=== PATIENT | male | born 1945 | race Caucasian/White ===

== ENCOUNTER 2018-06-19 12:52 | Emergency (ER) | payer MEDICARE, OTHER, SELFPAY ==
[2018-06-19 12:53] VITALS: BP 234/117; PULSE 77; RESP 18; TEMP 35.8; O2SAT 95; BMI 30.2
--- NOTE | 2018-06-19 12:57 | EKG12_ITS ---
Test Reason : CP Blood Pressure : / mmHG Vent. Rate : 080 BPM Atrial Rate : 080 BPM P-R Int : 136 ms QRS Dur : 092 ms QT Int : 386 ms P-R-T Axes : 054 -29 054 degrees QTc Int : 445 ms Normal sinus rhythm Possible Left atrial enlargement Left ventricular hypertrophy Nonspecific ST abnormality Abnormal ECG Confirmed by RAMBO WARD MD ([id number]), department editor SIMON KERNS ([id number]) on 06/22/2018 3:30:52 PM Referred By: ALON
--- NOTE | 2018-06-19 13:00 | RAD_ITS ---
STUDY: X-RAY CHEST REASON FOR EXAM: Male, 73 years old. Chest pain. TECHNIQUE: PA and lateral views of the chest. COMPARISON: None. FINDINGS: The lungs are clear and expanded. There is no demonstrated pleural abnormality. Normal size heart. There are calcified bilateral hilar lymph nodes. Normal visualized pulmonary arteries. There is atherosclerotic tortuosity of the aortic arch and descending thoracic aorta. There are degenerative changes of the visualized thoracic spine. Normal visualized ribs, clavicles, and shoulders. There is no demonstrated abnormality of the visualized soft tissue structures of the upper abdomen. RAD/Chest PA and Lateral IMPRESSION: No acute abnormality is seen. Electronically Signed: Mohit Frey MD at 13:18 EST Tel [phone], Service support ,
[2018-06-19 14:25] VITALS: BP 218/115; PULSE 77; RESP 23; O2SAT 96
[2018-06-19 14:41] LABS: Absolute Lymphocyte Count 1.53 X10^3/ul (0.83-4.51); Absolute Neutrophil Count 6.8 X10^3/uL (2.0-7.7); Basophil# 0.03 X10^3/uL; Basophil% 0.3 % (0-1); Eosinophil# 0.19 X10^3/uL; Eosinophils% 2.1 % (0-5); Hematocrit 46.6 % (40-54); Hemoglobin 14.7 g/dl (13.0-16.5); Lymphocyte # 1.53 X10^3/ul (4.0); Lymphocyte % 16.6 % (19-41); Mean Corp Hgb Conc 31.5 g/gl (32-36); Mean Corpuscular Hgb 28.8 pg (27.0-32.0); Mean Corpuscular Volume 91.4 fL (80-94); Mean Platelet Vol. 10.9 fl (6.2-12.0); Monocyte# 0.64 X10^3/uL; Monocyte% 6.9 % (0-10); Neutrophil # 6.83 X10^3/uL (2.7-7.7); Neutrophil % 74.1 % (47-70); Platelet Count 343 K/mm3 (150-450); RBC Distribution Width SD 46.8 fl (35.1-43.9); White Blood Count 9.2 K/mm3 (4.4-11.0)
[2018-06-19 14:42] LABS: POSITIVE COUNT NO; POSITIVE DIFFERENTIAL NO; POSITIVE MORPHOLOGY NO
[2018-06-19 14:52] LABS: Anion Gap 6 (5-15); BUN 16 mg/dL (7-18); Calcium,Total 8.8 mg/dL (8.5-10.1); Chloride 104 mmol/L (98-107); Creatinine, Serum 1.23 mg/dL (0.70-1.30); EST Glomerular Filtration Rate 62 mL/min (>60); Est Glom Filt Rate - Afr Amer 75 mL/min (>60); Estimated Creatinine Clearance 58.67 ml/min; Glucose 131 mg/dL (74-106); Potassium 4.1 mmol/L (3.5-5.1); Sodium Level 138 mmol/L (136-145)
[2018-06-19 15:29] VITALS: BP 225/110; PULSE 76; RESP 16; O2SAT 93
[2018-06-19] MEDS: Mag Hydrox/Al Hydrox/Simeth 30 ML UDC PO (15:53)
[2018-06-19 15:57] VITALS: BP 220/118; PULSE 75; RESP 158; O2SAT 94
[2018-06-19 17:01] VITALS: BP 204/106; PULSE 70; RESP 16; O2SAT 93
[2018-06-19] MEDS: Ketorolac 30 MG/ML Syringe IV (17:11)
--- NOTE | 2018-06-19 17:45 | ED.VISSUMM ---
- ER Visit Summary Date of Service: 06/19/18 Chief Complaint: Chest pain History of Present Illness: The patient is a 73 M who states that today around 11:00 he began to have pain in his back which he states is very similar to when his ribs go out. He states that when he arches his back makes the pain go away. He has had that problem before and has seen both chiropractor and his family physician for manipulation with good results. He also states he gets esophageal spasms and feels like he is having one now and that combined with his pain from his ribs is making this severe. He states he would normally come to the hospital but significant other has made him. He denies any prior stress test or heart catheterization. States his normal systolic blood pressures in the 150-180 range. Former smoker. Physical Examination: Patient is hypertensive 218/115 heart rate is 77 respirations are 23 pulse ox is 96% Gen: Well-nourished well-developed Head: Normocephalic atraumatic Eyes: Perrl EOMI ENT: TMs clear no rhinorrhea moist mucous membranes Neck: Supple no lymphadenopathy no JVD nontender CVS: Regular rate rhythm no murmurs normal S1-S2 Respiratory: No distress clear to auscultation bilaterally chest nontender Abdomen: Soft nontender nondistended normal bowel sounds no masses Back: Tender to palpation over the mid thoracic spinal musculature with hyperemic effect. Anterior associated ribs are tender. Extremity: Nontender no edema Skin: Normal color no rash Neuro: alert orientated ?3 CN II-XII intact normal strength sensation reflexes gait cerebellar Psych: Normal affect normal mood Test Results: EKG sinus at a rate of 80. Chest x-ray negative. First troponin less than 0.015. Delta troponin is positive. Emergency Department Course and Treatment: Patient underwent OMM HVLA with good temporary relief of symptoms. The patient stated that he wished to leave. I informed him that there is high likelihood he was having an acute vascular emergency such as ACS or dissection of the aorta or pulmonary embolism. He states that he wishes to go home he does not wish to stay here. He is not under the influence of any medications. He states he needs to go home and feed animals. While I disagree with this decision I believe he has the capacity to make that decision. He will be signing out AGAINST MEDICAL ADVICE SUSAN score 2 Impression: 1. Acute chest pain 2. N STEMI 3. Thoracic somatic dysfunction 4. Osteopathic manipulative treatment of thoracic spine 5. Critical care time 35 minutes This note was generated with [employer] dictation software. It may contain incorrect words, spelling, and punctuation that were not noted in review of the chart prior to signing ED Disposition - Plan for ED Patient: Disposition: Against Medical Advice Chief Complaint: Chest Pain Instructions: Discharge Instructions for Heart Attack Referrals: Ronni Jefferson DO [COURTESY STAFF PHYSICIAN] - As soon as possible Additional Instructions: You should start a full strength aspirin (325 mg) every day You need to call your doctor soon as possible to arrange for stress test You are at very high risk for sudden and heart attack. Please feel free to return to the emergency department for admission if you change your mind.
[2018-06-19 17:58] VITALS: BP 195/100; PULSE 72; RESP 16; O2SAT 95
== END 2018-06-19 18:03 | disposition left against medical advice (07) ==
PROVIDERS: Emergency Provider Emergency Medicine
DX: I21.4 Non-ST elevation (NSTEMI) myocardial infarction (principal); M99.02 Segmental and somatic dysfunction of thoracic region; R07.9 Chest pain, unspecified; I10 Essential (primary) hypertension; Z87.891 Personal history of nicotine dependence; Z79.82 Long term (current) use of aspirin; Z79.899 Other long term (current) drug therapy
CPT/HCPCS: 71046; 80048; 84484; 85025; 93005; 96374; 99285; A4216

== ENCOUNTER 2018-06-20 03:32 | Inpatient (IN) | payer MEDICARE, OTHER, SELFPAY ==
[2018-06-20] VITALS (66 sets, daily range): BP systolic 73–241; BP diastolic 46–125; PULSE 71–92; RESP 11–29; TEMP 36.4–38.4; O2SAT 91–100; BMI 30.2; BMI 30.9; BMI 31.0
--- NOTE | 2018-06-20 03:41 | ED.RN ---
CALLED FOR EKG PER RN REQUEST, PULLED OLD EKG FOR
--- NOTE | 2018-06-20 03:53 | EKG12_ITS ---
Test Reason : Blood Pressure : / mmHG Vent. Rate : 086 BPM Atrial Rate : 086 BPM P-R Int : 154 ms QRS Dur : 090 ms QT Int : 392 ms P-R-T Axes : 051 -40 044 degrees QTc Int : 469 ms Normal sinus rhythm Possible Left atrial enlargement Left axis deviation Left ventricular hypertrophy Abnormal ECG Confirmed by ED CABALLERO, RAMBO ([id number]), supervising editor trailer SIMON KERNS ([id number]) on 06/22/2018 3:30:35 PM Referred By: FABIOLA Confirmed By:RAMBO WARD MD
--- NOTE | 2018-06-20 03:53 | CT_ITS ---
STUDY: CTA CHEST REASON FOR EXAM: Male, 73 years old. Chest pain RADIATION DOSAGE (If Supplied By Facility): CTDIvol = ( 17.13 ) mGy, DLP = ( 625.35 ) mGycm TECHNIQUE: The examination was performed with the intravenous administration of 100 ml of Isovue 370 contrast material. Post-processing of the angiographic images was performed, with multiplanar reformation and 3D reconstruction. Individualized dose optimization techniques were used for this CT. COMPARISON: None. FINDINGS: Images obtained in the systemic arterial carotid and pulmonary arterial bolus phase with mild decrease of sensitivity for pulmonary arterial assessment. Normal enhancement of the main pulmonary artery and right and left pulmonary arteries. Normal enhancement of the bilateral peripheral pulmonary arteries. There is no demonstrated pulmonary embolism. There is atherosclerotic tortuosity of the aortic arch and descending thoracic aorta. There is a bovine arch as a vascular variant. There is no demonstrated aortic dissection. Normal heart and pericardium. There are calcifications of the coronary arteries. Normal mediastinum. Normal hilar regions. Normal visualized trachea and bronchi. The lungs are well expanded. Normal pulmonary parenchyma. Few scattered small calcified nodules probable granulomata. Normal pleura. Normal chest wall structures. Normal osseous structures. Indistinct gallbladder with indeterminate gallbladder wall, incompletely imaged, there is a 1 cm calculus in the gallbladder neck. CT/CTA Chest W/WO Contrast IMPRESSION: Normal CTA chest examination, without a demonstrated pulmonary embolism or arterial dissection. Indeterminate gallbladder, gallbladder inflammation is not excluded. Consider gallbladder ultrasound depending on patient's symptoms. Electronically Signed: Leeanne Carter MD at 5:33 EST , Service support ,
[2018-06-20] MEDS: Aspirin 81 MG TAB.CHEW 324 MG PO (04:01)
[2018-06-20] MEDS: Nitroglycerin Oint 1 INCH PACKET TRANSDERM. (04:01)
[2018-06-20 04:05] LABS: Absolute Lymphocyte Count 1.13 X10^3/ul (0.83-4.51); Absolute Neutrophil Count 14.2 X10^3/uL (2.0-7.7); Basophil# 0.03 X10^3/uL; Basophil% 0.2 % (0-1); Eosinophil# 0.02 X10^3/uL; Eosinophils% 0.1 % (0-5); Hematocrit 45.9 % (40-54); Hemoglobin 14.8 g/dl (13.0-16.5); Lymphocyte # 1.13 X10^3/ul (4.0); Lymphocyte % 6.7 % (19-41); Mean Corp Hgb Conc 32.2 g/gl (32-36); Mean Platelet Vol. 11.3 fl (6.2-12.0); Monocyte# 1.61 X10^3/uL; Monocyte% 9.5 % (0-10); Neutrophil # 14.15 X10^3/uL (2.7-7.7); Neutrophil % 83.3 % (47-70); Platelet Count 304 K/mm3 (150-450); RBC Distribution Width CV 13.7 % (11.6-14.6); RBC Distribution Width SD 45.3 fl (35.1-43.9)
[2018-06-20 04:06] LABS: Differential Indicated SCAN CRITERIA MET; POSITIVE COUNT NO; POSITIVE DIFFERENTIAL YES; POSITIVE MORPHOLOGY NO
[2018-06-20 04:18] LABS: Anion Gap 9 (5-15); BUN 17 mg/dL (7-18); BUN/Creat Ratio 13.8 RATIO (10-20); Chloride 101 mmol/L (98-107); Creatinine, Serum 1.23 mg/dL (0.70-1.30); EST Glomerular Filtration Rate 62 mL/min (>60); Est Glom Filt Rate - Afr Amer 75 mL/min (>60); Estimated Creatinine Clearance 58.67 ml/min; Glucose 160 mg/dL (74-106); Potassium 4.3 mmol/L (3.5-5.1); Sodium Level 138 mmol/L (136-145)
[2018-06-20 04:54] LABS: Anisocytosis RARE; Macrocytosis RARE; Platelet Estimate ADEQUATE (ADEQ)
--- NOTE | 2018-06-20 06:07 | ED.VISSUMM ---
- ER Visit Summary Date of Service: 06/20/18 Chief Complaint: Chest pain History of Present Illness: The patient is a 73 M presenting for evaluation secondary to chest pain. Patient was here actually yesterday for chest pain and signed out AGAINST MEDICAL ADVICE. Patient reports that at about 11 AM he had a sudden onset of chest pain that lasted about 7 hours. Dose was associated with pain that radiated straight through to his back. This seemed to get somewhat better with some osteopathic manipulation as far as the back pain goes, but the chest pain was persistent until the patient was medicated in the emergency department. 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 Patient states that his convinced him to come back to the emergency department. He has an underlying history of hypertension. Physical Examination: Vital signs are notable for blood pressure 179/89. Well-nourished male no acute distress. Moist mucous membranes. No JVD. Heart regular rate and rhythm 3 out of 6 systolic murmur of unknown chronicity. Lungs are clear to auscultation bilaterally. Abdomen soft nontender. Peripheral pulses are +2 x 4. Skin normal color. Remainder physical otherwise unremarkable. Test Results: EKG shows sinus rhythm of 86 with some left atrial enlargement, left ventricular hypertrophy, no evidence of acute ST segment changes or T wave changes, and no evolution from prior EKG. CBC shows leukocytosis now of 17, creatinine 1.23, troponin is elevated now to 0.132. Emergency Department Course and Treatment: Patient presented for evaluation secondary to chest pain. He did state that the pain initially was chest pain radiating straight through his back so I performed a CT angiogram of the chest that was negative for dissection. Patient's cardiac enzyme is upward trending. This likely is a presentation of a subacute heart attack versus acute coronary syndrome. He is chest pain-free in the emergency department but significantly hypertensive. An inch of Nitropaste was placed on the patient, he was given aspirin as well as labetalol. I discussed his case with Dr. Carlin. He recommended brilita, and the patient will be taken directly to the catheterization lab from the emergency department. Disposition: Telesales Supervisor Impression: 1. Acute coronary syndrome Critical care time 35 minutes This note was generated with [employer] software. It may contain incorrect words, spelling, and punctuation that were not noted in review of the chart prior to signing ED Disposition - Plan for ED Patient: Chief Complaint: Chest Pain Referrals: Ronni Jefferson DO [Primary Care Provider] -
[2018-06-20] MEDS: TICAGRELOR 90 MG TABLET 180 MG PO (06:09)
[2018-06-20] MEDS: diazePAM 5 MG Tablet PO (06:09)
--- NOTE | 2018-06-20 06:10 | ED.DCSUM_ITS ---
- ER Visit Summary Date of Service: 06/20/18 Chief Complaint: Chest pain History of Present Illness: The patient is a 73 M presenting for evaluation secondary to chest pain. Patient was here actually yesterday for chest pain and signed out AGAINST MEDICAL ADVICE. Patient reports that at about 11 AM he had a sudden onset of chest pain that lasted about 7 hours. Dose was associated with pain that radiated straight through to his back. This seemed to get somewhat better with some osteopathic manipulation as far as the back pain goes, but the chest pain was persistent until the patient was medicated in the emergency department. 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 Patient states that his convinced him to come back to the emergency department. He has an underlying history of hypertension. Physical Examination: Vital signs are notable for blood pressure 179/89. Well- nourished male no acute distress. Moist mucous membranes. No JVD. Heart regular rate and rhythm 3 out of 6 systolic murmur of unknown chronicity. Lungs are clear to auscultation bilaterally. Abdomen soft nontender. Peripheral pulses are +2 x 4. Skin normal color. Remainder physical otherwise unremarkable. Test Results: EKG shows sinus rhythm of 86 with some left atrial enlargement, left ventricular hypertrophy, no evidence of acute ST segment changes or T wave changes, and no evolution from prior EKG. CBC shows leukocytosis now of 17, creatinine 1.23, troponin is elevated now to 0.132. Emergency Department Course and Treatment: Patient presented for evaluation secondary to chest pain. He did state that the pain initially was chest pain radiating straight through his back so I performed a CT angiogram of the chest that was negative for dissection. Patient's cardiac enzyme is upward trending. This likely is a presentation of a subacute heart attack versus acute coronary syndrome. He is chest pain-free in the emergency department but significantly hypertensive. An inch of Nitropaste was placed on the patient, he was given aspirin as well as labetalol. I discussed his case with Dr. Carlin. He recommended brilita, and the patient will be taken directly to the cathete rization lab from the emergency department. Disposition: Turning Lathe Tender Impression: 1. Acute coronary syndrome Critical care time 35 minutes This note was generated with [employer] dictation software. It may contain incorrect words, spelling, and punctuation that were not noted in review of the chart prior to signing ED Disposition - Plan for ED Patient: Chief Complaint: Chest Pain Referrals: Ronni Jefferson DO [Primary Care Provider] -
[2018-06-20] MEDS: Labetalol 20 MG/4 ML Vial 10 MG IV (06:13)
[2018-06-20] MEDS: 0.9% Normal Saline 1,000 ML 999 ML IV (06:16)
--- NOTE | 2018-06-20 06:43 | EKG12_ITS ---
Test Reason : POST-PCI Blood Pressure : / mmHG Vent. Rate : 087 BPM Atrial Rate : 087 BPM P-R Int : 142 ms QRS Dur : 090 ms QT Int : 408 ms P-R-T Axes : 047 -35 -05 degrees QTc Int : 490 ms Normal sinus rhythm Left axis deviation Left ventricular hypertrophy Nonspecific ST abnormality Prolonged QT Abnormal ECG Confirmed by ED CABALLERO, RAMBO ([id number]), electronic news gathering editor SIMON KERNS ([id number]) on 06/23/2018 8:40:57 AM Referred By: ED Confirmed By:RAMBO WARD MD
--- NOTE | 2018-06-20 06:47 | PCM.CONS.C ---
Reason for Consult Date of Consultation: 06/20/18 Reason for Consultation: Chest pain History of Present Illness: The patient is a 73 year old M with no previous cardiac history but a history of hypertension who presented to the emergency room yesterday because of chest discomfort described as a tightness across his chest. It was associated with mild diaphoresis but no nausea or vomiting or palpitations. He was seen in the emergency room his cardiac troponin enzymes were noted to be mildly abnormal. He however wanted to go home to feed his cats, squirrels and deer. He went and did that to his satisfaction and then this morning presented back to the emergency room further cardiac enzymes were obtained and was still noted to be abnormal. His EKG however was noted to be normal his blood pressure was elevated. Cardiology was called to further evaluate him. [] Past Medical History Allergies/Adverse Reactions: Allergies No Known Allergies Allergy (Verified 06/20/18 03:37) Home Medications: Ambulatory Orders Medication Instructions Recorded Pindolol [Pindolol (Beta Marlene)] 5 mg PO BID 03/18/16 Amlodipine [Norvasc] 5 mg PO DAILY 06/19/18 Aspirin [Aspirin, Baby] 81 mg PO QODAY 06/19/18 Diazepam [Valium] 5 mg PO PRN PRN 06/19/18 Surgical History: no surgical history Lives: Spouse/ Significant Other Smoking Status: Former smoker Tobacco Use: Non-smoker Alcohol: None Drugs: None Review of Systems - Review of Systems General: Denies: Fever, Night Sweats, Fatigue HEENT: Denies: Vision Change Cardiovascular: Reports: Chest Discomfort, Chest Discomfort at Rest. Denies: Shortness of Breath, Orthopnea, PND, Peripheral Edema, Palpitations, Lightheadedness, Dizziness, Near Syncope, Syncope Respiratory: Denies: Cough, Sputum Production, Hemoptysis Gastrointestinal: Denies: Indigestion, Hematemesis, Hematochezia, Melena Genitourinary: Denies: Dysuria, Hematuria Muscoloskeletal: Denies: Myalgias Skin: Denies: Rash Neurological: Denies: Dizziness Psychiatric: Denies: Anxiety Endocrine: Denies: Unexplained Weight Loss Hematologic/ Lymphatic: Denies: Anemia Subjectve: Pleasant gentleman in no apparent distress Objective: Vital Signs Temp Pulse Resp BP Pulse Ox 100.1 F H 91 16 152/89 H 94 06/20/18 03:33 06/20/18 06:18 06/20/18 06:18 06/20/18 06:18 06/20/18 06:18 Oxygen Delivery Method Room Air Weight: 216 lb 7.903 oz Body Mass Index (BMI) 30.2 General: Awake, Alert, Oriented x 3 HEENT: PERRL, EOMI, Sclera Non Icteric Neck: Supple, Good ROM, No Lymph Node Enlargement Lungs: Clear to auscultation Cardiovascular: Regular Rhythm, Normal S1, Normal S2, No Murmurs, No Rubs, No Gallops Vascular: No Carotid Bruits, Normal Femoral Pulses, Normal Radial Pulses, Normal Dorsalis Pedal Pulse, Normal Posterior Tibial Pulses Abdomen: Bowel Sounds Present, Soft, Non Tender, No HSM, No Organomegaly Extremities: No Cyanosis, No Clubbing, No edema Skin: No Rashes Lymphatic: No Lymph Node Enlargement Neurological: No Focal Motor or Sensory Deficit Psych/Mental Status: Appropriate 06/20/18 03:37: WBC 17.0 H, RBC 5.10, Hgb 14.8, Hct 45.9, MCV 90.0, MCH 29.0, MCHC 32.2, RDW 13.7, RDW Differential 45.3 H, Plt Count 304, MPV 11.3, Immature Gran % (Auto) 0.200, Neut % (Auto) 83.3 H, Lymph % (Auto) 6.7 L, [place] % (Auto) 9.5, Eos % (Auto) 0.1, Baso % (Auto) 0.2, Absolute Neuts (auto) 14.2 H, Total Counted Not Reportable 06/20/18 03:37: Sodium 138, Potassium 4.3, Chloride 101, Carbon Dioxide 28.0, Anion Gap 9, BUN 17, Creatinine 1.23, Est GFR (MDRD) Af Amer 75, Est GFR (MDRD) Non-Af 62, BUN/Creatinine Ratio 13.8, Glucose 160 H, Calcium 9.0, Troponin I 0.132 H Rhythm: EKG: Normal sinus rhythm with a rate of 71 bpm and no acute changes Assessment/Plan 1. Chest pain-unstable angina Patient presents with recent onset chest discomfort with no EKG changes but abnormal cardiac troponin enzymes. He does have a history of hypertension and previous hyperlipidemia which is diet controlled. My recommendation at this time would be for us to pursue an invasive approach with a cardiac catheterization to assess for whether he has any obstructive coronary disease. Have discussed the above with him the risk benefits alternatives and he agrees with the above. Depending on the findings further recommendations will be made. 2. Hypertension His blood pressure is uncontrolled at this time. Would recommend continuing amlodipine Discontinue pindolol and substitute metoprolol 25 mg twice a day May need to add an SHAVON inhibitor. Lipid profile will be performed for risk stratification. Thank you for allowing me to participate in the care of your patient. Please don't hesitate to call if any issues arise Addendum. Cardiac catheterization demonstrated the following: Normal left main coronary artery. Left anterior descending artery with mild disease. Left circumflex artery with AV groove branch with 80% stenosis. Dominant large right coronary artery with 80% proximal stenosis. Preserved ejection fraction. Based on the above angiographic findings I would recommend angioplasty and stenting to the right coronary artery primarily.
--- NOTE | 2018-06-20 06:52 | CON.PCM_ITS ---
Reason for Consult Date of Consultation: 06/20/18 Reason for Consultation: Chest pain History of Present Illness: The patient is a 73 year old M with no previous cardiac history but a history of hypertension who presented to the emergency room yesterday because of chest discomfort described as a tightness across his chest. It was associated with mild diaphoresis but no nausea or vomiting or palpitations. He was seen in the emergency room his cardiac troponin enzymes were noted to be mildly abnormal. He however wanted to go home to feed his cats, squirrels and deer. He went and did that to his satisfaction and then this morning presented back to the emergency room further cardiac enzymes were obtained and was still noted to be abnormal. His EKG however was noted to be normal his blood pressure was elevated. Cardiology was called to further evaluate him. [] Past Medical History Allergies/Adverse Reactions: Allergies No Known Allergies Allergy (Verified 06/20/18 03:37) Home Medications: Ambulatory Orders Medication Instructions Recorded Pindolol [Pindolol (Beta Marlene)] 5 mg PO BID 03/18/16 Amlodipine [Norvasc] 5 mg PO DAILY 06/19/18 Aspirin [Aspirin, Baby] 81 mg PO QODAY 06/19/18 Diazepam [Valium] 5 mg PO PRN PRN 06/19/18 Surgical History: no surgical history Lives: Spouse/ Significant Other Smoking Status: Former smoker Tobacco Use: Non-smoker Alcohol: None Drugs: None Review of Systems - Review of Systems General: Denies: Fever, Night Sweats, Fatigue HEENT: Denies: Vision Change Cardiovascular: Reports: Chest Discomfort, Chest Discomfort at Rest. Denies: Shortness of Breath, Orthopnea, PND, Peripheral Edema, Palpitations, Lightheadedness, Dizziness, Near Syncope, Syncope Respiratory: Denies: Cough, Sputum Production, Hemoptysis Gastrointestinal: Denies: Indigestion, Hematemesis, Hematochezia, Melena Genitourinary: Denies: Dysuria, Hematuria Muscoloskeletal: Denies: Myalgias Skin: Denies: Rash Neurological: Denies: Dizziness Psychiatric: Denies: Anxiety Endocrine: Denies: Unexplained Weight Loss Hematologic/ Lymphatic: Denies: Anemia Subjectve: Pleasant gentleman in no apparent distress Objective: Vital Signs Temp Pulse Resp BP Pulse Ox 100.1 F H 91 16 152/89 H 94 06/20/18 03:33 06/20/18 06:18 06/20/18 06:18 06/20/18 06:18 06/20/18 06:18 Oxygen Delivery Method Room Air Weight: 216 lb 7.903 oz Body Mass Index (BMI) 30.2 General: Awake, Alert, Oriented x 3 HEENT: PERRL, EOMI, Sclera Non Icteric Neck: Supple, Good ROM, No Lymph Node Enlargement Lungs: Clear to auscultation Cardiovascular: Regular Rhythm, Normal S1, Normal S2, No Murmurs, No Rubs, No Gallops Vascular: No Carotid Bruits, Normal Femoral Pulses, Normal Radial Pulses, Normal Dorsalis Pedal Pulse, Normal Posterior Tibial Pulses Abdomen: Bowel Sounds Present, Soft, Non Tender, No HSM, No Organomegaly Extremities: No Cyanosis, No Clubbing, No edema Skin: No Rashes Lymphatic: No Lymph Node Enlargement Neurological: No Focal Motor or Sensory Deficit Psych/Mental Status: Appropriate 06/20/18 03:37: WBC 17.0 H, RBC 5.10, Hgb 14.8, Hct 45.9, MCV 90.0, MCH 29.0, MCHC 32.2, RDW 13.7, RDW Differential 45.3 H, Plt Count 304, MPV 11.3, Immature Gran % (Auto) 0.200, Neut % (Auto) 83.3 H, Lymph % (Auto) 6.7 L, [place] % (Auto) 9.5, Eos % (Auto) 0.1, Baso % (Auto) 0.2, Absolute Neuts (auto) 14.2 H, Total Counted Not Reportable 06/20/18 03:37: Sodium 138, Potassium 4.3, Chloride 101, Carbon Dioxide 28.0, Anion Gap 9, BUN 17, Creatinine 1.23, Est GFR (MDRD) Af Amer 75, Est GFR (MDRD) Non-Af 62, BUN/Creatinine Ratio 13.8, Glucose 160 H, Calcium 9.0, Troponin I 0.132 H Rhythm: EKG: Normal sinus rhythm with a rate of 71 bpm and no acute changes Assessment/Plan 1. Chest pain-unstable angina * Patient presents with recent onset chest discomfort with no EKG changes but abnormal cardiac troponin enzymes. He does have a history of hypertension and previous hyperlipidemia which is diet controlled. My recommendation at this time would be for us to pursue an invasive approach with a cardiac catheterization to assess for whether he has any obstructive coronary disease. * Have discussed the above with him the risk benefits alternatives and he agrees with the above. Depending on the findings further recommendations will be made. * 2. Hypertension * His blood pressure is uncontrolled at this time. * Would recommend continuing amlodipine * Discontinue pindolol and substitute metoprolol 25 mg twice a day * May need to add an SHAVON inhibitor. * Lipid profile will be performed for risk stratification. Thank you for allowing me to participate in the care of your patient. Please don't hesitate to call if any issues arise Addendum. Cardiac catheterization demonstrated the following: Normal left main coronary artery. Left anterior descending artery with mild disease. Left circumflex artery with AV groove branch with 80% stenosis. Dominant large right coronary artery with 80% proximal stenosis. Preserved ejection fraction. Based on the above angiographic findings I would recommend angioplasty and stenting to the right coronary artery primarily.
[2018-06-20] MEDS: LORazepam 2 MG/ML Syringe 1 MG IV (07:14)
--- NOTE | 2018-06-20 08:26 | CL.D_ITS ---
Patient Name: ADAM PRITCHARD Study Date: 06/20/2018 Performing: Gibson Carlin MD Ht: 70.86 inches 180 cm : 1945 Wt: 216.05 lbs 98 kg Age: 73 Gender: male BSA: 2.18 PROCEDURE(S) PERFORMED TN84-NDK/COR/LV TO04-CRP W OR WO PTCA, SINGLE CORONARY ARTERY [id number] W OR WO PTCA, SINGLE CORONARY ARTERY CLINICAL PROFILE AND INDICATIONS Indications: ACS <= 24 hrs Heart Failure: None Stress/Imaging Stress/Image Study Performed: No CAD Presentations: Unstable angina. CONCLUSIONS Severe disease noted of the proximal right coronary artery and moderately severe disease noted of the mid left circumflex artery and a nondominant vessel. RECOMMENDATIONS Referred for immediate PCI DESCRIPTION OF PROCEDURE The patient arrived to the procedure lab. The risks and benefits of the procedure as well as a full d escription of our services here and current unavailability of surgical backup were fully explained to the patient and/or their significant other prior to the catheterization. The Timeout was completed, verifying the correct patient and procedure. The patient's procedural site was prepped and draped in the usual fashion. Local anesthetic was given subcutaneously to right groin region with Lidocaine 2%. Using a modified Seldinger technique, arterial access was obtained via the right femoral artery, a 5 Fr sheath was inserted. Left Coronary Artery selective angiography was performed in multiple views u sing a 5 Fr. JL4 catheter. Right Coronary Artery selective angiography was then performed in multiple views using a 5 Fr. 3DRC (Hussein) catheter. Left Ventriculography was performed in BELTRAN projection using a 5 Fr. Pigtail catheter. LV to AO pullback pressures were then recorded. CORONARY ANGIOGRAPHY DOMINANCE: Right Dominant LEFT HEART ASSESSMENT Left Ventricular Ejection Fraction: by LV Gram 60 % Normal LV wall motion Normal Left Ventricular systolic function LEFT MAIN: Angiographically normal LEFT ANTERIOR DECENDING ARTERY: Mild luminal irregularities CIRCUMFLEX ARTERY: MID CIRC: 70 % Stenosis OM 1: Proximal - Mild luminal irregularities RIGHT CORONARY ARTERY: PROX RCA: 85 long tortuous % Stenosis COMPLICATIONS PROCEDURE MEDICATIONS Versed 1 mg IV Versed 1 mg IV Versed 1 mg IV Oxygen: 2 L/min via nasal cannula Nitro Paste 1 in Removed 06/20/2018 08:14:25 Nitro glycerin 25mg / 250ml D5W @ 5 mcg/min IV started 06/20/2018 08:14:42 SUMMARY OF HEMODYNAMIC DATA Time AIR REST ECG 07:42:29 AO 180/97 (132) SA 07:59:27 LV 193/-3, 40 08:07:46 LV 193/0, 44 08:07:52 LVp 187/0, 42 08:07:56 AOp 184/84 (125) 08:08:01 Signed By Gibson Carlin MD On 06/20/2018 08:25:59 Gibson Carlin MD
--- NOTE | 2018-06-20 09:22 | CL.I_ITS ---
Patient Name: ADAM PRITCHARD Study Date: 06/20/2018 Performing: Jacques Davis MD Ht: 70.86 inches 180 cm : 1945 Wt: 216.05 lbs 98 kg Age: 73 Gender: male BSA: 2.18 PROCEDURE(S) PERFORMED [id number] W OR WO PTCA, SINGLE CORONARY ARTERY [id number] W OR WO PTCA, SINGLE CORONARY ARTERY CLINICAL PROFILE AND CO-MORBIDITIES Patient presents with NSTEMI for urgent cardiac cath Indications: ACS <= 24 hrs, ACS <= 24 hrs, Worsening Angina, Suspected CAD Heart Failure: None Stress/Imaging Stress/Image Study Performed: No Stress/Image Study Performed: No Angina Classification Anginal Classification w/in 2 Weeks: CCS III CAD Presentations: Unstable angina. Non-STEMI. Symptom onset Date/Time: 06/19/2018 Time Not Avail able Comorbidities/Risk Factors: Hypertension Dyslipidemia CONCLUSIONS Successful PTCA/GAVIN proximal RCA with a 3.5 x 28 Promus Synergy, post dilated with a 3.5 x 12 NC Ball oon at 16 thi; 75%-->0%, no dissection. RECOMMENDATIONS Highly recommend quitting all tobacco products Follow up with primary academic intern Risk factor modification ASA Indefinitley Brilinta for at least 12 months Routine post interventional care Refer for Outpatient Cardiac Rehab Manual sheath removal per protocol Elective PCI of mid LCX with long 55 cm sheath in 3 weeks. Successful Mynx closure after double sterile technique. DESCRIPTION OF PROCEDURE The patient arrived to the procedure lab. The risks and benefits of the procedure as well as a full d escription of our services here and current unavailability of surgical backup were fully explained to the patient and/or their significant other prior to the catheterization. The Timeout was completed, verifying the correct patient and procedure. The patient's procedural site was prepped and draped in the usual fashion. Local anesthetic was given subcutaneously to right groin region with Lidocaine 2% Using a modified Seldinger technique,arterial access was obtained via the right femoral artery, a 5Fr sheath was inserted. Left Coronary Artery selective angiography was performed in multiple views usin g a 5 Fr. JL4 catheter. Right Coronary Artery selective angiography was then performed in multiple vi ews using a 5 Fr. 3DRC (Hussein) catheter. Left Ventriculography was performed in BELTRAN projection usi ng a 5 Fr. Pigtail catheter. LV to AO pullback pressures were then recorded.The images were reviewed and options discussed. A decision was then made to proceed with an Intervention, IVUS o r other adjunct procedure. Arterial sheath was exchanged for a 6 Fr x 55cm Sheath. HS II Guide catheter was inserted and eng aged into the RCA. BMW Guide wire was advanced to the RCA. 2.0 x 12 Emerge Balloon catheter was inser hallie. Balloon catheter was advanced across lesion in the right coronary, proximal. PTCA balloon inflat ed at 8 atms for 10 secs. PTCA balloon inflated at 10 atms for 13 secs. PTCA balloon inflated at 8 at ms for 8 secs. Angiogram performed post balloon dilatation. 3.5 x 28 Drug Eluting stent was inserted. Drug Eluting stent was advanced across the lesion in the right coronary, proximal. Angiogram perform ed pre stent deployment. Angiogram performed post stent deployment. 3.5 x 12 NC Emerge Balloon cathet er was inserted. Balloon catheter was inserted post stent. Angiogram performed post balloon dilatatio n. Contrast was injected through the sheath and the Right Iliac and Femoral artery were assessed for possible closure device. The arterial sheath was pulled and a Mynx closure device was deployed for hemostasis INTERVENTION INFORMATION LESION SITE: RCA (Proximal) Lesion Complexity: High/C, lesion at bifurcation: No, thrombus present: No, lesion length: 28 mm, cul prit lesion: Yes Pre Stenosis: 75 % Pre intervention SUSAN flow: 3 PROCEDURE: Drug Eluting Stent with pre and post dilatation Post Stenosis: 0 % Post intervention SUSAN flow: 3 Lesion Devices: Medtronic 6 Fr HSII 100cm Guide Catheter Kramer .014 BMW [place] Straight 190cm Dre Sci EMERGE MR 2.00x12 BALLOON Dre Sci Synergy MR GAVIN 3.50x28 Dre Sci NC EMERGE MR 3.50x12 BALLOON COMPLICATIONS No Complications PROCEDURE MEDICATIONS Versed 1 mg IV Versed 1 mg IV Versed 1 mg IV Versed 1 mg IV Oxygen: 2 L/min via nasal cannula Heparin 6000 unit(s) IV 06/20/2018 08:36:05 Nitro Paste 1 in Removed 06/20/2018 08:14:25 Nitro glycerin 25mg / 250ml D5W @ 5 mcg/min IV started 06/20/2018 08:14:42 Nitro 200 mcg IC 06/20/2018 08:38:44 Nitro 200 mcg IC 06/20/2018 08:44:51 Nitro 200 mcg IC 06/20/2018 08:56:06 Nitro glycerin 25mg / 250ml D5W @ 10 mcg/min (increased rate) 06/20/2018 08:56:25 IV Fluids: .9 NaCl increased to WO ml/hr 06/20/2018 08:39:15 SUMMARY OF HEMODYNAMIC DATA Time AIR REST ECG 07:42:29 AO 180/97 (132) SA 07:59:27 LV 193/-3, 40 08:07:46 LV 193/0, 44 08:07:52 LVp 187/0, 42 08:07:56 AOp 184/84 (125) 08:08:01 RM AIR REST 08:26:15 Signed By Jacques Davis MD On 06/20/2018 09:21:17 Jacques Davis MD
[2018-06-20] MEDS: Metoprolol Tartrate 25 MG Tablet PO (09:53)
[2018-06-20] MEDS: Losartan Potassium 25 MG Tablet PO (09:55)
[2018-06-20 10:21] LABS: ACT Activated Clotting Time 180 sec (74-137)
[2018-06-20 10:21] LABS: Bedside Glucose 157 mg/dL (70-110)
--- NOTE | 2018-06-20 10:22 | CT_ITS ---
STUDY: CT BRAIN WITHOUT CONTRAST REASON FOR EXAM: Male, 73 years old. Dysarthria and aphasia. Left facial droop. Recent cardiac catheterization with stent placement. RADIATION DOSAGE (If Supplied By Facility): CTDIvol = ( 44.99 ) mGy, DLP = ( 846.73 ) mGycm TECHNIQUE: Transaxial CT imaging of the brain was performed without administration of intravenous contrast material. Individualized dose optimization techniques were used for this CT. COMPARISON: None. FINDINGS: Normal soft tissue structures. Normal calvarium. There is mild cerebral atrophy with widening of the extra-axial spaces and ventricular dilatation. Normal white matter tracts of the cerebral hemispheres. Normal basal ganglia and thalami. Normal brainstem. Normal cerebellum. There is no intracranial hemorrhage. There are no findings of an acute ischemic infarction. Atherosclerotic calcification of the cavernous portions of the internal carotid arteries bilaterally Mucosal thickening of the ethmoid sinuses. CT/Brain/Head without Contrast IMPRESSION: Chronic involutional changes of the brain. N.B. : The above information has been verbally conveyed by Mohit Frey MD to Jacques Davis on 06/20/2018 10:33:31 (ET). Electronically Signed: Mohit Frey MD at 10:35 EST Tel [phone], Service support ,
[2018-06-20 10:49] LABS: Pathologist Review Reviewed
--- NOTE | 2018-06-20 10:49 | PCM.CONS.GEN ---
Reason for Consult Date of Consultation: 06/20/18 Reason for Consultation: stroke team History of Present Illness: The patient is a 73 year old M who is s/p heart cath/pci this morning, after cath was normal, nursing noted at 1012am onset of aphasia and left facial droop. stroke team was called, CT performed which was unremarkeable. i examined the patient, his exam returned to normal at about 11am, at 1105am i again noted onset of aphasia with very mild left arm discoord. is at bedside, options discussed. no history of bleeding. only bleeding risk is right groin puncture site. Past Medical History Past Medical History (Chronic Problems): Chronic Problems (Last Reviewed 06/20/18 @ 11:10 by Jassi Joseph MD) Essential (primary) hypertension (Chronic) Medical History: Medical History (Last Reviewed 06/20/18 @ 11:10 by Jassi Joseph MD) Essential (primary) hypertension (Chronic) I10 Atherosclerotic heart disease [place] coronary artery w/angina pectoris (Acute) I25.119 [id number] RCA w/ 3.5 x 28 mm Promus Synergy Stent 06/20/18 Obesity E66.9 Allergies No Known Allergies Allergy (Verified 06/20/18 03:37) Home Medications: Ambulatory Orders Medication Instructions Recorded Pindolol [Pindolol (Beta Marlene)] 5 mg PO BID 03/18/16 Amlodipine [Norvasc] 5 mg PO DAILY 06/19/18 Aspirin [Aspirin, Baby] 81 mg PO QODAY 06/19/18 Diazepam [Valium] 5 mg PO PRN PRN 06/19/18 Surgical History: Surgical History (Last Reviewed 06/20/18 @ 11:10 by Jassi Joseph MD) History of coronary artery stent placement (Acute) Onset Date: 06/20/18 Z95.5 [id number] RCA w/ 3.5 x 28 mm Promus Synergy Stent 06/20/18 History of left heart catheterization Onset Date: ~06/20/18 Z98.890 Surgical History: no surgical history Lives: Spouse/ Significant Other Smoking Status: Former smoker Tobacco Use: Non-smoker Alcohol: None Drugs: None Review of Systems Constitutional: Denies: Chills, Fever, Weight Change HEENT: Denies: Head Aches, Sinus Congestion, Sinus Drainage Cardiovascular: Denies: Chest Pain, Palpitations Respiratory: Denies: Cough, Shortness of breath at rest, Sputum production Gastrointestinal: Denies: Abdominal Pain, Nausea, Vomiting Genitourinary: Denies: Dysuria Musculoskeletal: Denies: Joint Pain, Joint Tenderness Skin: Denies: Rash, Wounds Neurological: Reports: Change in Speech. Denies: Focal weakness, Numbness, Tingling Psychiatric: Denies: Anxiety, Depression, Homicidal Ideations, Suicidal Ideations Hematologic/ Lymphatic: Denies: Easy Bruising, Easy Bleeding Objective: exam at times normal except for mild expressive aphasia which waxes and wanes and at times is severe with significant anomia. persistent mild left discoord left groin pressure dressing in place - Physical Exam Vital Signs Temp Pulse Resp BP Pulse Ox 37.6 C H 90 25 H 196/78 H 96 06/20/18 09:30 06/20/18 10:14 06/20/18 10:14 06/20/18 10:14 06/20/18 10:14 Oxygen Delivery Method Room Air Weight: 100.7 kg Body Mass Index (BMI) 30.9 Laboratory Tests Past 24 Hrs 06/20/18 06/20/18 06/20/18 03:37 03:37 10:00 WBC 17.0 H RBC 5.10 Hgb 14.8 Hct 45.9 MCV 90.0 MCH 29.0 MCHC 32.2 RDW 13.7 RDW Differential 45.3 H Plt Count 304 MPV 11.3 Immature Gran % (Auto) 0.200 Neut % (Auto) 83.3 H Lymph % (Auto) 6.7 L [place] % (Auto) 9.5 Eos % (Auto) 0.1 Baso % (Auto) 0.2 Absolute Neuts (auto) 14.2 H Absolute Lymphs (auto) 1.13 Total Counted Not Reportable Differential Comment SEE COMMENT Diff Path Review May foll Platelet Estimate ADEQUATE Anisocytosis RARE Macrocytosis RARE Activated Clotting Time 180 H Sodium 138 Potassium 4.3 Chloride 101 Carbon Dioxide 28.0 Anion Gap 9 BUN 17 Creatinine 1.23 Estim Creat Clear Calc 58.67 Est GFR (MDRD) Af Amer 75 Est GFR (MDRD) Non-Af 62 BUN/Creatinine Ratio 13.8 Glucose 160 H Calcium 9.0 Troponin I 0.132 H POC Glucose 06/20/18 10:16 POC Glucose 157 H Current Home Med List Medication Instructions Recorded Confirmed Type Pindolol [Pindolol (Beta Marlene)] 5 mg PO BID 03/18/16 06/20/18 History Amlodipine [Norvasc] 5 mg PO DAILY 06/19/18 06/20/18 History Aspirin [Aspirin, Baby] 81 mg PO QODAY 06/19/18 06/20/18 History Diazepam [Valium] 5 mg PO PRN PRN 06/19/18 06/20/18 History Current Medications Generic Name Dose Route Start Last Admin Trade Name Freq PRN Reason Stop Dose Admin Aspirin 81 mg 06/20/18 08:00 Ecotrin PO DAILY@0800 [facility] Atorvastatin Calcium 40 mg 06/20/18 22:00 Lipitor PO QHS SEAN Atropine Sulfate 0.5 mg 06/20/18 09:31 IV UD PRN HR <50 bpm Heparin Sodium (Beef Lung) 500 unit 06/20/18 09:31 Heparin 500 Unit/5 Ml (100/Ml) IV UD PRN HEPARIN FLUSH Sodium Chloride 1,000 mls @ 15 mls/hr 06/20/18 06:45 06/20/18 09:49 IV Not Given .Q48H SEAN KVO Sodium Chloride 1,000 mls @ 150 mls/hr 06/20/18 09:31 IV 06/20/18 16:10 .Q6H40M SEAN Labetalol HCl 5 mg 06/20/18 09:31 Trandate IV X1 PRN SBP > 160 when pulling sheath Losartan Potassium 25 mg 06/20/18 10:00 06/20/18 09:55 Cozaar PO 25 mg DAILY SEAN Administration Magnesium Hydroxide 30 ml 06/20/18 06:42 Milk Of Magnesia PO DAILY PRN Constipation Metoprolol Tartrate 25 mg 06/20/18 10:00 06/20/18 09:53 Lopressor (Beta Marlene) PO 25 mg BID SEAN Administration Sodium Chloride 5 - 30 ml 06/20/18 08:30 IV UD PRN SALINE FLUSH Sodium Chloride 500 ml 06/20/18 09:31 IV BOLUS PRN VASO-VAGAL PROTOCOL Ticagrelor 90 mg 06/20/18 22:00 Brilinta PO BID SEAN ct reviewed, no acute Assessment/Plan All Active Problems (Last Reviewed 06/20/18 @ 11:10 by Jassi Joseph MD) History of coronary artery stent placement (Acute 06/20/18) Atherosclerotic heart disease [place] coronary artery w/angina pectoris (Acute) stuttering mca distribution infarct s/p heart cath, risks/benefits tpa discussed with and patient, agree to proceed. also discussed with cardiology who recommend additional groin site precautions called pharmacy for tpa remain in icu bleeding precautions labetolol for systolic pressures greater than 185 need imaging of intracranial vasculature, cta when able given recent dye load from cath
--- NOTE | 2018-06-20 10:57 | MRI_ITS ---
STUDY: MRI BRAIN WITH AND WITHOUT CONTRAST REASON FOR EXAM: Male, 73 years old. CVA status post TPA TECHNIQUE: Standardized multiplanar fat and water weighted pulse sequences were obtained. 10 ml of Gadavist contrast material was administered intravenously for the contrast portion of the examination. COMPARISON: CT brain June 20, 2018 FINDINGS: There is mild cerebral atrophy with widening of the extra-axial spaces and ventricular dilatation. There are a limited number of small white matter hyperintensities, distributed throughout the deep white matter tracts of the cerebral hemispheres, consistent with mild chronic white matter ischemic changes. Subtle Punctate foci of restricted diffusion left putamen, right cerebellar vermis, and right precentral gyrus near the vertex. Bilateral lacunar infarcts in the basal ganglia. Normal thalami. There is no extra-axial fluid accumulation. Normal flow voids within the major intracranial circulation suggesting patency by spin echo criteria. Normal venous enhancement. There is no enhancing intra-axial or extra-axial abnormality. Normal sella turcica, pituitary gland, infundibular stalk, optic chiasm and hypothalamus. Normal tectal plate and pineal gland. Normal midbrain, vick and medulla. Normal cerebellum. Normal basal cisterns. Normal bilateral temporal bones. Normal bilateral internal auditory canals. No demonstrated orbital abnormality, within the constraints of a routine brain study. Normal visualized paranasal sinuses. Normal calvarium and skull base. Normal visualized soft tissue structures. Normal visualized upper cervical spine. MRI/Brain W/WO Contrast IMPRESSION: Probable bilateral punctate subacute embolic infarctions. N.B. : The above information has been verbally conveyed by Nando Velazco MD to VINCENZO Carver, on 06/20/2018 22:25:02 (ET). Electronically Signed: Nando Velazco MD at 21:45 EST , Service support ,
--- NOTE | 2018-06-20 11:00 | MRI_ITS ---
STUDY: MRA OF THE HEAD WITHOUT CONTRAST REASON FOR EXAM: Male, 73 years old. CVA status post TPA TECHNIQUE: 3-D [id number] (TOF) imaging was performed with MIPs. The study was performed unenhanced. COMPARISON: CT brain June 20, 2018 FINDINGS: Normal bilateral petrous carotid arteries. Normal right cavernous carotid artery with a normal supraclinoid bifurcation. Normal left cavernous carotid artery with a normal supraclinoid bifurcation. Normal right A1 segments of the anterior cerebral artery. Normal left A1 segments of the anterior cerebral artery. Normal intact anterior communicating artery (ACOM). Normal bilateral A2 segments of the anterior cerebral arteries. Normal right M1 and M2 segments of the middle cerebral arteries, with a normal M1 bifurcation. Normal left M1 and M2 segments of the middle cerebral arteries, with a normal M1 bifurcation. Normal right posterior communicating artery (PCOM). Normal left posterior communicating artery (PCOM). Normal bilateral vertebral arteries. Normal basilar artery with a normal basilar bifurcation. The visualized bilateral superior cerebellar (SCA) arteries are normal. Normal bilateral P1, P2 and visualized P3 segments of the posterior cerebral arteries. There is no demonstrated aneurysm of the [place] of [place]. There is no major vessel occlusion or hemodynamically significant stenosis. There is no demonstrated abnormality of the visualized brain. MRI/MRA Head ONLY without Contrast IMPRESSION: Normal MRA of the head Electronically Signed: Nando Velazco MD at 22:14 EST , Service support ,
--- NOTE | 2018-06-20 11:00 | MRI_ITS ---
STUDY: MRA NECK WITH AND WITHOUT CONTRAST REASON FOR EXAM: Male, 73 years old. CVA status post TPA TECHNIQUE: 3-D zvsd-pa-jthlap (TOF) imaging was performed in an 1.5 T MRI scanner. 10 ml of Gadavist was administered for the contrast enhanced images. COMPARISON: None. FINDINGS: RIGHT CAROTID ARTERIES: Normal right common carotid artery (CCA). Normal right common carotid bulb. Normal origin of the right internal carotid (ICA) artery without a hemodynamically significant stenosis. Normal visualized cervical portion of the right internal carotid artery. Normal origin of the right external carotid artery (ECA). LEFT CAROTID ARTERIES: Normal left common carotid artery (CCA). Normal left common carotid bulb. Normal origin of the left internal carotid (ICA) artery without a hemodynamically significant stenosis. Normal visualized cervical portion of the left internal carotid artery. Normal origin of the left external carotid artery (ECA). VERTEBRAL ARTERIES: Normal antegrade flow within the bilateral vertebral artery without a hemodynamically significant stenosis. MRI/MRA Neck WITH and W/O Contrast IMPRESSION: Normal bilateral cervical carotid and vertebral arteries. Electronically Signed: Nando Velazco MD at 22:09 EST , Service support ,
--- NOTE | 2018-06-20 11:04 | PCM.PN.HOSP ---
Patient Problems: Active and Suspected Problems (Last Reviewed 06/20/18 @ 15:17 by Jacques Hinojosa MD) Acute cholecystitis (Acute) Subjective: Patient is a 73-year-old male was admitted through the ED in the early hours of 06/20/2018 with a complaint of chest pain. He described as a tightness across his chest with associated mild diaphoresis. Troponins were mildly abnormal and EKG was normal but blood pressure was elevated. Cardiology evaluated him and diagnosed him with unstable angina and a cardiac cath was done early this morning which showed left circumflex artery with 80% stenosis in the AV groove branch as well as a dominant large right coronary artery with 80% proximal stenosis and left anterior descending artery with mild disease. He had angioplasty and stenting done to the right coronary artery. After that he was admitted to the ICU for closer monitoring. On admission to the ICU, a CODE BLUE was called as patient was found to be aphasic. He was rushed to the CT scan emergently and a brain CT done showed no evidence of an acute infarct or hemorrhage. Neurology was consulted and hospitalist service was consulted for medical management. Patient seen and examined. He had just come back from CAT scan. Patient was concerned about this possibility of a stroke as he said he could not understand why could have happened. He denied any weakness in any extremity and said he had difficulty finding words but his speech was most better than it was when he came in. He denied any fever or chills, any headache, chest pain, any weakness in any extremity, any abdominal pain, any diarrhea or vomiting. Vitals/I&O's: Vital Signs Temp Pulse Resp BP Pulse Ox 99.6 F H 90 25 H 196/78 H 96 06/20/18 09:30 06/20/18 10:14 06/20/18 10:14 06/20/18 10:14 06/20/18 10:14 Oxygen Delivery Method Room Air Weight: 222 lb 0.088 oz Body Mass Index (BMI) 30.9 General: Alert, Oriented x3, Cooperative, No apparent distress HEENT: Atraumatic, PERRLA, EOMI, Normocephalic Oral: Moist Mucosa Neck: Supple, No JVD, Negative Carotid Bruits Lungs: Clear to auscultation, Normal air movement, No rhonchi, No wheeze, No rales Cardiovascular: Regular rate, Regular Rhythm, Normal S1, Normal S2, No murmurs Abdomen: Bowel Sounds Present, Soft, Non Tender, Non-Distended, No Hepato-splenomegaly Extremities: No clubbing, No cyanosis, No edema, Capillary Refill Less than 3 Seconds Skin: No rashes, No breakdown Musculoskeletal: No Tenderness to Palpation of Joints or Extremities Lymphatic: No Cervical, Supraclavicular, or Inguinal Adenopathy Neurological: Cranial nerves II-XII grossly intact, Deep Tendon Reflexes 2+/4 and Symmetrical, Neuro grossly intact, Motor Exam 5/5 strength throughout, - - NIHSS-1 (mild dysarthria) Psych/Mental Status: Anxious, Alert and oriented to time, place, person, mood and affect Laboratory Results 06/20/18 03:37: WBC 17.0 H, RBC 5.10, Hgb 14.8, Hct 45.9, MCV 90.0, MCH 29.0, MCHC 32.2, RDW 13.7, RDW Differential 45.3 H, Plt Count 304, MPV 11.3, Immature Gran % (Auto) 0.200, Neut % (Auto) 83.3 H, Lymph % (Auto) 6.7 L, [place] % (Auto) 9.5, Eos % (Auto) 0.1, Baso % (Auto) 0.2, Absolute Neuts (auto) 14.2 H, Absolute Lymphs (auto) 1.13, Total Counted Not Reportable, Differential Comment SEE COMMENT, Diff Path Review Reviewed, Platelet Estimate ADEQUATE, Anisocytosis RARE, Macrocytosis RARE 06/20/18 03:37: Sodium 138, Potassium 4.3, Chloride 101, Carbon Dioxide 28.0, Anion Gap 9, BUN 17, Creatinine 1.23, Estim Creat Clear Calc 58.67, Est GFR (MDRD) Af Amer 75, Est GFR (MDRD) Non-Af 62, BUN/Creatinine Ratio 13.8, Glucose 160 H, Calcium 9.0, Troponin I 0.132 H 06/20/18 10:00: Activated Clotting Time 180 H 06/20/18 10:16: POC Glucose 157 H Diagnostic Data Chest CTA 06/20/18 03:53 IMPRESSION: Normal CTA chest examination, without a demonstrated pulmonary embolism or arterial dissection. Indeterminate gallbladder, gallbladder inflammation is not excluded. Consider gallbladder ultrasound depending on patient's symptoms. Electronically Signed: Leeanne Carter MD at 5:33 EST , Service support , Brain CT 06/20/18 10:22 IMPRESSION: Chronic involutional changes of the brain. N.B. : The above information has been verbally conveyed by Mohit Frey MD to Jacques Davis on 06/20/2018 10:33:31 (ET). Electronically Signed: Mohit Frey MD at 10:35 EST Tel [phone], Service support , Current Medications Aspirin (Ecotrin) 81 mg PO DAILY@0800 [facility] Atorvastatin Calcium (Lipitor) 40 mg PO QHS [facility] Atropine Sulfate () 0.5 mg IV UD PRN PRN Reason: HR <50 bpm Heparin Sodium (Beef Lung) (Heparin 500 Unit/5 Ml (100/Ml)) 500 unit IV UD PRN PRN Reason: HEPARIN FLUSH Sodium Chloride () 1,000 mls @ 15 mls/hr IV .Q48H [facility] Last Admin: 06/20/18 09:49 Dose: Not Given Sodium Chloride () 1,000 mls @ 150 mls/hr IV .Q6H40M [facility] Stop: 06/20/18 16:10 Labetalol HCl (Trandate) 5 mg IV X1 PRN PRN Reason: SBP > 160 when pulling sheath Losartan Potassium (Cozaar) 25 mg PO DAILY [facility] Last Admin: 06/20/18 09:55 Dose: 25 mg Magnesium Hydroxide (Milk Of Magnesia) 30 ml PO DAILY PRN PRN Reason: Constipation Metoprolol Tartrate (Lopressor (Beta Marlene)) 25 mg PO BID [facility] Last Admin: 06/20/18 09:53 Dose: 25 mg Sodium Chloride () 5 - 30 ml IV UD PRN PRN Reason: SALINE FLUSH Sodium Chloride () 500 ml IV BOLUS PRN PRN Reason: VASO-VAGAL PROTOCOL Ticagrelor (Brilinta) 90 mg PO BID [facility] Medical Necessity - Tobacco Use Smoking Status: Former smoker Tobacco Use: Non-smoker Assessment/Plan All Active Problems (Last Reviewed 06/20/18 @ 15:17 by Jacques Hinojosa MD) Acute cholecystitis (Acute) History of coronary artery stent placement (Acute 06/20/18) Atherosclerotic heart disease [place] coronary artery w/angina pectoris (Acute) 1. Possible ischemic stroke after heart cath Had heart catheterization with angioplasty and stenting of the RCA on account of presenting with chest pain. Started having aphasia after being admitted to ICU. APhasia now resolved but has some mild dysarthria NIHSS score is 1 (mild dysarthria emergent CT scan done showed no evidence of acute infarct or hemorrhage and only chronic involutional changes. neurology on board- recommending TPA BP is in 190s systolic; if patient agrees to proceed with TPA, will need BP brought down to <185/105; if he doesnt want TPA< will allow permissive hypertension Labetalol as needed for BP greater than 185. To have MRI tomorrow and will also benefit from C CT angiogram of the head and neck. 2. Hypertension: poorly controlled. BP in 190s systolic. SInce TPA is being considered, will give labetalol prn to keep SBP<185. On amlodipine and losartan. Will hold for now 3. CAD s/p stent in RCA cardiac cath findings: s/.p stent to RCA on brilinta, statin and aspirin. WIll hold aspirin in light of him receiving TPA. To resume aspirin 24-48 hours after TPA DVT prophylaxis: SCDs. Start heparin after TPA Thank you for the courtesy of the consult. We will continue to follow with you. 3:45pm Patient became increasingly restless and agitated and was put on Precedex drip but still remained agitated. He was also bleeding from catheter siteWife was called several times by lens block gauger to obtain permission to intubate patient as patient was very agitated and could not make decisions for himself. However did not director decision support her phone. Per discussion with lens block gauger, decision was made to intubate patient in order to protect his airway. Code Visit Inpatient E&M: 53117 Subs Hosp L3
--- NOTE | 2018-06-20 11:28 | CASEMGMT ---
Social Work: TECHNICAL ADMINISTRATOR responded to stroke team. Stayed with patient's as patient was taken to CT. Patient's , Vanessa, tearful at times throughout conversation stating this is very overwhelming. Patient's states that patient was in the ED yesterday for 7 hours with chest pain. Per , the ED medical staff wanted to admit patient but patient wanted to return home. Patient's states that neither one of them have had much sleep as patient presented back to the ED early this morning. Patient's states that a lot has happened in the last 24 hours and that she is exhausted. Nursing brought patient back to room in hospital bed while this TECHNICAL ADMINISTRATOR was still present. This TECHNICAL ADMINISTRATOR left room at that time. Patient's encouraged to ask for social work if additional needs arise. Emotional support and active listening provided. Will continue to stay available if needs arise. ENRIKE Vasquez-S
[2018-06-20] MEDS: Labetalol 20 MG/4 ML Vial IV ×2 (11:41→14:15)
[2018-06-20] MEDS: 0.9% NaCl Peripheral Flush Adult/Peds IV ×3 (11:44→22:43)
--- NOTE | 2018-06-20 12:08 | PCM.CON.CC ---
Reason for Consult Date of Consultation: 06/20/18 Reason for Consultation: CVA status post TPA administration History of Present Illness: The patient is a 73-year-old male, with a history as outlined below, who presented to the emergency department on June 20 with complaints of chest pain. The patient was noted to be hypertensive with a blood pressure of 193/125 on presentation. A CTA chest was obtained which revealed no evidence for pulmonary embolism or arterial dissection. The patient was noted to have an elevated white blood cell count to 17,000, along with a troponin of 0.132. The case was discussed with cardiology who recommended Brilinta administration and evaluation via coronary angiography. The patient was subsequently taken to the [facility], where single-vessel coronary disease was identified, for which a drug-eluting stent was placed in the proximal RCA. The patient then returned to the medical intensive care unit. A short time later, the patient developed dysarthric speech, which prompted a stroke team to be called. The patient was taken for an emergent CT head which was largely unremarkable. The patient was evaluated by neurology, who recommended TPA administration, due to the waxing and waning nature of the patient's neurologic deficits. TPA was subsequently administered. Throughout the course of the day, the patient's mentation waxed and waned. He then went on to develop a great deal of agitation. Due to the patient's extreme agitation, his femoral cath site became unstable. A multitude of different sedating medications were employed to aid in controlling the patient's agitation, including Haldol, Versed and eventually Precedex. However, the patient remained agitated, confrontational to staff and extremely restless in bed. This agitation limited the medical staff stability to obtain any additional workup with regards to his current clinical state. The patient lacks capacity for medical decision making. Attempts to up titrate the patient's Precedex led to control of his sedation but came as a consequence of impaired respiratory drive. Multiple attempts were made to contact the patient's to discuss the situation and introduced the idea of intubation. However, the patient did not answer or return any of our phone calls. Due to patient lethargy that developed as the consequence of utilizing sedating medications, there was concern for airway compromise. Therefore, the decision was made to intubate the patient. Bedside Intubation Note: The patient was placed in appropriate sniffing position. 20 mg of etomidate was administered. The patient was preoxygenated via bag valve mask. Video laryngoscopy was performed and a #7.5 endotracheal tube was placed without complication, 22 cm of the lip. The patient did have a great deal of dried, bloody secretions in his posterior oropharynx. Positive color change was noted upon successful endotracheal tube placement. Follow-up plain film chest x-ray is pending. Past Medical History Past Medical History (Chronic Problems): Chronic Problems (Last Reviewed 06/20/18 @ 15:17 by Jacques Hinojosa MD) Essential (primary) hypertension (Chronic) Medical History: Medical History (Last Reviewed 06/20/18 @ 15:17 by Jacques Hinojosa MD) Essential (primary) hypertension (Chronic) I10 Atherosclerotic heart disease [place] coronary artery w/angina pectoris (Acute) I25.119 [id number] RCA w/ 3.5 x 28 mm Promus Synergy Stent 06/20/18 Obesity E66.9 Allergies No Known Allergies Allergy (Verified 06/20/18 03:37) Home Medications: Ambulatory Orders Medication Instructions Recorded Pindolol [Pindolol (Beta Marlene)] 5 mg PO BID 03/18/16 Amlodipine [Norvasc] 5 mg PO DAILY 06/19/18 Aspirin [Aspirin, Baby] 81 mg PO QODAY 06/19/18 Diazepam [Valium] 5 mg PO PRN PRN 06/19/18 Surgical History: Surgical History (Last Reviewed 06/20/18 @ 15:17 by Jacques Hinojosa MD) History of coronary artery stent placement (Acute) Onset Date: 06/20/18 Z95.5 [id number] RCA w/ 3.5 x 28 mm Promus Synergy Stent 06/20/18 History of left heart catheterization Onset Date: ~06/20/18 Z98.890 Surgical History: no surgical history Lives: Spouse/ Significant Other Smoking Status: Former smoker Tobacco Use: Non-smoker Alcohol: None Drugs: None - *Family History Maternal History Items: No pertinent history Review of Systems Constitutional: Denies: Chills, Fever Eyes: Denies: Blurred vision, Double vision HEENT: Denies: Head Aches, Sinus Congestion, Sinus Drainage Cardiovascular: Denies: Chest Pain, Palpitations Respiratory: Denies: Cough, Shortness of breath at rest, Sputum production Gastrointestinal: Denies: Abdominal Pain, Nausea, Vomiting Genitourinary: Denies: Dysuria Musculoskeletal: Denies: Joint Pain, Joint Tenderness Skin: Denies: Rash, Wounds Neurological: Reports: Change in Speech, Slurred speech, Incoordination Psychiatric: Denies: Anxiety, Depression, Homicidal Ideations, Suicidal Ideations Hematologic/ Lymphatic: Denies: Easy Bruising, Easy Bleeding Patient Problems: Active and Suspected Problems (Last Reviewed 06/20/18 @ 15:17 by Jacques Hinojosa MD) Acute cholecystitis (Acute) Objective: The patient's most recent lab work, culture data and imaging studies have all been personally reviewed. - Physical Exam General: - - The patient is now intubated and mechanically ventilated. HEENT: Atraumatic, PERRLA, Normocephalic Oral: Dry Mucosa Neck: Supple, No Nodes, Trachea Midline Lungs: No rhonchi, No wheeze, No rales, Diminished Cardiovascular: Normal S1, Normal S2, No murmurs, Tachycardic Abdomen: Bowel Sounds Present, Soft, Tender - Right upper quadrant tenderness was present prior to intubation Extremities: No clubbing, No cyanosis, No edema Skin: No breakdown Musculoskeletal: No Tenderness to Palpation of Joints or Extremities Lymphatic: No Cervical, Supraclavicular, or Inguinal Adenopathy Neurological: - - No focal deficits. Moving all extremities spontaneously. Psych/Mental Status: Agitated, Restless Vital Signs Temp Pulse Resp BP Pulse Ox 38.3 C H 82 18 193/87 H 96 06/20/18 11:49 06/20/18 12:05 06/20/18 12:05 06/20/18 12:05 06/20/18 12:05 Oxygen Delivery Method Room Air Weight: 222 lb 0.088 oz Body Mass Index (BMI) 30.9 Laboratory Tests Past 24 Hrs 06/20/18 06/20/18 06/20/18 03:37 03:37 10:00 WBC 17.0 H RBC 5.10 Hgb 14.8 Hct 45.9 MCV 90.0 MCH 29.0 MCHC 32.2 RDW 13.7 RDW Differential 45.3 H Plt Count 304 MPV 11.3 Immature Gran % (Auto) 0.200 Neut % (Auto) 83.3 H Lymph % (Auto) 6.7 L [place] % (Auto) 9.5 Eos % (Auto) 0.1 Baso % (Auto) 0.2 Absolute Neuts (auto) 14.2 H Absolute Lymphs (auto) 1.13 Total Counted Not Reportable Differential Comment SEE COMMENT Diff Path Review Reviewed Platelet Estimate ADEQUATE Anisocytosis RARE Macrocytosis RARE Activated Clotting Time 180 H Sodium 138 Potassium 4.3 Chloride 101 Carbon Dioxide 28.0 Anion Gap 9 BUN 17 Creatinine 1.23 Estim Creat Clear Calc 58.67 Est GFR (MDRD) Af Amer 75 Est GFR (MDRD) Non-Af 62 BUN/Creatinine Ratio 13.8 Glucose 160 H Calcium 9.0 Troponin I 0.132 H POC Glucose 06/20/18 10:16 POC Glucose 157 H Clinical Impression(s) from Imaging Studies Chest CTA 06/20/18 03:53 IMPRESSION: Normal CTA chest examination, without a demonstrated pulmonary embolism or arterial dissection. Indeterminate gallbladder, gallbladder inflammation is not excluded. Consider gallbladder ultrasound depending on patient's symptoms. Electronically Signed: Leeanne Carter MD at 5:33 EST , Service support , Brain CT 06/20/18 10:22 IMPRESSION: Chronic involutional changes of the brain. N.B. : The above information has been verbally conveyed by Mohit Frey MD to Jacques Davis on 06/20/2018 10:33:31 (ET). Electronically Signed: Mohit Frey MD at 10:35 EST Tel [phone], Service support , Assessment/Plan Active and Suspected Problems (Last Reviewed 06/20/18 @ 15:17 by Jacques Hinojosa MD) Acute cholecystitis (Acute) RECOMMENDATIONS: 1. Continue management per TPA protocol. 2. Allow for permissive hypertension. Labetalol can be utilized for systolic blood pressures greater than 180 mmHg. 3. Hold off on obtaining arterial blood gas, given TPA administration earlier today. 4. Continue antibiotics as ordered. 5. Minimize sedation as tolerated with a goal to maintain a RASS of -1 to 1. 6. Obtain MRI tonight. 7. Repeat head imaging tomorrow per TPA protocol. 8. Obtain coags in the morning, should percutaneous cholecystostomy tube be necessary. IMPRESSIONS: 1. Acute respiratory failure The patient did require eventual intubation on the afternoon of June 20 due to refractory agitation and subsequent airway compromise. The patient became exceedingly confrontational and threatening to staff throughout the afternoon. A stepwise approach was employed to the use of sedative medications in hopes of improving the patient's agitation. However, despite the utilization of multiple medications, including Precedex, his agitation remained an issue. Further escalation in his sedation regimen, lead to somnolence with concerns for the patient's ability to protect his airway. Therefore, the decision was made to intubate the patient. Multiple attempts were made to contact the patient's to make her aware of the situation. However, the patient's never answered her phone or return our phone calls at the time of his intubation. The patient will be continued on Precedex and fentanyl for sedation overnight. Wean FiO2 as tolerated. We will hold off on obtaining arterial blood gas for now, given the patient's earlier TPA administration. 2. CVA status post TPA administration The patient did receive TPA earlier today over concerns for a stuttering CVA. Attempts to obtain an MRI have been unsuccessful due to patient agitation. Now that the patient's airway is secure and he is more calm, will proceed with obtaining MRI tonight. Continue to allow for permissive hypertension. We will treat systolic blood pressures that are greater than 180 mmHg. Continue to monitor for any signs of bleeding. 3. Non-ST elevation [place] status post PTCA/GAVIN placement to the proximal RCA The patient is status post PTCA with drug-eluting stent placed to the proximal RCA. FemStop remains in place. Continue to monitor for signs of blood loss at cardiac cath site along with hematoma formation. Continue medical management per cardiology recommendations. 4. Metabolic encephalopathy Concern for underlying infectious/metabolic encephalopathy, especially in light of the patient's recent mentation changes. Follow-up head imaging in the form of CT, revealed no intracranial hemorrhage. He does appear to have radiographic evidence of acute cholecystitis. I did confer with surgery this afternoon who indicated that the patient may require percutaneous cholecystostomy tube for gallbladder decompression, potentially tomorrow. We will attempt to minimize sedation as able. 5. Sepsis secondary to acute cholecystitis The patient was started empirically on Zosyn after he developed fevers and complained of right upper quadrant pain in the setting of radiographic evidence concerning for acute cholecystitis. Urine culture is also pending. 6. Hypertension/anxiety Complicates care, management, recovery and prognosis. Currently holding all antihypertensive home medications. TIME: 85 minutes, inclusive of procedures, was spent addressing the patient's acute respiratory failure, CVA status post TPA administration, non-ST elevation [place], metabolic encephalopathy, sepsis secondary to acute cholecystitis, review of all data and collaboration with care team. ([id number], [id number]) Code Visit Procedures: 16328 Critial Care Addl 30 Min 9xxxx: [id number] Critical care first hour
--- NOTE | 2018-06-20 12:14 | CON.PCM_ITS ---
Reason for Consult Date of Consultation: 06/20/18 Reason for Consultation: CVA status post TPA administration History of Present Illness: The patient is a 73-year-old male, with a history as outlined below, who presented to the emergency department on June 20 with complaints of chest pain. The patient was noted to be hypertensive with a blood pressure of 193/125 on presentation. A CTA chest was obtained which revealed no evidence for pulmonary embolism or arterial dissection. The patient was noted to have an elevated white blood cell count to 17,000, along with a troponin of 0.132. The case was discussed with cardiology who recommended Brilinta administration and evaluation via coronary angiography. The patient was subsequently taken to the Neurology Technician, where single-vessel coronary disease was identified, for which a drug- eluting stent was placed in the proximal RCA. The patient then returned to the medical intensive care unit. A short time later, the patient developed dysarthric speech, which prompted a stroke team to be called. The patient was taken for an emergent CT head which was largely unremarkable. The patient was evaluated by neurology, who recommended TPA administration, due to the waxing and waning nature of the patient's neurologic deficits. TPA was subsequently administered. Throughout the course of the day, the patient's mentation waxed and waned. He then went on to develop a great deal of agitation. Due to the patient's extreme agitation, his femoral cath site became unstable. A multitude of different sedating medications were employed to aid in controlling the patient's agitation, including Haldol, Versed and eventually Precedex. However, the patient remained agitated, confrontational to staff and extremely restless in bed. This agitation limited the medical staff stability to obtain any additional workup with regards to his current clinical state. The patient lacks capacity for medical decision making. Attempts to up titrate the patient's Precedex led to control of his sedation but came as a consequence of impaired respiratory drive. Multiple attempts were made to contact the patient's to discuss the situation and introduced the idea of intubation. However, the patient did not answer or return any of our phone calls. Due to patient lethargy that developed as the consequence of utilizing sedating medications, there was concern for airway compromise. Therefore, the decision was made to intubate the patient. Bedside Intubation Note: The patient was placed in appropriate sniffing position. 20 mg of etomidate was administered. The patient was preoxygenated via bag valve mask. Video laryngoscopy was performed and a #7.5 endotracheal tube was placed without complication, 22 cm of the lip. The patient did have a great deal of dried, bloody secretions in his posterior oropharynx. Positive color change was noted upon successful endotracheal tube placement. Follow-up plain film chest x-ray is pending. Past Medical History Past Medical History (Chronic Problems): Chronic Problems (Last Reviewed 06/20/18 @ 15:17 by Jacques Hinojosa MD) Essential (primary) hypertension (Chronic) Medical History: Medical History (Last Reviewed 06/20/18 @ 15:17 by Jacques Hinojosa MD) Essential (primary) hypertension (Chronic) I10 Atherosclerotic heart disease [place] coronary artery w/angina pectoris (Acute) I25.119 [id number] RCA w/ 3.5 x 28 mm Promus Synergy Stent 06/20/18 Obesity E66.9 Allergies No Known Allergies Allergy (Verified 06/20/18 03:37) Home Medications: Ambulatory Orders Medication Instructions Recorded Pindolol [Pindolol (Beta Marlene)] 5 mg PO BID 03/18/16 Amlodipine [Norvasc] 5 mg PO DAILY 06/19/18 Aspirin [Aspirin, Baby] 81 mg PO QODAY 06/19/18 Diazepam [Valium] 5 mg PO PRN PRN 06/19/18 Surgical History: Surgical History (Last Reviewed 06/20/18 @ 15:17 by Jacques Hinojosa MD) History of coronary artery stent placement (Acute) Onset Date: 06/20/18 Z95.5 [id number] RCA w/ 3.5 x 28 mm Promus Synergy Stent 06/20/18 History of left heart catheterization Onset Date: ~06/20/18 Z98.890 Surgical History: no surgical history Lives: Spouse/ Significant Other Smoking Status: Former smoker Tobacco Use: Non-smoker Alcohol: None Drugs: None - *Family History Maternal History Items: No pertinent history Review of Systems Constitutional: Denies: Chills, Fever Eyes: Denies: Blurred vision, Double vision HEENT: Denies: Head Aches, Sinus Congestion, Sinus Drainage Cardiovascular: Denies: Chest Pain, Palpitations Respiratory: Denies: Cough, Shortness of breath at rest, Sputum production Gastrointestinal: Denies: Abdominal Pain, Nausea, Vomiting Genitourinary: Denies: Dysuria Musculoskeletal: Denies: Joint Pain, Joint Tenderness Skin: Denies: Rash, Wounds Neurological: Reports: Change in Speech, Slurred speech, Incoordination Psychiatric: Denies: Anxiety, Depression, Homicidal Ideations, Suicidal Ideations Hematologic/ Lymphatic: Denies: Easy Bruising, Easy Bleeding Patient Problems: Active and Suspected Problems (Last Reviewed 06/20/18 @ 15:17 by Jacques Hinojosa MD) Acute cholecystitis (Acute) Objective: The patient's most recent lab work, culture data and imaging studies have all been personally reviewed. - Physical Exam General: - - The patient is now intubated and mechanically ventilated. HEENT: Atraumatic, PERRLA, Normocephalic Oral: Dry Mucosa Neck: Supple, No Nodes, Trachea Midline Lungs: No rhonchi, No wheeze, No rales, Diminished Cardiovascular: Normal S1, Normal S2, No murmurs, Tachycardic Abdomen: Bowel Sounds Present, Soft, Tender - Right upper quadrant tenderness was present prior to intubation Extremities: No clubbing, No cyanosis, No edema Skin: No breakdown Musculoskeletal: No Tenderness to Palpation of Joints or Extremities Lymphatic: No Cervical, Supraclavicular, or Inguinal Adenopathy Neurological: - - No focal deficits. Moving all extremities spontaneously. Psych/Mental Status: Agitated, Restless Vital Signs Temp Pulse Resp BP Pulse Ox 38.3 C H 82 18 193/87 H 96 06/20/18 11:49 06/20/18 12:05 06/20/18 12:05 06/20/18 12:05 06/20/18 12:05 Oxygen Delivery Method Room Air Weight: 222 lb 0.088 oz Body Mass Index (BMI) 30.9 Laboratory Tests Past 24 Hrs 06/20/18 06/20/18 06/20/18 03:37 03:37 10:00 WBC 17.0 H RBC 5.10 Hgb 14.8 Hct 45.9 MCV 90.0 MCH 29.0 MCHC 32.2 RDW 13.7 RDW Differential 45.3 H Plt Count 304 MPV 11.3 Immature Gran % (Auto) 0.200 Neut % (Auto) 83.3 H Lymph % (Auto) 6.7 L [place] % (Auto) 9.5 Eos % (Auto) 0.1 Baso % (Auto) 0.2 Absolute Neuts (auto) 14.2 H Absolute Lymphs (auto) 1.13 Total Counted Not Reportable Differential Comment SEE COMMENT Diff Path Review Reviewed Platelet Estimate ADEQUATE Anisocytosis RARE Macrocytosis RARE Activated Clotting Time 180 H Sodium 138 Potassium 4.3 Chloride 101 Carbon Dioxide 28.0 Anion Gap 9 BUN 17 Creatinine 1.23 Estim Creat Clear Calc 58.67 Est GFR (MDRD) Af Amer 75 Est GFR (MDRD) Non-Af 62 BUN/Creatinine Ratio 13.8 Glucose 160 H Calcium 9.0 Troponin I 0.132 H POC Glucose 06/20/18 10:16 POC Glucose 157 H Clinical Impression(s) from Imaging Studies Chest CTA 06/20/18 03:53 IMPRESSION: Normal CTA chest examination, without a demonstrated pulmonary embolism or arterial dissection. Indeterminate gallbladder, gallbladder inflammation is not excluded. Consider gallbladder ultrasound depending on patient's symptoms. Electronically Signed: Leeanne Carter MD at 5:33 EST , Service support , Brain CT 06/20/18 10:22 IMPRESSION: Chronic involutional changes of the brain. N.B. : The above information has been verbally conveyed by Mohit Frey MD to Jacques Davis on 06/20/2018 10:33:31 (ET). Electronically Signed: Mohit Frey MD at 10:35 EST Tel [phone], Service support , Assessment/Plan Active and Suspected Problems (Last Reviewed 06/20/18 @ 15:17 by Jacques Hinojosa MD) Acute cholecystitis (Acute) RECOMMENDATIONS: 1. Continue management per TPA protocol. 2. Allow for permissive hypertension. Labetalol can be utilized for systolic blood pressures greater than 180 mmHg. 3. Hold off on obtaining arterial blood gas, given TPA administration earlier today. 4. Continue antibiotics as ordered. 5. Minimize sedation as tolerated with a goal to maintain a RASS of -1 to 1. 6. Obtain MRI tonight. 7. Repeat head imaging tomorrow per TPA protocol. 8. Obtain coags in the morning, should percutaneous cholecystostomy tube be necessary. IMPRESSIONS: 1. Acute respiratory failure The patient did require eventual intubation on the afternoon of June 20 due to refractory agitation and subsequent airway compromise. The patient became exceedingly confrontational and threatening to staff throughout the afternoon. A stepwise approach was employed to the use of sedative medications in hopes of improving the patient's agitation. However, despite the utilization of multiple medications, including Precedex, his agitation remained an issue. Further escalation in his sedation regimen, lead to somnolence with concerns for the patient's ability to protect his airway. Therefore, the decision was made to intubate the patient. Multiple attempts were made to contact the patient's to make her aware of the situation. However, the patient's never answered her phone or return our phone calls at the time of his intubation. The patient will be continued on Precedex and fentanyl for sedation overnight. Wean FiO2 as tolerated. We will hold off on obtaining arterial blood gas for now, given the patient's earlier TPA administration. 2. CVA status post TPA administration The patient did receive TPA earlier today over concerns for a stuttering CVA. Attempts to obtain an MRI have been unsuccessful due to patient agitation. Now that the patient's airway is secure and he is more calm, will proceed with obtaining MRI tonight. Continue to allow for permissive hypertension. We will treat systolic blood pressures that are greater than 180 mmHg. Continue to [place] for any signs of bleeding. 3. Non-ST elevation MD status post PTCA/GAVIN placement to the proximal RCA The patient is status post PTCA with drug-eluting stent placed to the proximal RCA. FemStop remains in place. Continue to monitor for signs of blood loss at cardiac cath site along with hematoma formation. Continue medical management per cardiology recommendations. 4. Metabolic encephalopathy Concern for underlying infectious/metabolic encephalopathy, especially in light of the patient's recent mentation changes. Follow-up head imaging in the form of CT, revealed no intracranial hemorrhage. He does appear to have radiographic evidence of acute cholecystitis. I did confer with surgery this afternoon who indicated that the patient may require percutaneous cholecystostomy tube for gallbladder decompression, potentially tomorrow. We will attempt to minimize sedation as able. 5. Sepsis secondary to acute cholecystitis The patient was started empirically on Zosyn after he developed fevers and complained of right upper quadrant pain in the setting of radiographic evidence concerning for acute cholecystitis. Urine culture is also pending. 6. Hypertension/anxiety Complicates care, management, recovery and prognosis. Currently holding all antihypertensive home medications. TIME: 85 minutes, inclusive of procedures, was spent addressing the patient's acute respiratory failure, CVA status post TPA administration, non-ST elevation MD, metabolic encephalopathy, sepsis secondary to acute cholecystitis, review of all data and collaboration with care team. ([id number], [id number]) Code Visit Procedures: 84419 Critial Care Addl 30 Min 9xxxx: [id number] Critical care first hour
--- NOTE | 2018-06-20 12:50 | CT_ITS ---
STUDY: CT ABDOMEN AND PELVIS WITHOUT CONTRAST REASON FOR EXAM: Male, 73 years old. Right upper quadrant pain post TPA. RADIATION DOSAGE (If Supplied By Facility): CTDIvol = ( 16.36 ) mGy, DLP = ( 989.00 ) mGycm TECHNIQUE: Transaxial images were obtained from the dome of the diaphragm to the symphysis pubis without oral contrast, and without intravenous contrast. Sagittal and coronal images were reconstructed. Individualized dose optimization techniques were used for this CT. COMPARISON: None. FINDINGS: Mild degree of increased markings at the lung bases suggestive of either atelectasis and/or scarring. Coronary artery calcification and stenting. Normal liver. There are multiple gallstones. Inflammatory changes are seen in the surrounding peritoneal fat. Acute cholecystitis should be ruled out. Normal spleen. Normal pancreas. Normal bilateral adrenal glands. Normal right kidney. Normal left kidney. Normal visualized stomach. Normal small intestine. There are multiple colonic diverticula consistent with diverticulosis. The appendix is visualized and appears normal. There is diffuse atherosclerotic calcification of the abdominal aorta, without a demonstrated aneurysm. Normal inferior vena cava. Normal retroperitoneum. A Marshall catheter is seen within the empty urinary bladder. There is evidence of diffuse bladder wall thickening. The prostate is enlarged. This measures 5.4 cm x 4.6 cm. This causes indentation at the bladder base. Mild degree of increased soft tissue markings in the right side of the pelvis. This most likely represents a small post catheterization hematoma and post catheterization changes. There is a small umbilical hernia containing fat. Small bilateral inguinal hernias containing fat. There are diffuse degenerative changes of the visualized lumbar spine. CT/Abdomen/Pelvis without Cont IMPRESSION: Multiple gallstones with thickened gallbladder wall and increased markings in the surrounding fat. Acute cholecystitis should be ruled out. Soft tissue changes seen in the region of the right groin in keeping with the history of recent catheterization. Electronically Signed: Mohit Frey MD at 13:46 EST Tel [phone], Service support ,
[2018-06-20] MEDS: Haloperidol Lactate 5 MG/ML Vial 2 MG IV (13:20)
[2018-06-20] MEDS: Haloperidol Lactate 5 MG/ML Vial 3 MG IV (13:21)
--- NOTE | 2018-06-20 13:25 | CT_ITS ---
STUDY: CT BRAIN WITHOUT CONTRAST REASON FOR EXAM: Male, 73 years old. Confusion. Combative. RADIATION DOSAGE (If Supplied By Facility): CTDIvol = ( 44.99 ) mGy, DLP = ( 2675.17 ) mGycm TECHNIQUE: Transaxial CT imaging of the brain was performed without administration of intravenous contrast material. Individualized dose optimization techniques were used for this CT. COMPARISON: Comparison is made with prior examination done earlier today. FINDINGS: Normal soft tissue structures. Normal calvarium. There is mild cerebral atrophy with widening of the extra-axial spaces and ventricular dilatation. Normal white matter tracts of the cerebral hemispheres. Normal basal ganglia and thalami. Normal brainstem. Normal cerebellum. There is no intracranial hemorrhage. There are no findings of an acute ischemic infarction. Normal visualized paranasal sinuses. CT/Brain/Head without Contrast IMPRESSION: Mild cerebral atrophy. No acute abnormality is seen. Electronically Signed: Mohit Frey MD at 14:09 EST Tel [phone], Service support ,
--- NOTE | 2018-06-20 13:40 | RAD_ITS ---
STUDY: X-RAY CHEST REASON FOR EXAM: Male, 73 years old. Fever. Patient is uncooperative and agitated. TECHNIQUE: Single AP portable view of the chest. COMPARISON: Comparison is made with prior study dated June 19, 2018. FINDINGS: EKG electrodes are seen. The lungs are clear and expanded. There is no demonstrated pleural abnormality. There is mild cardiac enlargement. Normal mediastinum and kirby. Normal visualized pulmonary arteries. There is atherosclerotic tortuosity of the aortic arch and descending thoracic aorta. Normal visualized thoracic spine. Normal visualized ribs, clavicles, and shoulders. There is no demonstrated abnormality of the visualized soft tissue structures of the upper abdomen. RAD/Chest 1 View (Portable) IMPRESSION: Mild cardiomegaly. Electronically Signed: Mohit Frey MD at 14:10 EST Tel [phone], Service support ,
[2018-06-20] MEDS: Morphine 2 MG/ML Syringe 1 MG IV (13:56)
[2018-06-20 13:58] LABS: Bacteria 0 SEEN /hpf (None Seen); Mucous, Urine 0 SEEN /hpf (<or=2+); Squamous Epithelial Cells - UA 0 SEEN /hpf (0-5)
[2018-06-20] MEDS: fentaNYL 100 MCG/2 ML Ampul 25 MCG IV (14:00)
[2018-06-20 14:01] LABS: AST(SGOT) 22 U/L (15-37); Alanine Aminotransfer ALT/SGPT 25 U/L (16-61); Albumin, Serum 3.6 g/dL (3.2-5.0); Alkaline Phosphatase 96 U/L (45-117); Bilirubin, Direct 0.21 mg/dL (0.00-0.30); Globulin 4.1 g/dL (2.2-4.2); Protein, Total 7.7 g/dL (6.4-8.2)
[2018-06-20 14:09] LABS: Color, Urine Yellow (Yellow); Glucose, Dipstick Normal (Normal); Ketone-Dipstick Negative (Negative); Leukocyte Esterase-Dipstick 25 /ul (Negative); Nitrite-Dipstick Negative (Negative); Occult Blood-Urine 250 /ul (Negative); Protein-Dipstick 100 mg/dl (Negative); Urine Bilirubin Dipstick Negative (Negative); Urine Clarity Sl. Cloudy (Clear); Urine Urobilinogen Normal (Normal)
[2018-06-20 14:21] LABS: Red Blood Cells-Urine 25-50 SEEN /hpf (0-5); White Blood Cells 0-5 SEEN /hpf (0-5)
[2018-06-20] MEDS: Midazolam 2 MG/2 ML Syringe IV ×2 (14:23→17:30)
[2018-06-20] MEDS: Midazolam 2 MG/2 ML Syringe 1 MG IV (14:49)
--- NOTE | 2018-06-20 15:14 | PCM.CONS.GEN ---
Problem List (1) Acute cholecystitis Status: Acute Reason for Consult Date of Consultation: 06/20/18 History of Present Illness: The patient is a 73-year-old male, with a history as outlined below, who presented to the emergency department on June 20 with complaints of chest pain. The patient was noted to be hypertensive with a blood pressure of 193/125 on presentation. A CTA chest was obtained which revealed no evidence for pulmonary embolism or arterial dissection. The patient was noted to have an elevated white blood cell count to 17,000, along with a troponin of 0.132. The case was discussed with cardiology who recommended Brilinta administration and evaluation via coronary angiography. The patient was subsequently taken to the Patent Agent, where single-vessel coronary disease was identified, for which a drug-eluting stent was placed in the proximal RCA. The patient then returned to the medical intensive care unit. A short time later, the patient developed dysarthric speech, which prompted a stroke team to be called. The patient was taken for an emergent CT head which was largely unremarkable. The patient was evaluated by neurology, who recommended TPA administration, due to the waxing and waning nature of the patient's neurologic deficits. After the patient was given TPA he started to develop abdominal pain. A CAT scan of his abdomen and pelvis was obtained which showed acute calculus cholecystitis. While in the intensive care unit his mental status has changed and he has been extremely combative. And has been unable to answer any questions. Dr. Carlin is consult to me for evaluation and management of his acute cholecystitis. Past Medical History Past Medical History (Chronic Problems): Chronic Problems (Last Reviewed 06/20/18 @ 11:10 by Jassi Joseph MD) Essential (primary) hypertension (Chronic) Medical History: Medical History (Last Reviewed 06/20/18 @ 15:17 by Jacques Hinojosa MD) Essential (primary) hypertension (Chronic) I10 Atherosclerotic heart disease [place] coronary artery w/angina pectoris (Acute) I25.119 [id number]-[id number] RCA w/ 3.5 x 28 mm Promus Synergy Stent 06/20/18 Obesity E66.9 Allergies No Known Allergies Allergy (Verified 06/20/18 03:37) Home Medications: Ambulatory Orders Medication Instructions Recorded Pindolol [Pindolol (Beta Marlene)] 5 mg PO BID 03/18/16 Amlodipine [Norvasc] 5 mg PO DAILY 06/19/18 Aspirin [Aspirin, Baby] 81 mg PO QODAY 06/19/18 Diazepam [Valium] 5 mg PO PRN PRN 06/19/18 Surgical History: Surgical History (Last Reviewed 06/20/18 @ 15:17 by Jacques Hinojosa MD) History of coronary artery stent placement (Acute) Onset Date: 06/20/18 Z95.5 [id number] RCA w/ 3.5 x 28 mm Promus Synergy Stent 06/20/18 History of left heart catheterization Onset Date: ~06/20/18 Z98.890 Surgical History: no surgical history Lives: Spouse/ Significant Other Smoking Status: Former smoker Tobacco Use: Non-smoker Alcohol: None Drugs: None - *Family History Maternal History Items: No pertinent history Review of Systems Unable to obtain accurate/complete ROS d/t: Patient is unable to answer any questions with regards to his review of sys Patient Problems: Active and Suspected Problems (Last Reviewed 06/20/18 @ 11:10 by Jassi Joseph MD) Acute cholecystitis (Acute) - Physical Exam Lungs: Clear to auscultation Cardiovascular: Regular rate, Regular Rhythm, No murmurs Abdomen: Soft, Tender - Patient has obvious tenderness to palpation in the right upper quadrant and a firmness to his gallbladder is easily palpable. Vital Signs Temp Pulse Resp BP Pulse Ox 101.1 F H 76 12 181/67 H 99 06/20/18 12:35 06/20/18 14:50 06/20/18 14:50 06/20/18 14:50 06/20/18 14:50 Oxygen Delivery Method Room Air Weight: 222 lb 0.088 oz Body Mass Index (BMI) 30.9 Laboratory Tests Past 24 Hrs 06/20/18 06/20/18 06/20/18 03:37 03:37 03:37 WBC 17.0 H RBC 5.10 Hgb 14.8 Hct 45.9 MCV 90.0 MCH 29.0 MCHC 32.2 RDW 13.7 RDW Differential 45.3 H Plt Count 304 MPV 11.3 Immature Gran % (Auto) 0.200 Neut % (Auto) 83.3 H Lymph % (Auto) 6.7 L [place] % (Auto) 9.5 Eos % (Auto) 0.1 Baso % (Auto) 0.2 Absolute Neuts (auto) 14.2 H Absolute Lymphs (auto) 1.13 Total Counted Not Reportable Differential Comment SEE COMMENT Diff Path Review Reviewed Platelet Estimate ADEQUATE Anisocytosis RARE Macrocytosis RARE Activated Clotting Time Sodium 138 Potassium 4.3 Chloride 101 Carbon Dioxide 28.0 Anion Gap 9 BUN 17 Creatinine 1.23 Estim Creat Clear Calc 58.67 Est GFR (MDRD) Af Amer 75 Est GFR (MDRD) Non-Af 62 BUN/Creatinine Ratio 13.8 Glucose 160 H Calcium 9.0 Total Bilirubin 0.80 Direct Bilirubin 0.21 AST 22 ALT 25 Alkaline Phosphatase 96 Troponin I 0.132 H Total Protein 7.7 Albumin 3.6 Globulin 4.1 Urine Color Urine Clarity Urine pH Ur Specific [place] Urine Protein Urine Glucose (UA) Urine Ketones Urine Occult Blood Urine Nitrite Urine Bilirubin Urine Urobilinogen Ur Leukocyte Esterase Urine RBC Urine WBC Ur Squamous Epith Cells Urine Bacteria Urine Mucus 06/20/18 06/20/18 10:00 13:30 WBC RBC Hgb Hct MCV MCH MCHC RDW RDW Differential Plt Count MPV Immature Gran % (Auto) Neut % (Auto) Lymph % (Auto) [place] % (Auto) Eos % (Auto) Baso % (Auto) Absolute Neuts (auto) Absolute Lymphs (auto) Total Counted Differential Comment Diff Path Review Platelet Estimate Anisocytosis Macrocytosis Activated Clotting Time 180 H Sodium Potassium Chloride Carbon Dioxide Anion Gap BUN Creatinine Estim Creat Clear Calc Est GFR (MDRD) Af Amer Est GFR (MDRD) Non-Af BUN/Creatinine Ratio Glucose Calcium Total Bilirubin Direct Bilirubin AST ALT Alkaline Phosphatase Troponin I Total Protein Albumin Globulin Urine Color Yellow Urine Clarity Sl. Cloudy Urine pH 5.0 Ur Specific [place] 1.020 Urine Protein 100 H Urine Glucose (UA) Normal Urine Ketones Negative Urine Occult Blood 250 H Urine Nitrite Negative Urine Bilirubin Negative Urine Urobilinogen Normal Ur Leukocyte Esterase 25 H Urine RBC 25-50 SEEN Urine WBC 0-5 SEEN Ur Squamous Epith Cells 0 SEEN Urine Bacteria 0 SEEN Urine Mucus 0 SEEN POC Glucose 06/20/18 10:16 POC Glucose 157 H Assessment/Plan All Active Problems (Last Reviewed 06/20/18 @ 11:10 by Jassi Joseph MD) Acute cholecystitis (Acute) History of coronary artery stent placement (Acute 06/20/18) Atherosclerotic heart disease [place] coronary artery w/angina pectoris (Acute) As his overall mental condition deteriorated somewhat I think the only appropriate thing to do here is place a cholecystostomy tube sometime in the morning once the TPA has worn off and we have a better idea of what his mental status is. I would not recommend taking him to surgery given his most recent stent placement and mini stroke.
--- NOTE | 2018-06-20 15:18 | CON.PCM_ITS ---
Problem List (1) Acute cholecystitis Status: Acute Reason for Consult Date of Consultation: 06/20/18 History of Present Illness: The patient is a 73-year-old male, with a history as outlined below, who presented to the emergency department on June 20 with complaints of chest pain. The patient was noted to be hypertensive with a blood pressure of 193/125 on presentation. A CTA chest was obtained which revealed no evidence for pulmonary embolism or arterial dissection. The patient was noted to have an elevated white blood cell count to 17,000, along with a troponin of 0.132. The case was discussed with cardiology who recommended Brilinta administration and evaluation via coronary angiography. The patient was subsequently taken to the [facility], where single-vessel coronary disease was identified, for which a drug- eluting stent was placed in the proximal RCA. The patient then returned to the medical intensive care unit. A short time later, the patient developed dysarthric speech, which prompted a stroke team to be called. The patient was taken for an emergent CT head which was largely unremarkable. The patient was evaluated by neurology, who recommended TPA administration, due to the waxing and waning nature of the patient's neurologic deficits. After the patient was given TPA he started to develop abdominal pain. A CAT scan of his abdomen and pelvis was obtained which showed acute calculus cholecystitis. While in the intensive care unit his mental status has changed and he has been extremely combative. And has been unable to answer any questions. Dr. Carlin is consult to me for evaluation and management of his acute cholecy stitis. Past Medical History Past Medical History (Chronic Problems): Chronic Problems (Last Reviewed 06/20/18 @ 11:10 by Jassi Joseph MD) Essential (primary) hypertension (Chronic) Medical History: Medical History (Last Reviewed 06/20/18 @ 15:17 by Jacques Hinojosa MD) Essential (primary) hypertension (Chronic) I10 Atherosclerotic heart disease [place] coronary artery w/angina pectoris (Acute) I25.119 [id number] RCA w/ 3.5 x 28 mm Promus Synergy Stent 06/20/18 Obesity E66.9 Allergies No Known Allergies Allergy (Verified 06/20/18 03:37) Home Medications: Ambulatory Orders Medication Instructions Recorded Pindolol [Pindolol (Beta Marlene)] 5 mg PO BID 03/18/16 Amlodipine [Norvasc] 5 mg PO DAILY 06/19/18 Aspirin [Aspirin, Baby] 81 mg PO QODAY 06/19/18 Diazepam [Valium] 5 mg PO PRN PRN 06/19/18 Surgical History: Surgical History (Last Reviewed 06/20/18 @ 15:17 by Jacques Hinojosa MD) History of coronary artery stent placement (Acute) Onset Date: 06/20/18 Z95.5 [id number] RCA w/ 3.5 x 28 mm Promus Synergy Stent 06/20/18 History of left heart catheterization Onset Date: ~06/20/18 Z98.890 Surgical History: no surgical history Lives: Spouse/ Significant Other Smoking Status: Former smoker Tobacco Use: Non-smoker Alcohol: None Drugs: None - *Family History Maternal History Items: No pertinent history Review of Systems Unable to obtain accurate/complete ROS d/t: Patient is unable to answer any questions with regards to his review of sys Patient Problems: Active and Suspected Problems (Last Reviewed 06/20/18 @ 11:10 by Jassi Joseph MD) Acute cholecystitis (Acute) - Physical Exam Lungs: Clear to auscultation Cardiovascular: Regular rate, Regular Rhythm, No murmurs Abdomen: Soft, Tender - Patient has obvious tenderness to palpation in the right upper quadrant and a firmness to his gallbladder is easily palpable. Vital Signs Temp Pulse Resp BP Pulse Ox 101.1 F H 76 12 181/67 H 99 06/20/18 12:35 06/20/18 14:50 06/20/18 14:50 06/20/18 14:50 06/20/18 14:50 Oxygen Delivery Method Room Air Weight: 222 lb 0.088 oz Body Mass Index (BMI) 30.9 Laboratory Tests Past 24 Hrs 06/20/18 06/20/18 06/20/18 03:37 03:37 03:37 WBC 17.0 H RBC 5.10 Hgb 14.8 Hct 45.9 MCV 90.0 MCH 29.0 MCHC 32.2 RDW 13.7 RDW Differential 45.3 H Plt Count 304 MPV 11.3 Immature Gran % (Auto) 0.200 Neut % (Auto) 83.3 H Lymph % (Auto) 6.7 L [place] % (Auto) 9.5 Eos % (Auto) 0.1 Baso % (Auto) 0.2 Absolute Neuts (auto) 14.2 H Absolute Lymphs (auto) 1.13 Total Counted Not Reportable Differential Comment SEE COMMENT Diff Path Review Reviewed Platelet Estimate ADEQUATE Anisocytosis RARE Macrocytosis RARE Activated Clotting Time Sodium 138 Potassium 4.3 Chloride 101 Carbon Dioxide 28.0 Anion Gap 9 BUN 17 Creatinine 1.23 Estim Creat Clear Calc 58.67 Est GFR (MDRD) Af Amer 75 Est GFR (MDRD) Non-Af 62 BUN/Creatinine Ratio 13.8 Glucose 160 H Calcium 9.0 Total Bilirubin 0.80 Direct Bilirubin 0.21 AST 22 ALT 25 Alkaline Phosphatase 96 Troponin I 0.132 H Total Protein 7.7 Albumin 3.6 Globulin 4.1 Urine Color Urine Clarity Urine pH Ur Specific [place] Urine Protein Urine Glucose (UA) Urine Ketones Urine Occult Blood Urine Nitrite Urine Bilirubin Urine Urobilinogen Ur Leukocyte Esterase Urine RBC Urine WBC Ur Squamous Epith Cells Urine Bacteria Urine Mucus 06/20/18 06/20/18 10:00 13:30 WBC RBC Hgb Hct MCV MCH MCHC RDW RDW Differential Plt Count MPV Immature Gran % (Auto) Neut % (Auto) Lymph % (Auto) [place] % (Auto) Eos % (Auto) Baso % (Auto) Absolute Neuts (auto) Absolute Lymphs (auto) Total Counted Differential Comment Diff Path Review Platelet Estimate Anisocytosis Macrocytosis Activated Clotting Time 180 H Sodium Potassium Chloride Carbon Dioxide Anion Gap BUN Creatinine Estim Creat Clear Calc Est GFR (MDRD) Af Amer Est GFR (MDRD) Non-Af BUN/Creatinine Ratio Glucose Calcium Total Bilirubin Direct Bilirubin AST ALT Alkaline Phosphatase Troponin I Total Protein Albumin Globulin Urine Color Yellow Urine Clarity Sl. Cloudy Urine pH 5.0 Ur Specific [place] 1.020 Urine Protein 100 H Urine Glucose (UA) Normal Urine Ketones Negative Urine Occult Blood 250 H Urine Nitrite Negative Urine Bilirubin Negative Urine Urobilinogen Normal Ur Leukocyte Esterase 25 H Urine RBC 25-50 SEEN Urine WBC 0-5 SEEN Ur Squamous Epith Cells 0 SEEN Urine Bacteria 0 SEEN Urine Mucus 0 SEEN POC Glucose 06/20/18 10:16 POC Glucose 157 H Assessment/Plan All Active Problems (Last Reviewed 06/20/18 @ 11:10 by Jassi Joseph MD) Acute cholecystitis (Acute) History of coronary artery stent placement (Acute 06/20/18) Atherosclerotic heart disease [place] coronary artery w/angina pectoris (Acute) As his overall mental condition deteriorated somewhat I think the only appropriate thing to do here is place a cholecystostomy tube sometime in the morning once the TPA has worn off and we have a better idea of what his mental status is. I would not recommend taking him to surgery given his most recent stent placement and mini stroke.
--- NOTE | 2018-06-20 15:20 | NURSING ---
Pt severely agitated, requiring large amounts of sedating medications and several nurses having to hold him down d/t this. Will not participate in NIH assessments. Pt is able to strongly move x4 extremities independently as well as clearly verbalize repetitively threats such as fuck you bitch...you're gonna get it...I'm gonna moisés you...I'm getting out of here...and take all this stuff off of me!.. will continue to monitor.
[2018-06-20] MEDS: Etomidate 20 MG/10 ML Vial IV (15:43)
[2018-06-20] MEDS: Propofol 10MG/Ml 1,000 MG/100 ML Bottle 6.042 MG CONT INF (15:44)
--- NOTE | 2018-06-20 15:50 | NURSING ---
Pt will not participate in NIH assessment.
--- NOTE | 2018-06-20 15:52 | RAD_ITS ---
STUDY: X-RAY CHEST REASON FOR EXAM: Male, 73 years old. Respiratory failure TECHNIQUE: Single AP portable view of the chest. COMPARISON: Earlier today FINDINGS: Since the previous study, patient has been intubated, tip is 5 cm above the edson. NG tube has been placed, tip is in the body of the stomach. EKG leads overlie the chest The lungs are clear and expanded. There is no demonstrated pleural abnormality. Normal size heart. Normal mediastinum and kirby. Normal visualized pulmonary arteries. Normal visualized aortic arch and descending thoracic aorta. Normal visualized thoracic spine. Normal visualized ribs, clavicles, and shoulders. There is no demonstrated abnormality of the visualized soft tissue structures of the upper abdomen. RAD/Chest 1 View (Portable) IMPRESSION: Support lines and tubes placed as described, no demonstrated complication No acute pulmonary process Electronically Signed: Omar Duggan MD at 17:00 EST , Service support ,
--- NOTE | 2018-06-20 16:00 | NURSING ---
Fem stop taken off R femoral puncture site; scant sanguineous drainage noted to area. Site palpated and soft with no active bleeding. Area bruised however. R groin dressed with gauze and opsite and fem stop reapplied.
[2018-06-20] MEDS: 0.9% Normal Saline 1,000 ML 150 ML IV (16:02)
[2018-06-20] MEDS: fentaNYL drip 100 ML 5 MCG IV (17:16)
[2018-06-20 17:19] LABS: Hematocrit 37.9 % (40-54); Hemoglobin 12.1 g/dl (13.0-16.5); Mean Corp Hgb Conc 31.9 g/gl (32-36); Mean Corpuscular Hgb 28.9 pg (27.0-32.0); Mean Corpuscular Volume 90.5 fL (80-94); Mean Platelet Vol. 11.9 fl (6.2-12.0); Platelet Count 267 K/mm3 (150-450); RBC Distribution Width CV 14.3 % (11.6-14.6); RBC Distribution Width SD 46.9 fl (35.1-43.9); Red Blood Count 4.19 M/mm3 (4.6-6.2); White Blood Count 16.8 K/mm3 (4.4-11.0)
[2018-06-20 17:20] LABS: Scan Indicated on CBC? Y/N NO
--- NOTE | 2018-06-20 17:20 | NURSING ---
Unable to complete NIH d/t heavy sedation
--- NOTE | 2018-06-20 18:00 | NURSING ---
Spoke at length with pt's Vanessa in ICU waiting room. Explained need for intubated d/t severe agitation and combativeness, requiring several sedating medications, finally leading to a depressed respiratory status. Reiterated that we tried to call several times before having to resort to intubation. She verbalizes that her cell phone has been . She also verbalizes that she had a cousin today as well and many other stressors at home. This RN explained plan of care through the night and the potential of going to MRI this evening. She verbalizes understanding. Pt's tearful intermittently through conversation and states that she is very overwhelmed and feeling guilty d/t the fact that she convinced the pt to come into the hospital. Support given and questions answered. Asked Vanessa about her support as she leaves the hospital tonight and states that pt's children are unaware of hospitalization, as pt would not want them to know. Offered to let pt stay in ICU waiting room so she would not have to return home alone, she declined. Informed Vanessa of ICU rounds in the morning and gave brochures. She stated that she will try to make it. Also informed Vanessa to call unit any time of day or night to ask questions regarding . She verbalized understanding.
[2018-06-20] MEDS: Midazolam 2 MG/2 ML Syringe 4 MG IV (19:45)
[2018-06-20] MEDS: Atorvastatin Calcium 40 MG Tablet PO (22:42)
[2018-06-20] MEDS: Piperacil/Tazobactam 3.375 GM/50 ML ML IV (22:42)
[2018-06-20] MEDS: 0.9% Normal Saline 1,000 ML 100 ML IV (23:02)
[2018-06-20] MEDS: TICAGRELOR 90 MG TABLET PO (23:03)
[2018-06-21] VITALS (42 sets, daily range): BP systolic 89–159; BP diastolic 52–73; PULSE 73–92; RESP 16–28; TEMP 36.5–37.2; O2SAT 92–98; BMI 30.9
[2018-06-21 04:33] LABS: Absolute Lymphocyte Count 1.34 X10^3/ul (0.83-4.51); Absolute Neutrophil Count 13.5 X10^3/uL (2.0-7.7); Basophil# 0.03 X10^3/uL; Basophil% 0.2 % (0-1); Eosinophil# 0.02 X10^3/uL; Eosinophils% 0.1 % (0-5); Hematocrit 36.1 % (40-54); Lymphocyte # 1.34 X10^3/ul (4.0); Lymphocyte % 8.4 % (19-41); Mean Corp Hgb Conc 33.2 g/gl (32-36); Mean Corpuscular Hgb 29.8 pg (27.0-32.0); Mean Corpuscular Volume 89.6 fL (80-94); Mean Platelet Vol. 11.2 fl (6.2-12.0); Monocyte# 0.97 X10^3/uL; Monocyte% 6.1 % (0-10); Neutrophil # 13.51 X10^3/uL (2.7-7.7); Neutrophil % 84.9 % (47-70); POSITIVE COUNT NO; POSITIVE DIFFERENTIAL NO; POSITIVE MORPHOLOGY NO; Platelet Count 214 K/mm3 (150-450); RBC Distribution Width CV 14.5 % (11.6-14.6); RBC Distribution Width SD 46.8 fl (35.1-43.9); Red Blood Count 4.03 M/mm3 (4.6-6.2); White Blood Count 15.9 K/mm3 (4.4-11.0)
[2018-06-21 04:42] LABS: International Normalized Ratio 1.3; Prothrombin Time (Protime)PT. 16.5 SECONDS (11.7-14.9)
[2018-06-21 04:43] LABS: Partial Thromboplast Time 37.7 Seconds (24.1-36.2)
[2018-06-21 04:55] LABS: Anion Gap 9 (5-15); BUN 33 mg/dL (7-18); BUN/Creat Ratio 14.2 RATIO (10-20); Calcium,Total 7.5 mg/dL (8.5-10.1); Chloride 104 mmol/L (98-107); Creatinine, Serum 2.32 mg/dL (0.70-1.30); EST Glomerular Filtration Rate 30 mL/min (>60); Est Glom Filt Rate - Afr Amer 36 mL/min (>60); Glucose 152 mg/dL (74-106); Magnesium 2.3 mg/dL (1.6-2.6); Potassium 3.9 mmol/L (3.5-5.1); Sodium Level 140 mmol/L (136-145)
--- NOTE | 2018-06-21 05:09 | ECHOD_ITS ---
Reason For Study: TIA/CVA Procedure This was a 2D Doppler, Color Flow transthoracic echocardiogram. The study was technically difficult. PT on vent and exam performed supine. Exam performed portable in ICU/CCU. Left Ventricle Mild concentric left ventricular hypertrophy. The estimated ejection fraction is 65 %. No regional wall motion abnormalities noted. Right Ventricle Normal size and thickness. Normal systolic function. Atria The left atrium is moderately enlarged. Normal right atrium. Normal atrial septum. Bubble contrast study negative for right to left interatrial shunt. Mitral Valve The mitral valve is structurally normal. No prolapse or stenosis seen. Tricuspid Valve Normal tricuspid valve. Trivial tricuspid valve insufficiency. Right ventricular systolic pressure estimated to be 21 mmHg. Aortic Valve Trisinus/trileaflet aortic valve. Pulmonic Valve Normal pulmonic valve. Great Vessels Normal aortic root. Normal arch. Normal inferior vena cava. Inferior vena cava collapse with sniff. Pericardium/Pleural No pericardial effusion. Medication Performed a rapid injection of agitated mix of 9 cc saline and 1cc air to assess for atrial septal defect. MMode/2D Measurements & Calculations LVIDd: 4.4 cm IVSd: 1.4 cm Ao root diam: 3.3 cm LVIDs: 3.3 cm LVPWd: 1.2 cm RVDd: 2.9 cm FS: 24.6 % LAV(MOD-bp): 82.2 ml EDV(MOD-sp4): 112.2 ml EDV(MOD-sp2): 71.3 ml LAV(MOD-bp) Indexed: 36.3 ml/m2 ESV(MOD-sp4): 59.3 ml EF(MOD-sp2): 42.9 % LAV(MOD-sp2): 68.2 ml EF(MOD-sp4): 47.2 % LAV(MOD-sp4): 89.8 ml SV(MOD-sp4): 53.0 ml SV(MOD-sp2): 30.6 ml LA A4 area: 25.9 cm2 LA dimension(2D): 4.2 cm Time Measurements MV dec time: 0.23 sec Doppler Measurements & Calculations MV E max asher: 49.2 cm/sec Lat Peak E' Asher: 5.4 cm/sec Med Peak E' Asher: 4.7 cm/sec MV A max asher: 85.8 cm/sec E/E' lat: 9.2 E/E' med: 10.4 MV E/A: 0.57 Ao V2 max: 158.4 cm/sec LV V1 max: 123.2 cm/sec PA V2 max: 102.2 cm/sec Ao max P.0 mmHg LV V1 max P.1 mmHg TR max asher: 201.9 cm/sec TR max P.3 mmHg Interpretation Summary Mild concentric left ventricular hypertrophy. The estimated ejection fraction is 65 %. The left atrium is moderately enlarged. Bubble contrast study negative for right to left interatrial shunt. Trivial tricuspid valve insufficiency. Right ventricular systolic pressure estimated to be 21 mmHg. There is no comparison study available. Ordering Physician: Jefry Redding D.O. Referring Physician: NO PCP Performed By: Suzie Garcia, DOUGIE, RVT
[2018-06-21] MEDS: Piperacil/Tazobactam 3.375 GM/50 ML ML IV ×3 (05:16→21:46)
--- NOTE | 2018-06-21 07:02 | PCM.PN.CARD ---
Subjectve: Patient seen and evaluated. He is currently intubated. Objective: Vital Signs Temp Pulse Resp BP Pulse Ox 97.8 F 76 19 H 99/55 L 94 06/21/18 06:00 06/21/18 06:00 06/21/18 06:00 06/21/18 06:00 06/21/18 06:00 Oxygen Delivery Method Mechanical Ventilator Weight: 236 lb 5.369 oz Body Mass Index (BMI) 30.9 Intake and Output for Last 24 Hours 06/19/18 06/20/18 06/21/18 23:59 23:59 23:59 Intake Total 318 / 318 723 / 723 Output Total 400 / 400 330 / 330 Balance -82 / -82 393 / 393 General: Ill Appearing, Non-Cooperative, - - Intubated HEENT: PERRL, EOMI, Sclera Non Icteric Oral: Moist Mucosa Neck: Supple, Good ROM, No Lymph Node Enlargement Lungs: Clear to auscultation Cardiovascular: Regular Rhythm, Normal S1, Normal S2, No Murmurs, No Rubs, No Gallops Vascular: No Carotid Bruits, Normal Femoral Pulses, Normal Radial Pulses, Normal Dorsalis Pedal Pulse, Normal Posterior Tibial Pulses Abdomen: Bowel Sounds Present, Soft, Non Tender, No HSM, No Organomegaly Extremities: No Cyanosis, No Clubbing, No edema Skin: No Rashes Lymphatic: No Lymph Node Enlargement Neurological: No Focal Motor or Sensory Deficit 06/20/18 03:37: Total Bilirubin 0.80, Direct Bilirubin 0.21 06/20/18 13:30: Urine Color Yellow, Urine Clarity Sl. Cloudy, Urine pH 5.0, Ur Specific [place] 1.020, Urine Protein 100 H, Urine Glucose (UA) Normal, Urine Ketones Negative, Urine Occult Blood 250 H, Urine Nitrite Negative, Urine Bilirubin Negative, Urine Urobilinogen Normal, Ur Leukocyte Esterase 25 H, Urine RBC 25-50 SEEN, Urine WBC 0-5 SEEN 06/20/18 16:50: WBC 16.8 H, RBC 4.19 L, Hgb 12.1 L, Hct 37.9 L, MCV 90.5, MCH 28.9, MCHC 31.9 L, RDW 14.3, RDW Differential 46.9 H, Plt Count 267, MPV 11.9 06/21/18 04:23: WBC 15.9 H, RBC 4.03 L, Hgb 12.0 L, Hct 36.1 L, MCV 89.6, MCH 29.8, MCHC 33.2, RDW 14.5, RDW Differential 46.8 H, Plt Count 214, MPV 11.2, Immature Gran % (Auto) 0.300, Neut % (Auto) 84.9 H, Lymph % (Auto) 8.4 L, [place] % (Auto) 6.1, Eos % (Auto) 0.1, Baso % (Auto) 0.2, Absolute Neuts (auto) 13.5 H, Total Counted Not Reportable 06/21/18 04:23: Sodium 140, Potassium 3.9, Chloride 104, Carbon Dioxide 27.0, Anion Gap 9, BUN 33 H, Creatinine 2.32 H, Est GFR (MDRD) Af Amer 36 L, Est GFR (MDRD) Non-Af 30 L, BUN/Creatinine Ratio 14.2, Glucose 152 H, Calcium 7.5 L, Magnesium 2.3 06/21/18 04:23: PT 16.5 H, INR 1.3, APTT 37.7 H Rhythm: EKG: ECHO: Stress Test: Cardiac Cath: PCI: CT Surgery: Holter monitor: EPS: PPM: CXR: Chest CT Scan: Medical Necessity - Tobacco Use Smoking Status: Former smoker Tobacco Use: Non-smoker Assessment/Plan 1. Chest pain-unstable angina Cardiac catheterization demonstrated the following: Normal left main coronary artery. Left anterior descending artery with mild disease. Left circumflex artery with AV groove branch with 80% stenosis. Dominant large right coronary artery with 80% proximal stenosis. Preserved ejection fraction. Based on the above he underwent angioplasty and stenting of the right coronary artery. The above was successful. The patient however developed dysarthria which was thought to be a cerebrovascular accident and was seen by neurology. 2. 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 Thus far small punctate basal ganglia infarcts only have been noted. Will defer further treatment as per neurology 3. Hypertension His blood pressure is low at this time. Would hold off on all antihypertensives at this time. The above is likely secondary to his sedation. Depending on the improvement further recommendations will be made. 4. Cholecystitis Patient is noted to have an inflamed gallbladder without any liver function test abnormalities thus far. Patient has been seen by the surgeon and would await recommendations including drainage tube placement. The timing would be as per the surgeon. 5. Renal dysfunction Patient appears to have developed acute renal dysfunction likely secondary to the dye load as well as the hypotension. Recommend increasing intravenous fluids intake and continue to monitor renal profile. Appreciate the input of the interventionalist, upholstery auto trimmer, hospitalist, surgeon, neurologist, and nursing.
--- NOTE | 2018-06-21 07:07 | PCM.PN.INT ---
Subjective: The patient was seen and examined at the bedside this morning. Events from the last 24 hours have been reviewed. The patient is currently afebrile, hemodynamically stable and maintaining appropriate oxygen saturations with an FiO2 requirement of 40%. The patient has done well overnight following intubation late yesterday afternoon. He is currently on Precedex for sedation as monotherapy. He is able to open his eyes and follow simple commands. Objective: The patient's most recent lab work, culture data and imaging studies have all been personally reviewed. Brain MRI completed on June 20 revealed probable bilateral punctate subacute embolic infarctions. Head/neck MRA was normal. CT abdomen/pelvis revealed multiple gallstones with thickened gallbladder wall suggestive of acute cholecystitis. Urine culture is currently pending. General: - - Intubated, sedated and mechanically ventilated. Currently tolerating assist control without ventilator dyssynchrony noted. HEENT: Atraumatic, PERRLA, Normocephalic Oral: No Gingival or Mucosal Lesions/ Ulcerations, - - Endotracheal and OG tubes in place. Neck: Supple, No Nodes, Trachea Midline Lungs: No rhonchi, No wheeze, No rales, Diminished Cardiovascular: Regular rate, Regular Rhythm, Normal S1, Normal S2, No murmurs Abdomen: Bowel Sounds Present, Soft, Non Tender Extremities: No clubbing, No cyanosis, No edema Skin: No breakdown Musculoskeletal: No Tenderness to Palpation of Joints or Extremities, No Muscle Wasting Lymphatic: No Cervical, Supraclavicular, or Inguinal Adenopathy Neurological: - - No focal neurological deficits. The patient is alert to verbal stimuli and will follow simple commands. He is much more calm than previous. Vital Signs Temp Pulse Resp BP Pulse Ox 36.6 C 76 19 H 99/55 L 94 06/21/18 06:00 06/21/18 06:00 06/21/18 06:00 06/21/18 06:00 06/21/18 06:00 Oxygen Delivery Method Mechanical Ventilator Weight: 236 lb 5.369 oz Body Mass Index (BMI) 30.9 Intake and Output for Last 24 Hours 06/19/18 06/20/18 06/21/18 23:59 23:59 23:59 Intake Total 318 / 318 723 / 723 Output Total 400 / 400 330 / 330 Balance -82 / -82 393 / 393 Labs (Last 48 Hours) 06/20/18 06/20/18 06/20/18 03:37 03:37 03:37 WBC 17.0 H RBC 5.10 Hgb 14.8 Hct 45.9 MCV 90.0 MCH 29.0 MCHC 32.2 RDW 13.7 RDW Differential 45.3 H Plt Count 304 MPV 11.3 Immature Gran % (Auto) 0.200 Neut % (Auto) 83.3 H Lymph % (Auto) 6.7 L Long % (Auto) 9.5 Eos % (Auto) 0.1 Baso % (Auto) 0.2 Absolute Neuts (auto) 14.2 H Absolute Lymphs (auto) 1.13 Total Counted Not Reportable Differential Comment SEE COMMENT Diff Path Review Reviewed Platelet Estimate ADEQUATE Anisocytosis RARE Macrocytosis RARE PT INR APTT Activated Clotting Time Sodium 138 Potassium 4.3 Chloride 101 Carbon Dioxide 28.0 Anion Gap 9 BUN 17 Creatinine 1.23 Estim Creat Clear Calc 58.67 Est GFR (MDRD) Af Amer 75 Est GFR (MDRD) Non-Af 62 BUN/Creatinine Ratio 13.8 Glucose 160 H Calcium 9.0 Magnesium Total Bilirubin 0.80 Direct Bilirubin 0.21 AST 22 ALT 25 Alkaline Phosphatase 96 Troponin I 0.132 H Total Protein 7.7 Albumin 3.6 Globulin 4.1 Urine Color Urine Clarity Urine pH Ur Specific [place] Urine Protein Urine Glucose (UA) Urine Ketones Urine Occult Blood Urine Nitrite Urine Bilirubin Urine Urobilinogen Ur Leukocyte Esterase Urine RBC Urine WBC Ur Squamous Epith Cells Urine Bacteria Urine Mucus POC Glucose 06/20/18 06/20/18 06/20/18 10:00 10:16 13:30 WBC RBC Hgb Hct MCV MCH MCHC RDW RDW Differential Plt Count MPV Immature Gran % (Auto) Neut % (Auto) Lymph % (Auto) Long % (Auto) Eos % (Auto) Baso % (Auto) Absolute Neuts (auto) Absolute Lymphs (auto) Total Counted Differential Comment Diff Path Review Platelet Estimate Anisocytosis Macrocytosis PT INR APTT Activated Clotting Time 180 H Sodium Potassium Chloride Carbon Dioxide Anion Gap BUN Creatinine Estim Creat Clear Calc Est GFR (MDRD) Af Amer Est GFR (MDRD) Non-Af BUN/Creatinine Ratio Glucose Calcium Magnesium Total Bilirubin Direct Bilirubin AST ALT Alkaline Phosphatase Troponin I Total Protein Albumin Globulin Urine Color Yellow Urine Clarity Sl. Cloudy Urine pH 5.0 Ur Specific [place] 1.020 Urine Protein 100 H Urine Glucose (UA) Normal Urine Ketones Negative Urine Occult Blood 250 H Urine Nitrite Negative Urine Bilirubin Negative Urine Urobilinogen Normal Ur Leukocyte Esterase 25 H Urine RBC 25-50 SEEN Urine WBC 0-5 SEEN Ur Squamous Epith Cells 0 SEEN Urine Bacteria 0 SEEN Urine Mucus 0 SEEN POC Glucose 157 H 06/20/18 06/21/18 06/21/18 16:50 04:23 04:23 WBC 16.8 H 15.9 H RBC 4.19 L 4.03 L Hgb 12.1 L 12.0 L Hct 37.9 L 36.1 L MCV 90.5 89.6 MCH 28.9 29.8 MCHC 31.9 L 33.2 RDW 14.3 14.5 RDW Differential 46.9 H 46.8 H Plt Count 267 214 MPV 11.9 11.2 Immature Gran % (Auto) 0.300 Neut % (Auto) 84.9 H Lymph % (Auto) 8.4 L Long % (Auto) 6.1 Eos % (Auto) 0.1 Baso % (Auto) 0.2 Absolute Neuts (auto) 13.5 H Absolute Lymphs (auto) 1.34 Total Counted Not Reportable Differential Comment Diff Path Review Platelet Estimate Anisocytosis Macrocytosis PT INR APTT Activated Clotting Time Sodium 140 Potassium 3.9 Chloride 104 Carbon Dioxide 27.0 Anion Gap 9 BUN 33 H Creatinine 2.32 H Estim Creat Clear Calc 31.10 Est GFR (MDRD) Af Amer 36 L Est GFR (MDRD) Non-Af 30 L BUN/Creatinine Ratio 14.2 Glucose 152 H Calcium 7.5 L Magnesium 2.3 Total Bilirubin Direct Bilirubin AST ALT Alkaline Phosphatase Troponin I Total Protein Albumin Globulin Urine Color Urine Clarity Urine pH Ur Specific [place] Urine Protein Urine Glucose (UA) Urine Ketones Urine Occult Blood Urine Nitrite Urine Bilirubin Urine Urobilinogen Ur Leukocyte Esterase Urine RBC Urine WBC Ur Squamous Epith Cells Urine Bacteria Urine Mucus POC Glucose 06/21/18 04:23 WBC RBC Hgb Hct MCV MCH MCHC RDW RDW Differential Plt Count MPV Immature Gran % (Auto) Neut % (Auto) Lymph % (Auto) Long % (Auto) Eos % (Auto) Baso % (Auto) Absolute Neuts (auto) Absolute Lymphs (auto) Total Counted Differential Comment Diff Path Review Platelet Estimate Anisocytosis Macrocytosis PT 16.5 H INR 1.3 APTT 37.7 H Activated Clotting Time Sodium Potassium Chloride Carbon Dioxide Anion Gap BUN Creatinine Estim Creat Clear Calc Est GFR (MDRD) Af Amer Est GFR (MDRD) Non-Af BUN/Creatinine Ratio Glucose Calcium Magnesium Total Bilirubin Direct Bilirubin AST ALT Alkaline Phosphatase Troponin I Total Protein Albumin Globulin Urine Color Urine Clarity Urine pH Ur Specific [place] Urine Protein Urine Glucose (UA) Urine Ketones Urine Occult Blood Urine Nitrite Urine Bilirubin Urine Urobilinogen Ur Leukocyte Esterase Urine RBC Urine WBC Ur Squamous Epith Cells Urine Bacteria Urine Mucus POC Glucose Clinical Impression(s) from Imaging Studies Chest CTA 06/20/18 03:53 IMPRESSION: Normal CTA chest examination, without a demonstrated pulmonary embolism or arterial dissection. Indeterminate gallbladder, gallbladder inflammation is not excluded. Consider gallbladder ultrasound depending on patient's symptoms. Electronically Signed: Leeanne Carter MD at 5:33 EST , Service support , Brain CT 06/20/18 10:22 IMPRESSION: Chronic involutional changes of the brain. N.B. : The above information has been verbally conveyed by Mohit Frey MD to Jacques Davis on 06/20/2018 10:33:31 (ET). Electronically Signed: Mohit Frey MD at 10:35 EST Tel [phone], Service support , Brain MRI 06/20/18 10:57 IMPRESSION: Probable bilateral punctate subacute embolic infarctions. N.B. : The above information has been verbally conveyed by Nando Velazco MD to VINCENZO Carver, on 06/20/2018 22:25:02 (ET). Electronically Signed: Nando Velazco MD at 21:45 EST , Service support , Head MRA 06/20/18 11:00 IMPRESSION: Normal MRA of the head Electronically Signed: Nando Velazco MD at 22:14 EST , Service support , Neck MRA 06/20/18 11:00 IMPRESSION: Normal bilateral cervical carotid and vertebral arteries. Electronically Signed: Nando Velazco MD at 22:09 EST , Service support , Abdomen/Pelvis CT 06/20/18 12:50 IMPRESSION: Multiple gallstones with thickened gallbladder wall and increased markings in the surrounding fat. Acute cholecystitis should be ruled out. Soft tissue changes seen in the region of the right groin in keeping with the history of recent catheterization. Electronically Signed: Mohit Frey MD at 13:46 EST Tel [phone], Service support , Brain CT 06/20/18 13:25 IMPRESSION: Mild cerebral atrophy. No acute abnormality is seen. Electronically Signed: Mohit Frey MD at 14:09 EST Tel [phone], Service support , Chest X-Ray 06/20/18 13:40 IMPRESSION: Mild cardiomegaly. 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 Continue management per TPA protocol. Obtain repeat head imaging today. 2. Will discuss with surgery with regards to the recommendations for percutaneous cholecystostomy tube. 3. Once the above interventions have been completed, aggressive weaning from the ventilator can be undertaken. 4. Continue Precedex for sedation. 5. Continue to allow for permissive hypertension and treat systolic blood pressures greater than 180 mmHg. 6. Continue antibiotics. 7. Continue supplemental IV fluid hydration for now. 8. Start Pepcid for GI prophylaxis IMPRESSIONS: 1. Acute respiratory failure The patient did require eventual intubation on the afternoon of June 20 due to refractory agitation and subsequent airway compromise. The patient became exceedingly confrontational and threatening to staff throughout the afternoon. A stepwise approach was employed to the use of sedative medications in hopes of improving the patient's agitation. However, despite the utilization of multiple medications, including Precedex, his agitation remained an issue. Further escalation in his sedation regimen, lead to somnolence with concerns for the patient's ability to protect his airway. Therefore, the decision was made to intubate the patient. The patient has responded remarkably well to invasive mechanical ventilation. He remains on Precedex as monotherapy and is much more calm and appropriately interactive this morning. Would first plan to repeat the patient's head imaging later today and develop a plan with surgery with regards to plans for percutaneous cholecystostomy tube placement, prior to consideration for liberation from mechanical ventilation. 2. CVA status post TPA administration The patient did receive TPA over concerns for a stuttering CVA. Continue to allow for permissive hypertension. We will treat systolic blood pressures that are greater than 180 mmHg. Continue to monitor for any signs of bleeding. Repeat head imaging is indicated today. The patient's MRI was able to be completed last evening. 3. Acute kidney injury Likely secondary to recent contrast administration coupled with a component of hemodynamic instability that occurred yesterday. The patient's hemodynamics have since improved. We will continue supplemental IV fluid hydration in the interim. Continue to monitor urine output. Avoid further contrast and/or nephrotoxic agents. No indication for renal replacement therapy at this time. 4. Non-ST elevation PA status post PTCA/GAVIN placement to the proximal RCA The patient is status post PTCA with drug-eluting stent placed to the proximal RCA. Continue medical management per cardiology recommendations. 5. Metabolic encephalopathy Improving. Concern for underlying infectious/metabolic encephalopathy, especially in light of the patient's recent mentation changes. Follow-up head imaging in the form of CT, revealed no intracranial hemorrhage. He does appear to have radiographic evidence of acute cholecystitis. I did confer with surgery who indicated that the patient may require percutaneous cholecystostomy tube for gallbladder decompression. We will continue to minimize sedation as tolerated. 6. Sepsis secondary to acute cholecystitis The patient was started empirically on Zosyn after he developed fevers and complained of right upper quadrant pain in the setting of radiographic evidence concerning for acute cholecystitis. Urine culture is also pending. 7. Hypertension/anxiety Complicates care, management, recovery and prognosis. Currently holding all antihypertensive home medications. TIME: 45 minutes of critical care time, independent of procedures, was spent addressing the patient's acute respiratory failure, CVA status post TPA administration, non-ST elevation PA, metabolic encephalopathy, sepsis secondary to acute cholecystitis, review of all data and collaboration with care team. ([id number]) Code Visit 9xxxx: [id number] Critical care first hour
--- NOTE | 2018-06-21 07:08 | PN.CARD_ITS ---
Subjectve: Patient seen and evaluated. He is currently intubated. Objective: Vital Signs Temp Pulse Resp BP Pulse Ox 97.8 F 76 19 H 99/55 L 94 06/21/18 06:00 06/21/18 06:00 06/21/18 06:00 06/21/18 06:00 06/21/18 06:00 Oxygen Delivery Method Mechanical Ventilator Weight: 236 lb 5.369 oz Body Mass Index (BMI) 30.9 Intake and Output for Last 24 Hours 06/19/18 06/20/18 06/21/18 23:59 23:59 23:59 Intake Total 318 / 318 723 / 723 Output Total 400 / 400 330 / 330 Balance -82 / -82 393 / 393 General: Ill Appearing, Non-Cooperative, - - Intubated HEENT: PERRL, EOMI, Sclera Non Icteric Oral: Moist Mucosa Neck: Supple, Good ROM, No Lymph Node Enlargement Lungs: Clear to auscultation Cardiovascular: Regular Rhythm, Normal S1, Normal S2, No Murmurs, No Rubs, No Gallops Vascular: No Carotid Bruits, Normal Femoral Pulses, Normal Radial Pulses, Normal Dorsalis Pedal Pulse, Normal Posterior Tibial Pulses Abdomen: Bowel Sounds Present, Soft, Non Tender, No HSM, No Organomegaly Extremities: No Cyanosis, No Clubbing, No edema Skin: No Rashes Lymphatic: No Lymph Node Enlargement Neurological: No Focal Motor or Sensory Deficit 06/20/18 03:37: Total Bilirubin 0.80, Direct Bilirubin 0.21 06/20/18 13:30: Urine Color Yellow, Urine Clarity Sl. Cloudy, Urine pH 5.0, Ur Specific [place] 1.020, Urine Protein 100 H, Urine Glucose (UA) Normal, Urine Ketones Negative, Urine Occult Blood 250 H, Urine Nitrite Negative, Urine Bilirubin Negative, Urine Urobilinogen Normal, Ur Leukocyte Esterase 25 H, Urine RBC 25-50 SEEN, Urine WBC 0-5 SEEN 06/20/18 16:50: WBC 16.8 H, RBC 4.19 L, Hgb 12.1 L, Hct 37.9 L, MCV 90.5, MCH 28.9, MCHC 31.9 L, RDW 14.3, RDW Differential 46.9 H, Plt Count 267, MPV 11.9 06/21/18 04:23: WBC 15.9 H, RBC 4.03 L, Hgb 12.0 L, Hct 36.1 L, MCV 89.6, MCH 29.8, MCHC 33.2, RDW 14.5, RDW Differential 46.8 H, Plt Count 214, MPV 11.2, Immature Gran % (Auto) 0.300, Neut % (Auto) 84.9 H, Lymph % (Auto) 8.4 L, [place] % (Auto) 6.1, Eos % (Auto) 0.1, Baso % (Auto) 0.2, Absolute Neuts (auto) 13.5 H, Total Counted Not Reportable 06/21/18 04:23: Sodium 140, Potassium 3.9, Chloride 104, Carbon Dioxide 27.0, An ion Gap 9, BUN 33 H, Creatinine 2.32 H, Est GFR (MDRD) Af Amer 36 L, Est GFR (MDRD) Non-Af 30 L, BUN/Creatinine Ratio 14.2, Glucose 152 H, Calcium 7.5 L, Magnesium 2.3 06/21/18 04:23: PT 16.5 H, INR 1.3, APTT 37.7 H Rhythm: EKG: ECHO: Stress Test: Cardiac Cath: PCI: CT Surgery: Holter monitor: EPS: PPM: CXR: Chest CT Scan: Medical Necessity - Tobacco Use Smoking Status: Former smoker Tobacco Use: Non-smoker Assessment/Plan 1. Chest pain-unstable angina Cardiac catheterization demonstrated the following: Normal left main coronary artery. Left anterior descending artery with mild disease. Left circumflex artery with AV groove branch with 80% stenosis. Dominant large right coronary artery with 80% proximal stenosis. Preserved ejection fraction. Based on the above he underwent angioplasty and stenting of the right coronary artery. The above was successful. The patient however developed dysarthria which was thought to be a cerebrovascular accident and was seen by neurology. 2. 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 Thus far small punctate basal ganglia infarcts only have been noted. Will defer further treatment as per neurology 3. Hypertension * His blood pressure is low at this time. * Would hold off on all antihypertensives at this time. The above is likely secondary to his sedation. Depending on the improvement further recommendations will be made. 4. Cholecystitis * Patient is noted to have an inflamed gallbladder without any liver function test abnormalities thus far. * Patient has been seen by the surgeon and would await recommendations including drainage tube placement. The timing would be as per the surgeon. * * 5. Renal dysfunction Patient appears to have developed acute renal dysfunction likely secondary to the dye load as well as the hypotension. Recommend increasing intravenous fluids intake and continue to monitor renal profile. Appreciate the input of the interventionalist, product development carpenter, hospitalist, surgeon, neurologist, and nursing.
--- NOTE | 2018-06-21 07:11 | PN_ITS ---
Subjective: The patient was seen and examined at the bedside this morning. Events from the last 24 hours have been reviewed. The patient is currently afebrile, hemodynamically stable and maintaining appropriate oxygen saturations with an FiO2 requirement of 40%. The patient has done well overnight following intubation late yesterday afternoon. He is currently on Precedex for sedation as monotherapy. He is able to open his eyes and follow simple commands. Objective: The patient's most recent lab work, culture data and imaging studies have all been personally reviewed. Brain MRI completed on June 20 revealed probable bilateral punctate subacute embolic infarctions. Head/neck MRA was normal. CT abdomen/pelvis revealed multiple gallstones with thickened gallbladder wall suggestive of acute cholecystitis. Urine culture is currently pending. General: - - Intubated, sedated and mechanically ventilated. Currently tolerating assist control without ventilator dyssynchrony noted. HEENT: Atraumatic, PERRLA, Normocephalic Oral: No Gingival or Mucosal Lesions/ Ulcerations, - - Endotracheal and OG tubes in place. Neck: Supple, No Nodes, Trachea Midline Lungs: No rhonchi, No wheeze, No rales, Diminished Cardiovascular: Regular rate, Regular Rhythm, Normal S1, Normal S2, No murmurs Abdomen: Bowel Sounds Present, Soft, Non Tender Extremities: No clubbing, No cyanosis, No edema Skin: No breakdown Musculoskeletal: No Tenderness to Palpation of Joints or Extremities, No Muscle Wasting Lymphatic: No Cervical, Supraclavicular, or Inguinal Adenopathy Neurological: - - No focal neurological deficits. The patient is alert to verbal stimuli and will follow simple commands. He is much more calm than previous. Vital Signs Temp Pulse Resp BP Pulse Ox 36.6 C 76 19 H 99/55 L 94 06/21/18 06:00 06/21/18 06:00 06/21/18 06:00 06/21/18 06:00 06/21/18 06:00 Oxygen Delivery Method Mechanical Ventilator Weight: 236 lb 5.369 oz Body Mass Index (BMI) 30.9 Intake and Output for Last 24 Hours 06/19/18 06/20/18 06/21/18 23:59 23:59 23:59 Intake Total 318 / 318 723 / 723 Output Total 400 / 400 330 / 330 Balance -82 / -82 393 / 393 Labs (Last 48 Hours) 06/20/18 06/20/18 06/20/18 03:37 03:37 03:37 WBC 17.0 H RBC 5.10 Hgb 14.8 Hct 45.9 MCV 90.0 MCH 29.0 MCHC 32.2 RDW 13.7 RDW Differential 45.3 H Plt Count 304 MPV 11.3 Immature Gran % (Auto) 0.200 Neut % (Auto) 83.3 H Lymph % (Auto) 6.7 L [place] % (Auto) 9.5 Eos % (Auto) 0.1 Baso % (Auto) 0.2 Absolute Neuts (auto) 14.2 H Absolute Lymphs (auto) 1.13 Total Counted Not Reportable Differential Comment SEE COMMENT Diff Path Review Reviewed Platelet Estimate ADEQUATE Anisocytosis RARE Macrocytosis RARE PT INR APTT Activated Clotting Time Sodium 138 Potassium 4.3 Chloride 101 Carbon Dioxide 28.0 Anion Gap 9 BUN 17 Creatinine 1.23 Estim Creat Clear Calc 58.67 Est GFR (MDRD) Af Amer 75 Est GFR (MDRD) Non-Af 62 BUN/Creatinine Ratio 13.8 Glucose 160 H Calcium 9.0 Magnesium Total Bilirubin 0.80 Direct Bilirubin 0.21 AST 22 ALT 25 Alkaline Phosphatase 96 Troponin I 0.132 H Total Protein 7.7 Albumin 3.6 Globulin 4.1 Urine Color Urine Clarity Urine pH Ur Specific [place] Urine Protein Urine Glucose (UA) Urine Ketones Urine Occult Blood Urine Nitrite Urine Bilirubin Urine Urobilinogen Ur Leukocyte Esterase Urine RBC Urine WBC Ur Squamous Epith Cells Urine Bacteria Urine Mucus POC Glucose 06/20/18 06/20/18 06/20/18 10:00 10:16 13:30 WBC RBC Hgb Hct MCV MCH MCHC RDW RDW Differential Plt Count MPV Immature Gran % (Auto) Neut % (Auto) Lymph % (Auto) [place] % (Auto) Eos % (Auto) Baso % (Auto) Absolute Neuts (auto) Absolute Lymphs (auto) Total Counted Differential Comment Diff Path Review Platelet Estimate Anisocytosis Macrocytosis PT INR APTT Activated Clotting Time 180 H Sodium Potassium Chloride Carbon Dioxide Anion Gap BUN Creatinine Estim Creat Clear Calc Est GFR (MDRD) Af Amer Est GFR (MDRD) Non-Af BUN/Creatinine Ratio Glucose Calcium Magnesium Total Bilirubin Direct Bilirubin AST ALT Alkaline Phosphatase Troponin I Total Protein Albumin Globulin Urine Color Yellow Urine Clarity Sl. Cloudy Urine pH 5.0 Ur Specific [place] 1.020 Urine Protein 100 H Urine Glucose (UA) Normal Urine Ketones Negative Urine Occult Blood 250 H Urine Nitrite Negative Urine Bilirubin Negative Urine Urobilinogen Normal Ur Leukocyte Esterase 25 H Urine RBC 25-50 SEEN Urine WBC 0-5 SEEN Ur Squamous Epith Cells 0 SEEN Urine Bacteria 0 SEEN Urine Mucus 0 SEEN POC Glucose 157 H 06/20/18 06/21/18 06/21/18 16:50 04:23 04:23 WBC 16.8 H 15.9 H RBC 4.19 L 4.03 L Hgb 12.1 L 12.0 L Hct 37.9 L 36.1 L MCV 90.5 89.6 MCH 28.9 29.8 MCHC 31.9 L 33.2 RDW 14.3 14.5 RDW Differential 46.9 H 46.8 H Plt Count 267 214 MPV 11.9 11.2 Immature Gran % (Auto) 0.300 Neut % (Auto) 84.9 H Lymph % (Auto) 8.4 L [place] % (Auto) 6.1 Eos % (Auto) 0.1 Baso % (Auto) 0.2 Absolute Neuts (auto) 13.5 H Absolute Lymphs (auto) 1.34 Total Counted Not Reportable Differential Comment Diff Path Review Platelet Estimate Anisocytosis Macrocytosis PT INR APTT Activated Clotting Time Sodium 140 Potassium 3.9 Chloride 104 Carbon Dioxide 27.0 Anion Gap 9 BUN 33 H Creatinine 2.32 H Estim Creat Clear Calc 31.10 Est GFR (MDRD) Af Amer 36 L Est GFR (MDRD) Non-Af 30 L BUN/Creatinine Ratio 14.2 Glucose 152 H Calcium 7.5 L Magnesium 2.3 Total Bilirubin Direct Bilirubin AST ALT Alkaline Phosphatase Troponin I Total Protein Albumin Globulin Urine Color Urine Clarity Urine pH Ur Specific [place] Urine Protein Urine Glucose (UA) Urine Ketones Urine Occult Blood Urine Nitrite Urine Bilirubin Urine Urobilinogen Ur Leukocyte Esterase Urine RBC Urine WBC Ur Squamous Epith Cells Urine Bacteria Urine Mucus POC Glucose 06/21/18 04:23 WBC RBC Hgb Hct MCV MCH MCHC RDW RDW Differential Plt Count MPV Immature Gran % (Auto) Neut % (Auto) Lymph % (Auto) [place] % (Auto) Eos % (Auto) Baso % (Auto) Absolute Neuts (auto) Absolute Lymphs (auto) Total Counted Differential Comment Diff Path Review Platelet Estimate Anisocytosis Macrocytosis PT 16.5 H INR 1.3 APTT 37.7 H Activated Clotting Time Sodium Potassium Chloride Carbon Dioxide Anion Gap BUN Creatinine Estim Creat Clear Calc Est GFR (MDRD) Af Amer Est GFR (MDRD) Non-Af BUN/Creatinine Ratio Glucose Calcium Magnesium Total Bilirubin Direct Bilirubin AST ALT Alkaline Phosphatase Troponin I Total Protein Albumin Globulin Urine Color Urine Clarity Urine pH Ur Specific [place] Urine Protein Urine Glucose (UA) Urine Ketones Urine Occult Blood Urine Nitrite Urine Bilirubin Urine Urobilinogen Ur Leukocyte Esterase Urine RBC Urine WBC Ur Squamous Epith Cells Urine Bacteria Urine Mucus POC Glucose Clinical Impression(s) from Imaging Studies Chest CTA 06/20/18 03:53 IMPRESSION: Normal CTA chest examination, without a demonstrated pulmonary embolism or arterial dissection. Indeterminate gallbladder, gallbladder inflammation is not excluded. Consider gallbladder ultrasound depending on patient's symptoms. Electronically Signed: Leeanne Carter MD at 5:33 EST , Service support , Brain CT 06/20/18 10:22 IMPRESSION: Chronic involutional changes of the brain. N.B. : The above information has been verbally conveyed by Mohit Frey MD to Jacques Davis on 06/20/2018 10:33:31 (ET). Electronically Signed: Mohit Frey MD at 10:35 EST Tel [phone], Service support , Brain MRI 06/20/18 10:57 IMPRESSION: Probable bilateral punctate subacute embolic infarctions. N.B. : The above information has been verbally conveyed by Nando Velazco MD to VINCENZO Carver, on 06/20/2018 22:25:02 (ET). Electronically Signed: Nando Velazco MD at 21:45 EST , Service support , Head MRA 06/20/18 11:00 IMPRESSION: Normal MRA of the head Electronically Signed: Nando Velazco MD at 22:14 EST , Service support , Neck MRA 06/20/18 11:00 IMPRESSION: Normal bilateral cervical carotid and vertebral arteries. Electronically Signed: Nando Velazco MD at 22:09 EST , Service support , Abdomen/Pelvis CT 06/20/18 12:50 IMPRESSION: Multiple gallstones with thickened gallbladder wall and increased markings in the surrounding fat. Acute cholecystitis should be ruled out. Soft tissue changes seen in the region of the right groin in keeping with the history of recent catheterization. Electronically Signed: Mohit Frey MD at 13:46 EST Tel [phone], Service support , Brain CT 06/20/18 13:25 IMPRESSION: Mild cerebral atrophy. No acute abnormality is seen. Electronically Signed: Mohit Frey MD at 14:09 EST Tel [phone], Service support , Chest X-Ray 06/20/18 13:40 IMPRESSION: Mild cardiomegaly. Electronically Signed: Mohit Frey MD at 14:10 EST Tel [phone], Service support , Chest X-Ray 06/20/18 15:52 IMPRESSION: Support lines and tubes placed as described, no demonstrated complication No acute pulmonary process Electronically Signed: Omar Duggan MD at 17:00 EST , Service support , Medical Necessity - Tobacco Use Smoking Status: Former smoker Tobacco Use: Non-smoker Assessment/Plan All Active Problems (Last Reviewed 06/20/18 @ 15:17 by Jacques Hinojosa MD) Acute cholecystitis (Acute) History of coronary artery stent placement (Acute 06/20/18) Atherosclerotic heart disease [place] coronary artery w/angina pectoris (Acute) RECOMMENDATIONS: 1. Continue management per TPA protocol. Obtain repeat head imaging today. 2. Will discuss with surgery with regards to the recommendations for percutaneous cholecystostomy tube. 3. Once the above interventions have been completed, aggressive weaning from the ventilator can be undertaken. 4. Continue Precedex for sedation. 5. Continue to allow for permissive hypertension and treat systolic blood pressures greater than 180 mmHg. 6. Continue antibiotics. 7. Continue supplemental IV fluid hydration for now. 8. Start Pepcid for GI prophylaxis IMPRESSIONS: 1. Acute respiratory failure The patient did require eventual intubation on the afternoon of June 20 due to refractory agitation and subsequent airway compromise. The patient became exceedingly confrontational and threatening to staff throughout the afternoon. A stepwise approach was employed to the use of sedative medications in hopes of improving the patient's agitation. However, despite the utilization of multiple medications, including Precedex, his agitation remained an issue. Further escalation in his sedation regimen, lead to somnolence with concerns for the patient's ability to protect his airway. Therefore, the decision was made to intubate the patient. The patient has responded remarkably well to invasive mechanical ventilation. He remains on Precedex as monotherapy and is much more calm and appropriately interactive this morning. Would first plan to repeat the patient's head imaging later today and develop a plan with surgery with regards to plans for percutaneous cholecystostomy tube placement, prior to consideration for liberation from mechanical ventilation. 2. CVA status post TPA administration The patient did receive TPA over concerns for a stuttering CVA. Continue to allow for permissive hypertension. We will treat systolic blood pressures that are greater than 180 mmHg. Continue to monitor for any signs of bleeding. Repeat head imaging is indicated today. The patient's MRI was able to be completed last evening. 3. Acute kidney injury Likely secondary to recent contrast administration coupled with a component of hemodynamic instability that occurred yesterday. The patient's hemodynamics have since improved. We will continue supplemental IV fluid hydration in the interim. Continue to monitor urine output. Avoid further contrast and/or nephrotoxic agents. No indication for renal replacement therapy at this time. 4. Non-ST elevation OR status post PTCA/GAVIN placement to the proximal RCA The patient is status post PTCA with drug-eluting stent placed to the proximal RCA. Continue medical management per cardiology recommendations. 5. Metabolic encephalopathy Improving. Concern for underlying infectious/metabolic encephalopathy, especially in light of the patient's recent mentation changes. Follow-up head imaging in the form of CT, revealed no intracranial hemorrhage. He does appear to have radiographic evidence of acute cholecystitis. I did confer with surgery who indicated that the patient may require percutaneous cholecystostomy tube for gallbladder decompression. We will continue to minimize sedation as tolerated. 6. Sepsis secondary to acute cholecystitis The patient was started empirically on Zosyn after he developed fevers and complained of right upper quadrant pain in the setting of radiographic evidence concerning for acute cholecystitis. Urine culture is also pending. 7. Hypertension/anxiety Complicates care, management, recovery and prognosis. Currently holding all antihypertensive home medications. TIME: 45 minutes of critical care time, independent of procedures, was spent addressing the patient's acute respiratory failure, CVA status post TPA administration, non-ST elevation OR, metabolic encephalopathy, sepsis secondary to acute cholecystitis, review of all data and collaboration with care team. ([id number]) Code Visit 9xxxx: [id number] Critical care first hour
[2018-06-21] MEDS: 0.9% Normal Saline 1,000 ML 125 ML IV ×3 (07:43→21:46)
--- NOTE | 2018-06-21 08:24 | PCM.PN.SRG ---
Patient Problems: Active and Suspected Problems (Last Reviewed 06/20/18 @ 15:17 by Jacques Hinojosa MD) Acute cholecystitis (Acute) Subjective: Patient evaluated mechanically ventilated. Currently undergoing an Echo. No grimacing with palpation to abdomen. - Physical Exam General: - - Intubated Abdomen: Soft, Non Tender Vital Signs Temp Pulse Resp BP Pulse Ox 97.9 F 77 18 120/57 L 98 06/21/18 07:00 06/21/18 07:00 06/21/18 07:00 06/21/18 07:00 06/21/18 07:00 Oxygen Delivery Method Mechanical Ventilator Weight: 236 lb 5.369 oz Body Mass Index (BMI) 30.9 Intake and Output for Last 24 Hours 06/19/18 06/20/18 06/21/18 23:59 23:59 23:59 Intake Total 318 / 318 723 / 723 Output Total 400 / 400 330 / 330 Balance -82 / -82 393 / 393 Laboratory Tests Past 24 Hrs 06/20/18 06/20/18 06/20/18 03:37 03:37 10:00 WBC RBC Hgb Hct MCV MCH MCHC RDW RDW Differential Plt Count MPV Immature Gran % (Auto) Neut % (Auto) Lymph % (Auto) [place] % (Auto) Eos % (Auto) Baso % (Auto) Absolute Neuts (auto) Absolute Lymphs (auto) Total Counted Diff Path Review Reviewed PT INR APTT Activated Clotting Time 180 H Sodium Potassium Chloride Carbon Dioxide Anion Gap BUN Creatinine Estim Creat Clear Calc Est GFR (MDRD) Af Amer Est GFR (MDRD) Non-Af BUN/Creatinine Ratio Glucose Calcium Phosphorus Magnesium Total Bilirubin 0.80 Direct Bilirubin 0.21 AST 22 ALT 25 Alkaline Phosphatase 96 Total Protein 7.7 Albumin 3.6 Globulin 4.1 Urine Color Urine Clarity Urine pH Ur Specific [place] Urine Protein Urine Glucose (UA) Urine Ketones Urine Occult Blood Urine Nitrite Urine Bilirubin Urine Urobilinogen Ur Leukocyte Esterase Urine RBC Urine WBC Ur Squamous Epith Cells Urine Bacteria Urine Mucus 06/20/18 06/20/18 06/21/18 13:30 16:50 04:23 WBC 16.8 H 15.9 H RBC 4.19 L 4.03 L Hgb 12.1 L 12.0 L Hct 37.9 L 36.1 L MCV 90.5 89.6 MCH 28.9 29.8 MCHC 31.9 L 33.2 RDW 14.3 14.5 RDW Differential 46.9 H 46.8 H Plt Count 267 214 MPV 11.9 11.2 Immature Gran % (Auto) 0.300 Neut % (Auto) 84.9 H Lymph % (Auto) 8.4 L [place] % (Auto) 6.1 Eos % (Auto) 0.1 Baso % (Auto) 0.2 Absolute Neuts (auto) 13.5 H Absolute Lymphs (auto) 1.34 Total Counted Not Reportable Diff Path Review PT INR APTT Activated Clotting Time Sodium Potassium Chloride Carbon Dioxide Anion Gap BUN Creatinine Estim Creat Clear Calc Est GFR (MDRD) Af Amer Est GFR (MDRD) Non-Af BUN/Creatinine Ratio Glucose Calcium Phosphorus Magnesium Total Bilirubin Direct Bilirubin AST ALT Alkaline Phosphatase Total Protein Albumin Globulin Urine Color Yellow Urine Clarity Sl. Cloudy Urine pH 5.0 Ur Specific [place] 1.020 Urine Protein 100 H Urine Glucose (UA) Normal Urine Ketones Negative Urine Occult Blood 250 H Urine Nitrite Negative Urine Bilirubin Negative Urine Urobilinogen Normal Ur Leukocyte Esterase 25 H Urine RBC 25-50 SEEN Urine WBC 0-5 SEEN Ur Squamous Epith Cells 0 SEEN Urine Bacteria 0 SEEN Urine Mucus 0 SEEN 06/21/18 06/21/18 06/21/18 04:23 04:23 04:23 WBC RBC Hgb Hct MCV MCH MCHC RDW RDW Differential Plt Count MPV Immature Gran % (Auto) Neut % (Auto) Lymph % (Auto) [place] % (Auto) Eos % (Auto) Baso % (Auto) Absolute Neuts (auto) Absolute Lymphs (auto) Total Counted Diff Path Review PT 16.5 H INR 1.3 APTT 37.7 H Activated Clotting Time Sodium 140 Cancelled Potassium 3.9 Cancelled Chloride 104 Cancelled Carbon Dioxide 27.0 Cancelled Anion Gap 9 Cancelled BUN 33 H Cancelled Creatinine 2.32 H Cancelled Estim Creat Clear Calc 31.10 Est GFR (MDRD) Af Amer 36 L Cancelled Est GFR (MDRD) Non-Af 30 L Cancelled BUN/Creatinine Ratio 14.2 Cancelled Glucose 152 H Cancelled Calcium 7.5 L Cancelled Phosphorus 4.0 Magnesium 2.3 Total Bilirubin Direct Bilirubin AST ALT Alkaline Phosphatase Total Protein Albumin Globulin Urine Color Urine Clarity Urine pH Ur Specific [place] Urine Protein Urine Glucose (UA) Urine Ketones Urine Occult Blood Urine Nitrite Urine Bilirubin Urine Urobilinogen Ur Leukocyte Esterase Urine RBC Urine WBC Ur Squamous Epith Cells Urine Bacteria Urine Mucus POC Glucose 06/20/18 10:16 POC Glucose 157 H Medical Necessity - Tobacco Use Smoking Status: Former smoker Tobacco Use: Non-smoker Assessment/Plan All Active Problems (Last Reviewed 06/20/18 @ 15:17 by Jacques Hinojosa MD) Acute cholecystitis (Acute) History of coronary artery stent placement (Acute 06/20/18) Atherosclerotic heart disease [place] coronary artery w/angina pectoris (Acute) I am following this patient in conjunction with Dr. Hinojosa Impression: Acute cholecystitis I spoke to the , Vanessa at [phone], in regards to placing a cholecystostomy tube, risks and benefits. At this time patient's wanted to ask patient if he would want a tube placed. Patient's was informed patient is still intubated and may not be able to completely comprehend the procedure and will not be able to consent which is why I was contacting her. Vanessa would like to think about this procedure and does not wish for the patient to proceed with the cholecystostomy tube today. I appreciated her response and noted if she has any other questions she can contact me. She verbalized understanding and noted she will be into the hospital in a little bit. At this time, we will hold off on proceeding with the cholecystostomy tube. We will continue to monitor this patient. Patient was discussed with Dr. Hinojosa and Dr. Redding Code Visit Inpatient E&M: [id number] [facility] Hosp L1
--- NOTE | 2018-06-21 08:32 | PN.SURG_ITS ---
Patient Problems: Active and Suspected Problems (Last Reviewed 06/20/18 @ 15:17 by Jacques Hinojosa MD) Acute cholecystitis (Acute) Subjective: Patient evaluated mechanically ventilated. Currently undergoing an Echo. No grimacing with palpation to abdomen. - Physical Exam General: - - Intubated Abdomen: Soft, Non Tender Vital Signs Temp Pulse Resp BP Pulse Ox 97.9 F 77 18 120/57 L 98 06/21/18 07:00 06/21/18 07:00 06/21/18 07:00 06/21/18 07:00 06/21/18 07:00 Oxygen Delivery Method Mechanical Ventilator Weight: 236 lb 5.369 oz Body Mass Index (BMI) 30.9 Intake and Output for Last 24 Hours 06/19/18 06/20/18 06/21/18 23:59 23:59 23:59 Intake Total 318 / 318 723 / 723 Output Total 400 / 400 330 / 330 Balance -82 / -82 393 / 393 Laboratory Tests Past 24 Hrs 06/20/18 06/20/18 06/20/18 03:37 03:37 10:00 WBC RBC Hgb Hct MCV MCH MCHC RDW RDW Differential Plt Count MPV Immature Gran % (Auto) Neut % (Auto) Lymph % (Auto) [place] % (Auto) Eos % (Auto) Baso % (Auto) Absolute Neuts (auto) Absolute Lymphs (auto) Total Counted Diff Path Review Reviewed PT INR APTT Activated Clotting Time 180 H Sodium Potassium Chloride Carbon Dioxide Anion Gap BUN Creatinine Estim Creat Clear Calc Est GFR (MDRD) Af Amer Est GFR (MDRD) Non-Af BUN/Creatinine Ratio Glucose Calcium Phosphorus Magnesium Total Bilirubin 0.80 Direct Bilirubin 0.21 AST 22 ALT 25 Alkaline Phosphatase 96 Total Protein 7.7 Albumin 3.6 Globulin 4.1 Urine Color Urine Clarity Urine pH Ur Specific [place] Urine Protein Urine Glucose (UA) Urine Ketones Urine Occult Blood Urine Nitrite Urine Bilirubin Urine Urobilinogen Ur Leukocyte Esterase Urine RBC Urine WBC Ur Squamous Epith Cells Urine Bacteria Urine Mucus 06/20/18 06/20/18 06/21/18 13:30 16:50 04:23 WBC 16.8 H 15.9 H RBC 4.19 L 4.03 L Hgb 12.1 L 12.0 L Hct 37.9 L 36.1 L MCV 90.5 89.6 MCH 28.9 29.8 MCHC 31.9 L 33.2 RDW 14.3 14.5 RDW Differential 46.9 H 46.8 H Plt Count 267 214 MPV 11.9 11.2 Immature Gran % (Auto) 0.300 Neut % (Auto) 84.9 H Lymph % (Auto) 8.4 L [place] % (Auto) 6.1 Eos % (Auto) 0.1 Baso % (Auto) 0.2 Absolute Neuts (auto) 13.5 H Absolute Lymphs (auto) 1.34 Total Counted Not Reportable Diff Path Review PT INR APTT Activated Clotting Time Sodium Potassium Chloride Carbon Dioxide Anion Gap BUN Creatinine Estim Creat Clear Calc Est GFR (MDRD) Af Amer Est GFR (MDRD) Non-Af BUN/Creatinine Ratio Glucose Calcium Phosphorus Magnesium Total Bilirubin Direct Bilirubin AST ALT Alkaline Phosphatase Total Protein Albumin Globulin Urine Color Yellow Urine Clarity Sl. Cloudy Urine pH 5.0 Ur Specific [place] 1.020 Urine Protein 100 H Urine Glucose (UA) Normal Urine Ketones Negative Urine Occult Blood 250 H Urine Nitrite Negative Urine Bilirubin Negative Urine Urobilinogen Normal Ur Leukocyte Esterase 25 H Urine RBC 25-50 SEEN Urine WBC 0-5 SEEN Ur Squamous Epith Cells 0 SEEN Urine Bacteria 0 SEEN Urine Mucus 0 SEEN 06/21/18 06/21/18 06/21/18 04:23 04:23 04:23 WBC RBC Hgb Hct MCV MCH MCHC RDW RDW Differential Plt Count MPV Immature Gran % (Auto) Neut % (Auto) Lymph % (Auto) [place] % (Auto) Eos % (Auto) Baso % (Auto) Absolute Neuts (auto) Absolute Lymphs (auto) Total Counted Diff Path Review PT 16.5 H INR 1.3 APTT 37.7 H Activated Clotting Time Sodium 140 Cancelled Potassium 3.9 Cancelled Chloride 104 Cancelled Carbon Dioxide 27.0 Cancelled Anion Gap 9 Cancelled BUN 33 H Cancelled Creatinine 2.32 H Cancelled Estim Creat Clear Calc 31.10 Est GFR (MDRD) Af Amer 36 L Cancelled Est GFR (MDRD) Non-Af 30 L Cancelled BUN/Creatinine Ratio 14.2 Cancelled Glucose 152 H Cancelled Calcium 7.5 L Cancelled Phosphorus 4.0 Magnesium 2.3 Total Bilirubin Direct Bilirubin AST ALT Alkaline Phosphatase Total Protein Albumin Globulin Urine Color Urine Clarity Urine pH Ur Specific [place] Urine Protein Urine Glucose (UA) Urine Ketones Urine Occult Blood Urine Nitrite Urine Bilirubin Urine Urobilinogen Ur Leukocyte Esterase Urine RBC Urine WBC Ur Squamous Epith Cells Urine Bacteria Urine Mucus POC Glucose 06/20/18 10:16 POC Glucose 157 H Medical Necessity - Tobacco Use Smoking Status: Former smoker Tobacco Use: Non-smoker Assessment/Plan All Active Problems (Last Reviewed 06/20/18 @ 15:17 by Jacques Hinojosa MD) Acute cholecystitis (Acute) History of coronary artery stent placement (Acute 06/20/18) Atherosclerotic heart disease [place] coronary artery w/angina pectoris (Acute) I am following this patient in conjunction with Dr. Hinojosa Impression: Acute cholecystitis I spoke to the , Vanessa at [phone], in regards to placing a cholecystostomy tube, risks and benefits. At this time patient's wanted to ask patient if he would want a tube placed. Patient's was informed patient is still intubated and may not be able to completely comprehend the procedure and will not be able to consent which is why I was contacting her. Vanessa would like to think about this procedure and does not wish for the patient to proceed with the cholecystostomy tube today. I appreciated her response and noted if she has any other questions she can contact me. She verbalized understanding and noted she will be into the hospital in a little bit. At this time, we will hold off on proceeding with the cholecystostomy tube. We will continue to monitor this patient. Patient was discussed with Dr. Hinojosa and Dr. Redding Code Visit Inpatient E&M: [id number] [facility] Hosp L1
--- NOTE | 2018-06-21 09:31 | EKG12_ITS ---
Test Reason : AM EKG Blood Pressure : / mmHG Vent. Rate : 078 BPM Atrial Rate : 078 BPM P-R Int : 132 ms QRS Dur : 084 ms QT Int : 450 ms P-R-T Axes : 036 -33 027 degrees QTc Int : 513 ms Normal sinus rhythm Left axis deviation Prolonged QT Abnormal ECG When compared with ECG of 20-JUN-2018 09:35, MANUAL COMPARISON REQUIRED, DATA IS UNCONFIRMED Confirmed by ED CABALLERO, RAMBO ([id number]), brands editor SIMON KERNS ([id number]) on 06/22/2018 4:14:11 PM Referred By: ED Confirmed By:RAMBO WARD MD
--- NOTE | 2018-06-21 09:52 | PCM.PN.HOSP ---
Patient Problems: Active and Suspected Problems (Last Reviewed 06/20/18 @ 15:17 by Jacques Hinojosa MD) Acute cholecystitis (Acute) Subjective: Patient seen and examined. He was admitted yesterday on account of chest pain and had cardiac catheterization with stenting to the right coronary artery. Subsequently he went aphasic and CODE BLUE was called. Patient received TPA on account of suspicion for stroke. Subsequently became very agitated and required intubation to help maintain his airway as well as sedation. General surgery was also consulted on account of suspicion of acute cholecystitis as patient of abdominal pain. Abdominal ultrasound requested cannot be done as he needed to be intubated and sedated. Patient seen and examined. He remains intubated and sedated and is not arousable. Unable to do review of systems as patient is not arousable. Discussed with nurse, no active events overnight. Creatinine noted to be worsening it is likely due to hypotension and contrast administration. Vitals/I&O's: Vital Signs Temp Pulse Resp BP Pulse Ox 97.9 F 74 19 H 130/61 H 95 06/21/18 07:00 06/21/18 09:00 06/21/18 09:00 06/21/18 09:00 06/21/18 09:00 Oxygen Delivery Method Mechanical Ventilator Weight: 236 lb 5.369 oz Body Mass Index (BMI) 30.9 Intake and Output for Last 24 Hours 06/19/18 06/20/18 06/21/18 23:59 23:59 23:59 Intake Total 318 / 318 753 / 753 Output Total 400 / 400 330 / 330 Balance -82 / -82 423 / 423 General: - - intubated, sedated, not arousable HEENT: Atraumatic, PERRLA, EOMI, Normocephalic Oral: Moist Mucosa Neck: Supple, No JVD, Negative Carotid Bruits Lungs: Clear to auscultation, Normal air movement Cardiovascular: Regular rate, Regular Rhythm, Normal S1, Normal S2, No murmurs Abdomen: Bowel Sounds Present, Soft, Non Tender, Non-Distended, No Hepato-splenomegaly Extremities: No clubbing, No cyanosis, No edema, Capillary Refill Less than 3 Seconds Skin: No rashes, No breakdown Musculoskeletal: No Tenderness to Palpation of Joints or Extremities Lymphatic: No Cervical, Supraclavicular, or Inguinal Adenopathy Neurological: - - intubated, sedated, RASS score is ~ -3 Psych/Mental Status: - - intubated, sedated, unarousable Laboratory Results 06/20/18 03:37: Diff Path Review Reviewed 06/20/18 03:37: Total Bilirubin 0.80, Direct Bilirubin 0.21, AST 22, ALT 25, Alkaline Phosphatase 96, Total Protein 7.7, Albumin 3.6, Globulin 4.1 06/20/18 10:00: Activated Clotting Time 180 H 06/20/18 10:16: POC Glucose 157 H 06/20/18 13:30: Urine Color Yellow, Urine Clarity Sl. Cloudy, Urine pH 5.0, Ur Specific [place] 1.020, Urine Protein 100 H, Urine Glucose (UA) Normal, Urine Ketones Negative, Urine Occult Blood 250 H, Urine Nitrite Negative, Urine Bilirubin Negative, Urine Urobilinogen Normal, Ur Leukocyte Esterase 25 H, Urine RBC 25-50 SEEN, Urine WBC 0-5 SEEN, Ur Squamous Epith Cells 0 SEEN, Urine Bacteria 0 SEEN, Urine Mucus 0 SEEN 06/20/18 16:50: WBC 16.8 H, RBC 4.19 L, Hgb 12.1 L, Hct 37.9 L, MCV 90.5, MCH 28.9, MCHC 31.9 L, RDW 14.3, RDW Differential 46.9 H, Plt Count 267, MPV 11.9 06/21/18 04:23: WBC 15.9 H, RBC 4.03 L, Hgb 12.0 L, Hct 36.1 L, MCV 89.6, MCH 29.8, MCHC 33.2, RDW 14.5, RDW Differential 46.8 H, Plt Count 214, MPV 11.2, Immature Gran % (Auto) 0.300, Neut % (Auto) 84.9 H, Lymph % (Auto) 8.4 L, [place] % (Auto) 6.1, Eos % (Auto) 0.1, Baso % (Auto) 0.2, Absolute Neuts (auto) 13.5 H, Absolute Lymphs (auto) 1.34, Total Counted Not Reportable 06/21/18 04:23: Sodium 140, Potassium 3.9, Chloride 104, Carbon Dioxide 27.0, Anion Gap 9, BUN 33 H, Creatinine 2.32 H, Estim Creat Clear Calc 31.10, Est GFR (MDRD) Af Amer 36 L, Est GFR (MDRD) Non-Af 30 L, BUN/Creatinine Ratio 14.2, Glucose 152 H, Calcium 7.5 L, Magnesium 2.3 06/21/18 04:23: PT 16.5 H, INR 1.3, APTT 37.7 H 06/21/18 04:23: Sodium Cancelled, Potassium Cancelled, Chloride Cancelled, Carbon Dioxide Cancelled, Anion Gap Cancelled, BUN Cancelled, Creatinine Cancelled, Est GFR (MDRD) Af Amer Cancelled, Est GFR (MDRD) Non-Af Cancelled, BUN/Creatinine Ratio Cancelled, Glucose Cancelled, Calcium Cancelled, Phosphorus 4.0 Diagnostic Data Chest CTA 06/20/18 03:53 IMPRESSION: Normal CTA chest examination, without a demonstrated pulmonary embolism or arterial dissection. Indeterminate gallbladder, gallbladder inflammation is not excluded. Consider gallbladder ultrasound depending on patient's symptoms. Electronically Signed: Leeanne Carter MD at 5:33 EST , Service support , Brain MRI 06/20/18 10:57 IMPRESSION: Probable bilateral punctate subacute embolic infarctions. N.B. : The above information has been verbally conveyed by Nando Velazco MD to VINCENZO Carver, on 06/20/2018 22:25:02 (ET). Electronically Signed: Nando Velazco MD at 21:45 EST , Service support , Head MRA 06/20/18 11:00 IMPRESSION: Normal MRA of the head Electronically Signed: Nando Velazco MD at 22:14 EST , Service support , Neck MRA 06/20/18 11:00 IMPRESSION: Normal bilateral cervical carotid and vertebral arteries. Electronically Signed: Nando Velazco MD at 22:09 EST , Service support , Abdomen/Pelvis CT 06/20/18 12:50 IMPRESSION: Multiple gallstones with thickened gallbladder wall and increased markings in the surrounding fat. Acute cholecystitis should be ruled out. Soft tissue changes seen in the region of the right groin in keeping with the history of recent catheterization. Electronically Signed: Mohit Frey MD at 13:46 EST Tel [phone], Service support , Brain CT 06/20/18 13:25 IMPRESSION: Mild cerebral atrophy. No acute abnormality is seen. Electronically Signed: Mohit Frey MD at 14:09 EST Tel [phone], Service support , Chest X-Ray 06/20/18 15:52 IMPRESSION: Support lines and tubes placed as described, no demonstrated complication No acute pulmonary process Electronically Signed: Omar Duggan MD at 17:00 EST , Service support , Current Medications Atorvastatin Calcium (Lipitor) 40 mg PO QHS [facility] Last Admin: 06/20/18 22:42 Dose: 40 mg Atropine Sulfate () 0.5 mg IV UD PRN PRN Reason: HR <50 bpm Chlorhexidine Gluconate () 15 ml PO BID SEAN Chlorhexidine Gluconate () 1 each TOPICAL DAILY [facility] Heparin Sodium (Beef Lung) (Heparin 500 Unit/5 Ml (100/Ml)) 500 unit IV UD PRN PRN Reason: HEPARIN FLUSH Sodium Chloride () 1,000 mls @ 15 mls/hr IV .Q48H [facility] Last Admin: 06/20/18 09:49 Dose: Not Given Piperacillin Sod/Tazobactam Sod (Zosyn) 3.375 gm in 50 mls @ 12.5 mls/hr IV Q8 [facility] Last Admin: 06/21/18 05:16 Dose: 12.5 mls/hr Propofol (Diprivan) 1,000 mg in 100 mls @ 6.042 mls/hr CONT INF .Q12H [facility]; Protocol Last Admin: 06/21/18 05:17 Dose: Not Given Fentanyl () 100 mls @ 5 mls/hr IV .Q20H [facility] Dexmedetomidine HCl 400 mcg/ (Sodium Chloride) 100 mls @ 12.59 mls/hr IV .Q7H57M [facility] Last Admin: 06/21/18 04:28 Dose: 12.59 mls/hr Sodium Chloride () 1,000 mls @ 125 mls/hr IV .Q8H [facility] Last Admin: 06/21/18 07:43 Dose: 125 mls/hr Labetalol HCl (Trandate) 5 mg IV X1 PRN PRN Reason: SBP > 160 when pulling sheath Labetalol HCl (Trandate) 10 - 20 mg IV Q15M PRN PRN Reason: SBP > 185/110 Last Admin: 06/20/18 14:15 Dose: 10 mg Losartan Potassium (Cozaar) 25 mg PO DAILY [facility] Last Admin: 06/20/18 09:55 Dose: 25 mg Magnesium Hydroxide (Milk Of Magnesia) 30 ml PO DAILY PRN PRN Reason: Constipation Metoprolol Tartrate (Lopressor (Beta Marlene)) 25 mg PO BID [facility] Last Admin: 06/20/18 22:56 Dose: Not Given Sodium Chloride () 5 - 30 ml IV UD PRN PRN Reason: SALINE FLUSH Last Admin: 06/20/18 22:43 Dose: 30 ml Sodium Chloride () 500 ml IV BOLUS PRN PRN Reason: VASO-VAGAL PROTOCOL Ticagrelor (Brilinta) 90 mg PO BID [facility] Last Admin: 06/20/18 23:03 Dose: 90 mg Medical Necessity - Tobacco Use Smoking Status: Former smoker Tobacco Use: Non-smoker Assessment/Plan All Active Problems (Last Reviewed 06/20/18 @ 15:17 by Jacques Hinojosa MD) Acute cholecystitis (Acute) History of coronary artery stent placement (Acute 06/20/18) Atherosclerotic heart disease [place] coronary artery w/angina pectoris (Acute) 1. 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 Had episodes of hypotension overnight. BP now 130/61 BP meds on hold neurology on board patient currently intubated and sedated o/a of agitation after TPA yesterday. RASS score is -3 MRI showed: Probable bilateral punctate subacute embolic infarctions. MRA of head and neck were normal 2. 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 Hypertension: Developed hypotension overnight so BP meds on hold. Required IV fluids. continue Holding BP meds for now. 4. NSTEMI s/p stent in RCA On Brilinta and statin. Aspirin was held yesterday on account of him TPA. Resume aspirin today after he has post TPA head CT at around 12. Cardiology on board. 5. SANTOSH: likely pre-renal due to hypotension and also due to contrast administration Creatinine is up to 2.32 today from 1.23 yesterday Being hydrated with IV fluids. Will monitor. If it does not improve, will consider nephrology consult and further extensive investigation. 6. Acute cholecystitis With complaint of abdominal pain yesterday. Abdominal ultrasound was ordered but could not be done on account of agitation and he been intubated. He had a CAT scan of the abdomen which showed thickened gallbladder and multiple gallstones. General surgery consulted. In light of inability to do cholecystectomy, they are considering putting a cholecystostomy tube. has leucocytosis, likely due to acute cholecystitis on IV zosyn DVT prophylaxis: SCDs. Thank you for the courtesy of the consult. We will continue to follow with you. Code Visit Inpatient E&M: 19114 Subs Hosp L3
--- NOTE | 2018-06-21 10:05 | PN_ITS ---
Patient Problems: Active and Suspected Problems (Last Reviewed 06/20/18 @ 15:17 by Jacques Hinojosa MD) Acute cholecystitis (Acute) Subjective: Patient seen and examined. He was admitted yesterday on account of chest pain and had cardiac catheterization with stenting to the right coronary artery. Subsequently he went aphasic and CODE BLUE was called. Patient received TPA on account of suspicion for stroke. Subsequently became very agitated and required intubation to help maintain his airway as well as sedation. General surgery was also consulted on account of suspicion of acute cholecystitis as patient of abdominal pain. Abdominal ultrasound requested cannot be done as he needed to be intubated and sedated. Patient seen and examined. He remains intubated and sedated and is not arousable. Unable to do review of systems as patient is not arousable. Discussed with nurse, no active events overnight. Creatinine noted to be worsening it is likely due to hypotension and contrast administration. Vitals/I&O's: Vital Signs Temp Pulse Resp BP Pulse Ox 97.9 F 74 19 H 130/61 H 95 06/21/18 07:00 06/21/18 09:00 06/21/18 09:00 06/21/18 09:00 06/21/18 09:00 Oxygen Delivery Method Mechanical Ventilator Weight: 236 lb 5.369 oz Body Mass Index (BMI) 30.9 Intake and Output for Last 24 Hours 06/19/18 06/20/18 06/21/18 23:59 23:59 23:59 Intake Total 318 / 318 753 / 753 Output Total 400 / 400 330 / 330 Balance -82 / -82 423 / 423 General: - - intubated, sedated, not arousable HEENT: Atraumatic, PERRLA, EOMI, Normocephalic Oral: Moist Mucosa Neck: Supple, No JVD, Negative Carotid Bruits Lungs: Clear to auscultation, Normal air movement Cardiovascular: Regular rate, Regular Rhythm, Normal S1, Normal S2, No murmurs Abdomen: Bowel Sounds Present, Soft, Non Tender, Non-Distended, No Hepato- splenomegaly Extremities: No clubbing, No cyanosis, No edema, Capillary Refill Less than 3 Seconds Skin: No rashes, No breakdown Musculoskeletal: No Tenderness to Palpation of Joints or Extremities Lymphatic: No Cervical, Supraclavicular, or Inguinal Adenopathy Neurological: - - intubated, sedated, RASS score is ~ -3 Psych/Mental Status: - - intubated, sedated, unarousable Laboratory Results 06/20/18 03:37: Diff Path Review Reviewed 06/20/18 03:37: Total Bilirubin 0.80, Direct Bilirubin 0.21, AST 22, ALT 25, Alkaline Phosphatase 96, Total Protein 7.7, Albumin 3.6, Globulin 4.1 06/20/18 10:00: Activated Clotting Time 180 H 06/20/18 10:16: POC Glucose 157 H 06/20/18 13:30: Urine Color Yellow, Urine Clarity Sl. Cloudy, Urine pH 5.0, Ur Specific [place] 1.020, Urine Protein 100 H, Urine Glucose (UA) Normal, Urine Ketones Negative, Urine Occult Blood 250 H, Urine Nitrite Negative, Urine Bilirubin Negative, Urine Urobilinogen Normal, Ur Leukocyte Esterase 25 H, Urine RBC 25-50 SEEN, Urine WBC 0-5 SEEN, Ur Squamous Epith Cells 0 SEEN, Urine Bacteria 0 SEEN, Urine Mucus 0 SEEN 06/20/18 16:50: WBC 16.8 H, RBC 4.19 L, Hgb 12.1 L, Hct 37.9 L, MCV 90.5, MCH 28.9, MCHC 31.9 L, RDW 14.3, RDW Differential 46.9 H, Plt Count 267, MPV 11.9 06/21/18 04:23: WBC 15.9 H, RBC 4.03 L, Hgb 12.0 L, Hct 36.1 L, MCV 89.6, MCH 29.8, MCHC 33.2, RDW 14.5, RDW Differential 46.8 H, Plt Count 214, MPV 11.2, Immature Gran % (Auto) 0.300, Neut % (Auto) 84.9 H, Lymph % (Auto) 8.4 L, [place] % (Auto) 6.1, Eos % (Auto) 0.1, Baso % (Auto) 0.2, Absolute Neuts (auto) 13.5 H, Absolute Lymphs (auto) 1.34, Total Counted Not Reportable 06/21/18 04:23: Sodium 140, Potassium 3.9, Chloride 104, Carbon Dioxide 27.0, Anion Gap 9, BUN 33 H, Creatinine 2.32 H, Estim Creat Clear Calc 31.10, Est GFR (MDRD) Af Amer 36 L, Est GFR (MDRD) Non-Af 30 L, BUN/Creatinine Ratio 14.2, Glucose 152 H, Calcium 7.5 L, Magnesium 2.3 06/21/18 04:23: PT 16.5 H, INR 1.3, APTT 37.7 H 06/21/18 04:23: Sodium Cancelled, Potassium Cancelled, Chloride Cancelled, Carbon Dioxide Cancelled, Anion Gap Cancelled, BUN Cancelled, Creatinine Cancelled, Est GFR (MDRD) Af Amer Cancelled, Est GFR (MDRD) Non-Af Cancelled, BUN/Creatinine Ratio Cancelled, Glucose Cancelled, Calcium Cancelled, Phosphorus 4.0 Diagnostic Data Chest CTA 06/20/18 03:53 IMPRESSION: Normal CTA chest examination, without a demonstrated pulmonary embolism or arterial dissection. Indeterminate gallbladder, gallbladder inflammation is not excluded. Consider gallbladder ultrasound depending on patient's symptoms. Electronically Signed: Leeanne Carter MD at 5:33 EST , Service support , Brain MRI 06/20/18 10:57 IMPRESSION: Probable bilateral punctate subacute embolic infarctions. N.B. : The above information has been verbally conveyed by Nando Velazco MD to VINCENZO Carver, on 06/20/2018 22:25:02 (ET). Electronically Signed: Nando Velazco MD at 21:45 EST , Service support , Head MRA 06/20/18 11:00 IMPRESSION: Normal MRA of the head Electronically Signed: Nando Velazco MD at 22:14 EST , Service support , Neck MRA 06/20/18 11:00 IMPRESSION: Normal bilateral cervical carotid and vertebral arteries. Electronically Signed: Nando Velazco MD at 22:09 EST , Service support , Abdomen/Pelvis CT 06/20/18 12:50 IMPRESSION: Multiple gallstones with thickened gallbladder wall and increased markings in the surrounding fat. Acute cholecystitis should be ruled out. Soft tissue changes seen in the region of the right groin in keeping with the history of recent catheterization. Electronically Signed: Mohit Frey MD at 13:46 EST Tel [phone], Service support , Brain CT 06/20/18 13:25 IMPRESSION: Mild cerebral atrophy. No acute abnormality is seen. Electronically Signed: Mohit Frey MD at 14:09 EST Tel [phone], Service support , Chest X-Ray 06/20/18 15:52 IMPRESSION: Support lines and tubes placed as described, no demonstrated complication No acute pulmonary process Electronically Signed: Omar Duggan MD at 17:00 EST , Service support , Current Medications Atorvastatin Calcium (Lipitor) 40 mg PO QHS [facility] Last Admin: 06/20/18 22:42 Dose: 40 mg Atropine Sulfate () 0.5 mg IV UD PRN PRN Reason: HR <50 bpm Chlorhexidine Gluconate () 15 ml PO BID [facility] Chlorhexidine Gluconate () 1 each TOPICAL DAILY [facility] Heparin Sodium (Beef Lung) (Heparin 500 Unit/5 Ml (100/Ml)) 500 unit IV UD PRN PRN Reason: HEPARIN FLUSH Sodium Chloride () 1,000 mls @ 15 mls/hr IV .Q48H [facility] Last Admin: 06/20/18 09:49 Dose: Not Given Piperacillin Sod/Tazobactam Sod (Zosyn) 3.375 gm in 50 mls @ 12.5 mls/hr IV Q8 [facility] Last Admin: 06/21/18 05:16 Dose: 12.5 mls/hr Propofol (Diprivan) 1,000 mg in 100 mls @ 6.042 mls/hr CONT INF .Q12H [facility]; Protocol Last Admin: 06/21/18 05:17 Dose: Not Given Fentanyl () 100 mls @ 5 mls/hr IV .Q20H [facility] Dexmedetomidine HCl 400 mcg/ (Sodium Chloride) 100 mls @ 12.59 mls/hr IV .Q7H57M [facility] Last Admin: 06/21/18 04:28 Dose: 12.59 mls/hr Sodium Chloride () 1,000 mls @ 125 mls/hr IV .Q8H [facility] Last Admin: 06/21/18 07:43 Dose: 125 mls/hr Labetalol HCl (Trandate) 5 mg IV X1 PRN PRN Reason: SBP > 160 when pulling sheath Labetalol HCl (Trandate) 10 - 20 mg IV Q15M PRN PRN Reason: SBP > 185/110 Last Admin: 06/20/18 14:15 Dose: 10 mg Losartan Potassium (Cozaar) 25 mg PO DAILY [facility] Last Admin: 06/20/18 09:55 Dose: 25 mg Magnesium Hydroxide (Milk Of Magnesia) 30 ml PO DAILY PRN PRN Reason: Constipation Metoprolol Tartrate (Lopressor (Beta Marlene)) 25 mg PO BID [facility] Last Admin: 06/20/18 22:56 Dose: Not Given Sodium Chloride () 5 - 30 ml IV UD PRN PRN Reason: SALINE FLUSH Last Admin: 06/20/18 22:43 Dose: 30 ml Sodium Chloride () 500 ml IV BOLUS PRN PRN Reason: VASO-VAGAL PROTOCOL Ticagrelor (Brilinta) 90 mg PO BID [facility] Last Admin: 06/20/18 23:03 Dose: 90 mg Medical Necessity - Tobacco Use Smoking Status: Former smoker Tobacco Use: Non-smoker Assessment/Plan All Active Problems (Last Reviewed 06/20/18 @ 15:17 by Jacques Hinojosa MD) Acute cholecystitis (Acute) History of coronary artery stent placement (Acute 06/20/18) Atherosclerotic heart disease [place] coronary artery w/angina pectoris (Acute) 1. Embolic ischemic stroke after heart cath * s/p TPA administration * BP controlled. Had episodes of hypotension overnight. BP now 130/61 * BP meds on hold * neurology on board * patient currently intubated and sedated o/a of agitation after TPA yesterday. RASS score is -3 * MRI showed: Probable bilateral punctate subacute embolic infarctions. * MRA of head and neck were normal * 2. Acute hypoxic respiratory failure * had to be intubated to protect his airway due to agitation and airway compromise * conference specialist on board * vent settings as per conference specialist * 3. Hypertension: * Developed hypotension overnight so BP meds on hold. * Required IV fluids. * continue Holding BP meds for now. * 4. NSTEMI s/p stent in RCA * On Brilinta and statin. Aspirin was held yesterday on account of him TPA. Resume aspirin today after he has post TPA head CT at around 12. * Cardiology on board. 5. SANTOSH: * likely pre-renal due to hypotension and also due to contrast administration * Creatinine is up to 2.32 today from 1.23 yesterday * Being hydrated with IV fluids. Will monitor. If it does not improve, will consider nephrology consult and further extensive investigation. * 6. Acute cholecystitis * With complaint of abdominal pain yesterday. Abdominal ultrasound was ordered but could not be done on account of agitation and he been intubated. He had a CAT scan of the abdomen which showed thickened gallbladder and multiple gallstones. * General surgery consulted. In light of inability to do cholecystectomy, they are considering putting a cholecystostomy tube. * has leucocytosis, likely due to acute cholecystitis * on IV zosyn * * DVT prophylaxis: SCDs. Thank you for the courtesy of the consult. We will continue to follow with you. Code Visit Inpatient E&M: 10055 Subs Hosp L3
[2018-06-21] MEDS: TICAGRELOR 90 MG TABLET PO ×2 (10:09→21:43)
[2018-06-21] MEDS: Metoprolol Tartrate 25 MG Tablet PO ×2 (10:09→21:43)
[2018-06-21] MEDS: Losartan Potassium 25 MG Tablet PO (10:09)
[2018-06-21] MEDS: Chlorhexidine 15 ML PO ×2 (10:10→21:43)
[2018-06-21] MEDS: CHLORHEXIDINE GLUC 2% CLOTH 1 EACH TOWELETTE TOPICAL (10:10)
--- NOTE | 2018-06-21 10:42 | CT_ITS ---
STUDY: CT BRAIN WITHOUT CONTRAST REASON FOR EXAM: Male, 73 years old. CVA. Post TPA. RADIATION DOSAGE (If Supplied By Facility): CTDIvol = ( 44.99 ) mGy, DLP = ( 829.85 ) mGycm TECHNIQUE: Transaxial CT imaging of the brain was performed without administration of intravenous contrast material. Individualized dose optimization techniques were used for this CT. COMPARISON: Comparison is made with prior examination dated June 20, 2018. FINDINGS: Normal soft tissue structures. Normal calvarium. There is mild cerebral atrophy with widening of the extra-axial spaces and ventricular dilatation. There are areas of decreased attenuation within the white matter tracts of the supratentorial brain, consistent with microvascular disease changes. Normal basal ganglia and thalami. Tiny lacuna is seen in the insular cortex of the left temporal lobe. This was not well visualized on prior examination. Normal brainstem. Normal cerebellum. There is no intracranial hemorrhage. There are no findings of an acute ischemic infarction. Atherosclerotic calcification of the cavernous portions of the internal carotid arteries bilaterally. Normal visualized paranasal sinuses. CT/Brain/Head without Contrast IMPRESSION: Chronic involutional changes of the brain. Tiny lacunar in the insular cortex of the left temporal lobe. Electronically Signed: Mohit Frey MD at 13:38 EST Tel [phone], Service support ,
--- NOTE | 2018-06-21 11:05 | CASEMGMT ---
RN CM Care Coordination Note: participated in interdisciplinary rounding. Pt remains on ventilator after being intubated 06/20. Embolic ischemic stroke after heart cath with subsequent TPA administration. -RN CM will need to verify PCP/Pharmacy when visits. -MARYCHUY consult for dc planning. Maylin LEBLANCN RN ACM
--- NOTE | 2018-06-21 11:15 | PCM.PN.NEU ---
Patient Problems: Active and Suspected Problems (Last Reviewed 06/20/18 @ 15:17 by Jacques Hinojosa MD) Acute cholecystitis (Acute) Objective: Patient intubated. Events of yesterday noted. Currently he is awake and able to answer yes or no questions appropriately, follows commands. Denies pain. Nursing tells me that he is being treated for cholecystitis. Afebrile. - Physical Exam General: Alert, Oriented x3, Cooperative, No apparent distress Neurological: Cranial nerves II-XII grossly intact, Motor Exam 5/5 strength throughout Vital Signs Temp Pulse Resp BP Pulse Ox 36.6 C 79 20 H 130/61 H 95 06/21/18 07:00 06/21/18 10:09 06/21/18 09:24 06/21/18 09:00 06/21/18 09:24 Oxygen Delivery Method Mechanical Ventilator Weight: 107.2 kg Body Mass Index (BMI) 30.9 Intake and Output for Last 24 Hours 06/19/18 06/20/18 06/21/18 23:59 23:59 23:59 Intake Total 318 / 318 753 / 753 Output Total 400 / 400 330 / 330 Balance -82 / -82 423 / 423 Microbiology Past 72 Hours 06/20/18 13:30 Urine Culture - Preliminary Urine Catheter - [place] Culture exhibits no growth. Laboratory Tests Past 24 Hrs 06/20/18 06/20/18 06/20/18 03:37 13:30 16:50 WBC 16.8 H RBC 4.19 L Hgb 12.1 L Hct 37.9 L MCV 90.5 MCH 28.9 MCHC 31.9 L RDW 14.3 RDW Differential 46.9 H Plt Count 267 MPV 11.9 Immature Gran % (Auto) Neut % (Auto) Lymph % (Auto) [place] % (Auto) Eos % (Auto) Baso % (Auto) Absolute Neuts (auto) Absolute Lymphs (auto) Total Counted PT INR APTT Sodium Potassium Chloride Carbon Dioxide Anion Gap BUN Creatinine Estim Creat Clear Calc Est GFR (MDRD) Af Amer Est GFR (MDRD) Non-Af BUN/Creatinine Ratio Glucose Calcium Phosphorus Magnesium Total Bilirubin 0.80 Direct Bilirubin 0.21 AST 22 ALT 25 Alkaline Phosphatase 96 Total Protein 7.7 Albumin 3.6 Globulin 4.1 Urine Color Yellow Urine Clarity Sl. Cloudy Urine pH 5.0 Ur Specific [place] 1.020 Urine Protein 100 H Urine Glucose (UA) Normal Urine Ketones Negative Urine Occult Blood 250 H Urine Nitrite Negative Urine Bilirubin Negative Urine Urobilinogen Normal Ur Leukocyte Esterase 25 H Urine RBC 25-50 SEEN Urine WBC 0-5 SEEN Ur Squamous Epith Cells 0 SEEN Urine Bacteria 0 SEEN Urine Mucus 0 SEEN 06/21/18 06/21/18 06/21/18 04:23 04:23 04:23 WBC 15.9 H RBC 4.03 L Hgb 12.0 L Hct 36.1 L MCV 89.6 MCH 29.8 MCHC 33.2 RDW 14.5 RDW Differential 46.8 H Plt Count 214 MPV 11.2 Immature Gran % (Auto) 0.300 Neut % (Auto) 84.9 H Lymph % (Auto) 8.4 L [place] % (Auto) 6.1 Eos % (Auto) 0.1 Baso % (Auto) 0.2 Absolute Neuts (auto) 13.5 H Absolute Lymphs (auto) 1.34 Total Counted Not Reportable PT 16.5 H INR 1.3 APTT 37.7 H Sodium 140 Potassium 3.9 Chloride 104 Carbon Dioxide 27.0 Anion Gap 9 BUN 33 H Creatinine 2.32 H Estim Creat Clear Calc 31.10 Est GFR (MDRD) Af Amer 36 L Est GFR (MDRD) Non-Af 30 L BUN/Creatinine Ratio 14.2 Glucose 152 H Calcium 7.5 L Phosphorus Magnesium 2.3 Total Bilirubin Direct Bilirubin AST ALT Alkaline Phosphatase Total Protein Albumin Globulin Urine Color Urine Clarity Urine pH Ur Specific [place] Urine Protein Urine Glucose (UA) Urine Ketones Urine Occult Blood Urine Nitrite Urine Bilirubin Urine Urobilinogen Ur Leukocyte Esterase Urine RBC Urine WBC Ur Squamous Epith Cells Urine Bacteria Urine Mucus 06/21/18 04:23 WBC RBC Hgb Hct MCV MCH MCHC RDW RDW Differential Plt Count MPV Immature Gran % (Auto) Neut % (Auto) Lymph % (Auto) [place] % (Auto) Eos % (Auto) Baso % (Auto) Absolute Neuts (auto) Absolute Lymphs (auto) Total Counted PT INR APTT Sodium Cancelled Potassium Cancelled Chloride Cancelled Carbon Dioxide Cancelled Anion Gap Cancelled BUN Cancelled Creatinine Cancelled Estim Creat Clear Calc Est GFR (MDRD) Af Amer Cancelled Est GFR (MDRD) Non-Af Cancelled BUN/Creatinine Ratio Cancelled Glucose Cancelled Calcium Cancelled Phosphorus 4.0 Magnesium Total Bilirubin Direct Bilirubin AST ALT Alkaline Phosphatase Total Protein Albumin Globulin Urine Color Urine Clarity Urine pH Ur Specific [place] Urine Protein Urine Glucose (UA) Urine Ketones Urine Occult Blood Urine Nitrite Urine Bilirubin Urine Urobilinogen Ur Leukocyte Esterase Urine RBC Urine WBC Ur Squamous Epith Cells Urine Bacteria Urine Mucus Medical Necessity - Tobacco Use Smoking Status: Former smoker Tobacco Use: Non-smoker Assessment/Plan All Active Problems (Last Reviewed 06/20/18 @ 15:17 by Jacques Hinojosa MD) Acute cholecystitis (Acute) History of coronary artery stent placement (Acute 06/20/18) Atherosclerotic heart disease [place] coronary artery w/angina pectoris (Acute) Cardioembolic periprocedural infarct, with very small acute infarcts bilaterally on MRI which I reviewed and discussed with the radiologist last night. He is status post TPA yesterday at approximately noon, risk of bleeding is essentially 0 from TPA at this point. It appears that his intercurrent encephalopathy was due to cholecystitis. If his rhythm remains normal and there are no further cardiac sources of emboli he will likely not need any further anticoagulation however would recommend antiplatelet therapy moving forward.
--- NOTE | 2018-06-21 13:33 | CASEMGMT ---
SW spoke w/ briefly, offered support. SW let know that SW is here should she have any social service needs. MAURICE Paredes, SOFTWARE CONSULTANT
--- NOTE | 2018-06-21 13:42 | CASEMGMT ---
RN CM Note: intro role of CM to patient's in room. Verified PCP, Pharmacy, Demographics with her. Chart updated. Maylin LEBLANCN RN ACM
--- NOTE | 2018-06-21 13:46 | CASEMGMT ---
As per specialist field engineer assessment, pt has LW/POA and will bring them into the hospital. MAURICE Paredes, SENIOR MORTGAGE LOAN PROCESSOR
--- NOTE | 2018-06-21 14:13 | CPS ---
pt became agitated during vent CPAP trial, felt like he couldn't breath even though all vitals were within normal range, R.T. spoke w/Dr [place] and pt's vent settings were changed back to AC after 20 minute trial
[2018-06-21] MEDS: 0.9% Normal Saline 1,000 ML 15 ML IV (14:29)
[2018-06-21] MEDS: fentaNYL drip 100 ML 5 MCG IV (15:41)
[2018-06-21] MEDS: Atorvastatin Calcium 40 MG Tablet PO (21:43)
[2018-06-22] VITALS (33 sets, daily range): BP systolic 131–203; BP diastolic 49–143; PULSE 78–113; RESP 14–34; TEMP 36.7–38.8; O2SAT 92–96; BMI 30.9
[2018-06-22] MEDS: CHLORHEXIDINE GLUC 2% CLOTH 1 EACH TOWELETTE TOPICAL (02:41)
[2018-06-22 04:37] LABS: Absolute Lymphocyte Count 0.77 X10^3/ul (0.83-4.51); Absolute Neutrophil Count 13.1 X10^3/uL (2.0-7.7); Basophil# 0.02 X10^3/uL; Basophil% 0.1 % (0-1); Eosinophil# 0.09 X10^3/uL; Eosinophils% 0.6 % (0-5); Hematocrit 33.4 % (40-54); Hemoglobin 10.7 g/dl (13.0-16.5); Lymphocyte # 0.77 X10^3/ul (4.0); Lymphocyte % 5.1 % (19-41); Mean Corpuscular Hgb 28.7 pg (27.0-32.0); Mean Corpuscular Volume 89.5 fL (80-94); Mean Platelet Vol. 11.6 fl (6.2-12.0); Monocyte# 0.98 X10^3/uL; Monocyte% 6.5 % (0-10); Neutrophil # 13.09 X10^3/uL (2.7-7.7); Neutrophil % 87.4 % (47-70); Platelet Count 198 K/mm3 (150-450); RBC Distribution Width CV 14.6 % (11.6-14.6); RBC Distribution Width SD 46.5 fl (35.1-43.9); Red Blood Count 3.73 M/mm3 (4.6-6.2)
[2018-06-22 04:38] LABS: Differential Indicated SCAN CRITERIA MET; POSITIVE COUNT NO; POSITIVE DIFFERENTIAL NO; POSITIVE MORPHOLOGY YES
[2018-06-22 04:39] LABS: Anion Gap 9 (5-15); BUN 31 mg/dL (7-18); BUN/Creat Ratio 21.2 RATIO (10-20); Calcium,Total 7.5 mg/dL (8.5-10.1); Chloride 108 mmol/L (98-107); Creatinine, Serum 1.46 mg/dL (0.70-1.30); EST Glomerular Filtration Rate 51 mL/min (>60); Est Glom Filt Rate - Afr Amer 61 mL/min (>60); Estimated Creatinine Clearance 49.43 ml/min; Glucose 129 mg/dL (74-106); Potassium 3.7 mmol/L (3.5-5.1); Sodium Level 140 mmol/L (136-145)
[2018-06-22] MEDS: 0.9% NaCl Peripheral Flush Adult/Peds IV (05:11)
[2018-06-22] MEDS: Piperacil/Tazobactam 3.375 GM/50 ML ML IV ×3 (05:11→22:20)
[2018-06-22] MEDS: 0.9% Normal Saline 1,000 ML 125 ML IV (05:31)
--- NOTE | 2018-06-22 06:44 | PCM.PN.INT ---
Subjective: The patient was seen and examined at the bedside this morning. Events from the last 24 hours have been reviewed. The patient is currently afebrile, hemodynamically stable and maintaining appropriate oxygen saturations with an FiO2 requirement of 30%. The patient is alert, cooperative and appropriately interactive. He did pass his spontaneous breathing trial this morning. The patient did not undergo percutaneous cholecystostomy tube placement yesterday, as the patient's would not provide consent. The patient does report a mild degree of abdominal pain this morning. I did personally supervised the patient's bedside extubation this morning. Objective: The patient's most recent lab work, culture data and imaging studies have all been personally reviewed. Brain MRI completed on June 20 revealed probable bilateral punctate subacute embolic infarctions. Head/neck MRA was normal. CT abdomen/pelvis revealed multiple gallstones with thickened gallbladder wall suggestive of acute cholecystitis. Urine culture has not shown any growth to date. General: - - Intubated mechanically ventilated. Currently tolerating CPAP without issue. HEENT: Atraumatic, PERRLA, Normocephalic Oral: No Gingival or Mucosal Lesions/ Ulcerations, - - Endotracheal and OG tubes remain in place. Neck: Supple, No Nodes, Trachea Midline Lungs: No rhonchi, No wheeze, No rales, Diminished Cardiovascular: Regular rate, Regular Rhythm, Normal S1, Normal S2, No murmurs Abdomen: Bowel Sounds Present, Soft, Non Tender Extremities: No clubbing, No cyanosis, No edema Skin: No breakdown Musculoskeletal: No Tenderness to Palpation of Joints or Extremities Lymphatic: No Cervical, Supraclavicular, or Inguinal Adenopathy Neurological: - - No focal neurological deficits. Alert and following commands appropriately. Vital Signs Temp Pulse Resp BP Pulse Ox 36.9 C 85 14 167/78 H 96 06/22/18 06:00 06/22/18 06:00 06/22/18 06:00 06/22/18 06:00 06/22/18 06:00 Oxygen Delivery Method Mechanical Ventilator Weight: 238 lb 15.697 oz Body Mass Index (BMI) 30.9 Intake and Output for Last 24 Hours 06/20/18 06/21/18 06/22/18 23:59 23:59 23:59 Intake Total 318 / 318 3597 / 3597 952.4 / 952.4 Output Total 400 / 400 1080 / 1080 550 / 550 Balance -82 / -82 2517 / 2517 402.4 / 402.4 Labs (Last 48 Hours) 06/20/18 06/20/18 06/20/18 03:37 03:37 10:00 WBC RBC Hgb Hct MCV MCH MCHC RDW RDW Differential Plt Count MPV Immature Gran % (Auto) Neut % (Auto) Lymph % (Auto) [place] % (Auto) Eos % (Auto) Baso % (Auto) Absolute Neuts (auto) Absolute Lymphs (auto) Total Counted Diff Path Review Reviewed PT INR APTT Activated Clotting Time 180 H Sodium Potassium Chloride Carbon Dioxide Anion Gap BUN Creatinine Estim Creat Clear Calc Est GFR (MDRD) Af Amer Est GFR (MDRD) Non-Af BUN/Creatinine Ratio Glucose Calcium Phosphorus Magnesium Total Bilirubin 0.80 Direct Bilirubin 0.21 AST 22 ALT 25 Alkaline Phosphatase 96 Total Protein 7.7 Albumin 3.6 Globulin 4.1 Urine Color Urine Clarity Urine pH Ur Specific [place] Urine Protein Urine Glucose (UA) Urine Ketones Urine Occult Blood Urine Nitrite Urine Bilirubin Urine Urobilinogen Ur Leukocyte Esterase Urine RBC Urine WBC Ur Squamous Epith Cells Urine Bacteria Urine Mucus POC Glucose 06/20/18 06/20/18 06/20/18 10:16 13:30 16:50 WBC 16.8 H RBC 4.19 L Hgb 12.1 L Hct 37.9 L MCV 90.5 MCH 28.9 MCHC 31.9 L RDW 14.3 RDW Differential 46.9 H Plt Count 267 MPV 11.9 Immature Gran % (Auto) Neut % (Auto) Lymph % (Auto) [place] % (Auto) Eos % (Auto) Baso % (Auto) Absolute Neuts (auto) Absolute Lymphs (auto) Total Counted Diff Path Review PT INR APTT Activated Clotting Time Sodium Potassium Chloride Carbon Dioxide Anion Gap BUN Creatinine Estim Creat Clear Calc Est GFR (MDRD) Af Amer Est GFR (MDRD) Non-Af BUN/Creatinine Ratio Glucose Calcium Phosphorus Magnesium Total Bilirubin Direct Bilirubin AST ALT Alkaline Phosphatase Total Protein Albumin Globulin Urine Color Yellow Urine Clarity Sl. Cloudy Urine pH 5.0 Ur Specific [place] 1.020 Urine Protein 100 H Urine Glucose (UA) Normal Urine Ketones Negative Urine Occult Blood 250 H Urine Nitrite Negative Urine Bilirubin Negative Urine Urobilinogen Normal Ur Leukocyte Esterase 25 H Urine RBC 25-50 SEEN Urine WBC 0-5 SEEN Ur Squamous Epith Cells 0 SEEN Urine Bacteria 0 SEEN Urine Mucus 0 SEEN POC Glucose 157 H 06/21/18 06/21/18 06/21/18 04:23 04:23 04:23 WBC 15.9 H RBC 4.03 L Hgb 12.0 L Hct 36.1 L MCV 89.6 MCH 29.8 MCHC 33.2 RDW 14.5 RDW Differential 46.8 H Plt Count 214 MPV 11.2 Immature Gran % (Auto) 0.300 Neut % (Auto) 84.9 H Lymph % (Auto) 8.4 L [place] % (Auto) 6.1 Eos % (Auto) 0.1 Baso % (Auto) 0.2 Absolute Neuts (auto) 13.5 H Absolute Lymphs (auto) 1.34 Total Counted Not Reportable Diff Path Review PT 16.5 H INR 1.3 APTT 37.7 H Activated Clotting Time Sodium 140 Potassium 3.9 Chloride 104 Carbon Dioxide 27.0 Anion Gap 9 BUN 33 H Creatinine 2.32 H Estim Creat Clear Calc 31.10 Est GFR (MDRD) Af Amer 36 L Est GFR (MDRD) Non-Af 30 L BUN/Creatinine Ratio 14.2 Glucose 152 H Calcium 7.5 L Phosphorus Magnesium 2.3 Total Bilirubin Direct Bilirubin AST ALT Alkaline Phosphatase Total Protein Albumin Globulin Urine Color Urine Clarity Urine pH Ur Specific [place] Urine Protein Urine Glucose (UA) Urine Ketones Urine Occult Blood Urine Nitrite Urine Bilirubin Urine Urobilinogen Ur Leukocyte Esterase Urine RBC Urine WBC Ur Squamous Epith Cells Urine Bacteria Urine Mucus POC Glucose 06/21/18 06/22/18 06/22/18 04:23 04:10 04:10 WBC 15.0 H RBC 3.73 L Hgb 10.7 L Hct 33.4 L MCV 89.5 MCH 28.7 MCHC 32.0 RDW 14.6 RDW Differential 46.5 H Plt Count 198 MPV 11.6 Immature Gran % (Auto) 0.300 Neut % (Auto) 87.4 H Lymph % (Auto) 5.1 L [place] % (Auto) 6.5 Eos % (Auto) 0.6 Baso % (Auto) 0.1 Absolute Neuts (auto) 13.1 H Absolute Lymphs (auto) 0.77 L Total Counted Not Reportable Diff Path Review PT INR APTT Activated Clotting Time Sodium Cancelled 140 Potassium Cancelled 3.7 Chloride Cancelled 108 H Carbon Dioxide Cancelled 23.0 Anion Gap Cancelled 9 BUN Cancelled 31 H Creatinine Cancelled 1.46 H Estim Creat Clear Calc 49.43 Est GFR (MDRD) Af Amer Cancelled 61 Est GFR (MDRD) Non-Af Cancelled 51 L BUN/Creatinine Ratio Cancelled 21.2 H Glucose Cancelled 129 H Calcium Cancelled 7.5 L Phosphorus 4.0 Magnesium Total Bilirubin Direct Bilirubin AST ALT Alkaline Phosphatase Total Protein Albumin Globulin Urine Color Urine Clarity Urine pH Ur Specific [place] Urine Protein Urine Glucose (UA) Urine Ketones Urine Occult Blood Urine Nitrite Urine Bilirubin Urine Urobilinogen Ur Leukocyte Esterase Urine RBC Urine WBC Ur Squamous Epith Cells Urine Bacteria Urine Mucus POC Glucose Microbiology 06/20/18 13:30 Urine Catheter - [place] Urine Culture - Preliminary Culture exhibits no growth. Clinical Impression(s) from Imaging Studies Chest CTA 06/20/18 03:53 IMPRESSION: Normal CTA chest examination, without a demonstrated pulmonary embolism or arterial dissection. Indeterminate gallbladder, gallbladder inflammation is not excluded. Consider gallbladder ultrasound depending on patient's symptoms. Electronically Signed: Leeanne Carter MD at 5:33 EST , Service support , Brain CT 06/20/18 10:22 IMPRESSION: Chronic involutional changes of the brain. N.B. : The above information has been verbally conveyed by Mohit Frey MD to Jacques Davis on 06/20/2018 10:33:31 (ET). Electronically Signed: Mohit Frey MD at 10:35 EST Tel [phone], Service support , Brain MRI 06/20/18 10:57 IMPRESSION: Probable bilateral punctate subacute embolic infarctions. N.B. : The above information has been verbally conveyed by Nando Velazco MD to VINCENZO Carver, on 06/20/2018 22:25:02 (ET). Electronically Signed: Nando Velazco MD at 21:45 EST , Service support , Head MRA 06/20/18 11:00 IMPRESSION: Normal MRA of the head Electronically Signed: Nando Velazco MD at 22:14 EST , Service support , Neck MRA 06/20/18 11:00 IMPRESSION: Normal bilateral cervical carotid and vertebral arteries. Electronically Signed: Nando Velazco MD at 22:09 EST , Service support , Abdomen/Pelvis CT 06/20/18 12:50 IMPRESSION: Multiple gallstones with thickened gallbladder wall and increased markings in the surrounding fat. Acute cholecystitis should be ruled out. Soft tissue changes seen in the region of the right groin in keeping with the history of recent catheterization. Electronically Signed: Mohit Frey MD at 13:46 EST Tel [phone], Service support , Brain CT 06/20/18 13:25 IMPRESSION: Mild cerebral atrophy. No acute abnormality is seen. Electronically Signed: Mohit Frey MD at 14:09 EST Tel [phone], Service support , Chest X-Ray 06/20/18 13:40 IMPRESSION: Mild cardiomegaly. Electronically Signed: Mohit Frey MD at 14:10 EST Tel [phone], Service support , Chest X-Ray 06/20/18 15:52 IMPRESSION: Support lines and tubes placed as described, no demonstrated complication No acute pulmonary process Electronically Signed: Omar Duggan MD at 17:00 EST , Service support , Brain CT 06/21/18 10:42 IMPRESSION: Chronic involutional changes of the brain. Tiny lacunar in the insular cortex of the left temporal lobe. Electronically Signed: Mohit Frey MD at 13:38 EST Tel [phone], Service support , Medical Necessity - Tobacco Use Smoking Status: Former smoker Tobacco Use: Non-smoker Assessment/Plan All Active Problems (Last Reviewed 06/20/18 @ 15:17 by Jacques Hinojosa MD) Acute cholecystitis (Acute) History of coronary artery stent placement (Acute 06/20/18) Atherosclerotic heart disease [place] coronary artery w/angina pectoris (Acute) RECOMMENDATIONS: 1. Proceed with a trial of extubation this morning. 2. Discontinue Precedex. 3. Continue antibiotics. 4. Discontinue supplemental IV fluids. 5. Once extubated, wean supplemental oxygen to maintain saturations at or above 90%. 6. Encourage incentive spirometer use and mobilize patient as tolerated. 7. Perform bedside swallow evaluation and advance diet accordingly. IMPRESSIONS: 1. Acute respiratory failure The patient did require eventual intubation on the afternoon of June 20 due to refractory agitation and subsequent airway compromise. The patient became exceedingly confrontational and threatening to staff throughout the afternoon. A stepwise approach was employed to the use of sedative medications in hopes of improving the patient's agitation. However, despite the utilization of multiple medications, including Precedex, his agitation remained an issue. Further escalation in his sedation regimen, lead to somnolence with concerns for the patient's ability to protect his airway. Therefore, the decision was made to intubate the patient. The patient has responded remarkably well to invasive mechanical ventilation. The patient's mentation improved and he subsequently passed a spontaneous breathing trial and was extubated on the morning of June 22. We will plan to wean his supplemental oxygen to maintain saturations at or above 90%. A bedside swallow evaluation can now be completed. 2. CVA status post TPA administration The patient did receive TPA over concerns for a stuttering CVA. Follow-up head imaging revealed no evidence of intracranial hemorrhage. He is being medically managed by neurology at this time. 3. Acute kidney injury Resolving. Likely secondary to recent contrast administration coupled with a component of hemodynamic instability that occurred previously. The patient's hemodynamics have since improved. Continue to monitor urine output. Avoid further contrast and/or nephrotoxic agents. No indication for renal replacement therapy at this time. 4. Non-ST elevation [place] status post PTCA/GAVIN placement to the proximal RCA The patient is status post PTCA with drug-eluting stent placed to the proximal RCA. Continue medical management per cardiology recommendations. 5. Metabolic encephalopathy Resolved. Concern for underlying infectious/metabolic encephalopathy, especially in light of the patient's recent mentation changes. Follow-up head imaging in the form of CT, revealed no intracranial hemorrhage. He does appear to have radiographic evidence of acute cholecystitis. 6. Sepsis secondary to acute cholecystitis The patient was started empirically on Zosyn after he developed fevers and complained of right upper quadrant pain in the setting of radiographic evidence concerning for acute cholecystitis. Urine culture was unrevealing. Per surgery, there are no plans at this time to place cholecystostomy tube. We will continue to monitor the patient clinically. 7. Hypertension/anxiety Complicates care, management, recovery and prognosis. Okay from my perspective to restart home antihypertensive medications. TIME: 38 minutes of critical care time, independent of procedures, was spent addressing the patient's acute respiratory failure, CVA status post TPA administration, non-ST elevation [place], metabolic encephalopathy, sepsis secondary to acute cholecystitis, review of all data and collaboration with care team. ([id number]) Code Visit [id number]: [id number] Critical care first hour
--- NOTE | 2018-06-22 06:48 | PN_ITS ---
Subjective: The patient was seen and examined at the bedside this morning. Events from the last 24 hours have been reviewed. The patient is currently afebrile, hemodynamically stable and maintaining appropriate oxygen saturations with an FiO2 requirement of 30%. The patient is alert, cooperative and appropriately interactive. He did pass his spontaneous breathing trial this morning. The patient did not undergo percutaneous cholecystostomy tube placement yesterday, as the patient's would not provide consent. The patient does report a mild degree of abdominal pain this morning. I did personally supervised the patient's bedside extubation this morning. Objective: The patient's most recent lab work, culture data and imaging studies have all been personally reviewed. Brain MRI completed on June 20 revealed probable bilateral punctate subacute embolic infarctions. Head/neck MRA was normal. CT abdomen/pelvis revealed multiple gallstones with thickened gallbladder wall suggestive of acute cholecystitis. Urine culture has not shown any growth to date. General: - - Intubated mechanically ventilated. Currently tolerating CPAP without issue. HEENT: Atraumatic, PERRLA, Normocephalic Oral: No Gingival or Mucosal Lesions/ Ulcerations, - - Endotracheal and OG tubes remain in place. Neck: Supple, No Nodes, Trachea Midline Lungs: No rhonchi, No wheeze, No rales, Diminished Cardiovascular: Regular rate, Regular Rhythm, Normal S1, Normal S2, No murmurs Abdomen: Bowel Sounds Present, Soft, Non Tender Extremities: No clubbing, No cyanosis, No edema Skin: No breakdown Musculoskeletal: No Tenderness to Palpation of Joints or Extremities Lymphatic: No Cervical, Supraclavicular, or Inguinal Adenopathy Neurological: - - No focal neurological deficits. Alert and following commands appropriately. Vital Signs Temp Pulse Resp BP Pulse Ox 36.9 C 85 14 167/78 H 96 06/22/18 06:00 06/22/18 06:00 06/22/18 06:00 06/22/18 06:00 06/22/18 06:00 Oxygen Delivery Method Mechanical Ventilator Weight: 238 lb 15.697 oz Body Mass Index (BMI) 30.9 Intake and Output for Last 24 Hours 06/20/18 06/21/18 06/22/18 23:59 23:59 23:59 Intake Total 318 / 318 3597 / 3597 952.4 / 952.4 Output Total 400 / 400 1080 / 1080 550 / 550 Balance -82 / -82 2517 / 2517 402.4 / 402.4 Labs (Last 48 Hours) 06/20/18 06/20/18 06/20/18 03:37 03:37 10:00 WBC RBC Hgb Hct MCV MCH MCHC RDW RDW Differential Plt Count MPV Immature Gran % (Auto) Neut % (Auto) Lymph % (Auto) [place] % (Auto) Eos % (Auto) Baso % (Auto) Absolute Neuts (auto) Absolute Lymphs (auto) Total Counted Diff Path Review Reviewed PT INR APTT Activated Clotting Time 180 H Sodium Potassium Chloride Carbon Dioxide Anion Gap BUN Creatinine Estim Creat Clear Calc Est GFR (MDRD) Af Amer Est GFR (MDRD) Non-Af BUN/Creatinine Ratio Glucose Calcium Phosphorus Magnesium Total Bilirubin 0.80 Direct Bilirubin 0.21 AST 22 ALT 25 Alkaline Phosphatase 96 Total Protein 7.7 Albumin 3.6 Globulin 4.1 Urine Color Urine Clarity Urine pH Ur Specific [place] Urine Protein Urine Glucose (UA) Urine Ketones Urine Occult Blood Urine Nitrite Urine Bilirubin Urine Urobilinogen Ur Leukocyte Esterase Urine RBC Urine WBC Ur Squamous Epith Cells Urine Bacteria Urine Mucus POC Glucose 06/20/18 06/20/18 06/20/18 10:16 13:30 16:50 WBC 16.8 H RBC 4.19 L Hgb 12.1 L Hct 37.9 L MCV 90.5 MCH 28.9 MCHC 31.9 L RDW 14.3 RDW Differential 46.9 H Plt Count 267 MPV 11.9 Immature Gran % (Auto) Neut % (Auto) Lymph % (Auto) [place] % (Auto) Eos % (Auto) Baso % (Auto) Absolute Neuts (auto) Absolute Lymphs (auto) Total Counted Diff Path Review PT INR APTT Activated Clotting Time Sodium Potassium Chloride Carbon Dioxide Anion Gap BUN Creatinine Estim Creat Clear Calc Est GFR (MDRD) Af Amer Est GFR (MDRD) Non-Af BUN/Creatinine Ratio Glucose Calcium Phosphorus Magnesium Total Bilirubin Direct Bilirubin AST ALT Alkaline Phosphatase Total Protein Albumin Globulin Urine Color Yellow Urine Clarity Sl. Cloudy Urine pH 5.0 Ur Specific [place] 1.020 Urine Protein 100 H Urine Glucose (UA) Normal Urine Ketones Negative Urine Occult Blood 250 H Urine Nitrite Negative Urine Bilirubin Negative Urine Urobilinogen Normal Ur Leukocyte Esterase 25 H Urine RBC 25-50 SEEN Urine WBC 0-5 SEEN Ur Squamous Epith Cells 0 SEEN Urine Bacteria 0 SEEN Urine Mucus 0 SEEN POC Glucose 157 H 06/21/18 06/21/18 06/21/18 04:23 04:23 04:23 WBC 15.9 H RBC 4.03 L Hgb 12.0 L Hct 36.1 L MCV 89.6 MCH 29.8 MCHC 33.2 RDW 14.5 RDW Differential 46.8 H Plt Count 214 MPV 11.2 Immature Gran % (Auto) 0.300 Neut % (Auto) 84.9 H Lymph % (Auto) 8.4 L [place] % (Auto) 6.1 Eos % (Auto) 0.1 Baso % (Auto) 0.2 Absolute Neuts (auto) 13.5 H Absolute Lymphs (auto) 1.34 Total Counted Not Reportable Diff Path Review PT 16.5 H INR 1.3 APTT 37.7 H Activated Clotting Time Sodium 140 Potassium 3.9 Chloride 104 Carbon Dioxide 27.0 Anion Gap 9 BUN 33 H Creatinine 2.32 H Estim Creat Clear Calc 31.10 Est GFR (MDRD) Af Amer 36 L Est GFR (MDRD) Non-Af 30 L BUN/Creatinine Ratio 14.2 Glucose 152 H Calcium 7.5 L Phosphorus Magnesium 2.3 Total Bilirubin Direct Bilirubin AST ALT Alkaline Phosphatase Total Protein Albumin Globulin Urine Color Urine Clarity Urine pH Ur Specific [place] Urine Protein Urine Glucose (UA) Urine Ketones Urine Occult Blood Urine Nitrite Urine Bilirubin Urine Urobilinogen Ur Leukocyte Esterase Urine RBC Urine WBC Ur Squamous Epith Cells Urine Bacteria Urine Mucus POC Glucose 06/21/18 06/22/18 06/22/18 04:23 04:10 04:10 WBC 15.0 H RBC 3.73 L Hgb 10.7 L Hct 33.4 L MCV 89.5 MCH 28.7 MCHC 32.0 RDW 14.6 RDW Differential 46.5 H Plt Count 198 MPV 11.6 Immature Gran % (Auto) 0.300 Neut % (Auto) 87.4 H Lymph % (Auto) 5.1 L [place] % (Auto) 6.5 Eos % (Auto) 0.6 Baso % (Auto) 0.1 Absolute Neuts (auto) 13.1 H Absolute Lymphs (auto) 0.77 L Total Counted Not Reportable Diff Path Review PT INR APTT Activated Clotting Time Sodium Cancelled 140 Potassium Cancelled 3.7 Chloride Cancelled 108 H Carbon Dioxide Cancelled 23.0 Anion Gap Cancelled 9 BUN Cancelled 31 H Creatinine Cancelled 1.46 H Estim Creat Clear Calc 49.43 Est GFR (MDRD) Af Amer Cancelled 61 Est GFR (MDRD) Non-Af Cancelled 51 L BUN/Creatinine Ratio Cancelled 21.2 H Glucose Cancelled 129 H Calcium Cancelled 7.5 L Phosphorus 4.0 Magnesium Total Bilirubin Direct Bilirubin AST ALT Alkaline Phosphatase Total Protein Albumin Globulin Urine Color Urine Clarity Urine pH Ur Specific [place] Urine Protein Urine Glucose (UA) Urine Ketones Urine Occult Blood Urine Nitrite Urine Bilirubin Urine Urobilinogen Ur Leukocyte Esterase Urine RBC Urine WBC Ur Squamous Epith Cells Urine Bacteria Urine Mucus POC Glucose Microbiology 06/20/18 13:30 Urine Catheter - [place] Urine Culture - Preliminary Culture exhibits no growth. Clinical Impression(s) from Imaging Studies Chest CTA 06/20/18 03:53 IMPRESSION: Normal CTA chest examination, without a demonstrated pulmonary embolism or arterial dissection. Indeterminate gallbladder, gallbladder inflammation is not excluded. Consider gallbladder ultrasound depending on patient's symptoms. Electronically Signed: Leeanne Carter MD at 5:33 EST , Service support , Brain CT 06/20/18 10:22 IMPRESSION: Chronic involutional changes of the brain. N.B. : The above information has been verbally conveyed by Mohit Frey MD to Jacques Davis on 06/20/2018 10:33:31 (ET). Electronically Signed: Mohit Frey MD at 10:35 EST Tel [phone], Service support , Brain MRI 06/20/18 10:57 IMPRESSION: Probable bilateral punctate subacute embolic infarctions. N.B. : The above information has been verbally conveyed by Nando Velazco MD to VINCENZO Carver, on 06/20/2018 22:25:02 (ET). Electronically Signed: Nando Velazco MD at 21:45 EST , Service support , Head MRA 06/20/18 11:00 IMPRESSION: Normal MRA of the head Electronically Signed: Nando Velazco MD at 22:14 EST , Service support , Neck MRA 06/20/18 11:00 IMPRESSION: Normal bilateral cervical carotid and vertebral arteries. Electronically Signed: Nando Velazco MD at 22:09 EST , Service support , Abdomen/Pelvis CT 06/20/18 12:50 IMPRESSION: Multiple gallstones with thickened gallbladder wall and increased markings in the surrounding fat. Acute cholecystitis should be ruled out. Soft tissue changes seen in the region of the right groin in keeping with the history of recent catheterization. Electronically Signed: Mohit Frey MD at 13:46 EST Tel [phone], Service support , Brain CT 06/20/18 13:25 IMPRESSION: Mild cerebral atrophy. No acute abnormality is seen. Electronically Signed: Mohit Frey MD at 14:09 EST Tel [phone], Service support , Chest X-Ray 06/20/18 13:40 IMPRESSION: Mild cardiomegaly. Electronically Signed: Mohit Frey MD at 14:10 EST Tel [phone], Service support , Chest X-Ray 06/20/18 15:52 IMPRESSION: Support lines and tubes placed as described, no demonstrated complication No acute pulmonary process Electronically Signed: Omar Duggan MD at 17:00 EST , Service support , Brain CT 06/21/18 10:42 IMPRESSION: Chronic involutional changes of the brain. Tiny lacunar in the insular cortex of the left temporal lobe. Electronically Signed: Mohit Frey MD at 13:38 EST Tel [phone], Service support , Medical Necessity - Tobacco Use Smoking Status: Former smoker Tobacco Use: Non-smoker Assessment/Plan All Active Problems (Last Reviewed 06/20/18 @ 15:17 by Jacques Hinojosa MD) Acute cholecystitis (Acute) History of coronary artery stent placement (Acute 06/20/18) Atherosclerotic heart disease [place] coronary artery w/angina pectoris (Acute) RECOMMENDATIONS: 1. Proceed with a trial of extubation this morning. 2. Discontinue Precedex. 3. Continue antibiotics. 4. Discontinue supplemental IV fluids. 5. Once extubated, wean supplemental oxygen to maintain saturations at or above 90%. 6. Encourage incentive spirometer use and mobilize patient as tolerated. 7. Perform bedside swallow evaluation and advance diet accordingly. IMPRESSIONS: 1. Acute respiratory failure The patient did require eventual intubation on the afternoon of June 20 due to refractory agitation and subsequent airway compromise. The patient became exceedingly confrontational and threatening to staff throughout the afternoon. A stepwise approach was employed to the use of sedative medications in hopes of improving the patient's agitation. However, despite the utilization of multiple medications, including Precedex, his agitation remained an issue. Further escalation in his sedation regimen, lead to somnolence with concerns for the patient's ability to protect his airway. Therefore, the decision was made to intubate the patient. The patient has responded remarkably well to invasive mechanical ventilation. The patient's mentation improved and he subsequently passed a spontaneous breathing trial and was extubated on the morning of June 22. We will plan to wean his supplemental oxygen to maintain saturations at or above 90%. A bedside swallow evaluation can now be completed. 2. CVA status post TPA administration The patient did receive TPA over concerns for a stuttering CVA. Follow-up head imaging revealed no evidence of intracranial hemorrhage. He is being medically managed by neurology at this time. 3. Acute kidney injury Resolving. Likely secondary to recent contrast administration coupled with a component of hemodynamic instability that occurred previously. The patient's hemodynamics have since improved. Continue to monitor urine output. Avoid further contrast and/or nephrotoxic agents. No indication for renal replacement therapy at this time. 4. Non-ST elevation TN status post PTCA/GAVIN placement to the proximal RCA The patient is status post PTCA with drug-eluting stent placed to the proximal RCA. Continue medical management per cardiology recommendations. 5. Metabolic encephalopathy Resolved. Concern for underlying infectious/metabolic encephalopathy, especially in light of the patient's recent mentation changes. Follow-up head imaging in the form of CT, revealed no intracranial hemorrhage. He does appear to have radiographic evidence of acute cholecystitis. 6. Sepsis secondary to acute cholecystitis The patient was started empirically on Zosyn after he developed fevers and complained of right upper quadrant pain in the setting of radiographic evidence concerning for acute cholecystitis. Urine culture was unrevealing. Per surgery, there are no plans at this time to place cholecystostomy tube. We will continue to monitor the patient clinically. 7. Hypertension/anxiety Complicates care, management, recovery and prognosis. Okay from my perspective to restart home antihypertensive medications. TIME: 38 minutes of critical care time, independent of procedures, was spent addressing the patient's acute respiratory failure, CVA status post TPA administration, non-ST elevation TN, metabolic encephalopathy, sepsis secondary to acute cholecystitis, review of all data and collaboration with care team. ( [id number]) Code Visit 9xxxx: [id number] Critical care first hour
--- NOTE | 2018-06-22 07:26 | PCM.PN.SRG ---
Patient Problems: Active and Suspected Problems (Last Reviewed 06/20/18 @ 15:17 by Jacques Hinojosa MD) Acute cholecystitis (Acute) Subjective: Patient evaluated this morning. He only notes RUQ discomfort with inspiration. He denies pain with palpation. Patient was extubated this morning. He denies nausea, vomiting. - Physical Exam General: Alert, Oriented x3, Cooperative Abdomen: Soft, Non Tender, Hypoactive Bowel Sounds, Obese Vital Signs Temp Pulse Resp BP Pulse Ox 98.4 F 90 20 H 169/75 H 92 06/22/18 06:00 06/22/18 07:00 06/22/18 07:00 06/22/18 07:00 06/22/18 07:00 Oxygen Flow Rate (L/min) 2 Oxygen Delivery Method Nasal Cannula Weight: 238 lb 15.697 oz Body Mass Index (BMI) 30.9 Intake and Output for Last 24 Hours 06/20/18 06/21/18 06/22/18 23:59 23:59 23:59 Intake Total 318 / 318 3597 / 3597 952.4 / 952.4 Output Total 400 / 400 1080 / 1080 550 / 550 Balance -82 / -82 2517 / 2517 402.4 / 402.4 Microbiology Past 72 Hours 06/20/18 13:30 Urine Culture - Preliminary Urine Catheter - [place] Culture exhibits no growth. Laboratory Tests Past 24 Hrs 06/21/18 06/22/18 06/22/18 04:23 04:10 04:10 WBC 15.0 H RBC 3.73 L Hgb 10.7 L Hct 33.4 L MCV 89.5 MCH 28.7 MCHC 32.0 RDW 14.6 RDW Differential 46.5 H Plt Count 198 MPV 11.6 Immature Gran % (Auto) 0.300 Neut % (Auto) 87.4 H Lymph % (Auto) 5.1 L [place] % (Auto) 6.5 Eos % (Auto) 0.6 Baso % (Auto) 0.1 Absolute Neuts (auto) 13.1 H Absolute Lymphs (auto) 0.77 L Total Counted Not Reportable Sodium Cancelled 140 Potassium Cancelled 3.7 Chloride Cancelled 108 H Carbon Dioxide Cancelled 23.0 Anion Gap Cancelled 9 BUN Cancelled 31 H Creatinine Cancelled 1.46 H Estim Creat Clear Calc 49.43 Est GFR (MDRD) Af Amer Cancelled 61 Est GFR (MDRD) Non-Af Cancelled 51 L BUN/Creatinine Ratio Cancelled 21.2 H Glucose Cancelled 129 H Calcium Cancelled 7.5 L Phosphorus 4.0 Medical Necessity - Tobacco Use Smoking Status: Former smoker Tobacco Use: Non-smoker Assessment/Plan All Active Problems (Last Reviewed 06/20/18 @ 15:17 by Jacques Hinojosa MD) Acute cholecystitis (Acute) History of coronary artery stent placement (Acute 06/20/18) Atherosclerotic heart disease [place] coronary artery w/angina pectoris (Acute) I am following this patient in conjunction with Dr. Hinojosa Impression: Acute cholecystitis Discussed patient with Dr. Hinojosa Will plan to order liver enzymes this morning Possible cholecystostomy tube placement. Will await labs. We will continue to monitor this patient Code Visit Inpatient E&M: 52263 Subs Hosp L1
--- NOTE | 2018-06-22 07:41 | PN.SURG_ITS ---
Patient Problems: Active and Suspected Problems (Last Reviewed 06/20/18 @ 15:17 by Jacques Hinojosa MD) Acute cholecystitis (Acute) Subjective: Patient evaluated this morning. He only notes RUQ discomfort with inspiration. He denies pain with palpation. Patient was extubated this morning. He denies nausea, vomiting. - Physical Exam General: Alert, Oriented x3, Cooperative Abdomen: Soft, Non Tender, Hypoactive Bowel Sounds, Obese Vital Signs Temp Pulse Resp BP Pulse Ox 98.4 F 90 20 H 169/75 H 92 06/22/18 06:00 06/22/18 07:00 06/22/18 07:00 06/22/18 07:00 06/22/18 07:00 Oxygen Flow Rate (L/min) 2 Oxygen Delivery Method Nasal Cannula Weight: 238 lb 15.697 oz Body Mass Index (BMI) 30.9 Intake and Output for Last 24 Hours 06/20/18 06/21/18 06/22/18 23:59 23:59 23:59 Intake Total 318 / 318 3597 / 3597 952.4 / 952.4 Output Total 400 / 400 1080 / 1080 550 / 550 Balance -82 / -82 2517 / 2517 402.4 / 402.4 Microbiology Past 72 Hours 06/20/18 13:30 Urine Culture - Preliminary Urine Catheter - [place] Culture exhibits no growth. Laboratory Tests Past 24 Hrs 06/21/18 06/22/18 06/22/18 04:23 04:10 04:10 WBC 15.0 H RBC 3.73 L Hgb 10.7 L Hct 33.4 L MCV 89.5 MCH 28.7 MCHC 32.0 RDW 14.6 RDW Differential 46.5 H Plt Count 198 MPV 11.6 Immature Gran % (Auto) 0.300 Neut % (Auto) 87.4 H Lymph % (Auto) 5.1 L [place] % (Auto) 6.5 Eos % (Auto) 0.6 Baso % (Auto) 0.1 Absolute Neuts (auto) 13.1 H Absolute Lymphs (auto) 0.77 L Total Counted Not Reportable Sodium Cancelled 140 Potassium Cancelled 3.7 Chloride Cancelled 108 H Carbon Dioxide Cancelled 23.0 Anion Gap Cancelled 9 BUN Cancelled 31 H Creatinine Cancelled 1.46 H Estim Creat Clear Calc 49.43 Est GFR (MDRD) Af Amer Cancelled 61 Est GFR (MDRD) Non-Af Cancelled 51 L BUN/Creatinine Ratio Cancelled 21.2 H Glucose Cancelled 129 H Calcium Cancelled 7.5 L Phosphorus 4.0 Medical Necessity - Tobacco Use Smoking Status: Former smoker Tobacco Use: Non-smoker Assessment/Plan All Active Problems (Last Reviewed 06/20/18 @ 15:17 by Jacques Hinojosa MD) Acute cholecystitis (Acute) History of coronary artery stent placement (Acute 06/20/18) Atherosclerotic heart disease [place] coronary artery w/angina pectoris (Acute) I am following this patient in conjunction with Dr. Hinojosa Impression: Acute cholecystitis Discussed patient with Dr. Hinojosa Will plan to order liver enzymes this morning Possible cholecystostomy tube placement. Will await labs. We will continue to monitor this patient Code Visit Inpatient E&M: 58300 Subs Hosp L1
[2018-06-22 08:14] LABS: AST(SGOT) 40 U/L (15-37); Alanine Aminotransfer ALT/SGPT 24 U/L (16-61); Albumin, Serum 2.2 g/dL (3.2-5.0); Alkaline Phosphatase 68 U/L (45-117); Bilirubin, Direct 0.26 mg/dL (0.00-0.30); Globulin 3.8 g/dL (2.2-4.2)
--- NOTE | 2018-06-22 08:28 | PCM.PN.CARD ---
Subjectve: Patient seen and evaluated. Appears to be doing better. Successfully extubated. Complains of minimal abdominal discomfort. Objective: Vital Signs Temp Pulse Resp BP Pulse Ox 99.7 F H 93 18 182/94 H 93 06/22/18 08:00 06/22/18 08:00 06/22/18 08:00 06/22/18 08:00 06/22/18 08:00 Oxygen Flow Rate (L/min) 2 Oxygen Delivery Method Nasal Cannula Weight: 238 lb 15.697 oz Body Mass Index (BMI) 30.9 Intake and Output for Last 24 Hours 06/20/18 06/21/18 06/22/18 23:59 23:59 23:59 Intake Total 318 / 318 3597 / 3597 952.4 / 952.4 Output Total 400 / 400 1080 / 1080 550 / 550 Balance -82 / -82 2517 / 2517 402.4 / 402.4 General: Awake, Alert, Oriented x 3 HEENT: PERRL, EOMI, Sclera Non Icteric Neck: Supple, Good ROM, No Lymph Node Enlargement Lungs: Clear to auscultation Cardiovascular: Regular Rhythm, Normal S1, Normal S2, No Murmurs, No Rubs, No Gallops Vascular: No Carotid Bruits, Normal Femoral Pulses, Normal Radial Pulses, Normal Dorsalis Pedal Pulse, Normal Posterior Tibial Pulses Abdomen: Bowel Sounds Present, Soft, Non Tender, No HSM, No Organomegaly Extremities: No Cyanosis, No Clubbing, No edema Neurological: No Focal Motor or Sensory Deficit 06/22/18 04:10: Sodium 140, Potassium 3.7, Chloride 108 H, Carbon Dioxide 23.0, Anion Gap 9, BUN 31 H, Creatinine 1.46 H, Est GFR (MDRD) Af Amer 61, Est GFR (MDRD) Non-Af 51 L, BUN/Creatinine Ratio 21.2 H, Glucose 129 H, Calcium 7.5 L 06/22/18 04:10: WBC 15.0 H, RBC 3.73 L, Hgb 10.7 L, Hct 33.4 L, MCV 89.5, MCH 28.7, MCHC 32.0, RDW 14.6, RDW Differential 46.5 H, Plt Count 198, MPV 11.6, Immature Gran % (Auto) 0.300, Neut % (Auto) 87.4 H, Lymph % (Auto) 5.1 L, [place] % (Auto) 6.5, Eos % (Auto) 0.6, Baso % (Auto) 0.1, Absolute Neuts (auto) 13.1 H, Total Counted Not Reportable 06/22/18 04:23: Total Bilirubin 0.70, Direct Bilirubin 0.26 Rhythm: EKG: ECHO: Stress Test: Cardiac Cath: PCI: CT Surgery: Holter monitor: EPS: PPM: CXR: Chest CT Scan: Medical Necessity - Tobacco Use Smoking Status: Former smoker Tobacco Use: Non-smoker Assessment/Plan 1. Chest pain-unstable angina Cardiac catheterization demonstrated the following: Normal left main coronary artery. Left anterior descending artery with mild disease. Left circumflex artery with AV groove branch with 80% stenosis. Dominant large right coronary artery with 80% proximal stenosis. Preserved ejection fraction. Based on the above he underwent angioplasty and stenting of the right coronary artery. The above was successful. The patient however developed dysarthria which was thought to be a cerebrovascular accident and was seen by neurology. From the coronary standpoint patient appears to be doing quite well with no further chest discomfort. 2. 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 Thus far small punctate basal ganglia infarcts only have been noted. This morning he looks much better and his dysarthria appears to have resolved. Will defer further treatment as per neurology 3. Hypertension His blood pressure is high at this time. Would restart antihypertensive therapy with metoprolol 50 mg twice a day, Norvasc 5 mg a day, and losartan 25 mg once a day. . 4. Cholecystitis Patient is noted to have an inflamed gallbladder without any liver function test abnormalities thus far. Patient has been seen by the surgeon and would await recommendations he has that at this time expectant management will be undertaken. 5. Renal dysfunction Patient appears to have developed acute renal dysfunction likely secondary to the dye load as well as the hypotension. This appears to have improved with his creatinine now at 1.4. Recommend continuing intravenous fluids intake and continue to monitor renal profile. Appreciate the input of the roll threader operator, hospitalist, surgeon, neurologist, and nursing.
--- NOTE | 2018-06-22 08:31 | PN.CARD_ITS ---
Subjectve: Patient seen and evaluated. Appears to be doing better. Successfully extubated. Complains of minimal abdominal discomfort. Objective: Vital Signs Temp Pulse Resp BP Pulse Ox 99.7 F H 93 18 182/94 H 93 06/22/18 08:00 06/22/18 08:00 06/22/18 08:00 06/22/18 08:00 06/22/18 08:00 Oxygen Flow Rate (L/min) 2 Oxygen Delivery Method Nasal Cannula Weight: 238 lb 15.697 oz Body Mass Index (BMI) 30.9 Intake and Output for Last 24 Hours 06/20/18 06/21/18 06/22/18 23:59 23:59 23:59 Intake Total 318 / 318 3597 / 3597 952.4 / 952.4 Output Total 400 / 400 1080 / 1080 550 / 550 Balance -82 / -82 2517 / 2517 402.4 / 402.4 General: Awake, Alert, Oriented x 3 HEENT: PERRL, EOMI, Sclera Non Icteric Neck: Supple, Good ROM, No Lymph Node Enlargement Lungs: Clear to auscultation Cardiovascular: Regular Rhythm, Normal S1, Normal S2, No Murmurs, No Rubs, No Gallops Vascular: No Carotid Bruits, Normal Femoral Pulses, Normal Radial Pulses, Normal Dorsalis Pedal Pulse, Normal Posterior Tibial Pulses Abdomen: Bowel Sounds Present, Soft, Non Tender, No HSM, No Organomegaly Extremities: No Cyanosis, No Clubbing, No edema Neurological: No Focal Motor or Sensory Deficit 06/22/18 04:10: Sodium 140, Potassium 3.7, Chloride 108 H, Carbon Dioxide 23.0, Anion Gap 9, BUN 31 H, Creatinine 1.46 H, Est GFR (MDRD) Af Amer 61, Est GFR (MDRD) Non-Af 51 L, BUN/Creatinine Ratio 21.2 H, Glucose 129 H, Calcium 7.5 L 06/22/18 04:10: WBC 15.0 H, RBC 3.73 L, Hgb 10.7 L, Hct 33.4 L, MCV 89.5, MCH 28.7, MCHC 32.0, RDW 14.6, RDW Differential 46.5 H, Plt Count 198, MPV 11.6, Immature Gran % (Auto) 0.300, Neut % (Auto) 87.4 H, Lymph % (Auto) 5.1 L, [place] % (Auto) 6.5, Eos % (Auto) 0.6, Baso % (Auto) 0.1, Absolute Neuts (auto) 13.1 H, Total Counted Not Reportable 06/22/18 04:23: Total Bilirubin 0.70, Direct Bilirubin 0.26 Rhythm: EKG: ECHO: Stress Test: Cardiac Cath: PCI: CT Surgery: Holter monitor: EPS: PPM: CXR: Chest CT Scan: Medical Necessity - Tobacco Use Smoking Status: Former smoker Tobacco Use: Non-smoker Assessment/Plan 1. Chest pain-unstable angina Cardiac catheterization demonstrated the following: Normal left main coronary artery. Left anterior descending artery with mild disease. Left circumflex artery with AV groove branch with 80% stenosis. Dominant large right coronary artery with 80% proximal stenosis. Preserved ejection fraction. Based on the above he underwent angioplasty and stenting of the right coronary artery. The above was successful. The patient however developed dysarthria which was thought to be a cerebrovascular accident and was seen by neurology. From the coronary standpoint patient appears to be doing quite well with no further chest discomfort. 2. 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 Thus far small punctate basal ganglia infarcts only have been noted. This morning he looks much better and his dysarthria appears to have resolved. Will defer further treatment as per neurology 3. Hypertension * His blood pressure is high at this time. * Would restart antihypertensive therapy with metoprolol 50 mg twice a day, Norvasc 5 mg a day, and losartan 25 mg once a day. * . 4. Cholecystitis * Patient is noted to have an inflamed gallbladder without any liver function test abnormalities thus far. * Patient has been seen by the surgeon and would await recommendations he has that at this time expectant management will be undertaken. * * 5. Renal dysfunction Patient appears to have developed acute renal dysfunction likely secondary to the dye load as well as the hypotension. This appears to have improved with his creatinine now at 1.4. Recommend continuing intravenous fluids intake and continue to monitor renal profile. Appreciate the input of the washhouse worker, hospitalist, surgeon, neurologist, and nursing.
--- NOTE | 2018-06-22 09:54 | PCM.PN.HOSP ---
Patient Problems: Active and Suspected Problems (Last Reviewed 06/20/18 @ 15:17 by Jacques Hinojosa MD) Acute cholecystitis (Acute) Subjective: Patient seen and examined. He was successfully extubated early this morning. He complained of sore throat from the extubation. He denies any fever or chills any cough or chest pain or any shortness of breath. He still did complain of mild right upper quadrant tenderness. He denied any diarrhea or vomiting. 12 point review of systems otherwise negative. Labs and vitals reviewed. Vitals/I&O's: Vital Signs Temp Pulse Resp BP Pulse Ox 99.7 F H 95 18 182/94 H 93 06/22/18 08:00 06/22/18 09:00 06/22/18 08:00 06/22/18 08:00 06/22/18 08:00 Oxygen Flow Rate (L/min) 2 Oxygen Delivery Method Nasal Cannula Weight: 238 lb 15.697 oz Body Mass Index (BMI) 30.9 Intake and Output for Last 24 Hours 06/20/18 06/21/18 06/22/18 23:59 23:59 23:59 Intake Total 318 / 318 3597 / 3597 952.4 / 952.4 Output Total 400 / 400 1080 / 1080 550 / 550 Balance -82 / -82 2517 / 2517 402.4 / 402.4 General: Alert, Oriented x3, Cooperative, No apparent distress HEENT: Atraumatic, PERRLA, EOMI, Normocephalic Oral: Moist Mucosa Neck: Supple, No JVD, Negative Carotid Bruits Lungs: Clear to auscultation, Normal air movement, No rhonchi, No wheeze, No rales Cardiovascular: Regular rate, Regular Rhythm, Normal S1, Normal S2, No murmurs Abdomen: Bowel Sounds Present, Soft, Non Tender, Non-Distended, No Hepato-splenomegaly Extremities: No clubbing, No cyanosis, No edema, Capillary Refill Less than 3 Seconds Skin: No rashes, No breakdown Musculoskeletal: No Tenderness to Palpation of Joints or Extremities Lymphatic: No Cervical, Supraclavicular, or Inguinal Adenopathy Neurological: Cranial nerves II-XII grossly intact Psych/Mental Status: Normal Affect, Appropriate, Alert and oriented to time, place, person, mood and affect Microbiology Past 72 Hours 06/20/18 13:30 Urine Catheter - [place] Urine Culture - Preliminary Culture exhibits no growth. Laboratory Results 06/22/18 04:10: Sodium 140, Potassium 3.7, Chloride 108 H, Carbon Dioxide 23.0, Anion Gap 9, BUN 31 H, Creatinine 1.46 H, Estim Creat Clear Calc 49.43, Est GFR (MDRD) Af Amer 61, Est GFR (MDRD) Non-Af 51 L, BUN/Creatinine Ratio 21.2 H, Glucose 129 H, Calcium 7.5 L 06/22/18 04:10: WBC 15.0 H, RBC 3.73 L, Hgb 10.7 L, Hct 33.4 L, MCV 89.5, MCH 28.7, MCHC 32.0, RDW 14.6, RDW Differential 46.5 H, Plt Count 198, MPV 11.6, Immature Gran % (Auto) 0.300, Neut % (Auto) 87.4 H, Lymph % (Auto) 5.1 L, [place] % (Auto) 6.5, Eos % (Auto) 0.6, Baso % (Auto) 0.1, Absolute Neuts (auto) 13.1 H, Absolute Lymphs (auto) 0.77 L, Total Counted Not Reportable 06/22/18 04:23: Total Bilirubin 0.70, Direct Bilirubin 0.26, AST 40 H, ALT 24, Alkaline Phosphatase 68, Total Protein 6.0 L, Albumin 2.2 L, Globulin 3.8 Diagnostic Data Chest CTA 06/20/18 03:53 IMPRESSION: Normal CTA chest examination, without a demonstrated pulmonary embolism or arterial dissection. Indeterminate gallbladder, gallbladder inflammation is not excluded. Consider gallbladder ultrasound depending on patient's symptoms. Electronically Signed: Leeanne Carter MD at 5:33 EST , Service support , Brain MRI 06/20/18 10:57 IMPRESSION: Probable bilateral punctate subacute embolic infarctions. N.B. : The above information has been verbally conveyed by Nando Velazco MD to VINCENZO Carver, on 06/20/2018 22:25:02 (ET). Electronically Signed: Nando Velazco MD at 21:45 EST , Service support , Head MRA 06/20/18 11:00 IMPRESSION: Normal MRA of the head Electronically Signed: Nando Velazco MD at 22:14 EST , Service support , Neck MRA 06/20/18 11:00 IMPRESSION: Normal bilateral cervical carotid and vertebral arteries. Electronically Signed: Nando Velazco MD at 22:09 EST , Service support , Abdomen/Pelvis CT 06/20/18 12:50 IMPRESSION: Multiple gallstones with thickened gallbladder wall and increased markings in the surrounding fat. Acute cholecystitis should be ruled out. Soft tissue changes seen in the region of the right groin in keeping with the history of recent catheterization. Electronically Signed: Mohit Frey MD at 13:46 EST Tel [phone], Service support , Chest X-Ray 06/20/18 15:52 IMPRESSION: Support lines and tubes placed as described, no demonstrated complication No acute pulmonary process Electronically Signed: Omar Duggan MD at 17:00 EST , Service support , Brain CT 06/21/18 10:42 IMPRESSION: Chronic involutional changes of the brain. Tiny lacunar in the insular cortex of the left temporal lobe. Electronically Signed: Mohit Frey MD at 13:38 EST Tel [phone], Service support , Current Medications Amlodipine Besylate (Norvasc) 5 mg PO DAILY [facility] Aspirin (Aspirin, Baby) 81 mg PO DAILY@0800 [facility] Atorvastatin Calcium (Lipitor) 40 mg PO QHS [facility] Last Admin: 11/07/18 21:43 Dose: 40 mg Atropine Sulfate () 0.5 mg IV UD PRN PRN Reason: HR <50 bpm Chlorhexidine Gluconate () 15 ml PO BID [facility] Last Admin: 06/21/18 21:43 Dose: 15 ml Chlorhexidine Gluconate () 1 each TOPICAL DAILY [facility] Last Admin: 06/22/18 02:41 Dose: 1 each Heparin Sodium (Beef Lung) (Heparin 500 Unit/5 Ml (100/Ml)) 500 unit IV UD PRN PRN Reason: HEPARIN FLUSH Sodium Chloride () 1,000 mls @ 15 mls/hr IV .Q48H [facility] Last Admin: 06/21/18 14:29 Dose: 15 mls/hr Piperacillin Sod/Tazobactam Sod (Zosyn) 3.375 gm in 50 mls @ 12.5 mls/hr IV Q8 [facility] Last Admin: 06/22/18 05:11 Dose: 12.5 mls/hr Labetalol HCl (Trandate) 5 mg IV X1 PRN PRN Reason: SBP > 160 when pulling sheath Labetalol HCl (Trandate) 10 - 20 mg IV Q15M PRN PRN Reason: SBP > 185/110 Last Admin: 06/20/18 14:15 Dose: 10 mg Losartan Potassium (Cozaar) 25 mg PO DAILY [facility] Last Admin: 06/21/18 10:09 Dose: 25 mg Magnesium Hydroxide (Milk Of Magnesia) 30 ml PO DAILY PRN PRN Reason: Constipation Metoprolol Tartrate (Lopressor (Beta Marlene)) 50 mg PO BID [facility] Phenol/Menthol (Chloraseptic (Bkc)) 3 spray MM Q2H PRN PRN PRN Reason: SORE THROAT Sodium Chloride () 5 - 30 ml IV UD PRN PRN Reason: SALINE FLUSH Last Admin: 06/22/18 05:11 Dose: 20 ml Sodium Chloride () 500 ml IV BOLUS PRN PRN Reason: VASO-VAGAL PROTOCOL Ticagrelor (Brilinta) 90 mg PO BID [facility] Last Admin: 06/21/18 21:43 Dose: 90 mg Medical Necessity - Tobacco Use Smoking Status: Former smoker Tobacco Use: Non-smoker Assessment/Plan All Active Problems (Last Reviewed 06/20/18 @ 15:17 by Jacques Hinojosa MD) Acute cholecystitis (Acute) History of coronary artery stent placement (Acute 06/20/18) Atherosclerotic heart disease [place] coronary artery w/angina pectoris (Acute) 1. 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 Successfully extubated this morning. MRI showed: Probable bilateral punctate subacute embolic infarctions. MRA of head and neck were normal Post TPA head CT showed punctate infarcts Stable and will transfer to PCU today. 2. Acute hypoxic respiratory failure successfully extubated this morning. saturating well on 2L of oxygen 3. Hypertension: Hypotension is resolved. Patient's blood pressure has been fluctuating between 120s-180 systolic. Will resume BP meds-on amlodipine 5 mg daily and losartan 25 mg daily, metoprolol 50 mg twice daily. labetalol prn 4. NSTEMI s/p stent in RCA On Brilinta and statin. Aspirin was held yesterday on account of him TPA. aspirin resumed. Cardiology on board. 5. SANTOSH: Resolving. Creatinine down to 1.46 from 2.32. Continue gentle hydration with IV fluids. 6. Acute cholecystitis Still complaining of right upper quadrant pain. CT of the abdomen showed thickened gallbladder and multiple gallstones. On IV Zosyn. Also to review today and is deferred placement of biliary stent. still has leucocytosis with wbc being 15 today DVT prophylaxis: SCDs. Disposition: transfer to PCU today Code Visit Inpatient E&M: 24342 Subs Hosp L3
--- NOTE | 2018-06-22 10:00 | EKG12_ITS ---
Test Reason : AM EKG Blood Pressure : / mmHG Vent. Rate : 084 BPM Atrial Rate : 084 BPM P-R Int : 156 ms QRS Dur : 092 ms QT Int : 388 ms P-R-T Axes : 026 -33 028 degrees QTc Int : 458 ms Normal sinus rhythm Left axis deviation Abnormal ECG When compared with ECG of 21-JUN-2018 05:31, MANUAL COMPARISON REQUIRED, DATA IS UNCONFIRMED Confirmed by CRISTIANO BABIN ([id number]), editor house organ SIMON KERNS ([id number] on 06/26/2018 2:53:52 PM Referred By: ED Confirmed By:CRISTIANO BABIN
--- NOTE | 2018-06-22 10:07 | PN_ITS ---
Patient Problems: Active and Suspected Problems (Last Reviewed 06/20/18 @ 15:17 by Jacques Hinojosa MD) Acute cholecystitis (Acute) Subjective: Patient seen and examined. He was successfully extubated early this morning. He complained of sore throat from the extubation. He denies any fever or chills any cough or chest pain or any shortness of breath. He still did complain of mild right upper quadrant tenderness. He denied any diarrhea or vomiting. 12 point review of systems otherwise negative. Labs and vitals reviewed. Vitals/I&O's: Vital Signs Temp Pulse Resp BP Pulse Ox 99.7 F H 95 18 182/94 H 93 06/22/18 08:00 06/22/18 09:00 06/22/18 08:00 06/22/18 08:00 06/22/18 08:00 Oxygen Flow Rate (L/min) 2 Oxygen Delivery Method Nasal Cannula Weight: 238 lb 15.697 oz Body Mass Index (BMI) 30.9 Intake and Output for Last 24 Hours 06/20/18 06/21/18 06/22/18 23:59 23:59 23:59 Intake Total 318 / 318 3597 / 3597 952.4 / 952.4 Output Total 400 / 400 1080 / 1080 550 / 550 Balance -82 / -82 2517 / 2517 402.4 / 402.4 General: Alert, Oriented x3, Cooperative, No apparent distress HEENT: Atraumatic, PERRLA, EOMI, Normocephalic Oral: Moist Mucosa Neck: Supple, No JVD, Negative Carotid Bruits Lungs: Clear to auscultation, Normal air movement, No rhonchi, No wheeze, No rales Cardiovascular: Regular rate, Regular Rhythm, Normal S1, Normal S2, No murmurs Abdomen: Bowel Sounds Present, Soft, Non Tender, Non-Distended, No Hepato- splenomegaly Extremities: No clubbing, No cyanosis, No edema, Capillary Refill Less than 3 Seconds Skin: No rashes, No breakdown Musculoskeletal: No Tenderness to Palpation of Joints or Extremities Lymphatic: No Cervical, Supraclavicular, or Inguinal Adenopathy Neurological: Cranial nerves II-XII grossly intact Psych/Mental Status: Normal Affect, Appropriate, Alert and oriented to time, place, person, mood and affect Microbiology Past 72 Hours 06/20/18 13:30 Urine Catheter - [facility] Urine Culture - Preliminary Culture exhibits no growth. Laboratory Results 06/22/18 04:10: Sodium 140, Potassium 3.7, Chloride 108 H, Carbon Dioxide 23.0, Anion Gap 9, BUN 31 H, Creatinine 1.46 H, Estim Creat Clear Calc 49.43, Est GFR (MDRD) Af Amer 61, Est GFR (MDRD) Non-Af 51 L, BUN/Creatinine Ratio 21.2 H, Glucose 129 H, Calcium 7.5 L 06/22/18 04:10: WBC 15.0 H, RBC 3.73 L, Hgb 10.7 L, Hct 33.4 L, MCV 89.5, MCH 28.7, MCHC 32.0, RDW 14.6, RDW Differential 46.5 H, Plt Count 198, MPV 11.6, Immature Gran % (Auto) 0.300, Neut % (Auto) 87.4 H, Lymph % (Auto) 5.1 L, [place] % (Auto) 6.5, Eos % (Auto) 0.6, Baso % (Auto) 0.1, Absolute Neuts (auto) 13.1 H, Absolute Lymphs (auto) 0.77 L, Total Counted Not Reportable 06/22/18 04:23: Total Bilirubin 0.70, Direct Bilirubin 0.26, AST 40 H, ALT 24, Alkaline Phosphatase 68, Total Protein 6.0 L, Albumin 2.2 L, Globulin 3.8 Diagnostic Data Chest CTA 06/20/18 03:53 IMPRESSION: Normal CTA chest examination, without a demonstrated pulmonary embolism or arterial dissection. Indeterminate gallbladder, gallbladder inflammation is not excluded. Consider gallbladder ultrasound depending on patient's symptoms. Electronically Signed: Leeanne Carter MD at 5:33 EST , Service support , Brain MRI 06/20/18 10:57 IMPRESSION: Probable bilateral punctate subacute embolic infarctions. N.B. : The above information has been verbally conveyed by Nando Velazco MD to VINCENZO Carver, on 06/20/2018 22:25:02 (ET). Electronically Signed: Nando Velazco MD at 21:45 EST , Service support , Head MRA 06/20/18 11:00 IMPRESSION: Normal MRA of the head Electronically Signed: Nando Velazco MD at 22:14 EST , Service support , Neck MRA 06/20/18 11:00 IMPRESSION: Normal bilateral cervical carotid and vertebral arteries. Electronically Signed: Nando Velazco MD at 22:09 EST , Service support , Abdomen/Pelvis CT 06/20/18 12:50 IMPRESSION: Multiple gallstones with thickened gallbladder wall and increased markings in the surrounding fat. Acute cholecystitis should be ruled out. Soft tissue changes seen in the region of the right groin in keeping with the history of recent catheterization. Electronically Signed: Mohit Frey MD at 13:46 EST Tel [phone], Service support , Chest X-Ray 06/20/18 15:52 IMPRESSION: Support lines and tubes placed as described, no demonstrated complication No acute pulmonary process Electronically Signed: Omar Duggan MD at 17:00 EST , Service support , Brain CT 06/21/18 10:42 IMPRESSION: Chronic involutional changes of the brain. Tiny lacunar in the insular cortex of the left temporal lobe. Electronically Signed: Mohit Frey MD at 13:38 EST Tel [phone], Service support , Current Medications Amlodipine Besylate (Norvasc) 5 mg PO DAILY [facility] Aspirin (Aspirin, Baby) 81 mg PO DAILY@0800 [facility] Atorvastatin Calcium (Lipitor) 40 mg PO QHS [facility] Last Admin: 11/07/18 21:43 Dose: 40 mg Atropine Sulfate () 0.5 mg IV UD PRN PRN Reason: HR <50 bpm Chlorhexidine Gluconate () 15 ml PO BID [facility] Last Admin: 06/21/18 21:43 Dose: 15 ml Chlorhexidine Gluconate () 1 each TOPICAL DAILY [facility] Last Admin: 06/22/18 02:41 Dose: 1 each Heparin Sodium (Beef Lung) (Heparin 500 Unit/5 Ml (100/Ml)) 500 unit IV UD PRN PRN Reason: HEPARIN FLUSH Sodium Chloride () 1,000 mls @ 15 mls/hr IV .Q48H [facility] Last Admin: 06/21/18 14:29 Dose: 15 mls/hr Piperacillin Sod/Tazobactam Sod (Zosyn) 3.375 gm in 50 mls @ 12.5 mls/hr IV Q8 [facility] Last Admin: 06/22/18 05:11 Dose: 12.5 mls/hr Labetalol HCl (Trandate) 5 mg IV X1 PRN PRN Reason: SBP > 160 when pulling sheath Labetalol HCl (Trandate) 10 - 20 mg IV Q15M PRN PRN Reason: SBP > 185/110 Last Admin: 06/20/18 14:15 Dose: 10 mg Losartan Potassium (Cozaar) 25 mg PO DAILY [facility] Last Admin: 06/21/18 10:09 Dose: 25 mg Magnesium Hydroxide (Milk Of Magnesia) 30 ml PO DAILY PRN PRN Reason: Constipation Metoprolol Tartrate (Lopressor (Beta Marlene)) 50 mg PO BID [facility] Phenol/Menthol (Chloraseptic (Bkc)) 3 spray MM Q2H PRN PRN PRN Reason: SORE THROAT Sodium Chloride () 5 - 30 ml IV UD PRN PRN Reason: SALINE FLUSH Last Admin: 06/22/18 05:11 Dose: 20 ml Sodium Chloride () 500 ml IV BOLUS PRN PRN Reason: VASO-VAGAL PROTOCOL Ticagrelor (Brilinta) 90 mg PO BID [facility] Last Admin: 06/21/18 21:43 Dose: 90 mg Medical Necessity - Tobacco Use Smoking Status: Former smoker Tobacco Use: Non-smoker Assessment/Plan All Active Problems (Last Reviewed 06/20/18 @ 15:17 by Jacques Hinojosa MD) Acute cholecystitis (Acute) History of coronary artery stent placement (Acute 06/20/18) Atherosclerotic heart disease [place] coronary artery w/angina pectoris (Acute) 1. Embolic ischemic stroke after heart cath * s/p TPA administration * BP fluctuates between 120s to 180s systolic. * Successfully extubated this morning. * MRI showed: Probable bilateral punctate subacute embolic infarctions. * MRA of head and neck were normal * Post TPA head CT showed punctate infarcts * Stable and will transfer to PCU today. * 2. Acute hypoxic respiratory failure * successfully extubated this morning. * saturating well on 2L of oxygen * 3. Hypertension: * Hypotension is resolved. Patient's blood pressure has been fluctuating between 120s-180 systolic. * Will resume BP meds-on amlodipine 5 mg daily and losartan 25 mg daily, metoprolol 50 mg twice daily. * labetalol prn * 4. NSTEMI s/p stent in RCA * On Brilinta and statin. Aspirin was held yesterday on account of him TPA. * aspirin resumed. * Cardiology on board. 5. SANTOSH: * Resolving. Creatinine down to 1.46 from 2.32. * Continue gentle hydration with IV fluids. * 6. Acute cholecystitis * Still complaining of right upper quadrant pain. CT of the abdomen showed thickened gallbladder and multiple gallstones. * On IV Zosyn. * Also to review today and is deferred placement of biliary stent. * still has leucocytosis with wbc being 15 today * * DVT prophylaxis: SCDs. Disposition: transfer to PCU today Code Visit Inpatient E&M: [id number] [facility] Hosp L3
--- NOTE | 2018-06-22 10:17 | CASEMGMT ---
RN CM Note: Spoke with pt in room. He states he was independent prior to admission, has family drive if needed. Has first floor set up, one step into home. States has walker she does not use and it is height adjustable so he will use if needed. -Discussed PT/OT will do evaluations and give recommendations on therapy and ambulatory DME at that time. CM will assist with further dc needs. Maylin STERN RN ACM
[2018-06-22] MEDS: TICAGRELOR 90 MG TABLET PO ×2 (10:29→22:20)
[2018-06-22] MEDS: Metoprolol Tartrate 50 MG Tablet PO ×2 (10:30→22:20)
[2018-06-22] MEDS: Losartan Potassium 25 MG Tablet PO (10:30)
[2018-06-22] MEDS: amLODIPine 5 MG Tablet PO (10:30)
[2018-06-22] MEDS: Aspirin 81 MG TAB.CHEW PO (10:30)
[2018-06-22] MEDS: Phenol/Sodium Phenolate 180ML 3 SPRAY MM (12:13)
[2018-06-22] MEDS: Acetaminophen 325 MG Tablet 650 MG PO (18:04)
[2018-06-22] MEDS: 0.45% Normal Saline 1,000 ML 75 ML IV (18:21)
[2018-06-22 18:28] LABS: Absolute Lymphocyte Count 0.55 X10^3/ul (0.83-4.51); Absolute Neutrophil Count 12.7 X10^3/uL (2.0-7.7); Basophil# 0.01 X10^3/uL; Basophil% 0.1 % (0-1); Hemoglobin 10.2 g/dl (13.0-16.5); Lymphocyte # 0.55 X10^3/ul (4.0); Lymphocyte % 3.8 % (19-41); Mean Corp Hgb Conc 31.9 g/gl (32-36); Mean Corpuscular Hgb 28.3 pg (27.0-32.0); Mean Corpuscular Volume 88.6 fL (80-94); Mean Platelet Vol. 11.2 fl (6.2-12.0); Monocyte# 1.32 X10^3/uL; Monocyte% 9.1 % (0-10); Neutrophil # 12.67 X10^3/uL (2.7-7.7); Neutrophil % 86.8 % (47-70); Platelet Count 215 K/mm3 (150-450); RBC Distribution Width CV 14.3 % (11.6-14.6); RBC Distribution Width SD 47.1 fl (35.1-43.9); Red Blood Count 3.61 M/mm3 (4.6-6.2); White Blood Count 14.6 K/mm3 (4.4-11.0)
[2018-06-22 18:31] LABS: Differential Indicated SCAN CRITERIA MET; POSITIVE COUNT NO; POSITIVE DIFFERENTIAL YES; POSITIVE MORPHOLOGY NO
[2018-06-22 18:57] LABS: Platelet Estimate ADEQUATE (ADEQ); Red Cell Morphology NORM C+C NORMAL (NORM C&C)
[2018-06-22] MEDS: Atorvastatin Calcium 40 MG Tablet PO (22:20)
[2018-06-23] VITALS (18 sets, daily range): BP systolic 134–186; BP diastolic 55–96; PULSE 63–86; RESP 18; TEMP 36.3–37.4; O2SAT 93–97; BMI 30.9
--- NOTE | 2018-06-23 01:39 | EKG12_ITS ---
Test Reason : CP Blood Pressure : / mmHG Vent. Rate : 083 BPM Atrial Rate : 083 BPM P-R Int : 154 ms QRS Dur : 098 ms QT Int : 402 ms P-R-T Axes : 053 -32 011 degrees QTc Int : 472 ms Normal sinus rhythm Left axis deviation Minimal voltage criteria for LVH, may be normal variant Abnormal ECG When compared with ECG of 22-JUN-2018 05:12, MANUAL COMPARISON REQUIRED, DATA IS UNCONFIRMED Confirmed by CRISTIANO BABIN ([id number]), acquisitions editor SIMON KERNS ([id number]) on 06/26/2018 2:59:06 PM Referred By: ED Confirmed By:CRISTIANO BABIN
[2018-06-23] MEDS: Labetalol 20 MG/4 ML Vial 10 MG IV ×2 (01:53→16:06)
[2018-06-23] MEDS: Acetaminophen 325 MG Tablet 650 MG PO ×2 (01:53→22:54)
[2018-06-23] MEDS: Piperacil/Tazobactam 3.375 GM/50 ML ML IV ×3 (05:00→22:44)
[2018-06-23 06:33] LABS: Absolute Lymphocyte Count 0.75 X10^3/ul (0.83-4.51); Absolute Neutrophil Count 9.9 X10^3/uL (2.0-7.7); Basophil# 0.01 X10^3/uL; Basophil% 0.1 % (0-1); Eosinophil# 0.12 X10^3/uL; Hematocrit 31.3 % (40-54); Hemoglobin 10.1 g/dl (13.0-16.5); Lymphocyte # 0.75 X10^3/ul (4.0); Lymphocyte % 6.2 % (19-41); Mean Corp Hgb Conc 32.3 g/gl (32-36); Mean Corpuscular Hgb 28.6 pg (27.0-32.0); Mean Corpuscular Volume 88.7 fL (80-94); Mean Platelet Vol. 11.6 fl (6.2-12.0); Monocyte# 1.22 X10^3/uL; Monocyte% 10.1 % (0-10); Neutrophil % 82.4 % (47-70); Platelet Count 213 K/mm3 (150-450); RBC Distribution Width CV 14.4 % (11.6-14.6); RBC Distribution Width SD 45.9 fl (35.1-43.9); Red Blood Count 3.53 M/mm3 (4.6-6.2)
[2018-06-23 06:36] LABS: POSITIVE COUNT NO; POSITIVE DIFFERENTIAL NO; POSITIVE MORPHOLOGY NO
[2018-06-23 06:58] LABS: Anion Gap 6 (5-15); BUN 20 mg/dL (7-18); Calcium,Total 7.6 mg/dL (8.5-10.1); Chloride 107 mmol/L (98-107); Creatinine, Serum 1.05 mg/dL (0.70-1.30); EST Glomerular Filtration Rate 74 mL/min (>60); Est Glom Filt Rate - Afr Amer 90 mL/min (>60); Estimated Creatinine Clearance 68.73 ml/min; Glucose 127 mg/dL (74-106); Potassium 3.1 mmol/L (3.5-5.1); Sodium Level 139 mmol/L (136-145)
--- NOTE | 2018-06-23 08:24 | PCM.PN.CARD ---
Subjectve: Patient seen and evaluated. Appears to be doing much better this morning. No complaints Objective: Vital Signs Temp Pulse Resp BP Pulse Ox 97.3 F L 81 18 156/96 H 95 06/23/18 07:40 06/23/18 07:40 06/23/18 07:40 06/23/18 07:40 06/23/18 07:40 Oxygen Flow Rate (L/min) 1 Oxygen Delivery Method Room Air Weight: 228 lb 2.855 oz Body Mass Index (BMI) 30.9 Intake and Output for Last 24 Hours 06/21/18 06/22/18 06/23/18 23:59 23:59 23:59 Intake Total 3597 / 3597 2346.4 / 2346.4 873 / 873 Output Total 1080 / 1080 1175 / 1175 200 / 200 Balance 2517 / 2517 1171.4 / 1171.4 673 / 673 General: Awake, Alert, Oriented x 3 HEENT: PERRL, EOMI, Sclera Non Icteric Neck: Supple, Good ROM, No Lymph Node Enlargement Lungs: Clear to auscultation Cardiovascular: Regular Rhythm, Normal S1, Normal S2, No Murmurs, No Rubs, No Gallops Vascular: No Carotid Bruits, Normal Femoral Pulses, Normal Radial Pulses, Normal Dorsalis Pedal Pulse, Normal Posterior Tibial Pulses Abdomen: Bowel Sounds Present, Soft, Non Tender, No HSM, No Organomegaly Extremities: No Cyanosis, No Clubbing, No edema Neurological: No Focal Motor or Sensory Deficit 06/22/18 17:55: WBC 14.6 H, RBC 3.61 L, Hgb 10.2 L, Hct 32.0 L, MCV 88.6, MCH 28.3, MCHC 31.9 L, RDW 14.3, RDW Differential 47.1 H, Plt Count 215, MPV 11.2, Immature Gran % (Auto) 0.200, Neut % (Auto) 86.8 H, Lymph % (Auto) 3.8 L, [place] % (Auto) 9.1, Eos % (Auto) 0.0, Baso % (Auto) 0.1, Absolute Neuts (auto) 12.7 H, Total Counted Not Reportable 06/23/18 06:00: Sodium 139, Potassium 3.1 L, Chloride 107, Carbon Dioxide 26.0, Anion Gap 6, BUN 20 H, Creatinine 1.05, Est GFR (MDRD) Af Amer 90, Est GFR (MDRD) Non-Af 74, BUN/Creatinine Ratio 19.0, Glucose 127 H, Calcium 7.6 L 06/23/18 06:00: WBC 12.0 H, RBC 3.53 L, Hgb 10.1 L, Hct 31.3 L, MCV 88.7, MCH 28.6, MCHC 32.3, RDW 14.4, RDW Differential 45.9 H, Plt Count 213, MPV 11.6, Immature Gran % (Auto) 0.200, Neut % (Auto) 82.4 H, Lymph % (Auto) 6.2 L, [place] % (Auto) 10.1 H, Eos % (Auto) 1.0, Baso % (Auto) 0.1, Absolute Neuts (auto) 9.9 H, Total Counted Not Reportable Rhythm: EKG: ECHO: Stress Test: Cardiac Cath: PCI: CT Surgery: Holter monitor: EPS: PPM: CXR: Chest CT Scan: Medical Necessity - Tobacco Use Smoking Status: Former smoker Tobacco Use: Non-smoker Assessment/Plan 1. Chest pain-unstable angina Cardiac catheterization demonstrated the following: Normal left main coronary artery. Left anterior descending artery with mild disease. Left circumflex artery with AV groove branch with 80% stenosis. Dominant large right coronary artery with 80% proximal stenosis. Preserved ejection fraction. Based on the above he underwent angioplasty and stenting of the right coronary artery. The above was successful. The patient however developed dysarthria which was thought to be a cerebrovascular accident and was seen by neurology. Appears to have resolved. From the coronary standpoint patient appears to be doing quite well with no further chest discomfort. 2. 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 Thus far small punctate basal ganglia infarcts only have been noted. This morning he looks much better and his dysarthria appears to have resolved. Will defer further treatment as per neurology 3. Hypertension His blood pressure is high at this time. Would restart antihypertensive therapy with metoprolol 50 mg twice a day, Norvasc 10 mg a day, and losartan 25 mg once a day. . 4. Cholecystitis Patient is noted to have an inflamed gallbladder without any liver function test abnormalities thus far. Patient has been seen by the surgeon and would await recommendations he has that at this time expectant management will be undertaken. 5. Renal dysfunction Patient appears to have developed acute renal dysfunction likely secondary to the dye load as well as the hypotension. This appears to have improved with his creatinine now at 1.0. Recommend continuing intravenous fluids intake and continue to monitor renal profile. Appreciate the input of the director corporate communications, hospitalist, surgeon, neurologist, and nursing.
--- NOTE | 2018-06-23 08:27 | PN.CARD_ITS ---
Subjectve: Patient seen and evaluated. Appears to be doing much better this morning. No complaints Objective: Vital Signs Temp Pulse Resp BP Pulse Ox 97.3 F L 81 18 156/96 H 95 06/23/18 07:40 06/23/18 07:40 06/23/18 07:40 06/23/18 07:40 06/23/18 07:40 Oxygen Flow Rate (L/min) 1 Oxygen Delivery Method Room Air Weight: 228 lb 2.855 oz Body Mass Index (BMI) 30.9 Intake and Output for Last 24 Hours 06/21/18 06/22/18 06/23/18 23:59 23:59 23:59 Intake Total 3597 / 3597 2346.4 / 2346.4 873 / 873 Output Total 1080 / 1080 1175 / 1175 200 / 200 Balance 2517 / 2517 1171.4 / 1171.4 673 / 673 General: Awake, Alert, Oriented x 3 HEENT: PERRL, EOMI, Sclera Non Icteric Neck: Supple, Good ROM, No Lymph Node Enlargement Lungs: Clear to auscultation Cardiovascular: Regular Rhythm, Normal S1, Normal S2, No Murmurs, No Rubs, No Gallops Vascular: No Carotid Bruits, Normal Femoral Pulses, Normal Radial Pulses, Normal Dorsalis Pedal Pulse, Normal Posterior Tibial Pulses Abdomen: Bowel Sounds Present, Soft, Non Tender, No HSM, No Organomegaly Extremities: No Cyanosis, No Clubbing, No edema Neurological: No Focal Motor or Sensory Deficit 06/22/18 17:55: WBC 14.6 H, RBC 3.61 L, Hgb 10.2 L, Hct 32.0 L, MCV 88.6, MCH 28.3, MCHC 31.9 L, RDW 14.3, RDW Differential 47.1 H, Plt Count 215, MPV 11.2, Immature Gran % (Auto) 0.200, Neut % (Auto) 86.8 H, Lymph % (Auto) 3.8 L, [place] % (Auto) 9.1, Eos % (Auto) 0.0, Baso % (Auto) 0.1, Absolute Neuts (auto) 12.7 H, Total Counted Not Reportable 06/23/18 06:00: Sodium 139, Potassium 3.1 L, Chloride 107, Carbon Dioxide 26.0, Anion Gap 6, BUN 20 H, Creatinine 1.05, Est GFR (MDRD) Af Amer 90, Est GFR (MDRD) Non-Af 74, BUN/Creatinine Ratio 19.0, Glucose 127 H, Calcium 7.6 L 06/23/18 06:00: WBC 12.0 H, RBC 3.53 L, Hgb 10.1 L, Hct 31.3 L, MCV 88.7, MCH 28.6, MCHC 32.3, RDW 14.4, RDW Differential 45.9 H, Plt Count 213, MPV 11.6, Immature Gran % (Auto) 0.200, Neut % (Auto) 82.4 H, Lymph % (Auto) 6.2 L, [place] % (Auto) 10.1 H, Eos % (Auto) 1.0, Baso % (Auto) 0.1, Absolute Neuts (auto) 9.9 H, Total Counted Not Reportable Rhythm: EKG: ECHO: Stress Test: Cardiac Cath: PCI: CT Surgery: Holter monitor: EPS: PPM: CXR: Chest CT Scan: Medical Necessity - Tobacco Use Smoking Status: Former smoker Tobacco Use: Non-smoker Assessment/Plan 1. Chest pain-unstable angina Cardiac catheterization demonstrated the following: Normal left main coronary artery. Left anterior descending artery with mild disease. Left circumflex artery with AV groove branch with 80% stenosis. Dominant large right coronary artery with 80% proximal stenosis. Preserved ejection fraction. Based on the above he underwent angioplasty and stenting of the right coronary artery. The above was successful. The patient however developed dysarthria which was thought to be a cerebrovascular accident and was seen by neurology. Appears to have resolved. From the coronary standpoint patient appears to be doing quite well with no further chest discomfort. 2. 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 Thus far small punctate basal ganglia infarcts only have been noted. This morning he looks much better and his dysarthria appears to have resolved. Will defer further treatment as per neurology 3. Hypertension * His blood pressure is high at this time. * Would restart antihypertensive therapy with metoprolol 50 mg twice a day, Norvasc 10 mg a day, and losartan 25 mg once a day. * . 4. Cholecystitis * Patient is noted to have an inflamed gallbladder without any liver function test abnormalities thus far. * Patient has been seen by the surgeon and would await recommendations he has that at this time expectant management will be undertaken. * * 5. Renal dysfunction Patient appears to have developed acute renal dysfunction likely secondary to the dye load as well as the hypotension. This appears to have improved with his creatinine now at 1.0. Recommend continuing intravenous fluids intake and continue to monitor renal profile. Appreciate the input of the mortuary technician, hospitalist, surgeon, neurologist, and nursing.
[2018-06-23] MEDS: Aspirin 81 MG TAB.CHEW PO (09:44)
[2018-06-23] MEDS: TICAGRELOR 90 MG TABLET PO ×2 (09:44→22:42)
[2018-06-23] MEDS: amLODIPine 10 MG Tablet PO (09:44)
[2018-06-23] MEDS: Losartan Potassium 25 MG Tablet PO (09:45)
[2018-06-23] MEDS: Metoprolol Tartrate 50 MG Tablet PO ×2 (09:45→22:42)
--- NOTE | 2018-06-23 09:46 | PCM.PN.SRG ---
Patient Problems: Active and Suspected Problems (Last Reviewed 06/20/18 @ 15:17 by Jacques Hinojosa MD) Acute cholecystitis (Acute) Subjective: Patient is no longer complaining of right upper quadrant abdominal pain this morning. Has been tolerating clear liquids without difficulty. His white count is coming down. Objective: His abdomen is soft and nontender. His abdomen is nondistended. - Physical Exam Vital Signs Temp Pulse Resp BP Pulse Ox 97.3 F L 81 18 156/96 H 95 06/23/18 07:40 06/23/18 07:40 06/23/18 07:40 06/23/18 07:40 06/23/18 07:40 Oxygen Flow Rate (L/min) 1 Oxygen Delivery Method Room Air Weight: 228 lb 2.855 oz Body Mass Index (BMI) 30.9 Intake and Output for Last 24 Hours 06/21/18 06/22/18 06/23/18 23:59 23:59 23:59 Intake Total 3597 / 3597 2346.4 / 2346.4 873 / 873 Output Total 1080 / 1080 1175 / 1175 200 / 200 Balance 2517 / 2517 1171.4 / 1171.4 673 / 673 Microbiology Past 72 Hours 06/22/18 17:46 Blood Culture - Preliminary Blood Culture (Wb) - Venous 06/22/18 17:46 Blood Culture - Preliminary Blood Culture (Wb) - Venous 06/20/18 13:30 Urine Culture - Final Urine Catheter - [place] Culture exhibits no growth. Laboratory Tests Past 24 Hrs 06/22/18 06/23/18 06/23/18 17:55 06:00 06:00 WBC 14.6 H 12.0 H RBC 3.61 L 3.53 L Hgb 10.2 L 10.1 L Hct 32.0 L 31.3 L MCV 88.6 88.7 MCH 28.3 28.6 MCHC 31.9 L 32.3 RDW 14.3 14.4 RDW Differential 47.1 H 45.9 H Plt Count 215 213 MPV 11.2 11.6 Immature Gran % (Auto) 0.200 0.200 Neut % (Auto) 86.8 H 82.4 H Lymph % (Auto) 3.8 L 6.2 L [place] % (Auto) 9.1 10.1 H Eos % (Auto) 0.0 1.0 Baso % (Auto) 0.1 0.1 Absolute Neuts (auto) 12.7 H 9.9 H Absolute Lymphs (auto) 0.55 L 0.75 L Total Counted Not Reportable Not Reportable Differential Comment Platelet Estimate ADEQUATE RBC Morphology NORM C+C Sodium 139 Potassium 3.1 L Chloride 107 Carbon Dioxide 26.0 Anion Gap 6 BUN 20 H Creatinine 1.05 Estim Creat Clear Calc 68.73 Est GFR (MDRD) Af Amer 90 Est GFR (MDRD) Non-Af 74 BUN/Creatinine Ratio 19.0 Glucose 127 H Calcium 7.6 L Medical Necessity - Tobacco Use Smoking Status: Former smoker Tobacco Use: Non-smoker Assessment/Plan All Active Problems (Last Reviewed 06/20/18 @ 15:17 by Jacques Hinojosa MD) Acute cholecystitis (Acute) History of coronary artery stent placement (Acute 06/20/18) Atherosclerotic heart disease [place] coronary artery w/angina pectoris (Acute) From my standpoint I believe the patient is acceptable to be discharged on oral antibiotics for at least 2 weeks. I have instructed him to eliminate all fats from his diet and try to keep his food down to 2 cups 3 times a day a day over the next several weeks. He can follow-up with me in 1 week from discharge. Hopefully we will be able to keep him from surgery for at least one year prior to this hospitalization. At that time I believe his risk of surgery would be at its lowest.
--- NOTE | 2018-06-23 10:24 | PCM.PROGNOTE ---
Patient Problems: Active and Suspected Problems (Last Reviewed 06/20/18 @ 15:17 by Jacques Hinojosa MD) Acute cholecystitis (Acute) Subjective: The patient was seen and examined at the bedside this morning. Events from the last 24 hours have been reviewed. The patient is currently afebrile, hemodynamically stable and maintaining appropriate oxygen saturations on room air. The patient has done well clinically following his transfer out of the intensive care unit yesterday. The patient denies the presence of abdominal pain. Objective: The patient's most recent lab work, culture data and imaging studies have all been personally reviewed. Brain MRI completed on June 20 revealed probable bilateral punctate subacute embolic infarctions. Head/neck MRA was normal. CT abdomen/pelvis revealed multiple gallstones with thickened gallbladder wall suggestive of acute cholecystitis. Urine culture has not shown any growth to date. Preliminary blood cultures dated June 22 revealed the presence of gram-negative rods. - Physical Exam General: Alert, Cooperative, No apparent distress HEENT: Atraumatic, PERRLA, Normocephalic Oral: No Gingival or Mucosal Lesions/ Ulcerations Neck: Supple, No Nodes, Trachea Midline Lungs: No rhonchi, No wheeze, No rales, Diminished Cardiovascular: Regular rate, Regular Rhythm, Normal S1, Normal S2, No murmurs Abdomen: Bowel Sounds Present, Soft, Non Tender Extremities: No clubbing, No cyanosis, No edema Skin: No breakdown Musculoskeletal: No Tenderness to Palpation of Joints or Extremities Lymphatic: No Cervical, Supraclavicular, or Inguinal Adenopathy Neurological: Cranial nerves II-XII grossly intact, Neuro grossly intact Psych/Mental Status: Normal Affect, Appropriate Vital Signs Temp Pulse Resp BP Pulse Ox 36.3 C L 81 18 156/96 H 95 06/23/18 07:40 06/23/18 09:45 06/23/18 07:40 06/23/18 07:40 06/23/18 07:40 Oxygen Flow Rate (L/min) 1 Oxygen Delivery Method Room Air Weight: 228 lb 2.855 oz Body Mass Index (BMI) 30.9 Intake and Output for Last 24 Hours 06/21/18 06/22/18 06/23/18 23:59 23:59 23:59 Intake Total 3597 / 3597 2346.4 / 2346.4 873 / 873 Output Total 1080 / 1080 1175 / 1175 200 / 200 Balance 2517 / 2517 1171.4 / 1171.4 673 / 673 Microbiology Past 72 Hours 06/22/18 17:46 Blood Culture - Preliminary Blood Culture (Wb) - Venous 06/22/18 17:46 Blood Culture - Preliminary Blood Culture (Wb) - Venous 06/20/18 13:30 Urine Culture - Final Urine Catheter - [place] Culture exhibits no growth. Laboratory Tests Past 24 Hrs 06/22/18 06/23/18 06/23/18 17:55 06:00 06:00 WBC 14.6 H 12.0 H RBC 3.61 L 3.53 L Hgb 10.2 L 10.1 L Hct 32.0 L 31.3 L MCV 88.6 88.7 MCH 28.3 28.6 MCHC 31.9 L 32.3 RDW 14.3 14.4 RDW Differential 47.1 H 45.9 H Plt Count 215 213 MPV 11.2 11.6 Immature Gran % (Auto) 0.200 0.200 Neut % (Auto) 86.8 H 82.4 H Lymph % (Auto) 3.8 L 6.2 L [place] % (Auto) 9.1 10.1 H Eos % (Auto) 0.0 1.0 Baso % (Auto) 0.1 0.1 Absolute Neuts (auto) 12.7 H 9.9 H Absolute Lymphs (auto) 0.55 L 0.75 L Total Counted Not Reportable Not Reportable Differential Comment Platelet Estimate ADEQUATE RBC Morphology NORM C+C Sodium 139 Potassium 3.1 L Chloride 107 Carbon Dioxide 26.0 Anion Gap 6 BUN 20 H Creatinine 1.05 Estim Creat Clear Calc 68.73 Est GFR (MDRD) Af Amer 90 Est GFR (MDRD) Non-Af 74 BUN/Creatinine Ratio 19.0 Glucose 127 H Calcium 7.6 L Clinical Impression(s) from Imaging Studies Chest CTA 06/20/18 03:53 IMPRESSION: Normal CTA chest examination, without a demonstrated pulmonary embolism or arterial dissection. Indeterminate gallbladder, gallbladder inflammation is not excluded. Consider gallbladder ultrasound depending on patient's symptoms. Electronically Signed: Leeanne Carter MD at 5:33 EST , Service support , Brain CT 06/20/18 10:22 IMPRESSION: Chronic involutional changes of the brain. N.B. : The above information has been verbally conveyed by Mohit Frey MD to Jacques Davis on 06/20/2018 10:33:31 (ET). Electronically Signed: Mohit Frey MD at 10:35 EST Tel [phone], Service support , Brain MRI 06/20/18 10:57 IMPRESSION: Probable bilateral punctate subacute embolic infarctions. N.B. : The above information has been verbally conveyed by Nando Velazco MD to VINCENZO Carver, on 06/20/2018 22:25:02 (ET). Electronically Signed: Nando Velazco MD at 21:45 EST , Service support , Head MRA 06/20/18 11:00 IMPRESSION: Normal MRA of the head Electronically Signed: Nando Velazco MD at 22:14 EST , Service support , Neck MRA 06/20/18 11:00 IMPRESSION: Normal bilateral cervical carotid and vertebral arteries. Electronically Signed: Nando Velazco MD at 22:09 EST , Service support , Abdomen/Pelvis CT 06/20/18 12:50 IMPRESSION: Multiple gallstones with thickened gallbladder wall and increased markings in the surrounding fat. Acute cholecystitis should be ruled out. Soft tissue changes seen in the region of the right groin in keeping with the history of recent catheterization. Electronically Signed: Mohit Frey MD at 13:46 EST Tel [phone], Service support , Brain CT 06/20/18 13:25 IMPRESSION: Mild cerebral atrophy. No acute abnormality is seen. Electronically Signed: Mohit Frey MD at 14:09 EST Tel [phone], Service support , Chest X-Ray 06/20/18 13:40 IMPRESSION: Mild cardiomegaly. Electronically Signed: Mohit Frey MD at 14:10 EST Tel [phone], Service support , Chest X-Ray 06/20/18 15:52 IMPRESSION: Support lines and tubes placed as described, no demonstrated complication No acute pulmonary process Electronically Signed: Omar Duggan MD at 17:00 EST , Service support , Brain CT 06/21/18 10:42 IMPRESSION: Chronic involutional changes of the brain. Tiny lacunar in the insular cortex of the left temporal lobe. Electronically Signed: Mohit Frey MD at 13:38 EST Tel [phone], Service support , Medical Necessity - Tobacco Use Smoking Status: Former smoker Tobacco Use: Non-smoker Assessment/Plan All Active Problems (Last Reviewed 06/20/18 @ 15:17 by Jacques Hinojosa MD) Acute cholecystitis (Acute) History of coronary artery stent placement (Acute 06/20/18) Atherosclerotic heart disease [place] coronary artery w/angina pectoris (Acute) RECOMMENDATIONS: 1. Encourage incentive spirometer use and mobilize patient as tolerated. 2. Continue antibiotics 3. Advance diet per surgery recommendations. IMPRESSIONS: 1. Acute respiratory failure The patient did require eventual intubation on the afternoon of June 20 due to refractory agitation and subsequent airway compromise. The patient became exceedingly confrontational and threatening to staff throughout the afternoon. A stepwise approach was employed to the use of sedative medications in hopes of improving the patient's agitation. However, despite the utilization of multiple medications, including Precedex, his agitation remained an issue. Further escalation in his sedation regimen, lead to somnolence with concerns for the patient's ability to protect his airway. Therefore, the decision was made to intubate the patient. The patient has responded remarkably well to invasive mechanical ventilation. The patient's mentation improved and he subsequently passed a spontaneous breathing trial and was extubated on the morning of June 22. 2. CVA status post TPA administration The patient did receive TPA over concerns for a stuttering CVA. Follow-up head imaging revealed no evidence of intracranial hemorrhage. He is being medically managed by neurology at this time. 3. Acute kidney injury Resolving. Likely secondary to recent contrast administration coupled with a component of hemodynamic instability that occurred previously. The patient's hemodynamics have since improved. Continue to monitor urine output. Avoid further contrast and/or nephrotoxic agents. No indication for renal replacement therapy at this time. 4. Non-ST elevation [place] status post PTCA/GAVIN placement to the proximal RCA The patient is status post PTCA with drug-eluting stent placed to the proximal RCA. Continue medical management per cardiology recommendations. 5. Metabolic encephalopathy Resolved. Concern for underlying infectious/metabolic encephalopathy, especially in light of the patient's recent mentation changes. Follow-up head imaging in the form of CT, revealed no intracranial hemorrhage. He does appear to have radiographic evidence of acute cholecystitis. 6. Sepsis secondary to acute cholecystitis The patient was started empirically on Zosyn after he developed fevers and complained of right upper quadrant pain in the setting of radiographic evidence concerning for acute cholecystitis. Urine culture was unrevealing. Per surgery, there are no plans at this time to place cholecystostomy tube. We will continue to monitor the patient clinically. 7. Hypertension/anxiety Complicates care, management, recovery and prognosis. Okay to continue home medications from my perspective. This note was generated with [employer] software. It may contain incorrect words, spelling, and punctuation that were not noted in checking the note before signing. DISPOSITION: Given the patient's lack of ongoing ICU/pulmonary needs, will sign off. Please call with any additional questions. Code Visit Inpatient E&M: 16691 Subs Hosp L2
--- NOTE | 2018-06-23 11:48 | PN.NEURO_ITS ---
Patient Problems: Active and Suspected Problems (Last Reviewed 06/20/18 @ 15:17 by Jacques Hinojosa MD) Acute cholecystitis (Acute) Subjective: NO issues overnight. 73 yr M with PMH HTN, admitted on 06/20/18 with acute chest pain, had cardiac catheterization with stent placed to proximal RCA on 06/20/18, was complicated by post procedural stroke w/p ivtpa, was intubated for airway protection, hospital course complicated by acute cholecystitis and encephalopathy, at present is extubated, denies any NATARAJAN, focal motor weakness, sensory loss, visual disturbances, or dizziness. NIHSS at present is 0. MRI brain following stroke symptoms showed tiny right precentral gyrus, tiny right cerebellar vermis and left putamen acute infarct (likely embolic post procedure) with unremarkable MRA head/neck. - Physical Exam General: Alert HEENT: Normocephalic Neck: Supple Lungs: Clear to auscultation Cardiovascular: Normal S1, Normal S2 Abdomen: Bowel Sounds Present Extremities: No cyanosis Skin: No rashes Neurological: - - consious, alert, AoAx3, Cn 2-12 grossly intact, power 5/5 all 4 extremities, no sensory loss, no cerebellar signs, Reflexes + B/L B/S/T/K/A, gait deferred, NIHSS 0 at present. Psych/Mental Status: Normal Affect Vital Signs Temp Pulse Resp BP Pulse Ox 97.3 F L 81 18 156/96 H 95 06/23/18 07:40 06/23/18 09:45 06/23/18 07:40 06/23/18 07:40 06/23/18 07:40 Oxygen Flow Rate (L/min) 1 Oxygen Delivery Method Room Air Weight: 103.5 kg Body Mass Index (BMI) 30.9 Intake and Output for Last 24 Hours 06/21/18 06/22/18 06/23/18 23:59 23:59 23:59 Intake Total 3597 / 3597 2346.4 / 2346.4 873 / 873 Output Total 1080 / 1080 1175 / 1175 200 / 200 Balance 2517 / 2517 1171.4 / 1171.4 673 / 673 Microbiology Past 72 Hours 06/22/18 17:46 Blood Culture - Preliminary Blood Culture (Wb) - Venous 06/22/18 17:46 Blood Culture - Preliminary Blood Culture (Wb) - Venous 06/20/18 13:30 Urine Culture - Final Urine Catheter - [place] Culture exhibits no growth. Laboratory Tests Past 24 Hrs 06/22/18 06/23/18 06/23/18 17:55 06:00 06:00 WBC 14.6 H 12.0 H RBC 3.61 L 3.53 L Hgb 10.2 L 10.1 L Hct 32.0 L 31.3 L MCV 88.6 88.7 MCH 28.3 28.6 MCHC 31.9 L 32.3 RDW 14.3 14.4 RDW Differential 47.1 H 45.9 H Plt Count 215 213 MPV 11.2 11.6 Immature Gran % (Auto) 0.200 0.200 Neut % (Auto) 86.8 H 82.4 H Lymph % (Auto) 3.8 L 6.2 L [place] % (Auto) 9.1 10.1 H Eos % (Auto) 0.0 1.0 Baso % (Auto) 0.1 0.1 Absolute Neuts (auto) 12.7 H 9.9 H Absolute Lymphs (auto) 0.55 L 0.75 L Total Counted Not Reportable Not Reportable Differential Comment Platelet Estimate ADEQUATE RBC Morphology NORM C+C Sodium 139 Potassium 3.1 L Chloride 107 Carbon Dioxide 26.0 Anion Gap 6 BUN 20 H Creatinine 1.05 Estim Creat Clear Calc 68.73 Est GFR (MDRD) Af Amer 90 Est GFR (MDRD) Non-Af 74 BUN/Creatinine Ratio 19.0 Glucose 127 H Calcium 7.6 L Medical Necessity - Tobacco Use Smoking Status: Former smoker Tobacco Use: Non-smoker Assessment/Plan All Active Problems (Last Reviewed 06/20/18 @ 15:17 by Jacques Hinojosa MD) Acute cholecystitis (Acute) History of coronary artery stent placement (Acute 06/20/18) Atherosclerotic heart disease [place] coronary artery w/angina pectoris (Acute) 73 yr M with PMH HTN, admitted on 06/20/18 with acute chest pain, had cardiac catheterization with stent placed to proximal RCA on 06/20/18, was complicated by post procedural stroke w/p ivtpa, was intubated for airway protection, hospital course complicated by acute cholecystitis and encephalopathy, at present is extubated, denies any NATARAJAN, focal motor weakness, sensory loss, visual disturbances, or dizziness. NIHSS at present is 0. MRI brain following stroke symptoms showed tiny right precentral gyrus, tiny right cerebellar vermis and left putamen acute infarct (likely embolic post procedure) with unremarkable MRA head/neck. Impression Shima-procedural embolic stroke (tiny right precentral gyrus, tiny right cerebellar vermis and left putamen acute infarct) Plan -On ASA and Ticagrelor (post cardiac catheterization) from Cardiology stand point -On statins-Lipitor 40 mg PO q hs -MRI brain and MRA head/neck reviewed -TTE-EF 65%, moderately dilated LA -Check LDL and Hba1c -PT/OT and ST -Goal BP < 130/80 mmHg and goal Hba1c < 7% -Patient counseled not to smoke -Frequent neuro checks -Stroke risk factors discussed and stroke education provided. -Further medical care per hospitalist and Cardiology recommendations -Fall precautions -Follow up with Neurology in 2-3 weeks as outpatient -Please call with questions if any -Thank you for allowing us to participate in patient's care and management.
--- NOTE | 2018-06-23 12:13 | PCM.PN.HOSP ---
Patient Problems: Active and Suspected Problems (Last Reviewed 06/20/18 @ 15:17 by Jacques Hinojosa MD) Acute cholecystitis (Acute) Subjective: Patient seen and examined. He feels well today and has no complaints. He denies any fever chills, cough or chest pain, shortness of breath, abdominal pain, diarrhea vomiting. Patient wants to be discharged home as he sees his rental property has a broken while he needs to fix it also his tendons once per him. Blood culture had gram-negative rods and speciation is pending. Labs and vitals reviewed. Vitals/I&O's: Vital Signs Temp Pulse Resp BP Pulse Ox 97.3 F L 77 18 156/96 H 95 06/23/18 07:40 06/23/18 11:39 06/23/18 07:40 06/23/18 07:40 06/23/18 07:40 Oxygen Flow Rate (L/min) 1 Oxygen Delivery Method Room Air Weight: 228 lb 2.855 oz Body Mass Index (BMI) 30.9 Intake and Output for Last 24 Hours 06/21/18 06/22/18 06/23/18 23:59 23:59 23:59 Intake Total 3597 / 3597 2346.4 / 2346.4 873 / 873 Output Total 1080 / 1080 1175 / 1175 200 / 200 Balance 2517 / 2517 1171.4 / 1171.4 673 / 673 General: Alert, Oriented x3, Cooperative, No apparent distress HEENT: Atraumatic, PERRLA, EOMI, Normocephalic Oral: Moist Mucosa Neck: Supple, No JVD Lungs: Clear to auscultation, Normal air movement, No rhonchi, No wheeze, No rales Cardiovascular: Regular rate, Regular Rhythm, Normal S1, Normal S2, No murmurs Abdomen: Bowel Sounds Present, Soft, Non Tender, Non-Distended, No Hepato-splenomegaly Extremities: No clubbing, No edema, Capillary Refill Less than 3 Seconds Skin: No rashes, No breakdown Musculoskeletal: No Tenderness to Palpation of Joints or Extremities Lymphatic: No Cervical, Supraclavicular, or Inguinal Adenopathy Neurological: Cranial nerves II-XII grossly intact, Neuro grossly intact, Motor Exam 5/5 strength throughout Psych/Mental Status: Normal Affect, Appropriate, Alert and oriented to time, place, person, mood and affect Microbiology Past 72 Hours 06/22/18 17:46 Blood Culture (Wb) - Venous Blood Culture - Preliminary 06/22/18 17:46 Blood Culture (Wb) - Venous Blood Culture - Preliminary 06/20/18 13:30 Urine Catheter - Marshall Urine Culture - Final Culture exhibits no growth. Laboratory Results 06/22/18 17:55: WBC 14.6 H, RBC 3.61 L, Hgb 10.2 L, Hct 32.0 L, MCV 88.6, MCH 28.3, MCHC 31.9 L, RDW 14.3, RDW Differential 47.1 H, Plt Count 215, MPV 11.2, Immature Gran % (Auto) 0.200, Neut % (Auto) 86.8 H, Lymph % (Auto) 3.8 L, [place] % (Auto) 9.1, Eos % (Auto) 0.0, Baso % (Auto) 0.1, Absolute Neuts (auto) 12.7 H, Absolute Lymphs (auto) 0.55 L, Total Counted Not Reportable, Differential Comment , Platelet Estimate ADEQUATE, RBC Morphology NORM C+C 06/23/18 06:00: Sodium 139, Potassium 3.1 L, Chloride 107, Carbon Dioxide 26.0, Anion Gap 6, BUN 20 H, Creatinine 1.05, Estim Creat Clear Calc 68.73, Est GFR (MDRD) Af Amer 90, Est GFR (MDRD) Non-Af 74, BUN/Creatinine Ratio 19.0, Glucose 127 H, Calcium 7.6 L 06/23/18 06:00: WBC 12.0 H, RBC 3.53 L, Hgb 10.1 L, Hct 31.3 L, MCV 88.7, MCH 28.6, MCHC 32.3, RDW 14.4, RDW Differential 45.9 H, Plt Count 213, MPV 11.6, Immature Gran % (Auto) 0.200, Neut % (Auto) 82.4 H, Lymph % (Auto) 6.2 L, [place] % (Auto) 10.1 H, Eos % (Auto) 1.0, Baso % (Auto) 0.1, Absolute Neuts (auto) 9.9 H, Absolute Lymphs (auto) 0.75 L, Total Counted Not Reportable Diagnostic Data Chest CTA 06/20/18 03:53 IMPRESSION: Normal CTA chest examination, without a demonstrated pulmonary embolism or arterial dissection. Indeterminate gallbladder, gallbladder inflammation is not excluded. Consider gallbladder ultrasound depending on patient's symptoms. Electronically Signed: Leeanne Carter MD at 5:33 EST , Service support , Brain MRI 06/20/18 10:57 IMPRESSION: Probable bilateral punctate subacute embolic infarctions. N.B. : The above information has been verbally conveyed by Nando Velazco MD to VINCENZO Carver, on 06/20/2018 22:25:02 (ET). Electronically Signed: Nando Velazco MD at 21:45 EST , Service support , Head MRA 06/20/18 11:00 IMPRESSION: Normal MRA of the head Electronically Signed: Nando Velazco MD at 22:14 EST , Service support , Neck MRA 06/20/18 11:00 IMPRESSION: Normal bilateral cervical carotid and vertebral arteries. Electronically Signed: Nando Velazco MD at 22:09 EST , Service support , Abdomen/Pelvis CT 06/20/18 12:50 IMPRESSION: Multiple gallstones with thickened gallbladder wall and increased markings in the surrounding fat. Acute cholecystitis should be ruled out. Soft tissue changes seen in the region of the right groin in keeping with the history of recent catheterization. Electronically Signed: Mohit Frey MD at 13:46 EST Tel [phone], Service support , Chest X-Ray 06/20/18 15:52 IMPRESSION: Support lines and tubes placed as described, no demonstrated complication No acute pulmonary process Electronically Signed: Omar Duggan MD at 17:00 EST , Service support , Brain CT 06/21/18 10:42 IMPRESSION: Chronic involutional changes of the brain. Tiny lacunar in the insular cortex of the left temporal lobe. Electronically Signed: Mohit Frey MD at 13:38 EST Tel [phone], Service support , Current Medications Acetaminophen (Tylenol) 650 mg PO Q4H PRN PRN PRN Reason: TEMP Last Admin: 06/23/18 01:53 Dose: 650 mg Amlodipine Besylate (Norvasc) 10 mg PO DAILY [facility] Last Admin: 06/23/18 09:44 Dose: 10 mg Aspirin (Aspirin, Baby) 81 mg PO DAILY@0800 [facility] Last Admin: 06/23/18 09:44 Dose: 81 mg Atorvastatin Calcium (Lipitor) 40 mg PO QHS [facility] Last Admin: 06/22/18 22:20 Dose: 40 mg Atropine Sulfate () 0.5 mg IV UD PRN PRN Reason: HR <50 bpm Chlorhexidine Gluconate () 15 ml PO BID [facility] Last Admin: 06/23/18 09:45 Dose: Not Given Chlorhexidine Gluconate () 1 each TOPICAL DAILY [facility] Last Admin: 06/23/18 09:46 Dose: Not Given Heparin Sodium (Beef Lung) (Heparin 500 Unit/5 Ml (100/Ml)) 500 unit IV UD PRN PRN Reason: HEPARIN FLUSH Sodium Chloride () 1,000 mls @ 15 mls/hr IV .Q48H [facility] Last Admin: 06/21/18 14:29 Dose: 15 mls/hr Piperacillin Sod/Tazobactam Sod (Zosyn) 3.375 gm in 50 mls @ 12.5 mls/hr IV Q8 [facility] Last Admin: 06/23/18 05:00 Dose: 12.5 mls/hr Pantoprazole Sodium 40 mg/ (Sodium Chloride) 110 mls @ 330 mls/hr IV Q24 [facility] Last Admin: 06/23/18 09:46 Dose: 330 mls/hr Labetalol HCl (Trandate) 10 mg IV Q4H PRN PRN PRN Reason: Sbp Greater Than 160 Last Admin: 06/23/18 01:53 Dose: 10 mg Losartan Potassium (Cozaar) 25 mg PO DAILY [facility] Last Admin: 06/23/18 09:45 Dose: 25 mg Magnesium Hydroxide (Milk Of Magnesia) 30 ml PO DAILY PRN PRN Reason: Constipation Metoprolol Tartrate (Lopressor (Beta Marlene)) 50 mg PO BID [facility] Last Admin: 06/23/18 09:45 Dose: 50 mg Nutritional Formula (Lactose Free) (Ensure Enlive) 120 ml PO 4X/DAY [facility] Last Admin: 06/23/18 09:43 Dose: 120 ml Phenol/Menthol (Chloraseptic (Bkc)) 3 spray MM Q2H PRN PRN PRN Reason: SORE THROAT Last Admin: 06/22/18 12:13 Dose: 3 spray Simethicone (Mylicon) 80 mg PO Q4H PRN PRN PRN Reason: gas Last Admin: 06/23/18 04:59 Dose: 80 mg Sodium Chloride () 5 - 30 ml IV UD PRN PRN Reason: SALINE FLUSH Last Admin: 06/22/18 05:11 Dose: 20 ml Sodium Chloride () 500 ml IV BOLUS PRN PRN Reason: VASO-VAGAL PROTOCOL Ticagrelor (Brilinta) 90 mg PO BID [facility] Last Admin: 06/23/18 09:44 Dose: 90 mg Medical Necessity - Tobacco Use Smoking Status: Former smoker Tobacco Use: Non-smoker Assessment/Plan All Active Problems (Last Reviewed 06/20/18 @ 15:17 by Jacques Hinojosa MD) Acute cholecystitis (Acute) History of coronary artery stent placement (Acute 06/20/18) Atherosclerotic heart disease [place] coronary artery w/angina pectoris (Acute) 1. Embolic ischemic stroke after heart cath s/p TPA administration; neurology on board stable. on aspirin, brilinta. BP control to <130/80 2. Hypokalemia: K is 3.1 replaced as per protocol. will monitor 3. Acute hypoxic respiratory failure s/p intubation stable. Successfully extubated one day ago saturating well on room air. 4. Hypertension: on amlodipine 5mg daily and losartan 25mg daily. will increase amlodipine to 10mg daily to improve BP control. 5. NSTEMI s/p stent in RCA On Brilinta and statin; aspirin resumed Cardiology on board. 6. SANTOSH: Resolved. Creatinine down to 1.46 from 2.32. Continue gentle hydration with IV fluids. 7.Acute cholecystitis RUQ tenderness is better. CT of the abdomen showed thickened gallbladder and multiple gallstones. On IV Zosyn. Was still having a fever so blood cultures were done which are growing gram-negative rods in both bottles. Awaiting speciation. Per general surgery, will defer any surgery until at least 6 months to 1 year on account of him having stenting and being on dual antiplatelet therapy. leucocytosis trended down to 12. await speciation and decide on oral antibiotics 8. Anemia: Hb down to 10.1; was 14.8 on admission. Stable. May be hemodilution from IV fluid administration. Will monitor. Want to consider transfusion if it falls less than 8 on account of recent cardiac history. DVT prophylaxis: SCDs. Code Visit Inpatient E&M: 78016 [facility] Hosp L3
--- NOTE | 2018-06-23 12:17 | PN_ITS ---
Patient Problems: Active and Suspected Problems (Last Reviewed 06/20/18 @ 15:17 by Jacques Hinojosa MD) Acute cholecystitis (Acute) Subjective: Patient seen and examined. He feels well today and has no complaints. He denies any fever chills, cough or chest pain, shortness of breath, abdominal pain, diarrhea vomiting. Patient wants to be discharged home as he sees his rental property has a broken while he needs to fix it also his tendons once per him. Blood culture had gram-negative rods and speciation is pending. Labs and vitals reviewed. Vitals/I&O's: Vital Signs Temp Pulse Resp BP Pulse Ox 97.3 F L 77 18 156/96 H 95 06/23/18 07:40 06/23/18 11:39 06/23/18 07:40 06/23/18 07:40 06/23/18 07:40 Oxygen Flow Rate (L/min) 1 Oxygen Delivery Method Room Air Weight: 228 lb 2.855 oz Body Mass Index (BMI) 30.9 Intake and Output for Last 24 Hours 06/21/18 06/22/18 06/23/18 23:59 23:59 23:59 Intake Total 3597 / 3597 2346.4 / 2346.4 873 / 873 Output Total 1080 / 1080 1175 / 1175 200 / 200 Balance 2517 / 2517 1171.4 / 1171.4 673 / 673 General: Alert, Oriented x3, Cooperative, No apparent distress HEENT: Atraumatic, PERRLA, EOMI, Normocephalic Oral: Moist Mucosa Neck: Supple, No JVD Lungs: Clear to auscultation, Normal air movement, No rhonchi, No wheeze, No rales Cardiovascular: Regular rate, Regular Rhythm, Normal S1, Normal S2, No murmurs Abdomen: Bowel Sounds Present, Soft, Non Tender, Non-Distended, No Hepato- splenomegaly Extremities: No clubbing, No edema, Capillary Refill Less than 3 Seconds Skin: No rashes, No breakdown Musculoskeletal: No Tenderness to Palpation of Joints or Extremities Lymphatic: No Cervical, Supraclavicular, or Inguinal Adenopathy Neurological: Cranial nerves II-XII grossly intact, Neuro grossly intact, Motor Exam 5/5 strength throughout Psych/Mental Status: Normal Affect, Appropriate, Alert and oriented to time, place, person, mood and affect Microbiology Past 72 Hours 06/22/18 17:46 Blood Culture (Wb) - Venous Blood Culture - Preliminary 06/22/18 17:46 Blood Culture (Wb) - Venous Blood Culture - Preliminary 06/20/18 13:30 Urine Catheter - [facility] Urine Culture - Final Culture exhibits no growth. Laboratory Results 06/22/18 17:55: WBC 14.6 H, RBC 3.61 L, Hgb 10.2 L, Hct 32.0 L, MCV 88.6, MCH 28.3, MCHC 31.9 L, RDW 14.3, RDW Differential 47.1 H, Plt Count 215, MPV 11.2, Immature Gran % (Auto) 0.200, Neut % (Auto) 86.8 H, Lymph % (Auto) 3.8 L, [place] % (Auto) 9.1, Eos % (Auto) 0.0, Baso % (Auto) 0.1, Absolute Neuts (auto) 12.7 H, Absolute Lymphs (auto) 0.55 L, Total Counted Not Reportable, Differential Comment , Platelet Estimate ADEQUATE, RBC Morphology NORM C+C 06/23/18 06:00: Sodium 139, Potassium 3.1 L, Chloride 107, Carbon Dioxide 26.0, Anion Gap 6, BUN 20 H, Creatinine 1.05, Estim Creat Clear Calc 68.73, Est GFR (MDRD) Af Amer 90, Est GFR (MDRD) Non-Af 74, BUN/Creatinine Ratio 19.0, Glucose 127 H, Calcium 7.6 L 06/23/18 06:00: WBC 12.0 H, RBC 3.53 L, Hgb 10.1 L, Hct 31.3 L, MCV 88.7, MCH 28.6, MCHC 32.3, RDW 14.4, RDW Differential 45.9 H, Plt Count 213, MPV 11.6, Immature Gran % (Auto) 0.200, Neut % (Auto) 82.4 H, Lymph % (Auto) 6.2 L, [place] % (Auto) 10.1 H, Eos % (Auto) 1.0, Baso % (Auto) 0.1, Absolute Neuts (auto) 9.9 H, Absolute Lymphs (auto) 0.75 L, Total Counted Not Reportable Diagnostic Data Chest CTA 06/20/18 03:53 IMPRESSION: Normal CTA chest examination, without a demonstrated pulmonary embolism or arterial dissection. Indeterminate gallbladder, gallbladder inflammation is not excluded. Consider gallbladder ultrasound depending on patient's symptoms. Electronically Signed: Leeanne Carter MD at 5:33 EST , Service support , Brain MRI 06/20/18 10:57 IMPRESSION: Probable bilateral punctate subacute embolic infarctions. N.B. : The above information has been verbally conveyed by Nando Velazco MD to VINCENZO Carver, on 06/20/2018 22:25:02 (ET). Electronically Signed: Nando Velazco MD at 21:45 EST , Service support , Head MRA 06/20/18 11:00 IMPRESSION: Normal MRA of the head Electronically Signed: Nando Velazco MD at 22:14 EST , Service support , Neck MRA 06/20/18 11:00 IMPRESSION: Normal bilateral cervical carotid and vertebral arteries. Electronically Signed: Nando Velazco MD at 22:09 EST , Service support , Abdomen/Pelvis CT 06/20/18 12:50 IMPRESSION: Multiple gallstones with thickened gallbladder wall and increased markings in the surrounding fat. Acute cholecystitis should be ruled out. Soft tissue changes seen in the region of the right groin in keeping with the history of recent catheterization. Electronically Signed: Mohit Frey MD at 13:46 EST Tel [phone], Service support , Chest X-Ray 06/20/18 15:52 IMPRESSION: Support lines and tubes placed as described, no demonstrated complication No acute pulmonary process Electronically Signed: Omar Duggan MD at 17:00 EST , Service support , Brain CT 06/21/18 10:42 IMPRESSION: Chronic involutional changes of the brain. Tiny lacunar in the insular cortex of the left temporal lobe. Electronically Signed: Mohit Frey MD at 13:38 EST Tel [phone], Service support , Current Medications Acetaminophen (Tylenol) 650 mg PO Q4H PRN PRN PRN Reason: TEMP Last Admin: 06/23/18 01:53 Dose: 650 mg Amlodipine Besylate (Norvasc) 10 mg PO DAILY [facility] Last Admin: 06/23/18 09:44 Dose: 10 mg Aspirin (Aspirin, Baby) 81 mg PO DAILY@0800 [facility] Last Admin: 06/23/18 09:44 Dose: 81 mg Atorvastatin Calcium (Lipitor) 40 mg PO QHS [facility] Last Admin: 06/22/18 22:20 Dose: 40 mg Atropine Sulfate () 0.5 mg IV UD PRN PRN Reason: HR <50 bpm Chlorhexidine Gluconate () 15 ml PO BID [facility] Last Admin: 06/23/18 09:45 Dose: Not Given Chlorhexidine Gluconate () 1 each TOPICAL DAILY [facility] Last Admin: 06/23/18 09:46 Dose: Not Given Heparin Sodium (Beef Lung) (Heparin 500 Unit/5 Ml (100/Ml)) 500 unit IV UD PRN PRN Reason: HEPARIN FLUSH Sodium Chloride () 1,000 mls @ 15 mls/hr IV .Q48H [facility] Last Admin: 06/21/18 14:29 Dose: 15 mls/hr Piperacillin Sod/Tazobactam Sod (Zosyn) 3.375 gm in 50 mls @ 12.5 mls/hr IV Q8 [facility] Last Admin: 06/23/18 05:00 Dose: 12.5 mls/hr Pantoprazole Sodium 40 mg/ (Sodium Chloride) 110 mls @ 330 mls/hr IV Q24 [facility] Last Admin: 06/23/18 09:46 Dose: 330 mls/hr Labetalol HCl (Trandate) 10 mg IV Q4H PRN PRN PRN Reason: Sbp Greater Than 160 Last Admin: 06/23/18 01:53 Dose: 10 mg Losartan Potassium (Cozaar) 25 mg PO DAILY [facility] Last Admin: 06/23/18 09:45 Dose: 25 mg Magnesium Hydroxide (Milk Of Magnesia) 30 ml PO DAILY PRN PRN Reason: Constipation Metoprolol Tartrate (Lopressor (Beta Marlene)) 50 mg PO BID [facility] Last Admin: 06/23/18 09:45 Dose: 50 mg Nutritional Formula (Lactose Free) (Ensure Enlive) 120 ml PO 4X/DAY [facility] Last Admin: 06/23/18 09:43 Dose: 120 ml Phenol/Menthol (Chloraseptic (Bkc)) 3 spray MM Q2H PRN PRN PRN Reason: SORE THROAT Last Admin: 06/22/18 12:13 Dose: 3 spray Simethicone (Mylicon) 80 mg PO Q4H PRN PRN PRN Reason: gas Last Admin: 06/23/18 04:59 Dose: 80 mg Sodium Chloride () 5 - 30 ml IV UD PRN PRN Reason: SALINE FLUSH Last Admin: 06/22/18 05:11 Dose: 20 ml Sodium Chloride () 500 ml IV BOLUS PRN PRN Reason: VASO-VAGAL PROTOCOL Ticagrelor (Brilinta) 90 mg PO BID [facility] Last Admin: 06/23/18 09:44 Dose: 90 mg Medical Necessity - Tobacco Use Smoking Status: Former smoker Tobacco Use: Non-smoker Assessment/Plan All Active Problems (Last Reviewed 06/20/18 @ 15:17 by Jacques Hinojosa MD) Acute cholecystitis (Acute) History of coronary artery stent placement (Acute 06/20/18) Atherosclerotic heart disease [place] coronary artery w/angina pectoris (Acute) 1. Embolic ischemic stroke after heart cath * s/p TPA administration; * neurology on board * stable. * on aspirin, brilinta. * BP control to <130/80 2. Hypokalemia: K is 3.1 replaced as per protocol. will monitor * 3. Acute hypoxic respiratory failure s/p intubation * stable. Successfully extubated one day ago * saturating well on room air. * 4. Hypertension: * on amlodipine 5mg daily and losartan 25mg daily. * will increase amlodipine to 10mg daily to improve BP control. * * 5. NSTEMI s/p stent in RCA * On Brilinta and statin; aspirin resumed * Cardiology on board. 6. SANTOSH: * Resolved. Creatinine down to 1.46 from 2.32. * Continue gentle hydration with IV fluids. * 7.Acute cholecystitis * RUQ tenderness is better. CT of the abdomen showed thickened gallbladder and multiple gallstones. * On IV Zosyn. Was still having a fever so blood cultures were done which are growing gram-negative rods in both bottles. Awaiting speciation. * Per general surgery, will defer any surgery until at least 6 months to 1 year on account of him having stenting and being on dual antiplatelet therapy. * leucocytosis trended down to 12. * await speciation and decide on oral antibiotics * 8. Anemia: * Hb down to 10.1; was 14.8 on admission. Stable. May be hemodilution from IV fluid administration. Will monitor. Want to consider transfusion if it falls less than 8 on account of recent cardiac history. * DVT prophylaxis: SCDs. Code Visit Inpatient E&M: 45877 [facility] Hosp L3
--- NOTE | 2018-06-23 14:34 | CRPHASE1 ---
Patient Data/Charges Phase II Referral:: [facility] Start Phase II:: FOLLOWING OFFICE VISIT WITH [employer]EEPING [employer]ER Risk Factors/Lifestyle Smoking Status: Former smoker Hx Hypertension: Yes Hx Diabetes Mellitus Type 1: No Hx Diabetes Mellitus Type 2: No Hx Dyslipidemia: Yes Hx Obesity: Yes Height: 5 ft 11 in - BMI 31.0 Stress: Home/Family Risk Factor for Sedentary Lifestyle: Moderate Risk Phase I Education Given On:: [place], Nutrition, Antiplatelet medication Issues Affecting Care:: None Knowledge of Condition:: Yes Learning Preferences: Verbal, Written Hospital Course Presenting Symptoms:: C/P AND DIAPHORESIS Medical/Surgical History ID:: No CAD:: No Diabetes:: No Hypertension:: Yes Dyslipidemia:: Yes Discharge/Home/Social Eval Discharge Disposition: Home
--- NOTE | 2018-06-23 14:38 | CRPHASE1_ITS ---
Patient Data/Charges Phase II Referral:: [facility] Start Phase II:: FOLLOWING OFFICE VISIT WITH CRIMINAL INTELLIGENCE SPECIALIST Risk Factors/Lifestyle Smoking Status: Former smoker Hx Hypertension: Yes Hx Diabetes Mellitus Type 1: No Hx Diabetes Mellitus Type 2: No Hx Dyslipidemia: Yes Hx Obesity: Yes Height: 5 ft 11 in - BMI 31.0 Stress: Home/Family Risk Factor for Sedentary Lifestyle: Moderate Risk Phase I Education Given On:: [place], Nutrition, Antiplatelet medication Issues Affecting Care:: None Knowledge of Condition:: Yes Learning Preferences: Verbal, Written Hospital Course Presenting Symptoms:: C/P AND DIAPHORESIS Medical/Surgical History NC:: No CAD:: No Diabetes:: No Hypertension:: Yes Dyslipidemia:: Yes Discharge/Home/Social Eval Discharge Disposition: Home
--- NOTE | 2018-06-23 14:39 | CRPH1.INSTRU ---
General Education CAD and cardiac anatomy and function:: Patient communicates acknowledgment Explanation of diagnoses and procedures:: Patient communicates acknowledgment Sign/Symptoms of IL:: Patient communicates acknowledgment Antiplatelet therapy: Patient communicates acknowledgment Proper use of NTG-SL: Not instructed Emergency procedures and activation of EMS: Patient communicates acknowledgment Compliance of all prescribed medications: Patient communicates acknowledgment Smoking Recommendations Include:: Previous smoker; encourage continued cessation Nicotine/Smoking Response Code:: Patient communicates acknowledgment Dyslipidemia Recommendations Include:: Lipid profile not available, Reviewed NCEP/ATP guidelines, Therapeutic Lifestyle Change dietary guidelines Dyslipidemia Response Code:: Patient communicates acknowledgment Overweight/Obesity Patient Overweight/Obesity Risk Factors Are:: Obesity - > or = 30 Recommendations Include:: Weight loss of 5-10%, Reduced calorie diet, Exercise 5-7 times/week Overweight/Obesity:: Patient communicates acknowledgment Hypertension Patient Hypertension Risk Factors Are:: No documented hx of HTN Recommendations Include:: Maintain BP <130/85, DASH dietary guidelines, Decrease/maintain normal body weight, Moderation of ETOH Hypertension:: Patient communicates acknowledgment Heart Disease Heart Disease Response Code:: Patient communicates acknowledgment Diabetes Patient Diabetes Risk Factors Are:: No documented hx of diabetes Metabolic Syndrome Patient Metabolic Syndrome Risk Factors Are [3 of 5]:: Waist circumference > 35 [female] or 40 [male], High triglyceride >150, Hypertension, Low HDL <40 [male] or < 50 [female] Recommendations Include:: Reinforce compliance to risk factor modifications, Encouraged follow-up with Primary Care Physician Metabolic Syndrome Response Code:: Patient communicates acknowledgment Sedentary Patient Sedentary Risk Factors Are:: Lack of regular exercise Recommendations Include:: Aerobic exercise 5-7 times/week for 20-30 minutes continuously, Benefits of regular exercise, Discussed home walking program, Monitored Outpatient Cardiac Rehab Sedentary Response Code:: Patient communicates acknowledgment Stress Recommendations Include:: Identification of stressors, and assessment of coping skills, Stress management techniques Stress Response Code:: Patient communicates acknowledgment
[2018-06-23] MEDS: 0.9% NaCl Peripheral Flush Adult/Peds IV (16:07)
[2018-06-23] MEDS: Atorvastatin Calcium 40 MG Tablet PO (22:42)
[2018-06-24] VITALS (8 sets, daily range): BP systolic 144–168; BP diastolic 71–80; PULSE 70–94; RESP 18; TEMP 36.8–37.2; O2SAT 92–95
[2018-06-24] MEDS: Piperacil/Tazobactam 3.375 GM/50 ML ML IV (05:28)
[2018-06-24 06:59] LABS: Absolute Lymphocyte Count 1.17 X10^3/ul (0.83-4.51); Absolute Neutrophil Count 9.4 X10^3/uL (2.0-7.7); Basophil# 0.04 X10^3/uL; Basophil% 0.3 % (0-1); Eosinophil# 0.27 X10^3/uL; Eosinophils% 2.1 % (0-5); Hematocrit 31.4 % (40-54); Hemoglobin 10.3 g/dl (13.0-16.5); Lymphocyte # 1.17 X10^3/ul (4.0); Lymphocyte % 9.2 % (19-41); Mean Corp Hgb Conc 32.8 g/gl (32-36); Mean Corpuscular Hgb 28.9 pg (27.0-32.0); Mean Platelet Vol. 11.2 fl (6.2-12.0); Monocyte# 1.76 X10^3/uL; Monocyte% 13.9 % (0-10); Neutrophil # 9.35 X10^3/uL (2.7-7.7); Neutrophil % 73.9 % (47-70); Platelet Count 268 K/mm3 (150-450); RBC Distribution Width CV 14.4 % (11.6-14.6); RBC Distribution Width SD 45.4 fl (35.1-43.9); Red Blood Count 3.57 M/mm3 (4.6-6.2); White Blood Count 12.7 K/mm3 (4.4-11.0)
[2018-06-24 07:01] LABS: Differential Indicated SCAN CRITERIA MET; POSITIVE COUNT NO; POSITIVE DIFFERENTIAL YES; POSITIVE MORPHOLOGY NO
[2018-06-24 07:21] LABS: Anion Gap 8 (5-15); BUN 15 mg/dL (7-18); BUN/Creat Ratio 16.1 RATIO (10-20); Calcium,Total 7.7 mg/dL (8.5-10.1); Chloride 109 mmol/L (98-107); Creatinine, Serum 0.93 mg/dL (0.70-1.30); EST Glomerular Filtration Rate 85 mL/min (>60); Est Glom Filt Rate - Afr Amer 103 mL/min (>60); Estimated Creatinine Clearance 77.59 ml/min; Glucose 121 mg/dL (74-106); Potassium 3.3 mmol/L (3.5-5.1); Sodium Level 142 mmol/L (136-145)
--- NOTE | 2018-06-24 08:45 | PN.SURG_ITS ---
Patient Problems: Active and Suspected Problems (Last Reviewed 06/20/18 @ 15:17 by Jacques Hinojosa MD) Acute cholecystitis (Acute) Subjective: Patient notes his right upper quadrant pain continues to improve. He denies any nausea or vomiting this morning. - Physical Exam General: Alert, Cooperative Lungs: Normal air movement Cardiovascular: Regular rate, Regular Rhythm Abdomen: Soft, Non Tender, Non-Distended Vital Signs Temp Pulse Resp BP Pulse Ox 98.9 F 85 18 144/80 H 92 06/24/18 03:40 06/24/18 07:07 06/24/18 03:40 06/24/18 03:40 06/24/18 07:12 Oxygen Flow Rate (L/min) 2 Oxygen Delivery Method Nasal Cannula Weight: 214 lb 8.156 oz Body Mass Index (BMI) 30.9 Intake and Output for Last 24 Hours 06/22/18 06/23/18 06/24/18 23:59 23:59 23:59 Intake Total 2346.4 / 2346.4 3114 / 3114 208 / 208 Output Total 1175 / 1175 750 / 750 300 / 300 Balance 1171.4 / 1171.4 2364 / 2364 -92 / -92 Microbiology Past 72 Hours 06/22/18 17:46 Blood Culture - Preliminary Blood Culture (Wb) - Venous GNR lactose health informatics specialist 06/22/18 17:46 Blood Culture - Preliminary Blood Culture (Wb) - Venous GNR lactose health informatics specialist 06/20/18 13:30 Urine Culture - Final Urine Catheter - Marshall Culture exhibits no growth. Laboratory Tests Past 24 Hrs 06/24/18 06/24/18 06:33 06:33 WBC 12.7 H RBC 3.57 L Hgb 10.3 L Hct 31.4 L MCV 88.0 MCH 28.9 MCHC 32.8 RDW 14.4 RDW Differential 45.4 H Plt Count 268 MPV 11.2 Immature Gran % (Auto) 0.600 Neut % (Auto) 73.9 H Lymph % (Auto) 9.2 L [place] % (Auto) 13.9 H Eos % (Auto) 2.1 Baso % (Auto) 0.3 Absolute Neuts (auto) 9.4 H Absolute Lymphs (auto) 1.17 Total Counted Not Reportable Diff Path Review December Sodium 142 Potassium 3.3 L Chloride 109 H Carbon Dioxide 25.0 Anion Gap 8 BUN 15 Creatinine 0.93 Estim Creat Clear Calc 77.59 Est GFR (MDRD) Af Amer 103 Est GFR (MDRD) Non-Af 85 BUN/Creatinine Ratio 16.1 Glucose 121 H Calcium 7.7 L Medical Necessity - Tobacco Use Smoking Status: Former smoker Tobacco Use: Non-smoker Assessment/Plan All Active Problems (Last Reviewed 06/20/18 @ 15:17 by Jacques Hinojosa MD) Acute cholecystitis (Acute) History of coronary artery stent placement (Acute 06/20/18) Atherosclerotic heart disease [place] coronary artery w/angina pectoris (Acute) 73-year-old male acute cholecystitis 1. Patient is to be discharged on oral antibiotics and follow-up with Dr. Hinojosa. No worsening in his condition. Eh Lynch MD Pager: [facility] [address] [place] [address], [address] [place] [phone] Office:
[2018-06-24] MEDS: amLODIPine 10 MG Tablet PO (09:29)
[2018-06-24] MEDS: Metoprolol Tartrate 50 MG Tablet PO (09:29)
[2018-06-24] MEDS: Losartan Potassium 25 MG Tablet PO (09:29)
[2018-06-24] MEDS: Aspirin 81 MG TAB.CHEW PO (09:29)
[2018-06-24] MEDS: TICAGRELOR 90 MG TABLET PO (09:29)
--- NOTE | 2018-06-24 10:06 | PCM.PN.CARD ---
Subjectve: Patient doing much better today, continues to improve. Completely lucid and ambulating without difficulty. Right groin is clean/dry/intact but does have significant ecchymosis along the lateral and medial aspects of his wound. He has no femoral bruits or tenderness. 2+ DP PT pulses bilaterally. He has had no further deterioration of his mental status and is completely back to normal. Patient has had no abdominal tenderness or gallbladder-like symptoms since discharge from the ICU. Objective: Vital Signs Temp Pulse Resp BP Pulse Ox 98.7 F 94 18 168/71 H 94 06/24/18 07:40 06/24/18 09:29 06/24/18 07:40 06/24/18 07:40 06/24/18 07:40 Oxygen Flow Rate (L/min) 2 Oxygen Delivery Method Nasal Cannula Weight: 214 lb 8.156 oz Body Mass Index (BMI) 30.9 Intake and Output for Last 24 Hours 06/22/18 06/23/18 06/24/18 23:59 23:59 23:59 Intake Total 2346.4 / 2346.4 3114 / 3114 208 / 208 Output Total 1175 / 1175 750 / 750 300 / 300 Balance 1171.4 / 1171.4 2364 / 2364 -92 / -92 General: Awake, Alert, Oriented x 3 HEENT: PERRL, EOMI, Sclera Non Icteric Neck: Supple, Good ROM, No Lymph Node Enlargement Lungs: Clear to auscultation Cardiovascular: Regular Rhythm, Normal S1, Normal S2, No Murmurs, No Rubs, No Gallops Vascular: No Carotid Bruits, Normal Femoral Pulses, Normal Radial Pulses, Normal Dorsalis Pedal Pulse, Normal Posterior Tibial Pulses Abdomen: Bowel Sounds Present, Soft, Non Tender, No HSM, No Organomegaly Extremities: No Cyanosis, No Clubbing, No edema Neurological: No Focal Motor or Sensory Deficit 06/24/18 06:33: WBC 12.7 H, RBC 3.57 L, Hgb 10.3 L, Hct 31.4 L, MCV 88.0, MCH 28.9, MCHC 32.8, RDW 14.4, RDW Differential 45.4 H, Plt Count 268, MPV 11.2, Immature Gran % (Auto) 0.600, Neut % (Auto) 73.9 H, Lymph % (Auto) 9.2 L, [place] % (Auto) 13.9 H, Eos % (Auto) 2.1, Baso % (Auto) 0.3, Absolute Neuts (auto) 9.4 H, Total Counted Not Reportable 06/24/18 06:33: Sodium 142, Potassium 3.3 L, Chloride 109 H, Carbon Dioxide 25.0, Anion Gap 8, BUN 15, Creatinine 0.93, Est GFR (MDRD) Af Amer 103, Est GFR (MDRD) Non-Af 85, BUN/Creatinine Ratio 16.1, Glucose 121 H, Calcium 7.7 L Rhythm: EKG: ECHO: Stress Test: Cardiac Cath: PCI: CT Surgery: Holter monitor: EPS: PPM: CXR: Chest CT Scan: Medical Necessity - Tobacco Use Smoking Status: Former smoker Tobacco Use: Non-smoker Assessment/Plan 1. Coronary artery disease: Patient underwent elective angioplasty and stenting of his proximal RCA with a drug-eluting stent with subsequent mental status changes and possible intermittent CVA. Patient may have had an embolic phenomena during his procedure from aortic plaque as his LV function is normal. Patient also has a distal left circumflex lesion which may require intervention in the future. In addition the patient apparently developed gallbladder cholecystitis around the time of his CVA and may require cholecystectomy going forward. He has had no abdominal pain whatsoever. I recommended the patient continue baby aspirin, Cozaar, beta-albino, and Brilinta. He apparently does not require anticoagulation therapy at this time. He is completely lucid and his mental status has normalized. At this point I would recommend medical management of his left circumflex unless or until the patient has exertional anginal symptoms or evidence of inferior lateral ischemia on stress testing. Patient is at high risk for recurrent CVA until his aortic plaques have stabilized which may require several months. Patient will continue dual antiplatelet therapy going forward for life given his peripheral vascular disease, coronary disease, and recent CVA. 2. Gallbladder cholecystitis: The patient was seen by Dr. Hinojosa and appreciate his input. My suspicion is that we will need to continue medical management for at least 3 months time and would recommend that he undergo cholecystectomy while on dual antiplatelet therapy. Technically the patient may stop his Brilinta after 90 days, but would not recommend doing that unless it is absolutely necessary to facilitate surgery. Would recommend dual antiplatelet therapy at least for 1 years time prior to any surgery if this is clinically possible. Patient will follow up with Dr. Hinojosa going forward. 3. CVA: The patient has evidence of bilateral punctate subacute embolic infarctions by MRI of the brain. MRA of the head and neck are negative. No anticoagulation at this time. Patient will follow up with neurology going forward. 4. Patient may be either discharged home or to TCU which ever one has been arranged, and will follow-up with Dr. Carlin in the office going forward. Code Visit Inpatient E&M: 20439 Subs Hosp L2
--- NOTE | 2018-06-24 11:01 | DCINST_ITS ---
- Discharge Diagnoses Current Active Problems: Current Active and Chronic Problems (Last Reviewed 06/20/18 @ 15:17 by Jacques Hinojosa MD) Acute cholecystitis (Acute) You will use the following diet at home:: Cardiac Your food should be the consistency of: Regular Your liquids should be the consistency of: Regular/Thin Discharge Activity: Return to Normal Activity Weight Bearing Status: Weight bearing as tolerated Call your doctor if you observe: Fever of 101 or Higher, Shortness of breath, Chest pain, Uncontrolled pain Instructions: Discharge Instructions for Heart Attack, ED Gallbladder Infec Poss, Stroke and Heart Disease Allergies/Adverse Reactions: Allergies No Known Allergies Allergy (Verified 06/20/18 03:37) Medications to take at Discharge Aspirin [Aspirin, Baby] 81 mg PO QODAY 06/19/18 Diazepam [Valium] 5 mg PO PRN PRN 06/19/18 Amlodipine [Norvasc] 10 mg PO DAILY #30 tablet 06/24/18 Aspirin [Aspirin, Baby] 81 mg PO DAILY@0800 #30 tab.chew 06/24/18 Atorvastatin Calcium [Lipitor] 40 mg PO QHS #30 tablet 06/24/18 Ciprofloxacin [Cipro] 500 mg PO BID #10 tablet 06/24/18 Losartan Potassium [Cozaar] 25 mg PO DAILY #30 tablet 06/24/18 Metoprolol Tartrate [Lopressor (beta albino)] 50 mg PO BID #60 tablet 06/24/18 Metronidazole 500 mg PO Q8 #15 tablet 06/24/18 Ticagrelor [Brilinta] 90 mg PO BID #60 tablet 06/24/18 The following prescriptions were given: Amlodipine [Norvasc] 10 mg PO DAILY #30 tablet Aspirin [Aspirin, Baby] 81 mg PO DAILY@0800 #30 tab.chew Atorvastatin Calcium [Lipitor] 40 mg PO QHS #30 tablet Losartan Potassium [Cozaar] 25 mg PO DAILY #30 tablet Metronidazole 500 mg PO Q8 #15 tablet Ciprofloxacin [Cipro] 500 mg PO BID #10 tablet Metoprolol Tartrate [Lopressor (beta albino)] 50 mg PO BID #60 tablet Ticagrelor [Brilinta] 90 mg PO BID #60 tablet Primary Care Physician: Ronni Jefferson DO [Primary Care Provider] - Please follow up with your Primary Care Physician in: one week Test Results: Test results from this visit will be discussed in further detail at your follow- up appointment, if applicable. Please Follow Up With: Gibson Carlin MD When: 1-2 weeks Please Follow Up With: Jacques Hinojosa MD When: 2-3 weeks Proposed Discharge Date: 06/24/18
--- NOTE | 2018-06-24 11:02 | DS.PCM_ITS ---
Discharge Date and Diagnosis Date of Admission: 06/20/18 Date of Discharge: 06/24/18 - Primary Discharge Diagnosis Active and Suspected Problems (Last Reviewed 06/20/18 @ 15:17 by Jacques Hinojosa MD) Acute cholecystitis (Acute) NSTEMI s/p PTCA with stent to RCA embolic stroke - Secondary Discharge Diagnosis Chronic Problems (Last Reviewed 06/20/18 @ 15:17 by Jacques Hinojosa MD) Essential (primary) hypertension (Chronic) Hospital Course and Treatment Imaging Results: Diagnostic Data Chest CTA 06/20/18 03:53 IMPRESSION: Normal CTA chest examination, without a demonstrated pulmonary embolism or arterial dissection. Indeterminate gallbladder, gallbladder inflammation is not excluded. Consider gallbladder ultrasound depending on patient's symptoms. Electronically Signed: Leeanne Carter MD at 5:33 EST , Service support , Brain MRI 06/20/18 10:57 IMPRESSION: Probable bilateral punctate subacute embolic infarctions. N.B. : The above information has been verbally conveyed by Nando Velazco MD to VINCENZO Carver, on 06/20/2018 22:25:02 (ET). Electronically Signed: Nando Velazco MD at 21:45 EST , Service support , Head MRA 06/20/18 11:00 IMPRESSION: Normal MRA of the head Electronically Signed: Nando Velazco MD at 22:14 EST , Service support , Neck MRA 06/20/18 11:00 IMPRESSION: Normal bilateral cervical carotid and vertebral arteries. Electronically Signed: Nando Velazco MD at 22:09 EST , Service support , Abdomen/Pelvis CT 06/20/18 12:50 IMPRESSION: Multiple gallstones with thickened gallbladder wall and increased markings in the surrounding fat. Acute cholecystitis should be ruled out. Soft tissue changes seen in the region of the right groin in keeping with the history of recent catheterization. Electronically Signed: Mohit Frey MD at 13:46 EST Tel [phone], Service support , Chest X-Ray 06/20/18 15:52 IMPRESSION: Support lines and tubes placed as described, no demonstrated complication No acute pulmonary process Electronically Signed: Omar Duggan MD at 17:00 EST , Service support , Brain CT 06/21/18 10:42 IMPRESSION: Chronic involutional changes of the brain. Tiny lacunar in the insular cortex of the left temporal lobe. Electronically Signed: Mohit Frey MD at 13:38 EST Tel [phone], Service support , echocardiogram (06/21/18) Interpretation Summary Mild concentric left ventricular hypertrophy. The estimated ejection fraction is 65 %. The left atrium is moderately enlarged. Bubble contrast study negative for right to left interatrial shunt. Trivial tricuspid valve insufficiency. Right ventricular systolic pressure estimated to be 21 mmHg. There is no comparison study available. general surgery neurology Operations: None Procedures: 2-D Echocardiogram, Cardiac catheterization Summary of Care Provided: []Patient is a 73-year-old male was admitted through the ED in the early hours of 06/20/2018 with a complaint of chest pain. He described it as a tightness across his chest with associated mild diaphoresis. Troponins were mildly abnormal and EKG was normal but blood pressure was elevated. Cardiology evaluated him and diagnosed him with unstable angina and a cardiac cath was done on 06/20/2018 which showed left circumflex artery with 70% stenosis in the mid circumflex artery, a dominant large right coronary artery with 80% proximal stenosis and left anterior descending artery with mild disease. He had angioplasty and stenting done to the right coronary artery. After that he was admitted to the ICU for closer monitoring. On admission to the ICU, a CODE BLUE was called as patient was found to be aphasic. He was rushed to the CT scan emergently and a brain CT done showed no evidence of an acute infarct or hemorrhage. Neurology was consulted and felt that based on the clinical presentation, this was likely an embolic stroke with some plaque embolizing from the cardiac cath to his brain. Decision was made to give patient TPA. Patient received TPA and after that became very agitated and ended up being intubated on account of acute hypoxic respiratory failure and also to protect his airway. Patient had complained of abdominal pain during admission and an abdominal CT done showed evidence of acute cholecystitis. He was also having leukocytosis and was started on IV Zosyn. General surgery was consulted and initially planned on placing a biliary stent with patient's abdominal pain subsequently resolved and so conservative management was advocated. Patient was subsequently extubated and did well on 2 L of oxygen and subsequently transitioned to room air. However he remained febrile and repeat blood cultures done showed gram- negative rods lactose actuarial science professor and per discussion with microbiology this was likely to be Klebsiella or Enterobacter- sensitivities were pending at time of discharge. Discussed with ID on phone and patient was transitioned from IV Zo syn to p.o. ciprofloxacin and p.o. Flagyl on 06/24/2018. Patient remained stable and was discharged home on 06/24/2018 with a prescription for aspirin, Brilinta, atorvastatin, losartan, metoprolol, amlodipine, ciprofloxacin and Flagyl. He is to follow-up with his primary care doctor, computer graphic designer and neurologist. He is also to follow-up with general surgery as gallbladder surgery was not done on account of patient being on dual antiplatelet therapy.. Home medications reviewed and reconciled. Patient seen and examined prior to discharge. 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 He denied any fever or chills, any cough or chest pain, any shortness of breath, any abdominal pain, any diarrhea or vomiting. Review of systems otherwise negative. Labs and vitals reviewed. o/e: Vitals: Vital Signs Height 5 ft 11 in Weight: 214 lb 8.156 oz Weight in Pounds 214.5 lbs Pulse Ox 95 Temperature 98.3 F Pulse Rate 92 Respiratory Rate 18 Blood Pressure [BP] 186/83 Blood Pressure 156/79 Blood Pressure Position [BP] Semi-Fowlers Blood Pressure Position Sitting General: Alert, Oriented x3, Cooperative, No apparent distress HEENT: Atraumatic, PERRLA, EOMI, Normocephalic Oral: Moist Mucosa Neck: Supple, No JVD Lungs: Clear to auscultation, Normal air movement, No rhonchi, No wheeze, No rales Cardiovascular: Regular rate, Regular Rhythm, Normal S1, Normal S2, No murmurs Abdomen: Bowel Sounds Present, Soft, Non Tender, Non-Distended, No Hepato- splenomegaly Extremities: No clubbing, No edema, Capillary Refill Less than 3 Seconds Skin: No rashes, No breakdown Musculoskeletal: No Tenderness to Palpation of Joints or Extremities Lymphatic: No Cervical, Supraclavicular, or Inguinal Adenopathy Neurological: Cranial nerves II-XII grossly intact, Neuro grossly intact, Motor Exam 5/5 strength throughout Psych/Mental Status: Normal Affect, Appropriate, Alert and oriented to time, place, person, mood and affect Plan as described above. - Physical Exam Vital Signs Temp Pulse Resp BP Pulse Ox 98.7 F 94 18 168/71 H 94 06/24/18 07:40 06/24/18 09:29 06/24/18 07:40 06/24/18 07:40 06/24/18 07:40 Oxygen Flow Rate (L/min) 2 Oxygen Delivery Method Room Air Weight: 214 lb 8.156 oz Body Mass Index (BMI) 30.9 Intake and Output for Last 24 Hours 06/22/18 06/23/18 06/24/18 23:59 23:59 23:59 Intake Total 2346.4 / 2346.4 3114 / 3114 208 / 208 Output Total 1175 / 1175 750 / 750 300 / 300 Balance 1171.4 / 1171.4 2364 / 2364 -92 / -92 Microbiology Past 72 Hours 06/22/18 17:46 Blood Culture - Preliminary Blood Culture (Wb) - Venous GNR lactose actuarial science professor 06/22/18 17:46 Blood Culture - Preliminary Blood Culture (Wb) - Venous GNR lactose actuarial science professor 06/20/18 13:30 Urine Culture - Final Urine Catheter - Marshall Culture exhibits no growth. Laboratory Tests Past 24 Hrs 06/24/18 06/24/18 06:33 06:33 WBC 12.7 H RBC 3.57 L Hgb 10.3 L Hct 31.4 L MCV 88.0 MCH 28.9 MCHC 32.8 RDW 14.4 RDW Differential 45.4 H Plt Count 268 MPV 11.2 Immature Gran % (Auto) 0.600 Neut % (Auto) 73.9 H Lymph % (Auto) 9.2 L Stevens % (Auto) 13.9 H Eos % (Auto) 2.1 Baso % (Auto) 0.3 Absolute Neuts (auto) 9.4 H Absolute Lymphs (auto) 1.17 Total Counted Not Reportable Diff Path Review December Sodium 142 Potassium 3.3 L Chloride 109 H Carbon Dioxide 25.0 Anion Gap 8 BUN 15 Creatinine 0.93 Estim Creat Clear Calc 77.59 Est GFR (MDRD) Af Amer 103 Est GFR (MDRD) Non-Af 85 BUN/Creatinine Ratio 16.1 Glucose 121 H Calcium 7.7 L Discharge Diet: Low fat/ Low Cholesterol Discharge Activity: Return to Normal Activity Weight Bearing Status: Weight bearing as tolerated Call your doctor if you observe: Fever of 101 or Higher, Shortness of breath, Chest pain, Uncontrolled pain Home Medications: Medications to take at Discharge Aspirin [Aspirin, Baby] 81 mg PO QODAY 06/19/18 Diazepam [Valium] 5 mg PO PRN PRN 06/19/18 Amlodipine [Norvasc] 10 mg PO DAILY #30 tablet 06/24/18 Aspirin [Aspirin, Baby] 81 mg PO DAILY@0800 #30 tab.chew 06/24/18 Atorvastatin Calcium [Lipitor] 40 mg PO QHS #30 tablet 06/24/18 Ciprofloxacin [Cipro] 500 mg PO BID #10 tablet 06/24/18 Losartan Potassium [Cozaar] 25 mg PO DAILY #30 tablet 06/24/18 Metoprolol Tartrate [Lopressor (beta marlene)] 50 mg PO BID #60 tablet 06/24/18 Metronidazole 500 mg PO Q8 #15 tablet 06/24/18 Ticagrelor [Brilinta] 90 mg PO BID #60 tablet 06/24/18 Following Prescrptions Were Given to Patient: Amlodipine [Norvasc] 10 mg PO DAILY #30 tablet Aspirin [Aspirin, Baby] 81 mg PO DAILY@0800 #30 tab.chew Atorvastatin Calcium [Lipitor] 40 mg PO QHS #30 tablet Losartan Potassium [Cozaar] 25 mg PO DAILY #30 tablet Metronidazole 500 mg PO Q8 #15 tablet Ciprofloxacin [Cipro] 500 mg PO BID #10 tablet Metoprolol Tartrate [Lopressor (beta marlene)] 50 mg PO BID #60 tablet Ticagrelor [Brilinta] 90 mg PO BID #60 tablet Primary Care Physician: Ronni Jefferson DO [Primary Care Provider] - Please follow up with your Primary Care Physician in: one week Please Follow Up With: Gibson Carlin MD When: 1-2 weeks Please Follow Up With: Jacques Hinojosa MD When: 2-3 weeks Patient Instructions: Stroke and Heart Disease, Discharge Instructions for Heart Attack, ED Gallbladder Infec Poss Pending Tests Upon Discharge: blood culture microbiology sensitivities. Disposition: Home Minutes spent on discharge:: 40 Patient Condition:: Stable Medical Necessity - Tobacco Use Smoking Status: Former smoker Tobacco Use: Non-smoker Meaningful Use Info Meaningful Use Diagnoses (Choose all that apply): AMI, Ischemic CVA - AMI Aspirin given w/in 24hrs of arrival?: Yes ASA at discharge?: Yes Statins at discharge?: Yes Magdaleno/ARB at discharge?: Yes Beta Marlene at discharge?: Yes Done w/ Acute OK measure.: Yes - CVA Therapy Assessed for PT,OT and/or ST?: Yes - Ischemic Stroke Antithrombotic order at d/c?: Yes Dx of Atrial fib/flutter?: No Anticoagulant at discharge?: No Reason anticoagulant not ordered: Treatment not Indicated Statins at discharge?: Yes Primary Dx Acute Ischemic CVA?: No IV tPA ordered during stay?: Yes Code Visit Inpatient E&M: 12769 Disch Hosp
[2018-06-26 14:04] LABS: Pathologist Review Reviewed
--- NOTE | 2018-06-28 15:35 | CASEMGMT ---
RN CM Discharge Follow-up Phone Call: KAHLIL: Demian Strata: 3 Call Date: 06/27/18 Discharge Date: 06/24/18 Time of Call: 1705 Duration: 0 ? Admitting Diagnosis: NSTEMI s/p PTCA with stent, CVA This RN CM attempted to contact patient via telephone to follow-up s/p discharge. Phone rang once then disconnected x2 attempts.
== END 2018-06-24 13:00 | disposition home or self-care (01) | DRG 246 ==
LOC: ED 04:26 → ICU 07:20 → PCU 06-22 16:15
PROVIDERS: Internal Medicine Cardiovascular Disease; Internal Medicine Critical Care Medicine; Physician Assistant; Student in an Organized Health Care Education/Training Program; Admitting Provider Internal Medicine Cardiovascular Disease; Emergency Provider Emergency Medicine; Family Provider Family Medicine; PCP Family Medicine; Visit Provider Internal Medicine Cardiovascular Disease
DX: I21.4 Non-ST elevation (NSTEMI) myocardial infarction (principal); J96.00 Acute respiratory failure, unspecified whether with hypoxia or hypercapnia; I63.49 Cerebral infarction due to embolism of other cerebral artery; A41.9 Sepsis, unspecified organism; G93.41 Metabolic encephalopathy; I97.820 Postprocedural cerebrovascular infarction following cardiac surgery; K80.00 Calculus of gallbladder with acute cholecystitis without obstruction; R47.01 Aphasia; N17.9 Acute kidney failure, unspecified; I10 Essential (primary) hypertension; Y84.0 Cardiac catheterization as the cause of abnormal reaction of the patient, or of later complication, without mention of misadventure at the time of the procedure; R29.701 NIHSS score 1; I25.110 Atherosclerotic heart disease of native coronary artery with unstable angina pectoris; Z87.891 Personal history of nicotine dependence
CPT/HCPCS: 31500; 31720; 36415; 70450; 70544; 70549; 70553; 71045; 71046; 71275; 74176; 80048; 80076; 81001; 82962; 83735; 84100; 84484; 85025; 85027; 85347; 85610; 85730; 87040; 87077; 87086; 87186; 92526; 92928; 93005; 93306; 93458; 94002; 94003; 94660; 95831; 96374; 97162; 97165; 97530; 99152; 99153; 99251; 99283; 99285; A9585; C1760; J2997; J7030; Q9967; A4216; C1725; C1769; C1874; C1887; C1894; C9600; G0463; J3490

== ENCOUNTER 2025-06-18 12:12 | Inpatient (IN) | payer MEDICARE, OTHER, SELFPAY ==
[2025-06-18] VITALS (25 sets, daily range): BP systolic 129–178; BP diastolic 76–95; PULSE 74–85; RESP 12–29; TEMP 36.6–37; O2SAT 83–100; BMI 28.3; BMI 27.2
--- NOTE | 2025-06-18 12:22 | RAD_ITS ---
PROCEDURE: CHEST 1 VIEW (PORTABLE) 06/18/2025 REASON FOR EXAM: SOB TECHNIQUE: Frontal view of the chest. COMPARISON: None FINDINGS: Hardware: EKG leads Heart: Enlarged Lungs: Interstitial edema is present. Bones: The bones are unremarkable. RAD/Chest 1 View (Portable) IMPRESSION: Interstitial edema Reading Location: [id number]
--- NOTE | 2025-06-18 12:22 | EKG12_ITS ---
Test Reason : SOB Blood Pressure : */* mmHG Vent. Rate : 75 BPM Atrial Rate : 75 BPM P-R Int : 178 ms QRS Dur : 94 ms QT Int : 404 ms P-R-T Axes : 34 -39 22 degrees QTcB Int : 451 ms Normal sinus rhythm Left axis deviation Minimal voltage criteria for LVH, may be normal variant ( R in aVL ) Nonspecific ST abnormality Abnormal ECG Confirmed by Jose Ortiz ([id number]), patch worker TAMI SYLVESTER ([id number]) on 06/19/2025 12:39:21 PM Referred By: RADHA Confirmed By: Jose Ortiz
--- NOTE | 2025-06-18 12:25 | ED.VIS.DYS ---
HPI History of Present Illness Chief Complaint: Shortness of Breath Informant: patient and EMS Narrative Narrative: Patient is 80-year-old male with history of anxiety, coronary artery disease, hypertension (prior stent) presenting for EMS for worsening shortness of breath. EMS states when they arrived to the ER patient was having difficulty breathing and was 68% on room air. He is not on home oxygen or have any history of MANUEL. They placed him on CPAP and upon arrival to the ER patient was 83%. He was transition to BiPAP in the ER. He states he is feeling much better now. Notes that he was at [facility] emergency room earlier and they thought that his symptoms are related to a panic attack symptoms associated with his of 40 years recently leading him. Patient states he is otherwise been doing well recently. 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 He notes he had a mild cough. He currently denies any chest pain or pressure. States last night he did have some abdominal bloating. [place] any nausea, vomiting changes bowel movements. Chart review from earlier this morning states patient presented with shortness of breath that started last night. Had reported increased anxiety symptoms as well. There he was 95% on room air and had a benign physical exam. Apparently at discharge his pulse ox was 76% they tried to put him back on the monitor but patient refused and walked out of the emergency room. [facility] Medical History Obesity Essential (primary) hypertension Atherosclerotic heart disease [place] coronary artery w/angina pectoris Home Medications Medication Instructions Recorded Last Taken Type diazepam 5 mg tablet 5 mg PO PRN Anxiety 06/19/18 06/17/25 History aspirin 81 mg chewable tablet 81 mg PO DAILY@0800 HEART ##30 06/24/18 06/18/25 Rx amlodipine 5 mg tablet 5 mg PO BID HEART 06/18/25 06/18/25 History clopidogrel 75 mg tablet 75 mg PO DAILY HEART 06/18/25 06/18/25 History coenzyme Q10 PO DAILY SUPPLEMENT 06/18/25 06/18/25 History garlic .ROUTE DAILY SUPPLEMENT 06/18/25 06/18/25 History multivitamin (Daily Multi-Vitamin 1 tab PO DAILY SUPPLEMENT 06/18/25 06/18/25 History tablet) pindolol 10 mg tablet 10 mg PO BID HEART 06/18/25 06/18/25 History tamsulosin 0.4 mg capsule 0.4 mg PO DAILY 06/18/25 05/18/25 History venlafaxine 75 mg capsule,extended 75 mg PO DAILY 06/18/25 Unknown History release 24 hr Allergy/AdvReac Type Severity Reaction Status Date / Time No Known Allergies Allergy Verified 06/18/25 12:13 Surgical History History of left heart catheterization (~06/20/18) History of coronary artery stent placement (06/20/18) Social History Smoking Status: Former smoker ROS ROS ED Constitutional Constitutional ED: Denies chills or fever(s) Cardiovascular Cardiovascular: Denies chest pain Respiratory/Chest Respiratory/Chest: Reports cough and dyspnea; Denies sputum Gastrointestinal Gastrointestinal: Reports abdominal pain and other Details: States he felt bloated yesterday ; Denies nausea or vomiting Musculoskeletal Musculoskeletal: Denies arthralgias, back pain or myalgias Neurologic Neurologic: Denies weakness Psychiatric Psychiatric: Reports anxiety and depression; Denies suicidal ideation or suicidal thoughts EXAM Physical Exam Const Vital Signs: 06/18/25 12:13 06/18/25 12:14 06/18/25 12:17 Temperature 98 F 98 F Temperature Source Temporal Temporal Pulse Rate 82 85 83 Respiratory Rate 24 H 29 H Respiratory Effort Respiratory Pattern Blood Pressure 171/89 H 133/88 H Blood Pressure Mean 116 103 Pulse Ox 83 93 Oxygen Delivery Method CPAP CPAP Bi-pap Oxygen Flow Rate (L/min) Fraction of Inspired Oxygen (FIO2) 06/18/25 12:23 06/18/25 12:25 06/18/25 12:32 Temperature Temperature Source Pulse Rate 82 Respiratory Rate 19 H Respiratory Effort Short of Breath Labored Accessory Muscle Use Nasal Flaring Respiratory Pattern Irregular Normal Blood Pressure Blood Pressure Mean Pulse Ox 97 91 Oxygen Delivery Method Bi-pap Bi-pap Oxygen Flow Rate (L/min) Fraction of Inspired Oxygen (FIO2) 30 40 06/18/25 12:43 06/18/25 12:46 06/18/25 12:46 Temperature Temperature Source Pulse Rate 75 74 Respiratory Rate 18 20 H Respiratory Effort Respiratory Pattern Normal Blood Pressure 153/85 H Blood Pressure Mean 107 Pulse Ox 100 Oxygen Delivery Method Bi-pap Oxygen Flow Rate (L/min) Fraction of Inspired Oxygen (FIO2) 40 40 06/18/25 13:13 06/18/25 13:17 06/18/25 13:30 Temperature 98 F Temperature Source Oral Pulse Rate 74 74 76 Respiratory Rate 19 H 19 H 18 Respiratory Effort Respiratory Pattern Blood Pressure 151/76 H 151/76 H 154/79 H Blood Pressure Mean 101 101 104 Pulse Ox 100 100 89 Oxygen Delivery Method Bi-pap Bi-pap Oxygen Flow Rate (L/min) Fraction of Inspired Oxygen (FIO2) 40 06/18/25 13:56 06/18/25 13:56 06/18/25 14:30 Temperature 98 F Temperature Source Oral Pulse Rate 80 80 81 Respiratory Rate 19 H 19 H 28 H Respiratory Effort Respiratory Pattern Blood Pressure 165/80 H 165/80 H 170/93 H Blood Pressure Mean 108 108 118 Pulse Ox 92 92 91 Oxygen Delivery Method Nasal Cannula Nasal Cannula Nasal Cannula Oxygen Flow Rate (L/min) 2 2 8 Fraction of Inspired Oxygen (FIO2) 06/18/25 15:00 06/18/25 15:00 06/18/25 15:30 Temperature 98.2 F Temperature Source Oral Pulse Rate 84 84 79 Respiratory Rate 19 H 19 H 18 Respiratory Effort Respiratory Pattern Blood Pressure 178/95 H 178/95 H 166/79 H Blood Pressure Mean 122 122 108 Pulse Ox 93 93 93 Oxygen Delivery Method Nasal Cannula Nasal Cannula High Flow Oxygen Flow Rate (L/min) 10 10 10 Fraction of Inspired Oxygen (FIO2) 06/18/25 15:56 06/18/25 15:58 06/18/25 15:59 Temperature 98.6 F 98.6 F Temperature Source Oral Pulse Rate 84 84 84 Respiratory Rate 18 18 18 Respiratory Effort Respiratory Pattern Blood Pressure 160/85 H 160/85 H 160/85 H Blood Pressure Mean 110 110 110 Pulse Ox 96 96 96 Oxygen Delivery Method High Flow High Flow Oxygen Flow Rate (L/min) 10 10 Fraction of Inspired Oxygen (FIO2) Positive well nourished and well developed Constitutional Narrative: Patient in acute respiratory distress General Appearance ED: well developed HEENT Reports moist mucous membranes atraumatic Eyes PERRL Neck supple and no JVD Resp Resp Narrative: Tachypneic. Coarse breath sounds throughout with mild rhonchi present. No crackles appreciated. Cardio regular rate, regular rhythm and no murmurs GI non-tender and non-distended Auscultation: normoactive bowel sounds Palpation: soft Neuro oriented x3 Sensorium / Orientation: alert Motor Exam: Negative for general weakness Psych mental status grossly normal Mood & Affect: depressed and anxious Skin no wounds MDM MDM MDM Narrative Medical decision making narrative: Patient arrives in acute respiratory distress. He is acutely hypoxic requiring CPAP and 83%. Transition to BiPAP in the emergency room and under percent FiO2 with significant improvement of his work of breathing and his O2 saturation. He was given breathing treatment as he has a coarse and rhonchorous breath sounds however differential admission to COPD exacerbation includes flash pulmonary edema/CHF exacerbation and pulmonary emboli. He denies any chest pain however cardiac workup including serial high-sensitivity troponin is obtained. Denies any recent fever or URI symptoms more consistent with a pneumonia. Prior ER note from earlier today was reviewed, see HPI. He has a mild leukocytosis 11.8 which is nonspecific. No left shift. D-dimer significant elevated 3.12 and PE study/CTA is added on. He does have an elevation of his creatinine 1.99 suspect he has been associated SANTOSH however I do not have recent labs to compare to his most recent labs we have are from 2018 it was possible this could be more chronic. Lactate is normal. He is mildly hyperglycemic with a glucose of 223. High sensitive troponin minimally elevated at 39 but on repeat is 36. Lower suspicion for ACS. BNP is significantly elevated at 4598. CTA does not show any pulmonary emboli but does show interstitial edema with bibasilar atelectasis and small effusions. Suspect patient is having a CHF exacerbation and wonder if the stress of his recent personal turmoil (talking about how his recently left him) he might of pushed him into an early flash pulmonary edema. Do not think he has true flash pulmonary in the ER and while he is given Lasix I do not think he requires nitro for preload reduction at this time. He seems to be stabilizing hemodynamically. His titrated down on his oxygen and transition to high flow nasal cannula. Case is discussed with hospitalist for admission, Dr. Bo In the ER patient does become more distraught and discussed wanting to kill himself and states he was plan on killing himself this weekend by either overdosing or shooting himself. Is given sitter and will need further crisis evaluation once more medically stable. Lab Data Attestation: I reviewed the patient's lab results. Labs: Laboratory Results - last 24 hr 06/18/25 06/18/25 06/18/25 12:00 12:31 13:54 WBC 11.8 H RBC 4.73 Hgb 13.7 Hct 43.5 MCV 92.0 MCH 29.0 MCHC 31.5 L RDW Std Deviation 49.2 H RDW Coeff of Mandeep 14.6 Plt Count 315 MPV 12.8 H Immature Gran % (Auto) 0.500 Neut % (Auto) 78.9 H Lymph % (Auto) 11.7 L Loup % (Auto) 6.0 Eos % (Auto) 2.2 Baso % (Auto) 0.7 Absolute Neuts (auto) 9.3 H Absolute Lymphs (auto) 1.38 Nucleated RBC % 0 D-Dimer Quant (PE/DVT) 3.23 H* Sodium 142 Potassium 4.5 Chloride 105 Carbon Dioxide 23.8 Anion Gap 13 BUN 35 H Creatinine 1.99 H Estim Creat Clear Calc 34.46 L Est GFR (MDRD) Non-Af 34 L BUN/Creatinine Ratio 17.4 Glucose 223 H Lactic Acid 1.8 Calcium 9.7 Troponin T High Sens 39 H Troponin T Hi Sens 2 Hr 36 H NT pro BNP II 4598 H ABG Data ABG results: ABG 06/18/25 12:50 Specimen Type ART Sample Site R Radial pH 7.43 Bicarbonate Actual 27.0 H Total CO2 28 Base Excess 3 H O2 Saturation 90 L O2 % 40.0 ABG pCO2 40.5 ABG pO2 56 L Nils Test Positive Respiration Rate 12 O2 Delivery Device BiPAP Vent Mode BiLevel Clinical Comments 07/20 Radiography Chest X-Ray - ED: 1 View, Read by ED Physician and CHF Diagnostic Testing: Clinical Impression(s) from Imaging Studies Chest X-Ray 06/18/25 12:22 IMPRESSION: Interstitial edema Reading Location: [facility] Chest CTA 06/18/25 13:24 IMPRESSION: 1. No evidence of acute or chronic pulmonary embolus. 2. Interstitial edema, bibasilar atelectasis and small effusions. 3. Top-normal heart size. Coronary artery atherosclerosis. Reading Location: [facility] Rhythm Strip Rhythm Strip: Sinus Rhythm Rate: 75 Ectopy: None EKG Initial EKG: Attestation: I personally reviewed and interpreted this EKG as follows: Interpretation: Sinus Rhythm Comments: Normal sinus rhythm at a rate of 75 bpm left axis deviation Normal ST segments Minimal voltage criteria for LVH Prior EKG tracings: available for review Prior: Unchanged Management Discussion w/another healthcare provider: Hospitalist Critical Care Time Critical Care Time: Yes Critical care time (excluding procedures): 30-74 minutes (45), Discussing w/Patient &/or Family/Life Agent and Arranging Admission or Transfer Discharge Plan Dx/Rx/DC Orders Clinical Impression: Acute hypoxemic respiratory failure, Acute exacerbation of congestive heart failure, Depression with suicidal ideation, SANTOSH (acute kidney injury) Disposition Disposition: Acute Care Hospital [facility] Capacity Capacity Assessment Tool Patient lacks Decision Making Capacity: unable to understand, reason and deliberate health related choices: Yes Risk to self and or others?: Yes Risk of leaving the patient care unit and or hospital?: Yes Legal Qa Test Analyst Define type of medical hold:: Hospital Imposed
[2025-06-18 12:34] LABS: Hematocrit 43.5 % (40-54); Hemoglobin 13.7 g/dL (13.0-16.5); Immature Granulocytes Count 0.060 X10^3/uL (0.0-0.0); Mean Corp Hgb Conc 31.5 g/dL (32-36); Mean Corpuscular Volume 92.0 fL (80-94); Mean Platelet Vol. 12.8 fl (6.2-12.0); NRBC Flagged by Analyzer 0 % (0-5); Platelet Count 315 K/mm3 (150-450); RBC Distribution Width CV 14.6 % (11.6-14.6); RBC Distribution Width SD 49.2 fl (35.1-43.9); Red Blood Count 4.73 M/mm3 (4.6-6.2); White Blood Count 11.8 K/mm3 (4.4-11.0)
[2025-06-18 12:50] LABS: D-Dimer Quantitative (DVT/PE) 3.23 FEU/ug/m (0.27-0.49)
[2025-06-18 12:53] LABS: Allen Test Positive; Base Excess 3 mmol/L (-2 to +2); FI02 40.0; PO2 56 mmHG (75-100); RR 12; SITE R Radial; SO2 90 % (94-98)
[2025-06-18 13:15] LABS: Anion Gap 13 (5-15); BUN 35 mg/dL (4-19); BUN/Creat Ratio 17.4 RATIO (10-20); Calcium,Total 9.7 mg/dL (7.6-11.0); Carbon Dioxide 23.8 mmol/L (21.0-32.0); Chloride 105 mmol/L (98-108); Estimated Creatinine Clearance 34.46 ml/min (50-250); Glucose 223 mg/dL (70-99); Potassium 4.5 mmol/L (3.3-5.1)
[2025-06-18 13:17] LABS: Pro- Brain NATRIURETIC PEPTIDE 4598 pg/mL (<=1800); Troponin T High Sensitivity 39 ng/L (<=22)
--- NOTE | 2025-06-18 13:24 | CT_ITS ---
PROCEDURE: CTA CHEST W/WO CONTRAST 06/18/2025 REASON FOR EXAM: SOB, ELEVATED DIMER TECHNIQUE: Procedure Code: [id number] Modality: CT Procedure: CTA CHEST W/WO CONTRAST Multiplanar Sagittal and Coronal images were obtained. 3D post processing was performed CONTRAST: Isovue 370 VOLUME: 100 mL One or more dose reduction techniques were used (e.g., Automated exposure control, adjustment of the mA and/or kV according to patient size, use of iterative reconstruction technique). RADIATION DOSE SUMMARY: CTDlvol: 20 mGy DLP: 494 mGycm COMPARISON: June 18, 2025 x-ray # of known CTs in the past 12 months: 0 # of known Cardiac Nuclear Medicine Studies in the past 12 months: 0 FINDINGS: Thoracic Aorta: No aneurysm. Mild atherosclerosis. Heart: Top-normal size. No pericardial effusion. Moderate LAD and circumflex coronary artery atherosclerotic change. Pulmonary Vessels: The timing and quality of the contrast bolus is diagnostic. There is no evidence of acute or chronic pulmonary embolus. Hardware: None Lymph nodes: None appear enlarged Lungs and Airways: Smooth interlobular septal thickening as well as axial interstitial thickening shown throughout both lungs. Bibasilar compressive subsegmental atelectasis seen. Pleura: Small volume pleural effusions. Upper Abdomen: Unremarkable Bones: Disc space narrowing, marginal endplate spurring mid to lower thoracic spine. CT/CTA Chest W/WO Contrast IMPRESSION: 1. No evidence of acute or chronic pulmonary embolus. 2. Interstitial edema, bibasilar atelectasis and small effusions. 3. Top-normal heart size. Coronary artery atherosclerosis. Reading Location: [id number]
--- NOTE | 2025-06-18 13:48 | ED.RN ---
pt tearful. when this RN asked what she could do to help pt replied "give me medication that will put me to sleep for a couple years." and "brain surgery." This RN notified social work.
[2025-06-18 14:18] LABS: Troponin T High Sens 2 HR 36 ng/L (<=22)
--- NOTE | 2025-06-18 14:21 | ED.RN ---
Vanessa, ex spouse, called per pts request to obtain son Lio' phone number. message left at this time.
--- NOTE | 2025-06-18 14:29 | ED.RN ---
pt desats to 80% on 2L nasal cannula. pts o2 increased to 6L nasal cannula and repositioned in the bed. respiratory notified and high flow nasal cannula applied at 8 liter.
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
--- NOTE | 2025-06-18 16:05 | CM.ED ---
Social work During SW assessment, SW was informed that patient was being admitted to acute for medical needs. When hospitalist was in patient's room, SW verified that patient's RN would confirm with hospitalist the need for a pink slip due to identified reasons while SW re-entered patient's room to complete patient's mental health assessment. When SW was done in patient's room, a sitter entered per protocol and SW was informed patient's hospitalist took a blank pink slip up to acute to fill out and sign. Patient was in agreement that patient's physical health was just as important as patient's mental health. Patient was also in agreement that it was a concern that patient had 2 interrupted suicide attempts in the last week. Chiquita Dee, ALBERENE STONE SETTER, DIGITAL PROGRAM MANAGER
--- NOTE | 2025-06-18 16:50 | HP.PCM.HOS_ITS ---
HPI - General General Date of Admission: 06/18/25 HPI Narrative ADAM PRITCHARD, is a 80 M who presents to the hospital with worsening shortness of breath. He initially presented to [facility] with a panic attack and anxiety secondary to situation surrounding his , she was diagnosed with cancer and instead of proceeding with typical chemoradiation and surgery she elected to do homeopathic remedies but he describes increasing paranoia and agitated and altered behavior on her part ultimately with her him which he is devastated by. In the ER social work was notified because he was making statements such as "he did not want to live anymore" and he did have to be pink slipped because he admits to the health care social worker that "he could just get a gun and blow his brains out". He did have an elevated D-dimer CT of the chest was negative for PE but it did show interstitial edema with pleural effusions. Initially he was in acute hypoxic respiratory failure necessitating BiPAP but with the institution of BiPAP as well as Lasix he has had significant improvement. [facility] Medical History Obesity Essential (primary) hypertension Atherosclerotic heart disease [place] coronary artery w/angina pectoris Home Medications Medication Instructions Recorded Last Taken Type diazepam 5 mg tablet 5 mg PO PRN Anxiety 06/19/18 06/17/25 History aspirin 81 mg chewable tablet 81 mg PO DAILY@0800 HEAR T ##30 06/24/18 06/18/25 Rx amlodipine 5 mg tablet 5 mg PO BID HEART 06/18/25 1 08/18/24 History clopidogrel 75 mg tablet 75 mg PO DAILY HEART 5 06/18/25 History coenzyme Q10 PO DAILY SUPPLEMENT 06/18/25 06/18/25 History garlic .ROUTE DAILY SUPPLEMENT 12/0706/18/25 History multivitamin (Daily Multi-Vitamin 1 tab PO DAILY SUPPL EMENT 06/18/25 06/18/25 History tablet) pindolol 10 mg tablet 10 mg PO BID HEART 06/18/25 06/18/25 History tamsulosin 0.4 mg capsule 0.4 mg PO DAILY 06/18/2512/07 History venlafaxine 75 mg capsule,extended 75 mg PO DAILY 12/07 Unknown History release 24 hr Allergy/AdvReac Type Severity Reaction Status Date / Time No Known Allergies Allergy Verified 06/18/25 12:13 Family History (Updated 06/18/25 @ 17:[address] Jeffrey Bo MD) Other Heart disease Surgical History History of left heart catheterization (~06/20/18) History of coronary artery stent placement (06/20/18) Social History Smoking Status: Former smoker ROS Constitutional Constitutional: Denies chills, fatigue, fever(s) or malaise Eyes Eyes: Denies blurry vision ENT HEENT: Denies headache(s) or nasal discharge Cardiovascular Cardiovascular: Denies chest pain, dyspnea on exertion or syncope Respiratory/Chest Respiratory/Chest: Reports shortness of breath at rest and shortness of breath with exertion; Denies cough Gastrointestinal Gastrointestinal: Denies constipation, diarrhea, nausea or vomiting Genitourinary Genitourinary: Denies dysuria Neurologic Neurologic: Denies focal weakness, numbness or tremor(s) Psychiatric Psychiatric: Denies anxiety or depression Vital Signs Vital Signs Vital Signs: 06/18/25 12:13 06/18/25 12:14 06/18/25 12:17 Temperature 98 F 98 F Temperature Source Temporal Temporal Pulse Rate 82 85 83 Respiratory Rate 24 H 29 H Respiratory Effort Respiratory Pattern Blood Pressure 171/89 H 133/88 H Blood Pressure Mean 116 103 Pulse Ox 83 93 Oxygen Delivery Method CPAP CPAP Bi-pap Oxygen Flow Rate (L/min) Fraction of Inspired Oxygen (FIO2) 06/18/25 12:23 06/18/25 12:25 06/18/25 12:32 Temperature Temperature Source Pulse Rate 82 Respiratory Rate 19 H Respiratory Effort Short of Breath Labored Accessory Muscle Use Nasal Flaring Respiratory Pattern Irregular Normal Blood Pressure Blood Pressure Mean Pulse Ox 97 91 Oxygen Delivery Method Bi-pap Bi-pap Oxygen Flow Rate (L/min) Fraction of Inspired Oxygen (FIO2) 30 40 06/18/25 12:43 06/18/25 12:46 06/18/25 12:46 Temperature Temperature Source Pulse Rate 75 74 Respiratory Rate 18 20 H Respiratory Effort Respiratory Pattern Normal Blood Pressure 153/85 H Blood Pressure Mean 107 Pulse Ox 100 Oxygen Delivery Method Bi-pap Oxygen Flow Rate (L/min) Fraction of Inspired Oxygen (FIO2) 40 40 06/18/25 13:13 06/18/25 13:17 06/18/25 13:30 Temperature 98 F Temperature Source Oral Pulse Rate 74 74 76 Respiratory Rate 19 H 19 H 18 Respiratory Effort Respiratory Pattern Blood Pressure 151/76 H 151/76 H 154/79 H Blood Pressure Mean 101 101 104 Pulse Ox 100 100 89 Oxygen Delivery Method Bi-pap Bi-pap Oxygen Flow Rate (L/min) Fraction of Inspired Oxygen (FIO2) 40 06/18/25 13:56 06/18/25 13:56 06/18/25 14:30 Temperature 98 F Temperature Source Oral Pulse Rate 80 80 81 Respiratory Rate 19 H 19 H 28 H Respiratory Effort Respiratory Pattern Blood Pressure 165/80 H 165/80 H 170/93 H Blood Pressure Mean 108 108 118 Pulse Ox 92 92 91 Oxygen Delivery Method Nasal Cannula Nasal Cannula Nasal Cannula Oxygen Flow Rate (L/min) 2 2 8 Fraction of Inspired Oxygen (FIO2) 06/18/25 15:00 06/18/25 15:00 06/18/25 15:30 Temperature 98.2 F Temperature Source Oral Pulse Rate 84 84 79 Respiratory Rate 19 H 19 H 18 Respiratory Effort Respiratory Pattern Blood Pressure 178/95 H 178/95 H 166/79 H Blood Pressure Mean 122 122 108 Pulse Ox 93 93 93 Oxygen Delivery Method Nasal Cannula Nasal Cannula High Flow Oxygen Flow Rate (L/min) 10 10 10 Fraction of Inspired Oxygen (FIO2) 06/18/25 15:56 06/18/25 15:58 06/18/25 15:59 Temperature 98.6 F 98.6 F Temperature Source Oral Pulse Rate 84 84 84 Respiratory Rate 18 18 18 Respiratory Effort Respiratory Pattern Blood Pressure 160/85 H 160/85 H 160/85 H Blood Pressure Mean 110 110 110 Pulse Ox 96 96 96 Oxygen Delivery Method High Flow High Flow Oxygen Flow Rate (L/min) 10 10 Fraction of Inspired Oxygen (FIO2) 06/18/25 16:30 Temperature Temperature Source Pulse Rate 84 Respiratory Rate 18 Respiratory Effort Respiratory Pattern Blood Pressure 156/82 H Blood Pressure Mean 106 Pulse Ox 96 Oxygen Delivery Method High Flow Oxygen Flow Rate (L/min) 10 Fraction of Inspired Oxygen (FIO2) Weight Weight: 197 lb 8.547 oz Body Mass Index (BMI) 28.3 Physical Exam Narrative General: Alert, Oriented x3, Cooperative, mild respiratory distress HEENT: Atraumatic, PERRLA, EOMI, Normocephalic Oral: Moist Mucosa Neck: Supple, No JVD Lungs: Diminished, Normal air movement, No rhonchi, No wheeze, No rales, tachypneic Cardiovascular: Regular rate, Regular Rhythm, Normal S1, Normal S2, No murmurs Abdomen: Soft, Non Tender, Non-Distended, No Hepato-splenomegaly Extremities: No edema, Capillary Refill Less than 3 Seconds Skin: No rashes, No breakdown Musculoskeletal: No Tenderness to Palpation of Joints or Extremities Neurological: No focal neurological deficits, moves all extremities Psych/Mental Status: Normal Affect, Appropriate Results Lab / Micro Data 06/18/25 12:00 06/18/25 12:00 Labs: Laboratory Results - last 24 hr 06/18/25 12:00: WBC 11.8 H, RBC 4.73, Hgb 13.7, Hct 43.5, MCV 92.0, MCH 29.0, M CHC 31.5 L, RDW Std Deviation 49.2 H, RDW Coeff of Mandeep 14.6, Plt Count 315, MPV 12.8 H, Immature Gran % (Auto) 0.500, Neut % (Auto) 78.9 H, Lymph % (Auto) 11.7 L, [place] % (Auto) 6.0, Eos % (Auto) 2.2, Baso % (Auto) 0.7, Absolute Neuts (auto) 9.3 H, Absolute Lymphs (auto) 1.38, Nucleated RBC % 0, D-Dimer Quant (PE/DVT) 3.23 H*, Sodium 142, Potassium 4.5, Chloride 105, Carbon Dioxide 23.8, Anion Gap 13, BUN 35 H, Creatinine 1.99 H, Estim Creat Clear Calc 34.46 L, Est GFR (MDRD) Non-Af 34 L, BUN/Creatinine Ratio 17.4, Glucose 223 H, Calcium 9.7, Troponin T High Sens 39 H, NT pro BNP II 4598 H 06/18/25 12:31: Lactic Acid 1.8 06/18/25 13:54: Troponin T Hi Sens 2 Hr 36 H Micro: Microbiology 06/18/25 12:31 Mucosa - Nose SARS-CoV-2, Influenza & RSV (PCR) - Final ABG Data ABG results: ABG 06/18/25 12:50 Specimen Type ART Sample Site R Radial pH 7.43 Bicarbonate Actual 27.0 H Total CO2 28 Base Excess 3 H O2 Saturation 90 L O2 % 40.0 ABG pCO2 40.5 ABG pO2 56 L Nils Test Positive Respiration Rate 12 O2 Delivery Device BiPAP Vent Mode BiLevel Clinical Comments 07/20 Rhythm Strip Rhythm Strip: Sinus Rhythm Rate: 75 Ectopy: None Imaging Radiology Impression Chest X-Ray 06/18/25 12:22 IMPRESSION: Interstitial edema Reading Location: [facility] Chest CTA 06/18/25 13:24 IMPRESSION: 1. No evidence of acute or chronic pulmonary embolus. 2. Interstitial edema, bibasilar atelectasis and small effusions. 3. Top-normal heart size. Coronary artery atherosclerosis. Reading Location: [facility] Assessment & Plan Assessment/Plan (1) Acute hypoxemic respiratory failure: (2) Acute exacerbation of congestive heart failure: PLAN: Plan 1. Acute hypoxic respiratory failure secondary to acute CHF exacerbation of unknown type/essential HTN – Unclear whether or not he had flash pulmonary edema due to anxiety or stress earlier this morning secondary to life situation – CTA of the chest does show interstitial edema and he did feel better with a dose of Lasix and BiPAP – Will continue with his home blood pressure medications – Will place him on IV Lasix 40 mg twice daily – Will obtain an echo as his last echo was in 2018 with an EF of 65% and RVSP of 21 mmHg – Continue with his aspirin and Plavix 2. Renal failure – Chronicity is unclear his last renal function in our system was from 2018 and it was 0.93 – Current creatinine today is 1.99 – Will reevaluate tomorrow morning 3. Anxiety/depression/with possible suicidal ideation – Can resume his home medications – He told social work that he just does not want to be alive anymore and per report told the health care social worker that he would just put a gun to his head – I talk to him he said that he would like to be a full code and that he does not want to – He does have significant life stress at the moment and feels like he just wants to be able to take a break DVT: Heparin 75 minutes was spent on direct patient care, including documentation as well as chart review and collaboration with colleagues
[2025-06-18 17:17] LABS: Troponin T High Sens 4 HR 37 ng/L (<=22)
--- NOTE | 2025-06-18 17:50 | ECHOD_ITS ---
Reason For Study Reason For Study: CHF Procedure This was a 2D Doppler, Color Flow transthoracic echocardiogram. Exam performed portable in patient room. Left Ventricle Normal size and thickness. Apical false tendon noted. The left ventricular ejection fraction is 65 %. Stage 3 diastolic dysfunction. Mild apical hypokinesis. Right Ventricle Normal right ventricle. Atria The left atrium is mildly enlarged. Normal right atrium. Mitral Valve Trivial mitral valve insufficiency. Tricuspid Valve Mild (1+) tricuspid valve insufficiency. Right ventricular systolic pressure estimated to be 51 mmHg. Aortic Valve Mildly calcified aortic valve. Mild aortic valve stenosis with mean peak gradient 9 mmHg. Mild aortic valve regurgitation. Pulmonic Valve The pulmonic valve is not well visualized. Great Vessels Normal sized aortic root. Pericardium/Pleural No pericardial effusion. MMode/2D Measurements & Calculations LVIDd: 4.5 cm IVSd: 1.0 cm Ao root diam: 3.6 cm LVIDs: 3.5 cm LVPWd: 1.0 cm RVDd: 3.3 cm FS: 22.1 % LAV(MOD-bp): 87.5 ml LVAd ap4: 41.4 cm2 LVAd ap2: 34.0 cm2 LAV(MOD-bp) Indexed: 42.8 ml/m2 LVLd ap4: 9.6 cm LVLd ap2: 8.2 cm LAV(MOD-sp2): 83.3 ml EDV(MOD-sp4): 147.3 ml EDV(MOD-sp2): 112.4 ml LAV(MOD-sp4): 74.1 ml EDV(sp4-el): 151.8 ml EDV(sp2-el): 119.4 ml LVAs ap4: 25.4 cm2 LVAs ap2: 20.2 cm2 LVLs ap4: 8.2 cm LVLs ap2: 7.8 cm ESV(MOD-sp4): 66.6 ml ESV(MOD-sp2): 44.0 ml ESV(sp4-el): 66.3 ml ESV(sp2-el): 44.7 ml EF(MOD-sp4): 54.8 % EF(MOD-sp2): 60.9 % EF(sp4-el): 56.3 % SV(MOD-sp4): 80.7 ml SV(MOD-sp2): 68.4 ml SV(sp4-el): 85.5 ml SI(MOD-sp4): 39.5 ml/m2 SI(MOD-sp2): 33.5 ml/m2 LA A4 area: 22.3 cm2 LA dimension(2D): 4.4 cm RA A4 area: 16.0 cm2 TAPSE: 2.3 cm Time Measurements MV dec time: 0.13 sec Doppler Measurements & Calculations MV E max asher: 93.7 cm/sec Lat Peak E' Asher: 9.3 cm/sec Med Peak E' Asher: 6.6 cm/sec MV A max asher: 38.1 cm/sec E/E' lat: 10.1 E/E' med: 14.2 MV E/A: 2.5 MV V2 max: 105.5 cm/sec MV P1/2t max asher: 105.5 cm/sec Ao V2 max: 194.5 cm/sec MV max P.4 mmHg MV P1/2t: 42.9 msec Ao max P.2 mmHg MV V2 mean: 60.3 cm/sec Ao V2 mean: 142.5 cm/sec MV mean P.6 mmHg MV dec slope: 719.4 cm/sec2 Ao mean P.9 mmHg MV V2 VTI: 27.0 cm MVA(P1/2t): 5.1 cm2 Ao V2 VTI: 42.9 cm AV (velocity ratio): 0.57 AI max asher: 324.5 cm/sec LV V1 max: 112.0 cm/sec PA V2 max: 84.5 cm/sec AI max P.1 mmHg LV V1 max P.0 mmHg LV V1 mean P.8 mmHg AI dec slope: 229.3 cm/sec2 LV V1 mean: 80.0 cm/sec AI P1/2t: 414.4 msec LV V1 VTI: 24.5 cm TR max asher: 299.0 cm/sec TR max P.8 mmHg ECHO/Echo Complete Interpretation Summary The left ventricular ejection fraction is 65 %. Mild apical hypokinesis. Stage 3 diastolic dysfunction. Mild (1+) tricuspid valve insufficiency. Right ventricular systolic pressure estimated to be 51 mmHg. Mildly calcified aortic valve. Mild aortic valve stenosis with mean peak gradie nt 9 mmHg. Mild aortic valve regurgitation. Ordering Physician: Jeffrey Bo Referring Physician: Jose Upton Performed By: Suzie Garcia, DOUGIE, RVT
[2025-06-18] MEDS: 0.9% Saline Lock 10 ML Syringe IV (18:31)
--- OUTSIDE RECORDS SUMMARY | 2025-06-18 18:33 | XMS RPT_ITS | CCD ---
Author Organization [facility] Care Team Providers Care Repair Supervisor Name Role Phone Primay Care Physicia, No Unavailable Unavail able Jacques Palacios Unavailable Unavailable Li, Ronni Unavailable Unavailable Tesfaye, Spring Unavailable Unavailable Tesfaye, Gibson Unavailable Unavailable Koram, Sparkle Jory Unavailable Unavailable Joseph, Jassi Unavailable Unavailable Jefry Brown, D.O. Unavailable Unavailable Kilner, Josseline Unavailable Unavailable Tesfaye, Spring Unavailable Unavailable Koram, Sparkle Jory Unavailable Unavailable Primay Care Physicia, No Unavailable Unavail able Koram, Sparkle Jory Unavailable Unavailable Joseph, Jassi Unavailable Unavailable Jefry Brown, D.O. Unavailable Unavailable Tesfaye, Spring Unavailable Unavailable Tesfaye, Gibson Unavailable Unavailable Jefry Brown, D.O. Unavailable Unavailable Primay Care Physicia, No Unavailable Unavail able Joseph, Jassi Unavailable Unavailable Koram, Sparkle Jory Unavailable Unavailable Jefry Brown, D.O. Unavailable Unavailable Tesfaye, Spring Unavailable Unavailable Tesfaye, Gibson Unavailable Unavailable Lawrence NELSON-Mele, Myrtel Unavailable Unavailabl e Primay Care Physicia, No Unavailable Unavail able Joseph, Jassi Unavailable Unavailable Koram, Sparkle Jory Unavailable Unavailable Jefry Brown, D.O. Unavailable Unavailable Tesfaye, Gibson Unavailable Unavailable Tesfaye, Spring Unavailable Unavailable Jefry Brown, D.O. Unavailable Unavailable Primay Care Physicia, No Unavailable Unavail able Joseph, Jassi Unavailable Unavailable Koram, Sparkle Jory Unavailable Unavailable Jefry Brown, D.O. Unavailable Unavailable Tesfaye, Spring Unavailable Unavailable Tesfaye, Gibson Unavailable Unavailable Koram, Sparkle Jory Unavailable Unavailable [place], Ronni Unavailable Unavailable Joseph, Jassi Unavailable Unavailable Koram, Sparkle Jory Unavailable Unavailable Jefry Brown, D.O. Unavailable Unavailable Tesfaye, Spring Unavailable Unavailable Tesfaye, Gibson Unavailable Unavailable Bravo PA-C, Myrtle Unavailable Unavailabl e Li, Ronni Unavailable Unavailable Joseph, Jassi Unavailable Unavailable Koram, Sparkle Jory Unavailable Unavailable Jefry Brown, D.O. Unavailable Unavailable Tesfaye, Spring Unavailable Unavailable Tesfaye, Gibson Unavailable Unavailable Tesfaye, Gibson Unavailable Unavailable [place], Ronni Unavailable Unavailable Joseph, Jassi Unavailable Unavailable Koram, Sparkle Jory Unavailable Unavailable Jefry Brown, D.O. Unavailable Unavailable Tesfaye, Gibson Unavailable Unavailable Tesfaye, Gibson Unavailable Unavailable Koram, Sparkle Jory Unavailable Unavailable [place], Ronni Unavailable Unavailable Joseph, Jassi Unavailable Unavailable Koram, Sparkle Jory Unavailable Unavailable Jefry Brown, D.O. Unavailable Unavailable Tesfaye, Spring Unavailable Unavailable Tesfaye, Spring Unavailable Unavailable Jefry Brown, D.O. Unavailable Unavailable Li, Ronni Unavailable Unavailable Koram, Sparkle Jory Unavailable Unavailable Joseph, Jassi Unavailable Unavailable Jefry Brown, D.O. Unavailable Unavailable Tesfaye, Spring Unavailable Unavailable Tesfaye, Gibson Unavailable Unavailable Tesfaye, Gibson Unavailable Unavailable Li, Ronni Unavailable Unavailable Koram, Sparkle Jory Unavailable Unavailable Joseph, Jassi Unavailable Unavailable Jefry Brown, D.O. Unavailable Unavailable Tesfaye, Spring Unavailable Unavailable Tesfaye, Spring Unavailable Unavailable Jacques Hinojosa Unavailable Unavailable [place], Ronni Unavailable Unavailable Koram, Sparkle Jory Unavailable Unavailable Joseph, Jassi Unavailable Unavailable Jefry Brown, D.O. Unavailable Unavailable Tesfaye, Gibson Unavailable Unavailable Tesfaye, Gibson Unavailable Unavailable Jefry Brown, D.O. Unavailable Unavailable [place], Ronni Unavailable Unavailable Koram, Sparkle Jory Unavailable Unavailable Joseph, Jassi Unavailable Unavailable Jefry Brown, D.O. Unavailable Unavailable Tesfaye, Gibson Unavailable Unavailable Tesfaye, Spring Unavailable Unavailable Koram, Sparkle Jory Unavailable Unavailable [place], Ronni Unavailable Unavailable Koram, Sparkle Jory Unavailable Unavailable Joseph, Jassi Unavailable Unavailable Jefry Brown, D.O. Unavailable Unavailable Tesfaye, Spring Unavailable Unavailable Tesfaye, Gibson Unavailable Unavailable Calabretta, Eh Unavailable Unavailable [place], Ronni Unavailable Unavailable Koram, Sparkle Jory Unavailable Unavailable Joseph, Jassi Unavailable Unavailable Jefry Brown, D.O. Unavailable Unavailable Tesfaye, Gibson Unavailable Unavailable Tesfaye, Spring Unavailable Unavailable Ryan, Jacques Unavailable Unavailable [place], Ronni Unavailable Unavailable Koram, Sparkle Jory Unavailable Unavailable Jassi Joseph Unavailable Unavailable Jefry Redding D.O. Unavailable Unavailable Tesfaye, Spring Unavailable Unavailable Tesfaye, Spring Unavailable Unavailable Koram, Sparkle Jory Unavailable Unavailable [place], Ronni Unavailable Unavailable Koram, Sparkle Jory Unavailable Unavailable Sumeet Josephan Unavailable Unavailable Jefry Redding D.O. Unavailable Unavailable Tesfaye, Gibson Unavailable Unavailable Etsfaye, Spring Unavailable Unavailable Tesfaye, Spring Unavailable Unavailable Jacques Davis Unavailable Unavailable Tesfaye, Gibson Unavailable Unavailable Davis, Jacques Unavailable Unavailable Tesfaye, Gibson Unavailable Unavailable Davis, Jacques Unavailable Unavailable Tesfaye, Spring Unavailable Unavailable DEIDRE CAMPUZANO DO Primary Care Physician [phone] DEIDRE CAMPUZANO DO Attending Unavailable DEIDRE CAMPUZANO DO Primary Care Unavailable DEIDRE CAMPUZANO DO Primary Care Unavailable DEIDRE CAMPUZANO DO Attending Unavailable Allergies Allergy Classification Reported Allergen(s) Allergy Type Date of Onset Reaction(s) Facility (2 sources) HMG-CoA reductase inhibitor; Translations: [statins] Drug allergy Drug intolerance (disorder) [facility] Medications Current Medications Medication Drug Class(es) Dates Sig (Normalized) Sig (Original) acetaminophen 325 mg oral capsule (2 sources) Start: 04-10-2019 Tylenol 325 mg oral capsule Dose : 650 mg =, Oral, q4h, PRN Pain, scale 1-3, 0 Refill(s) Start Date: 04/10/19 Status: Ordered Medication Dispense Status: Completed Total Allowed Fills: 1 Fills Dispensed: 0 amLODIPine 5 mg oral tablet (2 sources) Dihydropyridine Calcium Channel Albino Start: 02-04-2025 End: 08-03-2025 amLODIPine 5 mg oral tablet Dose : 5 mg = 1 tab(s), Oral, BID, synch meds per patient request, # 180 tab(s), 1 Refill(s), Pharmacy: [facility]/pharmacy #[id number], 175, cm, 02/04/25 16:09:00 EDT, Height, kg, 02/04/25 16:09:00 EDT, Dosing Weight Start Date: 02/04/25 Stop Date: 08/03/25 Status: Ordered Medication Dispense Status: Completed Quantity: 180.0 Unit: tab(s) Total Allowed Fills: 2 Fills Dispensed: 0 Start: 04-30-2024 End: 10-27-2024 amLODIPine 5 mg oral tablet Dose : 5 mg = 1 tab(s), Oral, BID, synch meds per patient request, # 180 tab(s), 1 Refill(s), Pharmacy: [facility]/pharmacy #[id number], 177, cm, 04/30/24 16:13:00 EDT, Height, kg, 04/30/24 16:13:00 EDT, Dosing Weight Start Date: 04/30/24 Stop Date: 10/27/24 Status: Ordered aspirin 81 mg oral tablet (2 sources) Platelet Aggregation Inhibitor, Nonsteroidal Anti-inflammatory Drug Start: 04-03-2019 take 1 dose by mouth once daily aspirin Dose : 81 mg =, Oral, qDay Start Date: 04/03/19 Status: Ordered Medication Dispense Status: Completed Total Allowed Fills: 1 Fills Dispensed: 0 clopidogrel 75 mg oral tablet (2 sources) [id number] Platelet Inhibitor Start: 02-04-2025 End: 08-03-2025 Plavix 75 mg oral tablet Dose : 75 mg = 1 tab(s), Oral, Daily, synch meds per patient request, # 90 tab(s), 1 Refill(s), Pharmacy: [facility]/pharmacy #[id number], 175, cm, 02/04/25 16:09:00 EDT, Height, kg, 02/04/25 16:09:00 EDT, Dosing Weight Start Date: 02/04/25 Stop Date: 08/03/25 Status: Ordered Medication Dispense Status: Completed Quantity: 90.0 Unit: tab(s) Total Allowed Fills: 2 Fills Dispensed: 0 Start: 04-30-2024 End: 10-27-2024 Plavix 75 mg oral tablet Dos e : 75 mg = 1 tab(s), Oral, Daily, synch meds per patient request, # 90 tab(s), 1 Refill(s), Pharmacy: [facility]/pharmacy #[id number], 177, cm, 04/30/24 16:13:00 EDT, Height, kg, 04/30/24 16:13:00 EDT, Dosing Weight Start Date: 04/30/24 Stop Date: 10/27/24 Status: Ordered herbal/nutritional product (1 source) Start: 02-04-2025 herbal/nutritional product Policosanol, 0 Refill(s) Start Date: 02/04/25 Status: Ordered Medication Dispense Status: Completed Total Allowed Fills: 1 Fills Dispensed: 0 meloxicam 7.5 mg oral tablet (2 sources) Nonsteroidal Anti-inflammator y Drug Start: 02-04-2025 take 1 tablet by mouth once daily meloxicam 7.5 mg oral tablet See Instructions, TAKE 1 TABLET BY MOUTH EVERY DAY; synch meds per pateint request, # 90 tab(s), 0 Refill(s), Pharmacy: [facility]/pharmacy #[id number], 175, cm, 02/04/25 16:09:00 EDT, Height, kg, 02/04/25 16:09:00 EDT, Dosing Weight Start Date: 02/04/25 Status: Ordered Medication Dispense Status: Completed Quantity: 90.0 Unit: tab(s) Total Allowed Fills: 1 Fills Dispensed: 0 Start: 04-30-2024 take 1 tablet by ema th once daily meloxicam 7.5 mg oral tablet See Instructions, TAKE 1 TABLET BY MOUTH EVERY DAY; synch meds per pateint request, # 90 tab(s), 1 Refill(s), [id number], 177, cm, 04/30/24 16:13:00 EDT, Height, kg, 04/30/24 16:13:00 EDT, Dosing Weight Start Date: 04/30/24 Status: Ordered Niacin (2 sources) Nicotinic Acid Start: 10-03-2019 niacin Oral, O TC, 0 Refill(s) Start Date: 10/03/19 Status: Ordered Medication Dispense Status: Completed Total Allowed Fills: 1 Fills Dispensed: 0 Start: 10-03-2019 niacin Oral, O TC, 0 Refill(s) Start Date: 10/03/19 Status: Ordered pindolol 5 mg oral tablet (2 sources) beta-Adrenergic Albino Start: 02-04-2025 End: 08-03-2025 pindolol 5 mg oral tablet Dose : 5 mg = 1 tab(s), Oral, BID, synch meds per patient request, # 180 tab(s), 1 Refill(s), Pharmacy: [facility]/pharmacy #[id number], 175, cm, 02/04/25 16:09:00 EDT, Height, kg, 02/04/25 16:09:00 EDT, Dosing Weight Start Date: 02/04/25 Stop Date: 08/03/25 Status: Ordered Medication Dispense Status: Completed Quantity: 180.0 Unit: tab(s) Total Allowed Fills: 2 Fills Dispensed: 0 Start: 04-30-2024 End: 10-27-2024 pindolol 5 mg oral tablet Do se : 5 mg = 1 tab(s), Oral, BID, synch meds per patient request, # 180 tab(s), 1 Refill(s), [id number], 177, cm, 04/30/24 16:13:00 EDT, Height, kg, 04/30/24 16:13:00 EDT, Dosing Weight Start Date: 04/30/24 Stop Date: 10/27/24 Status: Ordered tamsulosin hydrochloride 0.4 mg oral capsule (1 source) alpha-Adrenergic Albino Start: 02-04-2025 tamsu losin 0.4 mg oral capsule Dose : 0.4 mg = 1 cap(s), Oral, qDay, # 30 cap(s), 0 Refill(s), [id number], 175, cm, 02/04/25 16:09:00 EDT, Height, kg, 02/04/25 16:09:00 EDT, Dosing Weight Start Date: 02/04/25 Status: Ordered Medication Dispense Status: Completed Quantity: 30.0 Unit: cap(s) Total Allowed Fills: 1 Fills Dispensed: 0 vardenafil 10 mg oral tablet (1 source) Phosphodiesterase 5 Inhibitor Start: 02-04-2025 End: 08-03-2025 Levitra 10 mg oral tablet Dose : 10 mg = 1 tab(s), Oral, qDay, PRN as needed for erectile dysfunction, # 30 tab(s), 5 Refill(s), Pharmacy: [facility]/pharmacy #[id number], 175, cm, 02/04/25 16:09:00 EDT, Height, kg, 02/04/25 16:09:00 EDT, Dosing Weight Start Date: 02/04/25 Stop Date: 08/03/25 Status: Ordered Medication Dispense Status: Completed Quantity: 30.0 Unit: tab(s) Total Allowed Fills: 6 Fills Dispensed: 0 Completed/Discontinued Medications Medication Drug Class(es) Dates Sig (Normalized) Sig (Original) diazePAM 5 mg oral tablet (2 sources) Benzodiazepine Start: 02-04-2025 End: 05-05-2025 diazePAM 5 mg oral tablet Dose : 5 mg = 1 tab(s), Oral, qDay, PRN as needed for anxiety, fill on or after 02/04/2025, # 30 tab(s), 2 Refill(s), Pharmacy: [facility]/pharmacy #[id number], Panic attacks, 175, cm, 02/04/25 16:09:00 EDT, Height, 90.5, kg, 02/04/25 16:09:00 EDT, Dosing Weight Start Date: 02/04/25 Stop Date: 05/05/25 Status: Ordered Medication Dispense Status: Completed Quantity: 30.0 Unit: tab(s) Total Allowed Fills: 3 Fills Dispensed: 0 Indications: Panic disorder [episodic paroxysmal anxiety]; Start: 04-30-2024 End: 05-30-2024 diazePAM 5 mg oral tablet Do se : 5 mg = 1 tab(s), Oral, qDay, PRN as needed for anxiety, fill on or after 04/30/2024, # 30 tab(s), 0 Refill(s), [id number], Panic attacks, 177, cm, 04/30/24 16:13:00 EDT, Height, 95.6, kg, 04/30/24 16:13:00 EDT, Dosing Weight Start Date: 04/30/24 Stop Date: 05/30/24 Status: Ordered Problems Problem Classification Problem Date Documented Date Episodic/Chronic Acute myocardial infarction (1 source) Non-ST elevation (NSTEMI) myocardial infarction; Translations: [I21.4 - Non-ST elevation (NSTEMI) myocardial infarction] Onset: 8 Chronic Anxiety disorders (7 sources) Anxiety; Translations: [Panic attack] 10-03-2019 Chronic Wray (2 sources) Burn 08-27-2015 Episodic Chronic kidney disease (2 sources) Chronic kidney disease stage 3A ; Translations: [Chronic kidney disease, stage 3a] Chronic Coronary atherosclerosis and other heart disease (3 sources) Atherosclerotic heart disease of [place] coronary artery with unstable angina pectoris; Translations: [Coronary arteriosclerosis] Onset: 8 10-03-2019 Chronic Coronary atherosclerosis and other heart disease (2 sources) Stented coronary artery 10-03-2019 Episodic Diabetes mellitus without complication (2 sources) Prediabetes; Translations: [Prediabetes] Episodic Essential hypertension (1 source) Essential (primary) hypertension; Translations: [I10 - Essential (primary) hypertension] Onset: 8 Chronic Genitourinary symptoms and ill-defined conditions (2 sources) Nocturia 09-15-2020 Episodic Hyperplasia of prostate (1 source) Benign prostatic hyperplasia 02-04-2025 Chronic Hypertension with complications and secondary hypertension (2 sources) 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; Translations: [Hypertensive heart and chronic kidney disease without heart failure, with stage 1 through stage 4 chronic kidney disease, or unspecified chronic kidney disease] Chronic Mood disorders (2 sources) 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 Nonspecific chest pain (1 source) Chest pain, unspecified; Translations: [R07.9 - Chest pain, unspecified] Onset: 8 Episodic Osteoarthritis (2 sources) Osteoarthritis 10-03-2019 Chronic Other connective tissue disease (2 sources) Myalgia caused by statin 03-17-2023 Episodic Other male genital disorders (1 source) Impotence 02-04-2025 Chronic Other nutritional; endocrine; and metabolic disorders (2 sources) Body mass index 30+ - obesity 04-30-2024 Chronic Other nutritional; endocrine; and metabolic disorders (1 source) Obesity 09-23-2022 Chronic Other screening for suspected conditions (not mental disorders or infectious disease) (5 sources) Abnormal electrocardiogram [ECG] [EKG]; Translations: [Viral screening status] Onset: 8 09-23-2022 Episodic Other upper respiratory disease (2 sources) Rhinitis medicamentosa 09-23-2022 Chronic Other upper respiratory disease (2 sources) Congestion of nasal sinus 10-03-2019 Episodic Residual codes; unclassified (2 sources) Immunization due 03-17-2023 Episodic Residual codes; unclassified (2 sources) Screening due 09-29-2023 Episodic Screening and history of mental health and substance abuse codes (2 sources) Ex-smoker 03-17-2023 Episodic Comment on above: quit 1987 Unclassified (6 sources) Patient encounter status 09-23-2022 Unclassified (2 sources) Statin not tolerated (context-dependent category) 09-15-2020 Viral infection (2 sources) Disease caused by 2019-nCoV 07-20-2023 Results Test Name Value Interpretation Reference Range Facility .Auto Diffon 05-24-2025 Basophil, Absolute 0.1 10 3/mcL Normal 0.0-0.3 [facility] Comment on above: Performed By: #### A 1C, GFR, VIDH, CMP, ADIFF, TSH, ANEU, LIPID, CBC, PSA, FT4 #### [address] [address] #### PTH #### [address] [address] Basophils/100 WBC (Bld) 1.0 % Normal 0.0-2.5 [facility] Comment on above: Performed By: #### A 1C, GFR, VIDH, CMP, ADIFF, TSH, ANEU, LIPID, CBC, PSA, FT4 #### [address] [address] #### PTH #### [address] [address] Eosinophil, Absolute 0.2 10 3/mcL Normal 0.0-0.7 [facility] Comment on above: Performed By: #### A 1C, GFR, VIDH, CMP, ADIFF, TSH, ANEU, LIPID, CBC, PSA, FT4 #### [address] [address] #### PTH #### [address] [address] Eosinophils/100 WBC (Bld) 3.2 % Normal 0.0-6.0 [facility] Comment on above: Performed By: #### A 1C, GFR, VIDH, CMP, ADIFF, TSH, ANEU, LIPID, CBC, PSA, FT4 #### [address] [address] #### PTH #### [address] [address] Lymphocyte, Absolute 2.4 10 3/mcL Normal 0.9-4.3 [facility] Comment on above: Performed By: #### A 1C, GFR, VIDH, CMP, ADIFF, TSH, ANEU, LIPID, CBC, PSA, FT4 #### [address] [address] #### PTH #### [address] [address] Lymphocytes/100 WBC (Bld) 35.6 % Normal 20.0-40.0 [facility] Comment on above: Performed By: #### A 1C, GFR, VIDH, CMP, ADIFF, TSH, ANEU, LIPID, CBC, PSA, FT4 #### [place] [address] #### PTH #### [address] [address] Monocyte, Absolute 0.8 10 3/mcL Normal 0.1-1.4 [facility] Comment on above: Performed By: #### A 1C, GFR, VIDH, CMP, ADIFF, TSH, ANEU, LIPID, CBC, PSA, FT4 #### [address] [address] #### PTH #### [address] [address] Monocytes/100 WBC (Bld) 11.9 % Normal 2.0-13.0 [facility] Comment on above: Performed By: #### A 1C, GFR, VIDH, CMP, ADIFF, TSH, ANEU, LIPID, CBC, PSA, FT4 #### [address] [address] #### PTH #### [address] [address] Neutrophils/100 WBC (Bld) 48.3 % Low 50.0-75.0 [facility] Comment on above: Performed By: #### A 1C, GFR, VIDH, CMP, ADIFF, TSH, ANEU, LIPID, CBC, PSA, FT4 #### [address] [address] #### PTH #### [address] [address] .GFRon 05-24-2025 Estimated Glomerular Filtration Rate 64 ml/min/1.73sqm Normal [facility] Comment on above: Result Comment: Stages of Chronic Kidney Disease (CKD) Stage Description eGFR(ml/min/1.73 sq.m.) CKD 1 Normal kidney function or >=90 normal kindney function with possible kidney damage (ex. Proteinuria) CKD 2 Kidney damage with mild loss 60-89 of kidney function CKD 3a Mild to moderate loss of kidney 45-59 function CKD 3b Moderate to severe loss of 30-44 of kindey function CKD 4 Severe loss of kidney function 15-29 CKD 5 Kidney failure <15 Note: (go live 2024) the eGFR calculation was updated to the 2020 CKD-EPI creatinine equation without a race factor to calculate the eGFR results. Performed By: #### A 1C, GFR, VIDH, CMP, ADIFF, TSH, ANEU, LIPID, CBC, PSA, FT4 #### [place] [address] #### PTH #### [place] [address] .NEUABSon 05-24-2025 Neutrophil, Absolute 3.2 10 3/mcL Normal 2.3-8.1 [facility] Comment on above: Performed By: #### A 1C, GFR, VIDH, CMP, ADIFF, TSH, ANEU, LIPID, CBC, PSA, FT4 #### [address] [address] #### PTH #### [place] [address] A1Con 05-24-2025 Glucose [Mass/Vol] 140 mg/dL Normal [facility] Comment on above: Result Comment: Carmina mated Average Glucose calculated by equation ((28.7xA1C)-46.7) Estimated average glucose (eAG) is a calculated value from Hemoglobin A1C and is specialty sales representative of the average blood glucose level in the last 2-3 month period. Normal range: less than 114 mg/dL Performed By: #### A 1C, GFR, VIDH, CMP, ADIFF, TSH, ANEU, LIPID, CBC, PSA, FT4 #### [address] [address] #### PTH #### [place] [address] HbA1c (Bld) [Mass fraction] 6.5 % High 4.3-6.4 [facility] Comment on above: Performed By: #### A 1C, GFR, VIDH, CMP, ADIFF, TSH, ANEU, LIPID, CBC, PSA, FT4 #### [place] [address] #### PTH #### [place] [address] CBCon 05-24-2025 Erythrocyte distribution width (RBC) [Ratio] 15.1 % Normal 11.5-15.5 [facility] Comment on above: Performed By: #### A 1C, GFR, VIDH, CMP, ADIFF, TSH, ANEU, LIPID, CBC, PSA, FT4 #### [place] [address] #### PTH #### [place] [address] Hematocrit (Bld) [Volume fraction] 42.1 % Normal 40.0-52.0 [facility] Comment on above: Performed By: #### A 1C, GFR, VIDH, CMP, ADIFF, TSH, ANEU, LIPID, CBC, PSA, FT4 #### [place] [address] #### PTH #### [place] [address] Hgb 13.9 G/dL Normal 13.0-17.5 [facility] Comment on above: Performed By: #### A 1C, GFR, VIDH, CMP, ADIFF, TSH, ANEU, LIPID, CBC, PSA, FT4 #### [place] [address] #### PTH #### [place] [address] MCH (RBC) [Entitic mass] 28.8 pg Normal 27.0-33.0 [facility] Comment on above: Performed By: #### A 1C, GFR, VIDH, CMP, ADIFF, TSH, ANEU, LIPID, CBC, PSA, FT4 #### [place] [address] #### PTH #### [place] [address] MCHC 32.9 G/dL Normal 32.0-36.0 [facility] Comment on above: Performed By: #### A 1C, GFR, VIDH, CMP, ADIFF, TSH, ANEU, LIPID, CBC, PSA, FT4 #### [place] [address] #### PTH #### [place] [address] MCV (RBC) [Entitic vol] 87.6 fL Normal 81.0-100.0 [facility] Comment on above: Performed By: #### A 1C, GFR, VIDH, CMP, ADIFF, TSH, ANEU, LIPID, CBC, PSA, FT4 #### [place] [address] #### PTH #### [place] [address] Platelet 299 10 3/mcL Normal 150-450 [facility] Comment on above: Performed By: #### A 1C, GFR, VIDH, CMP, ADIFF, TSH, ANEU, LIPID, CBC, PSA, FT4 #### [place] [address] #### PTH #### [place] [address] Platelet mean volume (Bld) [Entitic vol] 10.0 fL Normal 6.4-10.5 [facility] Comment on above: Performed By: #### A 1C, GFR, VIDH, CMP, ADIFF, TSH, ANEU, LIPID, CBC, PSA, FT4 #### [place] [address] #### PTH #### [place] [address] RBC 4.81 10 6/mcL Normal 4.50-6.00 [facility] Comment on above: Performed By: #### A 1C, GFR, VIDH, CMP, ADIFF, TSH, ANEU, LIPID, CBC, PSA, FT4 #### [place] [address] #### PTH #### [place] [address] WBC 6.7 10 3/mcL Normal 4.5-10.8 [facility] Comment on above: Performed By: #### A 1C, GFR, VIDH, CMP, ADIFF, TSH, ANEU, LIPID, CBC, PSA, FT4 #### [place] [address] #### PTH #### [place] [address] CMPon 05-24-2025 Albumin Level 3.5 G/dL Normal 3.4-4.8 [facility] Comment on above: Performed By: #### A 1C, GFR, VIDH, CMP, ADIFF, TSH, ANEU, LIPID, CBC, PSA, FT4 #### [place] [address] #### PTH #### [place] [address] Albumin/Globulin [Mass ratio] 1.0 {ratio} Low 1.1-2.5 [facility] Comment on above: Performed By: #### A 1C, GFR, VIDH, CMP, ADIFF, TSH, ANEU, LIPID, CBC, PSA, FT4 #### [place] [address] #### PTH #### [place] [address] ALP [Catalytic activity/Vol] 96 U/L Normal 40-135 [facility] Comment on above: Performed By: #### A 1C, GFR, VIDH, CMP, ADIFF, TSH, ANEU, LIPID, CBC, PSA, FT4 #### [address] [address] #### PTH #### [address] [address] ALT [Catalytic activity/Vol] 17 U/L Normal 16-63 [facility] Comment on above: Performed By: #### A 1C, GFR, VIDH, CMP, ADIFF, TSH, ANEU, LIPID, CBC, PSA, FT4 #### [address] [address] #### PTH #### [address] [address] AST [Catalytic activity/Vol] 16 U/L Normal 10-40 [facility] Comment on above: Performed By: #### A 1C, GFR, VIDH, CMP, ADIFF, TSH, ANEU, LIPID, CBC, PSA, FT4 #### [address] [address] #### PTH #### [address] [address] Bili Total 0.6 mg/dL Normal 0.2-1.0 [facility] Comment on above: Result Comment: Use of this assay is not recommended for patients undergoing treatment with eltrombopag due to the potential for falsely elevated results. Performed By: #### A 1C, GFR, VIDH, CMP, ADIFF, TSH, ANEU, LIPID, CBC, PSA, FT4 #### [address] [address] #### PTH #### [place] [id number] BUN/Creatinine Ratio 20 ratio Normal 7-27 [facility] Comment on above: Performed By: #### A 1C, GFR, VIDH, CMP, ADIFF, TSH, ANEU, LIPID, CBC, PSA, FT4 #### [place] [place] [address] #### PTH #### [address] [address] Calcium [Mass/Vol] 9.1 mg/dL Normal 8.4-10.2 [facility] Comment on above: Performed By: #### A 1C, GFR, VIDH, CMP, ADIFF, TSH, ANEU, LIPID, CBC, PSA, FT4 #### [address] [address] #### PTH #### [address] [address] Chloride [Moles/Vol] 105 mmol/L Normal 98-107 [facility] Comment on above: Performed By: #### A 1C, GFR, VIDH, CMP, ADIFF, TSH, ANEU, LIPID, CBC, PSA, FT4 #### [address] [address] #### PTH #### [place] [address] CO2 [Moles/Vol] 31 mmol/L Normal 23-31 [facility] Comment on above: Performed By: #### A 1C, GFR, VIDH, CMP, ADIFF, TSH, ANEU, LIPID, CBC, PSA, FT4 #### [address] [address] #### PTH #### [address] [address] Creatinine [Mass/Vol] 1.17 mg/dL Normal 0.67-1.17 [facility] Comment on above: Performed By: #### A 1C, GFR, VIDH, CMP, ADIFF, TSH, ANEU, LIPID, CBC, PSA, FT4 #### [address] [address] #### PTH #### [place] [address] Electrolyte Balance 5.0 mEq/L Normal 4.0-15.0 [facility] Comment on above: Performed By: #### A 1C, GFR, VIDH, CMP, ADIFF, TSH, ANEU, LIPID, CBC, PSA, FT4 #### [address] [address] #### PTH #### [address] [address] Globulin 3.6 G/dL Normal 2.7-4.4 [facility] Comment on above: Performed By: #### A 1C, GFR, VIDH, CMP, ADIFF, TSH, ANEU, LIPID, CBC, PSA, FT4 #### [address] [address] #### PTH #### [address] [address] Glucose [Mass/Vol] 144 mg/dL High 83-110 [facility] Comment on above: Performed By: #### A 1C, GFR, VIDH, CMP, ADIFF, TSH, ANEU, LIPID, CBC, PSA, FT4 #### [address] [address] #### PTH #### [address] [address] Potassium [Moles/Vol] 3.9 mmol/L Normal 3.5-5.1 [facility] Comment on above: Performed By: #### A 1C, GFR, VIDH, CMP, ADIFF, TSH, ANEU, LIPID, CBC, PSA, FT4 #### [address] [address] #### PTH #### [address] [address] Sodium [Moles/Vol] 141 mmol/L Normal 136-145 [facility] Comment on above: Performed By: #### A 1C, GFR, VIDH, CMP, ADIFF, TSH, ANEU, LIPID, CBC, PSA, FT4 #### [address] [address] #### PTH #### [address] [address] Total Protein 7.1 G/dL Normal 6.4-8.2 [facility] Comment on above: Performed By: #### A 1C, GFR, VIDH, CMP, ADIFF, TSH, ANEU, LIPID, CBC, PSA, FT4 #### [address] [address] #### PTH #### [address] [address] Urea nitrogen [Mass/Vol] 23 mg/dL High 7-18 [facility] Comment on above: Performed By: #### A 1C, GFR, VIDH, CMP, ADIFF, TSH, ANEU, LIPID, CBC, PSA, FT4 #### [address] [address] #### PTH #### [address] [address] FT4on 05-24-2025 Free T4 [Mass/Vol] 0.81 ng/dL Normal 0.76-1.46 [facility] Comment on above: Performed By: #### A 1C, GFR, VIDH, CMP, ADIFF, TSH, ANEU, LIPID, CBC, PSA, FT4 #### [address] [address] #### PTH #### [address] [address] LABORATORYOrdered By: SYSTEM SYSTEM on 05-24-2025 25-hydroxyvitamin D3 [Mass/Vol] 32.7 ng/mL Invalid Interpretation Code AO ADM SS Comment on above: Interpretive Data: I nterpretive Values Based on Total 25(OH) Vitamin D: Deficient <20 ng/mL Insufficient 20 - <30 ng/mL Sufficient 30-100 ng/mL Albumin BCP dye [Mass/Vol] 3.5 G/dL Normal 3.4 - 4.8 G/dL AO ADM SS Albumin/Globulin [Mass ratio] 1.0 {ratio} Low 1.1 - 2.5 ratio AO ADM SS ALP [Catalytic activity/Vol] 96 U/L Normal 40 - 135 U/L AO ADM SS ALT With P-5'-P [Catalytic activity/Vol] 17 U/L Normal 16 - 63 U/L AO ADM SS AST With P-5'-P [Catalytic activity/Vol] 16 U/L Normal 10 - 40 U/L AO ADM SS Basophils (Bld) [#/Vol] 0.1 103/mcL Normal 0.0 - 0.3 10^3/mcL AO Workflow SS Basophils/100 WBC (Bld) 1.0 % Normal 0.0 - 2.5 % AO Workflow SS Bilirubin [Mass/Vol] 0.6 mg/dL Normal 0.2 - 1.0 mg/dL AO ADM SS Comment on above: Interpretive Data: U se of this assay is not recommended for patients undergoing treatment with eltrombopag due to the potential for falsely elevated results. Calcium [Mass/Vol] 9.1 mg/dL Normal 8.4 - 10. 2 mg/dL AO ADM SS Chloride [Moles/Vol] 105 mmol/L Normal 98 - 107 mmol/L AO ADM SS CO2 [Moles/Vol] 31 mmol/L Normal 23 - 31 mmol/L AO ADM SS Creatinine [Mass/Vol] 1.17 mg/dL Normal 0.67 - 1.17 mg/dL AO ADM SS Electrolyte Balance 5.0 mEq/L Normal 4.0 - 15 .0 mEq/L AO ADM SS Eosinophil, Absolute 0.2 103/mcL Normal 0.0 - 0.7 10^3/mcL AO Workflow SS Eosinophils/100 WBC (Bld) 3.2 % Normal 0.0 - 6.0 % AO Workflow SS Erythrocyte distribution width (RBC) [Ratio] 15.1 % Normal 11.5 - 15.5 % AO Workflow SS Free T4 [Mass/Vol] 0.81 ng/dL Normal 0.76 - 1. 46 ng/dL AO ADM SS Globulin 3.6 G/dL Normal 2.7 - 4.4 G/dL AO ADM SS GLOMERULAR FILTRATION RATE/1.73 SQ M.PREDICTED:ARVRAT: PT:SER/PLAS/BLD:QN: CREATININE-BASED FORMULA (CKD-EPI 2020) 64 ml/min/1.73sqm Invalid Interpretation Code AO Chemistry S Comment on above: Interpretive Data: Stages of Chronic Kidney Disease (CKD) Stage Description eGFR(ml/min/1.73 sq.m.) CKD 1 Normal kidney function or >=90 normal kindney function with possible kidney damage (ex. Proteinuria) CKD 2 Kidney damage with mild loss 60-89 of kidney function CKD 3a Mild to moderate loss of kidney 45-59 function CKD 3b Moderate to severe loss of 30-44 of kindey function CKD 4 Severe loss of kidney function 15-29 CKD 5 Kidney failure <15 Note: (go live 2024) the eGFR calculation was updated to the 2020 CKD-EPI creatinine equation without a race factor to calculate the eGFR results. Glucose [Mass/Vol] 144 mg/dL High 83 - 110 mg/dL AO ADM SS Glucose [Mass/Vol] 140 mg/dL Invalid Interpretation Code AO Chemistry S Comment on above: Interpretive Data: E stimated average glucose (eAG) is a calculated value from Hemoglobin A1C and is specialty sales representative of the average blood glucose level in the last 2-3 month period. Normal range: less than 114 mg/dL HbA1c (Bld) [Mass fraction] 6.5 % High 4.3 - 6.4 % AO ADM SS Hematocrit (Bld) [Volume fraction] 42.1 % Normal 40.0 - 52.0 % AO Workflow SS Hemoglobin (Bld) [Mass/Vol] 13.9 G/dL Normal 13.0 - 17.5 G/dL AO Workflow SS Lymphocytes (Bld) [#/Vol] 2.4 103/mcL Normal 0.9 - 4.3 10^3/mcL AO Workflow SS Lymphocytes/100 WBC (Bld) 35.6 % Normal 20.0 - 40.0 % AO Workflow SS MCH (RBC) [Entitic mass] 28.8 pg Normal 27.0 - 33.0 pg AO Workflow SS MCHC 32.9 G/dL Normal 32.0 - 36.0 G/dL AO Workflow SS MCV (RBC) [Entitic vol] 87.6 fL Normal 81.0 - 100.0 fL AO Workflow SS Monocytes (Bld) [#/Vol] 0.8 103/mcL Normal 0.1 - 1.4 10^3/mcL AO Workflow SS Monocytes/100 WBC (Bld) 11.9 % Normal 2.0 - 13.0 % AO Workflow SS Neutrophils (Bld) [#/Vol] 3.2 103/mcL Normal 2.3 - 8.1 10^3/mcL AO Workflow SS Neutrophils/100 WBC (Bld) 48.3 % Low 50.0 - 75.0 % AO Workflow SS Parathyrin.intact [Mass/Vol] 50.4 pg/mL Normal 18.5 - 88.0 pg/mL AH ADM SS Platelet mean volume (Bld) [Entitic vol] 10.0 fL Normal 6.4 - 10.5 fL AO Workflow SS Platelets (Bld) [#/Vol] 299 103/mcL Normal 150 - 450 10^3/mcL AO Workflow SS Potassium [Moles/Vol] 3.9 mmol/L Normal 3.5 - 5.1 mmol/L AO ADM SS Prostate specific Ag [Mass/Vol] 5.26 ng/mL High 0.00 - 4.00 ng/mL AO ADM SS Protein [Mass/Vol] 7.1 G/dL Normal 6.4 - 8.2 G/dL AO ADM SS RBC (Bld) [#/Vol] 4.81 106/mcL Normal 4.50 - 6.0 0 10^6/mcL AO Workflow SS Sodium [Moles/Vol] 141 mmol/L Normal 136 - 145 mmol/L AO ADM SS TSH Qn 4.80 m[IU]/L High 0.36 - 3.74 mcIU/mL AO ADM SS Urea nitrogen [Mass/Vol] 23 mg/dL High 7 - 18 mg/dL AO ADM SS Urea nitrogen/Creatinine [Mass ratio] 20 ratio Normal 7 - 27 ratio AO ADM SS WBC (Bld) [#/Vol] 6.7 103/mcL Normal 4.5 - 10.8 10^3/mcL AO Workflow SS LABORATORYOrdered By: Lisa Julian on 05-24-2025 Cholesterol [Mass/Vol] 206 mg/dL High 0 - 200 mg/dL AO ADM SS Comment on above: Interpretive Data: C holesterol Reference Interval: Less than 200 Desirable 200-239 Borderline high risk 240 and above High risk Cholesterol in HDL [Mass/Vol] 55 mg/dL Normal 40 - 60 mg/dL AO ADM SS Cholesterol in LDL [Mass/Vol] 134 mg/dL High 0 - 130 mg/dL AO ADM SS Triglyceride [Mass/Vol] 86 mg/dL Normal 0 - 150 mg/dL AO ADM SS Comment on above: Interpretive Data: T riglyceride Reference Interval: Less than 150 Normal 150-199 Borderline high risk 200-499 High risk 500 or higher Very high risk LIPIDon 05-24-2025 Cholesterol [Mass/Vol] 206 mg/dL High 0-200 [facility] Comment on above: Result Comment: Chol esterol Reference Interval: Less than 200 Desirable 200-239 Borderline high risk 240 and above High risk Performed By: #### A 1C, GFR, VIDH, CMP, ADIFF, TSH, ANEU, LIPID, CBC, PSA, FT4 #### [address] [address] #### PTH #### [address] [address] Cholesterol in HDL [Mass/Vol] 55 mg/dL Normal 40-60 [facility] Comment on above: Performed By: #### A 1C, GFR, VIDH, CMP, ADIFF, TSH, ANEU, LIPID, CBC, PSA, FT4 #### [address] [address] #### PTH #### [address] [address] Cholesterol in LDL [Mass/Vol] 134 mg/dL High 0-130 [facility] Comment on above: Performed By: #### A 1C, GFR, VIDH, CMP, ADIFF, TSH, ANEU, LIPID, CBC, PSA, FT4 #### [address] [address] #### PTH #### [address] [address] Triglyceride [Mass/Vol] 86 mg/dL Normal 0-150 [facility] Comment on above: Result Comment: Trig lyceride Reference Interval: Less than 150 Normal 150-199 Borderline high risk 200-499 High risk 500 or higher Very high risk Performed By: #### A 1C, GFR, VIDH, CMP, ADIFF, TSH, ANEU, LIPID, CBC, PSA, FT4 #### [address] [address] #### PTH #### [address] [address] PSAon 05-24-2025 Prostate Specific Antigen 5.26 ng/mL High 0.00-4.00 [facility] Comment on above: Performed By: #### A 1C, GFR, VIDH, CMP, ADIFF, TSH, ANEU, LIPID, CBC, PSA, FT4 #### [address] [address] #### PTH #### [address] [address] PTHon 05-24-2025 PTH, Intact 50.4 pg/mL Normal 18.5-88.0 [facility] Comment on above: Performed By: #### A 1C, GFR, VIDH, CMP, ADIFF, TSH, ANEU, LIPID, CBC, PSA, FT4 #### [address] [address] #### PTH #### [place] [address] TSHon 05-24-2025 TSH Qn 4.80 m[IU]/L High 0.36-3.74 [facility] Comment on above: Performed By: #### A 1C, GFR, VIDH, CMP, ADIFF, TSH, ANEU, LIPID, CBC, PSA, FT4 #### [address] [address] #### PTH #### [place] [address] VIDHon 05-24-2025 Vit. D 25-Hydroxy 32.7 ng/mL Normal [facility] Comment on above: Result Comment: Inte rpretive Values Based on Total 25(OH) Vitamin D: Deficient <20 ng/mL Insufficient 20 - <30 ng/mL Sufficient 30-100 ng/mL Performed By: #### A 1C, GFR, VIDH, CMP, ADIFF, TSH, ANEU, LIPID, CBC, PSA, FT4 #### [address] [address] #### PTH #### [address] [address] US AORTAon 06-12-2024 US AORTA ORIGINAL EXAMINATION: RETROPERITONEAL ULTRASOUND OF THE AORTA 06/11/2024 TECHNIQUE: Duplex ultrasound using B-mode/stone scaled imaging, Doppler spectral analysis and color flow Doppler was obtained of the aorta. COMPARISON: None HISTORY: ORDERING SYSTEM PROVIDED HISTORY: Reason for Exam: screen for AAA FINDINGS: Aorta: Proximal aorta measures 2.5 x 2.9 cm. Mid aorta measures 2.2 x 2.3 cm. Distal aorta measures 1.5 x 2.0 cm. Iliacs: Right common iliac artery measures 0.9 x 1.8 cm. Left common iliac artery measures 1.1 x 1.7 cm. IMPRESSION: No evidence for abdominal aortic aneurysm. Interpreted by: Adonis Elizabeth DO Preliminary Report By: Adonis Elizabeth DO Electronically signed By Adonis Elizabeth DO Dictated Date: 06/12/2024 2:58:09 PM Prelim Date: 06/12/2024 3:02:50 PM Sign Date: 06/12/2024 3:02:50 PM Ordering Provider: DEIDRE Zepeda [facility] .Auto Diffon 06-11-2024 Basophil, Absolute 0.1 10 3/mcL Normal 0.0-0.2 [facility] Comment on above: Performed By: #### A 1C, GFR, VIDH, CMP, ADIFF, TSH, ANEU, LIPID, CBC, PSA, FT4 #### [address] [address] #### PTH #### [address] [address] Basophils/100 WBC (Bld) 0.9 % Normal 0.0-2.5 [facility] Comment on above: Performed By: #### A 1C, GFR, VIDH, CMP, ADIFF, TSH, ANEU, LIPID, CBC, PSA, FT4 #### [address] [address] #### PTH #### [address] [address] Eosinophil, Absolute 0.2 10 3/mcL Normal 0.0-0.7 [facility] Comment on above: Performed By: #### A 1C, GFR, VIDH, CMP, ADIFF, TSH, ANEU, LIPID, CBC, PSA, FT4 #### [address] [address] #### PTH #### [address] [address] Eosinophils/100 WBC (Bld) 1.9 % Normal 0.0-7.0 [facility] Comment on above: Performed By: #### A 1C, GFR, VIDH, CMP, ADIFF, TSH, ANEU, LIPID, CBC, PSA, FT4 #### [address] [address] #### PTH #### [address] [address] Lymphocyte, Absolute 1.7 10 3/mcL Normal 0.9-4.3 [facility] Comment on above: Performed By: #### A 1C, GFR, VIDH, CMP, ADIFF, TSH, ANEU, LIPID, CBC, PSA, FT4 #### [address] [address] #### PTH #### [address] [address] Lymphocytes/100 WBC (Bld) 21.7 % Normal 20.0-40.0 [facility] Comment on above: Performed By: #### A 1C, GFR, VIDH, CMP, ADIFF, TSH, ANEU, LIPID, CBC, PSA, FT4 #### [place] [address] #### PTH #### [address] [address] Monocyte, Absolute 0.8 10 3/mcL Normal 0.1-1.4 [facility] Comment on above: Performed By: #### A 1C, GFR, VIDH, CMP, ADIFF, TSH, ANEU, LIPID, CBC, PSA, FT4 #### [place] [address] #### PTH #### [address] [address] Monocytes/100 WBC (Bld) 9.5 % Normal 2.0-13.0 [facility] Comment on above: Performed By: #### A 1C, GFR, VIDH, CMP, ADIFF, TSH, ANEU, LIPID, CBC, PSA, FT4 #### [address] [address] #### PTH #### [address] [address] Neutrophils/100 WBC (Bld) 66.0 % Normal 50.0-75.0 [facility] Comment on above: Performed By: #### A 1C, GFR, VIDH, CMP, ADIFF, TSH, ANEU, LIPID, CBC, PSA, FT4 #### [address] [address] #### PTH #### [address] [address] .GFRon 06-11-2024 GFR Non- 46 ml/min/1.73sqm Normal [facility] Comment on above: Result Comment: GFR Population mean for , Non- Americans Ages 20-29 = 116 mL/min/1.73 sq.m. Ages 30-39 = 107 mL/min/1.73 sq.m. Ages 40-49 = 99 mL/min/1.73 sq.m. Ages 50-59 = 93 mL/min/1.73 sq.m. Ages 60-69 = 85 mL/min/1.73 sq.m. Ages 70+ = 75 mL/min/1.73 sq.m. Chronic Kidney Disease: Less than 60 mL/min/1.73 square meters End Stage Renal Disease: Less than 15 mL/min/1.73 square meters Performed By: #### A 1C, GFR, VIDH, CMP, ADIFF, TSH, ANEU, LIPID, CBC, PSA, FT4 #### [address] [address] #### PTH #### [address] [address] GFR 56 ml/min/1.73sqm [facility] Comment on above: Result Comment: GFR Population mean for , Non- Americans Ages 20-29 = 116 mL/min/1.73 sq.m. Ages 30-39 = 107 mL/min/1.73 sq.m. Ages 40-49 = 99 mL/min/1.73 sq.m. Ages 50-59 = 93 mL/min/1.73 sq.m. Ages 60-69 = 85 mL/min/1.73 sq.m. Ages 70+ = 75 mL/min/1.73 sq.m. Chronic Kidney Disease: Less than 60 mL/min/1.73 square meters End Stage Renal Disease: Less than 15 mL/min/1.73 square meters Performed By: #### A 1C, GFR, VIDH, CMP, ADIFF, TSH, ANEU, LIPID, CBC, PSA, FT4 #### [address] [address] #### PTH #### [place] [address] .NEUABSon 06-11-2024 Neutrophil, Absolute 5.2 10 3/mcL Normal 2.3-8.1 [facility] Comment on above: Performed By: #### A 1C, GFR, VIDH, CMP, ADIFF, TSH, ANEU, LIPID, CBC, PSA, FT4 #### [place] [address] #### PTH #### [place] [address] A1Con 06-11-2024 Glucose [Mass/Vol] 131 mg/dL Normal [facility] Comment on above: Result Comment: Carmina mated Average Glucose calculated by equation ((28.7xA1C)-46.7) Estimated average glucose (eAG) is a calculated value from Hemoglobin A1C and is specialty sales representative of the average blood glucose level in the last 2-3 month period. Normal range: less than 114 mg/dL Performed By: #### A 1C, GFR, VIDH, CMP, ADIFF, TSH, ANEU, LIPID, CBC, PSA, FT4 #### [place] [address] #### PTH #### [place] [address] HbA1c (Bld) [Mass fraction] 6.2 % Normal 4.3-6.4 [facility] Comment on above: Performed By: #### A 1C, GFR, VIDH, CMP, ADIFF, TSH, ANEU, LIPID, CBC, PSA, FT4 #### [place] [address] #### PTH #### [place] [address] CBCon 06-11-2024 Erythrocyte distribution width (RBC) [Ratio] 14.3 % Normal 11.5-15.5 [facility] Comment on above: Performed By: #### A 1C, GFR, VIDH, CMP, ADIFF, TSH, ANEU, LIPID, CBC, PSA, FT4 #### [address] [address] #### PTH #### [place] [address] Hematocrit (Bld) [Volume fraction] 42.5 % Normal 40.0-52.0 [facility] Comment on above: Performed By: #### A 1C, GFR, VIDH, CMP, ADIFF, TSH, ANEU, LIPID, CBC, PSA, FT4 #### [place] [address] #### PTH #### [place] [address] Hgb 14.0 G/dL Normal 13.0-17.5 [facility] Comment on above: Performed By: #### A 1C, GFR, VIDH, CMP, ADIFF, TSH, ANEU, LIPID, CBC, PSA, FT4 #### [place] [address] #### PTH #### [place] [address] MCH (RBC) [Entitic mass] 29.5 pg Normal 27.0-33.0 [facility] Comment on above: Performed By: #### A 1C, GFR, VIDH, CMP, ADIFF, TSH, ANEU, LIPID, CBC, PSA, FT4 #### [place] [address] #### PTH #### [place] [address] MCHC 32.9 G/dL Normal 32.0-36.0 [facility] Comment on above: Performed By: #### A 1C, GFR, VIDH, CMP, ADIFF, TSH, ANEU, LIPID, CBC, PSA, FT4 #### [place] [address] #### PTH #### [place] [address] MCV (RBC) [Entitic vol] 89.9 fL Normal 81.0-100.0 [facility] Comment on above: Performed By: #### A 1C, GFR, VIDH, CMP, ADIFF, TSH, ANEU, LIPID, CBC, PSA, FT4 #### [place] [address] #### PTH #### [place] [address] Platelet 312 10 3/mcL Normal 150-450 [facility] Comment on above: Performed By: #### A 1C, GFR, VIDH, CMP, ADIFF, TSH, ANEU, LIPID, CBC, PSA, FT4 #### [place] [address] #### PTH #### [place] [address] Platelet mean volume (Bld) [Entitic vol] 10.0 fL Normal 6.4-10.5 [facility] Comment on above: Performed By: #### A 1C, GFR, VIDH, CMP, ADIFF, TSH, ANEU, LIPID, CBC, PSA, FT4 #### [place] [address] #### PTH #### [place] [address] RBC 4.73 10 6/mcL Normal 4.50-6.00 [facility] Comment on above: Performed By: #### A 1C, GFR, VIDH, CMP, ADIFF, TSH, ANEU, LIPID, CBC, PSA, FT4 #### [place] [address] #### PTH #### [place] [address] WBC 8.0 10 3/mcL Normal 4.5-10.8 [facility] Comment on above: Performed By: #### A 1C, GFR, VIDH, CMP, ADIFF, TSH, ANEU, LIPID, CBC, PSA, FT4 #### [address] [address] #### PTH #### [address] [address] [facility] Albumin Level 3.6 G/dL Normal 3.4-4.8 [facility] Comment on above: Performed By: #### A 1C, GFR, VIDH, CMP, ADIFF, TSH, ANEU, LIPID, CBC, PSA, FT4 #### [address] [address] #### PTH #### [address] [address] Albumin/Globulin [Mass ratio] 1.1 {ratio} Normal 1.1-2.5 [facility] Comment on above: Performed By: #### A 1C, GFR, VIDH, CMP, ADIFF, TSH, ANEU, LIPID, CBC, PSA, FT4 #### [address] [address] #### PTH #### [address] [address] ALP [Catalytic activity/Vol] 108 U/L Normal 40-135 [facility] Comment on above: Performed By: #### A 1C, GFR, VIDH, CMP, ADIFF, TSH, ANEU, LIPID, CBC, PSA, FT4 #### [address] [address] #### PTH #### [address] [address] ALT [Catalytic activity/Vol] 26 U/L Normal 16-63 [facility] Comment on above: Performed By: #### A 1C, GFR, VIDH, CMP, ADIFF, TSH, ANEU, LIPID, CBC, PSA, FT4 #### [address] [address] #### PTH #### [address] [address] AST [Catalytic activity/Vol] 14 U/L Normal 10-40 [facility] Comment on above: Performed By: #### A 1C, GFR, VIDH, CMP, ADIFF, TSH, ANEU, LIPID, CBC, PSA, FT4 #### [address] [address] #### PTH #### [address] [address] Bili Total 0.5 mg/dL Normal 0.2-1.0 [facility] Comment on above: Result Comment: Use of this assay is not recommended for patients undergoing treatment with eltrombopag due to the potential for falsely elevated results. Performed By: #### A 1C, GFR, VIDH, CMP, ADIFF, TSH, ANEU, LIPID, CBC, PSA, FT4 #### [place] [address] #### PTH #### [place] [id number] BUN/Creatinine Ratio 11 ratio Normal 7-27 [facility] Comment on above: Performed By: #### A 1C, GFR, VIDH, CMP, ADIFF, TSH, ANEU, LIPID, CBC, PSA, FT4 #### [place] [address] #### PTH #### [address] [address] Calcium [Mass/Vol] 9.3 mg/dL Normal 8.4-10.2 [facility] Comment on above: Performed By: #### A 1C, GFR, VIDH, CMP, ADIFF, TSH, ANEU, LIPID, CBC, PSA, FT4 #### [address] [address] #### PTH #### [address] [address] Chloride [Moles/Vol] 106 mmol/L Normal 98-107 [facility] Comment on above: Performed By: #### A 1C, GFR, VIDH, CMP, ADIFF, TSH, ANEU, LIPID, CBC, PSA, FT4 #### [place] [address] #### PTH #### [address] [address] CO2 [Moles/Vol] 33 mmol/L High 23-31 [facility] Comment on above: Performed By: #### A 1C, GFR, VIDH, CMP, ADIFF, TSH, ANEU, LIPID, CBC, PSA, FT4 #### [place] [address] #### PTH #### [place] [address] Creatinine [Mass/Vol] 1.47 mg/dL High 0.70-1.30 [facility] Comment on above: Result Comment: Test ing performed on [employer] Dimension EXL analyzer using a modified kinetic Agustina technique. Performed By: #### A 1C, GFR, VIDH, CMP, ADIFF, TSH, ANEU, LIPID, CBC, PSA, FT4 #### [place] [address] #### PTH #### [place] [address] Electrolyte Balance 4.0 mEq/L Normal 4.0-15.0 [facility] Comment on above: Performed By: #### A 1C, GFR, VIDH, CMP, ADIFF, TSH, ANEU, LIPID, CBC, PSA, FT4 #### [place] [address] #### PTH #### [place] [address] Globulin 3.3 G/dL Normal [facility] Comment on above: Performed By: #### A 1C, GFR, VIDH, CMP, ADIFF, TSH, ANEU, LIPID, CBC, PSA, FT4 #### [place] [address] #### PTH #### [place] [address] Glucose [Mass/Vol] 120 mg/dL High 83-110 [facility] Comment on above: Performed By: #### A 1C, GFR, VIDH, CMP, ADIFF, TSH, ANEU, LIPID, CBC, PSA, FT4 #### [address] [address] #### PTH #### [place] [address] Potassium [Moles/Vol] 4.4 mmol/L Normal 3.5-5.1 [facility] Comment on above: Performed By: #### A 1C, GFR, VIDH, CMP, ADIFF, TSH, ANEU, LIPID, CBC, PSA, FT4 #### [place] [address] #### PTH #### [place] [address] Sodium [Moles/Vol] 143 mmol/L Normal 136-145 [facility] Comment on above: Performed By: #### A 1C, GFR, VIDH, CMP, ADIFF, TSH, ANEU, LIPID, CBC, PSA, FT4 #### [place] [address] #### PTH #### [place] [address] Total Protein 6.9 G/dL Normal 6.4-8.2 [facility] Comment on above: Performed By: #### A 1C, GFR, VIDH, CMP, ADIFF, TSH, ANEU, LIPID, CBC, PSA, FT4 #### [place] [address] #### PTH #### [place] [address] Urea nitrogen [Mass/Vol] 16 mg/dL Normal 7-18 [facility] Comment on above: Performed By: #### A 1C, GFR, VIDH, CMP, ADIFF, TSH, ANEU, LIPID, CBC, PSA, FT4 #### [place] [address] #### PTH #### [place] [address] HCVon 06-11-2024 Hep C Ab Non-Reactive Normal Non-Reactiv e [facility] Comment on above: Performed By: #### A 1C, GFR, VIDH, CMP, ADIFF, TSH, ANEU, LIPID, CBC, PSA, FT4 #### [address] [address] #### PTH #### [address] [address] Hep C Ab Int Normal [facility] Comment on above: Result Comment: Nonr eactive: Samples with a value < 0.80 are considered nonreactive (negative) for antibodies to HCV. A negative test result does not exclude the possibility of exposure to or infection with HCV. HCV antibodies may be undetectable in some stages of the infection and in some clinical conditions. See Interp Performed By: #### A 1C, GFR, VIDH, CMP, ADIFF, TSH, ANEU, LIPID, CBC, PSA, FT4 #### [address] [address] #### PTH #### [address] [address] LABORATORYOrdered By: SYSTEM SYSTEM on 06-11-2024 Albumin BCP dye [Mass/Vol] 3.6 G/dL Normal 3.4 - 4.8 G/dL AO ADM SS Albumin/Globulin [Mass ratio] 1.1 {ratio} Normal 1.1 - 2.5 ratio AO ADM SS ALP [Catalytic activity/Vol] 108 U/L Normal 40 - 135 U/L AO ADM SS ALT With P-5'-P [Catalytic activity/Vol] 26 U/L Normal 16 - 63 U/L AO ADM SS AST With P-5'-P [Catalytic activity/Vol] 14 U/L Normal 10 - 40 U/L AO ADM SS Basophils (Bld) [#/Vol] 0.1 103/mcL Normal 0.0 - 0.2 10^3/mcL AO Workflow SS Basophils/100 WBC (Bld) 0.9 % Normal 0.0 - 2.5 % AO Workflow SS Bilirubin [Mass/Vol] 0.5 mg/dL Normal 0.2 - 1.0 mg/dL AO ADM SS Comment on above: Interpretive Data: U se of this assay is not recommended for patients undergoing treatment with eltrombopag due to the potential for falsely elevated results. Calcium [Mass/Vol] 9.3 mg/dL Normal 8.4 - 10. 2 mg/dL AO ADM SS Chloride [Moles/Vol] 106 mmol/L Normal 98 - 107 mmol/L AO ADM SS CO2 [Moles/Vol] 33 mmol/L High 23 - 31 mmol/L AO ADM SS Creatinine [Mass/Vol] 1.47 mg/dL High 0.70 - 1.30 mg/dL AO ADM SS Comment on above: Interpretive Data: T esting performed on Siemens Dimension EXL analyzer using a modified kinetic Agustina technique. Electrolyte Balance 4.0 mEq/L Normal 4.0 - 15 .0 mEq/L AO ADM SS Eosinophil, Absolute 0.2 103/mcL Normal 0.0 - 0.7 10^3/mcL AO Workflow SS Eosinophils/100 WBC (Bld) 1.9 % Normal 0.0 - 7.0 % AO Workflow SS Erythrocyte distribution width (RBC) [Ratio] 14.3 % Normal 11.5 - 15.5 % AO Workflow SS GFR/1.73 sq M.predicted among blacks MDRD (S/P/Bld) [Vol rate/Area] 56 ml/min/1.73sqm Invalid Interpretation Code AO Chemistry S Comment on above: Interpretive Data: GFR Population mean for , Non- Americans Ages 20-29 = 116 mL/min/1.73 sq.m. Ages 30-39 = 107 mL/min/1.73 sq.m. Ages 40-49 = 99 mL/min/1.73 sq.m. Ages 50-59 = 93 mL/min/1.73 sq.m. Ages 60-69 = 85 mL/min/1.73 sq.m. Ages 70+ = 75 mL/min/1.73 sq.m. Chronic Kidney Disease: Less than 60 mL/min/1.73 square meters End Stage Renal Disease: Less than 15 mL/min/1.73 square meters GFR/1.73 sq M.predicted among non-blacks MDRD (S/P/Bld) [Vol rate/Area] 46 ml/min/1.73sqm Invalid Interpretation Code AO Chemistry S Comment on above: Interpretive Data: GFR Population mean for , Non- Americans Ages 20-29 = 116 mL/min/1.73 sq.m. Ages 30-39 = 107 mL/min/1.73 sq.m. Ages 40-49 = 99 mL/min/1.73 sq.m. Ages 50-59 = 93 mL/min/1.73 sq.m. Ages 60-69 = 85 mL/min/1.73 sq.m. Ages 70+ = 75 mL/min/1.73 sq.m. Chronic Kidney Disease: Less than 60 mL/min/1.73 square meters End Stage Renal Disease: Less than 15 mL/min/1.73 square meters Globulin 3.3 G/dL Invalid Interpretation Code AO ADM SS Glucose [Mass/Vol] 120 mg/dL High 83 - 110 mg/dL AO ADM SS Glucose [Mass/Vol] 131 mg/dL Invalid Interpretation Code AO Chemistry S Comment on above: Interpretive Data: E stimated average glucose (eAG) is a calculated value from Hemoglobin A1C and is specialty sales representative of the average blood glucose level in the last 2-3 month period. Normal range: less than 114 mg/dL HbA1c (Bld) [Mass fraction] 6.2 % Normal 4.3 - 6.4 % AO ADM SS Hematocrit (Bld) [Volume fraction] 42.5 % Normal 40.0 - 52.0 % AO Workflow SS Hemoglobin (Bld) [Mass/Vol] 14.0 G/dL Normal 13.0 - 17.5 G/dL AO Workflow SS Lymphocytes (Bld) [#/Vol] 1.7 103/mcL Normal 0.9 - 4.3 10^3/mcL AO Workflow SS Lymphocytes/100 WBC (Bld) 21.7 % Normal 20.0 - 40.0 % AO Workflow SS Magnesium [Mass/Vol] 2.4 mg/dL Normal 1.8 - 2.4 mg/dL AO ADM SS MCH (RBC) [Entitic mass] 29.5 pg Normal 27.0 - 33.0 pg AO Workflow SS MCHC 32.9 G/dL Normal 32.0 - 36.0 G/dL AO Workflow SS MCV (RBC) [Entitic vol] 89.9 fL Normal 81.0 - 100.0 fL AO Workflow SS Monocytes (Bld) [#/Vol] 0.8 103/mcL Normal 0.1 - 1.4 10^3/mcL AO Workflow SS Monocytes/100 WBC (Bld) 9.5 % Normal 2.0 - 13.0 % AO Workflow SS Neutrophils (Bld) [#/Vol] 5.2 103/mcL Normal 2.3 - 8.1 10^3/mcL AO Workflow SS Neutrophils/100 WBC (Bld) 66.0 % Normal 50.0 - 75.0 % AO Workflow SS Platelet mean volume (Bld) [Entitic vol] 10.0 fL Normal 6.4 - 10.5 fL AO Workflow SS Platelets (Bld) [#/Vol] 312 103/mcL Normal 150 - 450 10^3/mcL AO Workflow SS Potassium [Moles/Vol] 4.4 mmol/L Normal 3.5 - 5.1 mmol/L AO ADM SS Prostate specific Ag [Mass/Vol] 7.28 ng/mL High 0.00 - 4.00 ng/mL AO ADM SS Protein [Mass/Vol] 6.9 G/dL Normal 6.4 - 8.2 G/dL AO ADM SS RBC (Bld) [#/Vol] 4.73 106/mcL Normal 4.50 - 6.0 0 10^6/mcL AO Workflow SS Sodium [Moles/Vol] 143 mmol/L Normal 136 - 145 mmol/L AO ADM SS Urea nitrogen [Mass/Vol] 16 mg/dL Normal 7 - 18 mg/dL AO ADM SS Urea nitrogen/Creatinine [Mass ratio] 11 ratio Normal 7 - 27 ratio AO ADM SS WBC (Bld) [#/Vol] 8.0 103/mcL Normal 4.5 - 10.8 10^3/mcL AO Workflow SS LABORATORYOrdered By: Lisa Julian on 06-11-2024 Cholesterol [Mass/Vol] 212 mg/dL High 0 - 200 mg/dL AO ADM SS Comment on above: Interpretive Data: C holesterol Reference Interval: Less than 200 Desirable 200-239 Borderline high risk 240 and above High risk Cholesterol in HDL [Mass/Vol] 60 mg/dL Normal 40 - 60 mg/dL AO ADM SS Cholesterol in LDL [Mass/Vol] 135 mg/dL High 0 - 130 mg/dL AO ADM SS Triglyceride [Mass/Vol] 86 mg/dL Normal 0 - 150 mg/dL AO ADM SS Comment on above: Interpretive Data: T riglyceride Reference Interval: Less than 150 Normal 150-199 Borderline high risk 200-499 High risk 500 or higher Very high risk LABORATORYOrdered By: Casey Santana on 06-11-2024 HCV Ab IA Ql Non-Reactive (06/11/24 4:37 PM) Normal Non-Reactiv e AH ADM SS HCV Ab IA Ql Nonreactive: Samples with a value < 0.80 are considered nonreactive (negative) for antibodies to HCV.A negative test result does not exclude the possibility of exposure to or infection with HCV. HCV antibodies may be undetectable in some stages of the infection and in some clinical conditions. Invalid Interpretation Code Chemistry S LIPIDon 06-11-2024 Cholesterol [Mass/Vol] 212 mg/dL High 0-200 [facility] Comment on above: Result Comment: Chol esterol Reference Interval: Less than 200 Desirable 200-239 Borderline high risk 240 and above High risk Performed By: #### A 1C, GFR, VIDH, CMP, ADIFF, TSH, ANEU, LIPID, CBC, PSA, FT4 #### [address] [address] #### PTH #### [address] [address] Cholesterol in HDL [Mass/Vol] 60 mg/dL Normal 40-60 [facility] Comment on above: Performed By: #### A 1C, GFR, VIDH, CMP, ADIFF, TSH, ANEU, LIPID, CBC, PSA, FT4 #### [address] [address] #### PTH #### [address] [address] Cholesterol in LDL [Mass/Vol] 135 mg/dL High 0-130 [facility] Comment on above: Performed By: #### A 1C, GFR, VIDH, CMP, ADIFF, TSH, ANEU, LIPID, CBC, PSA, FT4 #### [address] [address] #### PTH #### [address] [address] Triglyceride [Mass/Vol] 86 mg/dL Normal 0-150 [facility] Comment on above: Result Comment: Trig lyceride Reference Interval: Less than 150 Normal 150-199 Borderline high risk 200-499 High risk 500 or higher Very high risk Performed By: #### A 1C, GFR, VIDH, CMP, ADIFF, TSH, ANEU, LIPID, CBC, PSA, FT4 #### [address] [address] #### PTH #### [address] [address] MGon 06-11-2024 Magnesium [Mass/Vol] 2.4 mg/dL Normal 1.8-2.4 [facility] Comment on above: Performed By: #### A 1C, GFR, VIDH, CMP, ADIFF, TSH, ANEU, LIPID, CBC, PSA, FT4 #### [address] [address] #### PTH #### [address] [address] PSAon 06-11-2024 Prostate Specific Antigen 7.28 ng/mL High 0.00-4.00 [facility] Comment on above: Performed By: #### A 1C, GFR, VIDH, CMP, ADIFF, TSH, ANEU, LIPID, CBC, PSA, FT4 #### [address] [address] #### PTH #### [address] [address] CBFon 04-14-2019 CBF . MICRO - Microbiology PROCEDURE: Culture Body Fluid with Gram Stain [*1] SOURCE: Bile BODY SITE: Gallbladder COLLECTED DATE/TIME: 04/09/2019 11:18 EDT RECEIVED DATE/TIME: 04/09/2019 13:30 EDT START DATE/TIME: 04/09/2019 13:30 EDT FREE TEXT SOURCE: GALLBLADDER CONTENTS FINAL REPORTS Final Report [] Verified Date/Time/Personnel: 04/14/2019 13:19 EDT Light Klebsiella pneumoniae Light Escherichia coli No anaerobes isolated at 5 days. PRELIMINARY REPORTS Preliminary Report [] Verified Date/Time/Personnel: 04/12/2019 10:08 EDT Light Klebsiella pneumoniae Light Escherichia coli No anaerobes isolated to date. Preliminary Report [] Verified Date/Time/Personnel: 04/11/2019 07:47 EDT Light Gram Negative Rods Final identification and RAUL to follow. Light Gram Negative Rods #2 Final identification and RAUL to follow. No anaerobes isolated to date. STAINS GS [] Verified Date/Time/Personnel: 04/10/2019 15:14 EDT 4+ Polymorphonuclear cells No organisms seen. SUSCEPTIBILITY RESULTS Klebsiella pneumoniae Antibiotic RAUL Dilutn RAUL Interp Amoxicillin/ <=8/4 Susceptible Clavulanate Ampicillin >16 Resistant Cefazolin <=8 Susceptible Cefotaxime <=2 Susceptible Ciprofloxacin <=1 Susceptible Gentamicin <=4 Susceptible Levofloxacin <=2 Susceptible Meropenem <=1 Susceptible Piperacillin/ <=16 Susceptible Tazobactam Trimethoprim/ <=2/38 Susceptible Sulfa Escherichia coli Antibiotic RAUL Dilutn RAUL Interp Amoxicillin/ <=8/4 Susceptible Clavulanate Ampicillin <=8 Susceptible Cefazolin <=8 Susceptible Cefotaxime <=2 Susceptible Ciprofloxacin <=1 Susceptible Gentamicin <=4 Susceptible Levofloxacin <=2 Susceptible MICRO - Microbiology SUSCEPTIBILITY RESULTS Escherichia coli Antibiotic RAUL Dilutn RAUL Interp Meropenem <=1 Susceptible Piperacillin/ <=16 Susceptible Tazobactam Trimethoprim/ <=2/38 Susceptible Sulfa Performing Locations *1: This test was performed at: [address], [address] [place] [address] ([place]) Comment on above: Performed By: #### C KYLER MELO ANEU #### [address] [address] #### TROP, CMP, GFR #### [place] [address] .Auto Diffon 04-10-2019 Ammonia (P) [Mass/Vol] 1.50 10 3/mcL High 0.09-1.40 [facility] ([place]) Comment on above: Performed By: #### C KYLER MELO ANEU #### [address] [address] #### TROP, CMP, GFR #### [place] [address] Basophils (Bld) [#/Vol] 0.00 10 3/mcL Normal 0.00-0.27 [facility] ([place]) Comment on above: Performed By: #### C BC, ADIFF, ANEU #### [address] [address] #### TROP, CMP, GFR #### [address] [address] Basophils/100 WBC (Bld) 0.2 % Normal 0.0-2.5 [facility] ([place]) Comment on above: Performed By: #### C BC, ADIFF, ANEU #### [place] [address] #### TROP, CMP, GFR #### [address] [address] Eosinophils (Bld) [#/Vol] 0.00 10 3/mcL Normal 0.00-0.65 [facility] ([place]) Comment on above: Performed By: #### C BC, ADIFF, ANEU #### [place] [address] #### TROP, CMP, GFR #### [address] [address] Eosinophils/100 WBC (Bld) 0.0 % Normal 0.0-6.0 [facility] ([place]) Comment on above: Performed By: #### C BC, ADIFF, ANEU #### [address] [address] #### TROP, CMP, GFR #### [address] [address] Lymphocytes (Bld) [#/Vol] 1.00 10 3/mcL Normal 0.90-4.32 [facility] ([place]) Comment on above: Performed By: #### C BC, ADIFF, ANEU #### [place] [address] #### TROP, CMP, GFR #### [address] [address] Lymphocytes/100 WBC (Bld) 7.8 % Low 20.0-40.0 [facility] ([place]) Comment on above: Performed By: #### C BC, ADIFF, ANEU #### [address] [address] #### TROP, CMP, GFR #### [address] [address] Monocytes/100 WBC (Bld) 11.8 % Normal 2.0-13.0 [facility] ([place]) Comment on above: Performed By: #### C BC, ADIFF, ANEU #### [address] [address] #### TROP, CMP, GFR #### [address] [address] Neutrophils/100 WBC (Bld) 80.2 % High 50.0-75.0 [facility] ([place]) Comment on above: Performed By: #### C BC, ADIFF, ANEU #### [address] [address] #### TROP, CMP, GFR #### [address] [address] .GFRon 04-10-2019 GFR Non- 58 ml/min/1.73sqm Normal [facility] ([place]) Comment on above: Result Comment: GFR Population mean for , Non- Americans Ages 20-29 = 116 mL/min/1.73 sq.m. Ages 30-39 = 107 mL/min/1.73 sq.m. Ages 40-49 = 99 mL/min/1.73 sq.m. Ages 50-59 = 93 mL/min/1.73 sq.m. Ages 60-69 = 85 mL/min/1.73 sq.m. Ages 70+ = 75 mL/min/1.73 sq.m. Chronic Kidney Disease: Less than 60 mL/min/1.73 square meters End Stage Renal Disease: Less than 15 mL/min/1.73 square meters Performed By: #### C BC, ADIFF, ANEU #### [address] [address] #### TROP, CMP, GFR #### [address] [address] GFR >60 Normal [facility] ([place]) Comment on above: Result Comment: GFR Population mean for , Non- Americans Ages 20-29 = 116 mL/min/1.73 sq.m. Ages 30-39 = 107 mL/min/1.73 sq.m. Ages 40-49 = 99 mL/min/1.73 sq.m. Ages 50-59 = 93 mL/min/1.73 sq.m. Ages 60-69 = 85 mL/min/1.73 sq.m. Ages 70+ = 75 mL/min/1.73 sq.m. Chronic Kidney Disease: Less than 60 mL/min/1.73 square meters End Stage Renal Disease: Less than 15 mL/min/1.73 square meters Performed By: #### C BC ADIFF, ANEU #### [place] [address] #### TROP, CMP, GFR #### [place] [address] .NEUABSon 04-10-2019 Neutrophils (Bld) [#/Vol] 9.90 10 3/mcL High 2.25-8.10 [facility] ([place]) Comment on above: Performed By: #### C BCMADELINEIFF, ANEU #### [place] [address] #### TROP, CMP, GFR #### [address] [address] CBCon 04-10-2019 Erythrocyte distribution width (RBC) [Ratio] 14.0 % Normal 11.5-15.5 [facility] ([place]) Comment on above: Performed By: #### C BC, ADIFF, ANEU #### [place] [address] #### TROP, CMP, GFR #### [place] [address] Hematocrit (Bld) [Volume fraction] 32.0 % Low 40.0-52.0 [facility] ([place]) Comment on above: Performed By: #### C BC ADIFF, ANEU #### [place] [address] #### TROP, CMP, GFR #### [address] [address] Hemoglobin (Bld) [Mass/Vol] 10.4 G/dL Low 13.0-17.5 [facility] ([place]) Comment on above: Performed By: #### C BC, ADIFF, ANEU #### [place] [address] #### TROP, CMP, GFR #### [place] [address] MCH (RBC) [Entitic mass] 28.5 pg Normal 27.0-33.0 [facility] ([place]) Comment on above: Performed By: #### C BC, ADIFF, ANEU #### [place] [address] #### TROP, CMP, GFR #### [place] [address] MCHC (RBC) [Mass/Vol] 32.4 G/dL Normal 32.0-36.0 [facility] ([place]) Comment on above: Performed By: #### C BC, ADIFF, ANEU #### [place] [address] #### TROP, CMP, GFR #### [place] [address] MCV (RBC) [Entitic vol] 88.0 fL Normal 81.0-100.0 [facility] ([place]) Comment on above: Performed By: #### C BC, ADIFF, ANEU #### [place] [address] #### TROP, CMP, GFR #### [place] [address] Platelet mean volume (Bld) [Entitic vol] 8.5 fL Normal 6.4-10.5 [facility] ([place]) Comment on above: Performed By: #### C BC, ADIFF, ANEU #### [place] [address] #### TROP, CMP, GFR #### [address] [address] Platelets (Bld) [#/Vol] 331 10 3/mcL Normal 150-450 [facility] ([place]) Comment on above: Performed By: #### C BC, ADIFF, ANEU #### [address] [address] #### TROP, CMP, GFR #### [address] [address] RBC (Bld) [#/Vol] 3.64 10 6/mcL Low 4.50-6.00 [facility] ([place]) Comment on above: Performed By: #### C BC, ADIFF, ANEU #### [address] [address] #### TROP, CMP, GFR #### [address] [address] WBC (Bld) [#/Vol] 12.40 10 3/mcL High 4.50-10.80 [facility] ([place]) Comment on above: Performed By: #### C BC, ADIFF, ANEU #### [address] [address] #### TROP, CMP, GFR #### [address] [address] CMPon 04-10-2019 Urea nitrogen [Mass/Vol] 17.0 mg/dL Normal 8.0-22.0 [facility] ([place]) Comment on above: Performed By: #### C BC, ADIFF, ANEU #### [address] [address] #### TROP, CMP, GFR #### [address] [address] Urea nitrogen/Creatinine [Mass ratio] 13.9 ratio Normal 10.0-22.0 [facility] ([place]) Comment on above: Performed By: #### C BC, ADIFF, ANEU #### [address] [address] #### TROP, CMP, GFR #### [address] [address] Albumin/Globulin [Mass ratio] 0.7 {ratio} Low 0.9-1.6 [facility] ([place]) Comment on above: Performed By: #### C BC, ADIFF, ANEU #### [address] [address] #### TROP, CMP, GFR #### [address] [address] ALP [Catalytic activity/Vol] 75 U/L Normal 38-126 [facility] ([place]) Comment on above: Performed By: #### C BC, ADIFF, ANEU #### [address] [address] #### TROP, CMP, GFR #### [address] [address] Bili Total 0.3 mg/dL Normal 0.2-1.2 [facility] ([place]) Comment on above: Performed By: #### C BC, ADIFF, ANEU #### [address] [address] #### TROP, CMP, GFR #### [address] [address] Creatinine [Mass/Vol] 1.22 mg/dL Normal 0.60-1.40 [facility] ([place]) Comment on above: Performed By: #### C BC, ADIFF, ANEU #### [address] [address] #### TROP, CMP, GFR #### [address] [address] Globulin (S) [Mass/Vol] 3.2 G/dL Normal 1.5-3.8 [facility] ([place]) Comment on above: Performed By: #### C BC, ADIFF, ANEU #### [address] [address] #### TROP, CMP, GFR #### [address] [address] Protein [Mass/Vol] 5.4 G/dL Low 6.0-8.5 [facility] ([place]) Comment on above: Performed By: #### C BC, ADIFF, ANEU #### [address] [address] #### TROP, CMP, GFR #### [address] [address] Albumin [Mass/Vol] 2.2 G/dL Low 3.2-4.8 [facility] ([place]) Comment on above: Performed By: #### C BC, ADIFF, ANEU #### [address] [address] #### TROP, CMP, GFR #### [address] [address] ALT [Catalytic activity/Vol] 45 U/L Normal 12-55 [facility] ([place]) Comment on above: Performed By: #### C BC, ADIFF, ANEU #### [place] [address] #### TROP, CMP, GFR #### [address] [address] AST [Catalytic activity/Vol] 43 U/L High 8-34 [facility] ([place]) Comment on above: Performed By: #### C BC, ADIFF, ANEU #### [address] [address] #### TROP, CMP, GFR #### [address] [address] Calcium [Mass/Vol] 7.8 mg/dL Low 8.4-10.1 [facility] ([place]) Comment on above: Performed By: #### C BC, ADIFF, ANEU #### [address] [address] #### TROP, CMP, GFR #### [address] [address] Chloride [Moles/Vol] 102 mmol/L Normal 98-110 [facility] ([place]) Comment on above: Performed By: #### C BC, ADIFF, ANEU #### [address] [address] #### TROP, CMP, GFR #### [address] [address] CO2 [Moles/Vol] 27 mmol/L Normal 22-32 [facility] ([place]) Comment on above: Performed By: #### C BC, ADIFF, ANEU #### [address] [address] #### TROP, CMP, GFR #### [address] [address] Electrolyte Balance 9.0 mEq/L Normal 4.0-15.0 [facility] ([place]) Comment on above: Performed By: #### C BC, ADIFF, ANEU #### [place] [address] #### TROP, CMP, GFR #### [address] [address] Glucose [Mass/Vol] 136 mg/dL High 82-115 [facility] ([place]) Comment on above: Performed By: #### C BC, ADIFF, ANEU #### [address] [address] #### TROP, CMP, GFR #### [address] [address] Potassium [Moles/Vol] 4.2 mmol/L Normal 3.5-5.0 [facility] ([place]) Comment on above: Performed By: #### C BC, ADIFF, ANEU #### [address] [address] #### TROP, CMP, GFR #### [address] [address] Sodium [Moles/Vol] 138 mmol/L Normal 136-145 [facility] ([place]) Comment on above: Performed By: #### C BC, ADIFF, ANEU #### [address] [address] #### TROP, CMP, GFR #### [address] [address] Final Surgical Pathology Rep sabrina 04-10-2019 Final Surgical Pathology Report . Pathology Reports Accession: Collected Date/Time: Received Date/Time: Pathologist: [id number] 04/09/2019 11:18 EDT 04/09/2019 13:54 EDT MD IVANIA NINO Final Surgical Pathology Report DIAGNOSIS: GALLBLADDER, CHOLECYSTECTOMY -- CHOLELITHIASIS. ACUTE AND CHRONIC HEMORRHAGIC CHOLECYSTITIS. CLINICAL INFORMATION: Procedure: LAPAROSCOPIC CHOLECYSTECTOMY Preoperative diagnosis: ACUTE CHOLECYSTITIS Postoperative diagnosis: ACUTE CHOLECYSTITIS SPECIMEN: A GALLBLADDER GROSS DESCRIPTION: Received in blood stained formalin labeled gallbladder is a 9.5 x 3 x 1.8 cm gallbladder. The specimen is received previously opened. The serosa is red and smooth to torn. The adventitia shows a moderate amount of hepatic parenchyma. The cystic duct margin is not grossly identified. The mucosa is red and irregular with pink-an plaque like material. The wall measures up to 0.6 cm in thickness. Also received are 3 green choleliths ranging from 0.7 to 1.2 cm. RS -1 Dictated by Sophia NELSON ([facility]) MICROSCOPIC DESCRIPTION: Slides reviewed. Electronically Signed by Pathology Report verified by [facility] Electronically signed by IVANIA NINO MD Sign out Date: 04/10/2019 17:20 Performing Lab: [address] ([place]) Comment on above: Performed By: #### C KYLER MELO ANEU #### [place] [address] #### TROP, CMP, GFR #### [place] [address] .Auto Diffon 04-09-2019 Ammonia (P) [Mass/Vol] 1.50 10 3/mcL High 0.09-1.40 [facility] ([place]) Comment on above: Performed By: #### C BCKYLER, ANEU #### [place] [address] #### TROP, CMP, GFR #### [place] [address] Basophils (Bld) [#/Vol] 0.00 10 3/mcL Normal 0.00-0.27 [facility] ([place]) Comment on above: Performed By: #### C BC, ADIFF, ANEU #### [address] [address] #### TROP, CMP, GFR #### [address] [address] Basophils/100 WBC (Bld) 0.4 % Normal 0.0-2.5 [facility] ([place]) Comment on above: Performed By: #### C BC, ADIFF, ANEU #### [address] [address] #### TROP, CMP, GFR #### [address] [address] Eosinophils (Bld) [#/Vol] 0.30 10 3/mcL Normal 0.00-0.65 [facility] ([place]) Comment on above: Performed By: #### C BC, ADIFF, ANEU #### [place] [address] #### TROP, CMP, GFR #### [address] [address] Eosinophils/100 WBC (Bld) 2.8 % Normal 0.0-6.0 [facility] ([place]) Comment on above: Performed By: #### C BC, ADIFF, ANEU #### [place] [address] #### TROP, CMP, GFR #### [address] [address] Lymphocytes (Bld) [#/Vol] 1.70 10 3/mcL Normal 0.90-4.32 [facility] ([place]) Comment on above: Performed By: #### C BC, ADIFF, ANEU #### [place] [address] #### TROP, CMP, GFR #### [address] [address] Lymphocytes/100 WBC (Bld) 17.1 % Low 20.0-40.0 [facility] ([place]) Comment on above: Performed By: #### C BC, ADIFF, ANEU #### [address] [address] #### TROP, CMP, GFR #### [address] [address] Monocytes/100 WBC (Bld) 15.0 % High 2.0-13.0 [facility] ([place]) Comment on above: Performed By: #### C BC, ADIFF, ANEU #### [address] [address] #### TROP, CMP, GFR #### [address] [address] Neutrophils/100 WBC (Bld) 64.7 % Normal 50.0-75.0 [facility] ([place]) Comment on above: Performed By: #### C BC, ADIFF, ANEU #### [address] [address] #### TROP, CMP, GFR #### [address] [address] .GFRon 04-09-2019 GFR >60 Normal [facility] ([place]) Comment on above: Result Comment: GFR Population mean for , Non- Americans Ages 20-29 = 116 mL/min/1.73 sq.m. Ages 30-39 = 107 mL/min/1.73 sq.m. Ages 40-49 = 99 mL/min/1.73 sq.m. Ages 50-59 = 93 mL/min/1.73 sq.m. Ages 60-69 = 85 mL/min/1.73 sq.m. Ages 70+ = 75 mL/min/1.73 sq.m. Chronic Kidney Disease: Less than 60 mL/min/1.73 square meters End Stage Renal Disease: Less than 15 mL/min/1.73 square meters Performed By: #### C BC, ADIFF, ANEU #### [address] [address] #### TROP, CMP, GFR #### [address] [address] GFR Non- >60 Normal [facility] ([place]) Comment on above: Result Comment: GFR Population mean for , Non- Americans Ages 20-29 = 116 mL/min/1.73 sq.m. Ages 30-39 = 107 mL/min/1.73 sq.m. Ages 40-49 = 99 mL/min/1.73 sq.m. Ages 50-59 = 93 mL/min/1.73 sq.m. Ages 60-69 = 85 mL/min/1.73 sq.m. Ages 70+ = 75 mL/min/1.73 sq.m. Chronic Kidney Disease: Less than 60 mL/min/1.73 square meters End Stage Renal Disease: Less than 15 mL/min/1.73 square meters Performed By: #### C BC, ADIFF, ANEU #### [place] [address] #### TROP, CMP, GFR #### [place] [address] .NEUABSon 04-09-2019 Neutrophils (Bld) [#/Vol] 6.30 10 3/mcL Normal 2.25-8.10 [facility] ([place]) Comment on above: Performed By: #### C BC, ADIFF, ANEU #### [place] [address] #### TROP, CMP, GFR #### [place] [id number] BMPon 04-09-2019 Calcium [Mass/Vol] 8.2 mg/dL Low 8.4-10.1 [facility] ([place]) Comment on above: Performed By: #### C BC, ADIFF, ANEU #### [place] [address] #### TROP, CMP, GFR #### [place] [address] Chloride [Moles/Vol] 106 mmol/L Normal 98-110 [facility] ([place]) Comment on above: Performed By: #### C BC, ADIFF, ANEU #### [place] [id number] #### TROP, CMP, GFR #### [address] [address] CO2 [Moles/Vol] 29 mmol/L Normal 22-32 [facility] ([place]) Comment on above: Performed By: #### C BC, ADIFF, ANEU #### [address] [address] #### TROP, CMP, GFR #### [address] [address] Creatinine [Mass/Vol] 1.06 mg/dL Normal 0.60-1.40 [facility] ([place]) Comment on above: Performed By: #### C BC, ADIFF, ANEU #### [address] [address] #### TROP, CMP, GFR #### [address] [address] Electrolyte Balance 8.0 mEq/L Normal 4.0-15.0 [facility] ([place]) Comment on above: Performed By: #### C BC, ADIFF, ANEU #### [address] [address] #### TROP, CMP, GFR #### [address] [address] Glucose [Mass/Vol] 113 mg/dL Normal 82-115 [facility] ([place]) Comment on above: Performed By: #### C BC, ADIFF, ANEU #### [place] [id number] #### TROP, CMP, GFR #### [address] [address] Potassium [Moles/Vol] 3.7 mmol/L Normal 3.5-5.0 [facility] ([place]) Comment on above: Performed By: #### C BC, ADIFF, ANEU #### [address] [address] #### TROP, CMP, GFR #### [address] [address] Sodium [Moles/Vol] 143 mmol/L Normal 136-145 [facility] ([place]) Comment on above: Performed By: #### C BC, ADIFF, ANEU #### [place] [address] #### TROP, CMP, GFR #### [address] [address] Urea nitrogen [Mass/Vol] 9.0 mg/dL Normal 8.0-22.0 [facility] ([place]) Comment on above: Performed By: #### C BC, ADIFF, ANEU #### [place] [address] #### TROP, CMP, GFR #### [place] [id number] Urea nitrogen/Creatinine [Mass ratio] 8.5 ratio Low 10.0-22.0 [facility] ([place]) Comment on above: Performed By: #### C BC, ADIFF, ANEU #### [place] [address] #### TROP, CMP, GFR #### [address] [address] CBCon 04-09-2019 Erythrocyte distribution width (RBC) [Ratio] 14.1 % Normal 11.5-15.5 [facility] ([place]) Comment on above: Performed By: #### C BC, ADIFF, ANEU #### [place] [address] #### TROP, CMP, GFR #### [address] [address] Hematocrit (Bld) [Volume fraction] 35.7 % Low 40.0-52.0 [facility] ([place]) Comment on above: Performed By: #### C BC, ADIFF, ANEU #### [place] [address] #### TROP, CMP, GFR #### [address] [address] Hemoglobin (Bld) [Mass/Vol] 11.8 G/dL Low 13.0-17.5 [facility] ([place]) Comment on above: Performed By: #### C BC, ADIFF, ANEU #### [address] [address] #### TROP, CMP, GFR #### [address] [address] MCH (RBC) [Entitic mass] 29.0 pg Normal 27.0-33.0 [facility] ([place]) Comment on above: Performed By: #### C BC, ADIFF, ANEU #### [place] [address] #### TROP, CMP, GFR #### [address] [address] MCHC (RBC) [Mass/Vol] 33.0 G/dL Normal 32.0-36.0 [facility] ([place]) Comment on above: Performed By: #### C BC, ADIFF, ANEU #### [place] [address] #### TROP, CMP, GFR #### [address] [address] MCV (RBC) [Entitic vol] 88.0 fL Normal 81.0-100.0 [facility] ([place]) Comment on above: Performed By: #### C BC, ADIFF, ANEU #### [place] [address] #### TROP, CMP, GFR #### [address] [address] Platelet mean volume (Bld) [Entitic vol] 8.8 fL Normal 6.4-10.5 [facility] ([place]) Comment on above: Performed By: #### C BC, ADIFF, ANEU #### [place] [address] #### TROP, CMP, GFR #### [address] [address] Platelets (Bld) [#/Vol] 281 10 3/mcL Normal 150-450 [facility] ([place]) Comment on above: Performed By: #### C BC, ADIFF, ANEU #### [place] [address] #### TROP, CMP, GFR #### [place] [address] RBC (Bld) [#/Vol] 4.05 10 6/mcL Low 4.50-6.00 [facility] ([place]) Comment on above: Performed By: #### C BC, ADIFF, ANEU #### [place] [address] #### TROP, CMP, GFR #### [place] [address] WBC (Bld) [#/Vol] 9.70 10 3/mcL Normal 4.50-10.80 [facility] ([place]) Comment on above: Performed By: #### C BC, ADIFF, ANEU #### [place] [address] #### TROP, CMP, GFR #### [place] [address] .Auto Diffon 04-08-2019 Ammonia (P) [Mass/Vol] 1.50 10 3/mcL High 0.09-1.40 [facility] ([place]) Comment on above: Performed By: #### C BC, ADIFF, ANEU #### [place] [address] #### TROP, CMP, GFR #### [place] [address] Basophils (Bld) [#/Vol] 0.10 10 3/mcL Normal 0.00-0.27 [facility] ([place]) Comment on above: Performed By: #### C BC, ADIFF, ANEU #### [place] [address] #### TROP, CMP, GFR #### [place] [address] Basophils/100 WBC (Bld) 0.5 % Normal 0.0-2.5 [facility] ([place]) Comment on above: Performed By: #### C BC, ADIFF, ANEU #### [address] [address] #### TROP, CMP, GFR #### [address] [address] Eosinophils (Bld) [#/Vol] 0.30 10 3/mcL Normal 0.00-0.65 [facility] ([place]) Comment on above: Performed By: #### C BC, ADIFF, ANEU #### [address] [address] #### TROP, CMP, GFR #### [address] [address] Eosinophils/100 WBC (Bld) 2.8 % Normal 0.0-6.0 [facility] ([place]) Comment on above: Performed By: #### C BC, ADIFF, ANEU #### [address] [address] #### TROP, CMP, GFR #### [address] [address] Lymphocytes (Bld) [#/Vol] 1.50 10 3/mcL Normal 0.90-4.32 [facility] ([place]) Comment on above: Performed By: #### C BC, ADIFF, ANEU #### [address] [address] #### TROP, CMP, GFR #### [address] [address] Lymphocytes/100 WBC (Bld) 13.7 % Low 20.0-40.0 [facility] ([place]) Comment on above: Performed By: #### C BC, ADIFF, ANEU #### [address] [address] #### TROP, CMP, GFR #### [address] [address] Monocytes/100 WBC (Bld) 13.7 % High 2.0-13.0 [facility] ([place]) Comment on above: Performed By: #### C BC, ADIFF, ANEU #### [address] [address] #### TROP, CMP, GFR #### [address] [address] Neutrophils/100 WBC (Bld) 69.3 % Normal 50.0-75.0 [facility] ([place]) Comment on above: Performed By: #### C BC, ADIFF, ANEU #### [address] [address] #### TROP, CMP, GFR #### [address] [address] .GFRon 04-08-2019 GFR >60 Normal [facility] ([place]) Comment on above: Result Comment: GFR Population mean for , Non- Americans Ages 20-29 = 116 mL/min/1.73 sq.m. Ages 30-39 = 107 mL/min/1.73 sq.m. Ages 40-49 = 99 mL/min/1.73 sq.m. Ages 50-59 = 93 mL/min/1.73 sq.m. Ages 60-69 = 85 mL/min/1.73 sq.m. Ages 70+ = 75 mL/min/1.73 sq.m. Chronic Kidney Disease: Less than 60 mL/min/1.73 square meters End Stage Renal Disease: Less than 15 mL/min/1.73 square meters Performed By: #### C BC, ADIFF, ANEU #### [address] [address] #### TROP, CMP, GFR #### [address] [address] GFR Non- >60 Normal [facility] ([place]) Comment on above: Result Comment: GFR Population mean for , Non- Americans Ages 20-29 = 116 mL/min/1.73 sq.m. Ages 30-39 = 107 mL/min/1.73 sq.m. Ages 40-49 = 99 mL/min/1.73 sq.m. Ages 50-59 = 93 mL/min/1.73 sq.m. Ages 60-69 = 85 mL/min/1.73 sq.m. Ages 70+ = 75 mL/min/1.73 sq.m. Chronic Kidney Disease: Less than 60 mL/min/1.73 square meters End Stage Renal Disease: Less than 15 mL/min/1.73 square meters Performed By: #### C BCMADELINEIFF, ANEU #### [place] [address] #### TROP, CMP, GFR #### [address] [address] .NEUABSon 04-08-2019 Neutrophils (Bld) [#/Vol] 7.70 10 3/mcL Normal 2.25-8.10 [facility] ([place]) Comment on above: Performed By: #### C KYLER MELO, ANEU #### [place] [address] #### TROP, CMP, GFR #### [place] [address] CBCon 04-08-2019 Erythrocyte distribution width (RBC) [Ratio] 14.1 % Normal 11.5-15.5 [facility] ([place]) Comment on above: Performed By: #### C BC, ADIFF, ANEU #### [place] [address] #### TROP, CMP, GFR #### [place] [address] Hematocrit (Bld) [Volume fraction] 35.8 % Low 40.0-52.0 [facility] ([place]) Comment on above: Performed By: #### KYLER VILLELA, ANEU #### [place] [address] #### TROP, CMP, GFR #### [place] [address] Hemoglobin (Bld) [Mass/Vol] 11.6 G/dL Low 13.0-17.5 [facility] ([place]) Comment on above: Performed By: #### C KAMERON, ADIFF, ANEU #### [place] [address] #### TROP, CMP, GFR #### [address] [address] MCH (RBC) [Entitic mass] 28.6 pg Normal 27.0-33.0 [facility] ([place]) Comment on above: Performed By: #### C BC, ADIFF, ANEU #### [address] [address] #### TROP, CMP, GFR #### [place] [address] MCHC (RBC) [Mass/Vol] 32.4 G/dL Normal 32.0-36.0 [facility] ([place]) Comment on above: Performed By: #### C BC, KYLER, ANEU #### [place] [address] #### TROP, CMP, GFR #### [place] [address] MCV (RBC) [Entitic vol] 88.2 fL Normal 81.0-100.0 [facility] ([place]) Comment on above: Performed By: #### C BC, ADIFF, ANEU #### [place] [address] #### TROP, CMP, GFR #### [place] [address] Platelet mean volume (Bld) [Entitic vol] 8.8 fL Normal 6.4-10.5 [facility] ([place]) Comment on above: Performed By: #### C KAMERON, ADIFF, ANEU #### [place] [address] #### TROP, CMP, GFR #### [place] [address] Platelets (Bld) [#/Vol] 285 10 3/mcL Normal 150-450 [facility] ([place]) Comment on above: Performed By: #### C BC, ADIFF, ANEU #### [place] [address] #### TROP, CMP, GFR #### [place] [address] RBC (Bld) [#/Vol] 4.06 10 6/mcL Low 4.50-6.00 [facility] ([place]) Comment on above: Performed By: #### C BC, ADIFF, ANEU #### [address] [address] #### TROP, CMP, GFR #### [address] [address] WBC (Bld) [#/Vol] 11.20 10 3/mcL High 4.50-10.80 [facility] ([place]) Comment on above: Performed By: #### C BC, ADIFF, ANEU #### [place] [address] #### TROP, CMP, GFR #### [address] [address] CMPon 04-08-2019 Albumin/Globulin [Mass ratio] 0.7 {ratio} Low 0.9-1.6 [facility] ([place]) Comment on above: Performed By: #### C BC, ADIFF, ANEU #### [place] [address] #### TROP, CMP, GFR #### [place] [address] ALP [Catalytic activity/Vol] 93 U/L Normal 38-126 [facility] ([place]) Comment on above: Performed By: #### C BC, ADIFF, ANEU #### [place] [address] #### TROP, CMP, GFR #### [address] [address] Bili Total 0.6 mg/dL Normal 0.2-1.2 [facility] ([place]) Comment on above: Performed By: #### C BC, ADIFF, ANEU #### [place] [address] #### TROP, CMP, GFR #### [place] [address] Globulin (S) [Mass/Vol] 3.5 G/dL Normal 1.5-3.8 [facility] ([place]) Comment on above: Performed By: #### C BC, ADIFF, ANEU #### [address] [address] #### TROP, CMP, GFR #### [address] [address] Protein [Mass/Vol] 5.9 G/dL Low 6.0-8.5 [facility] ([place]) Comment on above: Performed By: #### C BC, ADIFF, ANEU #### [address] [address] #### TROP, CMP, GFR #### [address] [address] Albumin [Mass/Vol] 2.4 G/dL Low 3.2-4.8 [facility] ([place]) Comment on above: Performed By: #### C BC, ADIFF, ANEU #### [place] [address] #### TROP, CMP, GFR #### [address] [address] ALT [Catalytic activity/Vol] 22 U/L Normal 12-55 [facility] ([place]) Comment on above: Performed By: #### C BC, ADIFF, ANEU #### [address] [address] #### TROP, CMP, GFR #### [address] [address] AST [Catalytic activity/Vol] 21 U/L Normal 8-34 [facility] ([place]) Comment on above: Performed By: #### C BC, ADIFF, ANEU #### [address] [address] #### TROP, CMP, GFR #### [address] [address] Calcium [Mass/Vol] 7.8 mg/dL Low 8.4-10.1 [facility] ([place]) Comment on above: Performed By: #### C BC, ADIFF, ANEU #### [address] [address] #### TROP, CMP, GFR #### [address] [address] Chloride [Moles/Vol] 104 mmol/L Normal 98-110 [facility] ([place]) Comment on above: Performed By: #### C BC, ADIFF, ANEU #### [address] [address] #### TROP, CMP, GFR #### [address] [address] CO2 [Moles/Vol] 28 mmol/L Normal 22-32 [facility] ([place]) Comment on above: Performed By: #### C BC, ADIFF, ANEU #### [address] [address] #### TROP, CMP, GFR #### [address] [address] Creatinine [Mass/Vol] 1.04 mg/dL Normal 0.60-1.40 [facility] ([place]) Comment on above: Performed By: #### C BC, ADIFF, ANEU #### [address] [address] #### TROP, CMP, GFR #### [address] [address] Electrolyte Balance 8.0 mEq/L Normal 4.0-15.0 [facility] ([place]) Comment on above: Performed By: #### C BC, ADIFF, ANEU #### [address] [address] #### TROP, CMP, GFR #### [address] [address] Glucose [Mass/Vol] 115 mg/dL Normal 82-115 [facility] ([place]) Comment on above: Performed By: #### C BC, ADIFF, ANEU #### [address] [address] #### TROP, CMP, GFR #### [address] [address] Potassium [Moles/Vol] 3.6 mmol/L Normal 3.5-5.0 [facility] ([place]) Comment on above: Performed By: #### C KYLER MELO, ANEU #### [place] [address] #### TROP, CMP, GFR #### [place] [address] Sodium [Moles/Vol] 140 mmol/L Normal 136-145 [facility] ([place]) Comment on above: Performed By: #### C BC, ADIFF, ANEU #### [place] [address] #### TROP, CMP, GFR #### [place] [address] Urea nitrogen [Mass/Vol] 11.0 mg/dL Normal 8.0-22.0 [facility] ([place]) Comment on above: Performed By: #### KYLER VILLELA, ANEU #### [place] [address] #### TROP, CMP, GFR #### [place] [address] Urea nitrogen/Creatinine [Mass ratio] 10.6 ratio Normal 10.0-22.0 [facility] ([place]) Comment on above: Performed By: #### C KAMERON, ADIFF, ANEU #### [place] [address] #### TROP, CMP, GFR #### [place] [address] .Auto Diffon 04-07-2019 Ammonia (P) [Mass/Vol] 1.50 10 3/mcL High 0.09-1.40 [facility] ([place]) Comment on above: Performed By: #### C KAMERON, ADIFF, ANEU #### [place] [address] #### TROP, CMP, GFR #### [place] [address] Basophils (Bld) [#/Vol] 0.10 10 3/mcL Normal 0.00-0.27 [facility] ([place]) Comment on above: Performed By: #### C BC, ADIFF, ANEU #### [place] [address] #### TROP, CMP, GFR #### [address] [address] Basophils/100 WBC (Bld) 0.4 % Normal 0.0-2.5 [facility] ([place]) Comment on above: Performed By: #### C BC, ADIFF, ANEU #### [place] [address] #### TROP, CMP, GFR #### [address] [address] Eosinophils (Bld) [#/Vol] 0.00 10 3/mcL Normal 0.00-0.65 [facility] ([place]) Comment on above: Performed By: #### C BC, ADIFF, ANEU #### [place] [address] #### TROP, CMP, GFR #### [address] [address] Eosinophils/100 WBC (Bld) 0.3 % Normal 0.0-6.0 [facility] ([place]) Comment on above: Performed By: #### C BC, ADIFF, ANEU #### [place] [address] #### TROP, CMP, GFR #### [address] [address] Lymphocytes (Bld) [#/Vol] 1.50 10 3/mcL Normal 0.90-4.32 [facility] ([place]) Comment on above: Performed By: #### C BC, ADIFF, ANEU #### [place] [address] #### TROP, CMP, GFR #### [address] [address] Lymphocytes/100 WBC (Bld) 11.2 % Low 20.0-40.0 [facility] ([place]) Comment on above: Performed By: #### C BC, ADIFF, ANEU #### [address] [address] #### TROP, CMP, GFR #### [address] [address] Monocytes/100 WBC (Bld) 11.3 % Normal 2.0-13.0 [facility] ([place]) Comment on above: Performed By: #### C BC, ADIFF, ANEU #### [address] [address] #### TROP, CMP, GFR #### [address] [address] Neutrophils/100 WBC (Bld) 76.8 % High 50.0-75.0 [facility] ([place]) Comment on above: Performed By: #### C BC, ADIFF, ANEU #### [address] [address] #### TROP, CMP, GFR #### [address] [address] .GFRon 04-07-2019 GFR Non- >60 Normal [facility] ([place]) Comment on above: Result Comment: GFR Population mean for , Non- Americans Ages 20-29 = 116 mL/min/1.73 sq.m. Ages 30-39 = 107 mL/min/1.73 sq.m. Ages 40-49 = 99 mL/min/1.73 sq.m. Ages 50-59 = 93 mL/min/1.73 sq.m. Ages 60-69 = 85 mL/min/1.73 sq.m. Ages 70+ = 75 mL/min/1.73 sq.m. Chronic Kidney Disease: Less than 60 mL/min/1.73 square meters End Stage Renal Disease: Less than 15 mL/min/1.73 square meters Performed By: #### C BC, ADIFF, ANEU #### [address] [address] #### TROP, CMP, GFR #### [address] [address] GFR >60 Normal [facility] ([place]) Comment on above: Result Comment: GFR Population mean for , Non- Americans Ages 20-29 = 116 mL/min/1.73 sq.m. Ages 30-39 = 107 mL/min/1.73 sq.m. Ages 40-49 = 99 mL/min/1.73 sq.m. Ages 50-59 = 93 mL/min/1.73 sq.m. Ages 60-69 = 85 mL/min/1.73 sq.m. Ages 70+ = 75 mL/min/1.73 sq.m. Chronic Kidney Disease: Less than 60 mL/min/1.73 square meters End Stage Renal Disease: Less than 15 mL/min/1.73 square meters Performed By: #### C BCKYLER, ANEU #### [address] [address] #### TROP, CMP, GFR #### [address] [address] .NEUABSon 04-07-2019 Neutrophils (Bld) [#/Vol] 10.50 10 3/mcL High 2.25-8.10 [facility] ([place]) Comment on above: Performed By: #### C BCKYLER, ANEU #### [place] [id number] #### TROP, CMP, GFR #### [address] [address] BMPon 04-07-2019 Calcium [Mass/Vol] 7.8 mg/dL Low 8.4-10.1 [facility] ([place]) Comment on above: Performed By: #### C BCMADELINEIFF, ANEU #### [address] [address] #### TROP, CMP, GFR #### [place] [address] Chloride [Moles/Vol] 103 mmol/L Normal 98-110 [facility] ([place]) Comment on above: Performed By: #### C BCMADELINEIFF, ANEU #### [address] [address] #### TROP, CMP, GFR #### [address] [address] CO2 [Moles/Vol] 26 mmol/L Normal 22-32 [facility] ([place]) Comment on above: Performed By: #### C BC, ADIFF, ANEU #### [address] [address] #### TROP, CMP, GFR #### [address] [address] Creatinine [Mass/Vol] 1.15 mg/dL Normal 0.60-1.40 [facility] ([place]) Comment on above: Performed By: #### C BC, ADIFF, ANEU #### [place] [address] #### TROP, CMP, GFR #### [address] [address] Electrolyte Balance 8.0 mEq/L Normal 4.0-15.0 [facility] ([place]) Comment on above: Performed By: #### C BC, ADIFF, ANEU #### [address] [address] #### TROP, CMP, GFR #### [address] [address] Glucose [Mass/Vol] 100 mg/dL Normal 82-115 [facility] ([place]) Comment on above: Performed By: #### C BC, ADIFF, ANEU #### [place] [address] #### TROP, CMP, GFR #### [address] [address] Potassium [Moles/Vol] 3.8 mmol/L Normal 3.5-5.0 [facility] ([place]) Comment on above: Performed By: #### C BC, ADIFF, ANEU #### [address] [address] #### TROP, CMP, GFR #### [address] [address] Sodium [Moles/Vol] 137 mmol/L Normal 136-145 [facility] ([place]) Comment on above: Performed By: #### C KYLER MELO, ANEU #### [place] [address] #### TROP, CMP, GFR #### [address] [address] Urea nitrogen [Mass/Vol] 16.0 mg/dL Normal 8.0-22.0 [facility] ([place]) Comment on above: Performed By: #### C KYLER MELO, ANEU #### [place] [address] #### TROP, CMP, GFR #### [place] [address] Urea nitrogen/Creatinine [Mass ratio] 13.9 ratio Normal 10.0-22.0 [facility] ([place]) Comment on above: Performed By: #### C KYLER MELO, ANEU #### [place] [address] #### TROP, CMP, GFR #### [address] [address] CBCon 04-07-2019 Erythrocyte distribution width (RBC) [Ratio] 14.1 % Normal 11.5-15.5 [facility] ([place]) Comment on above: Performed By: #### C KYLER MELO, ANEU #### [place] [address] #### TROP, CMP, GFR #### [place] [address] Hematocrit (Bld) [Volume fraction] 34.9 % Low 40.0-52.0 [facility] ([place]) Comment on above: Performed By: #### C KYLER MELO, ANEU #### [place] [address] #### TROP, CMP, GFR #### [place] [address] Hemoglobin (Bld) [Mass/Vol] 11.6 G/dL Low 13.0-17.5 [facility] ([place]) Comment on above: Performed By: #### C BC, ADIFF, ANEU #### [place] [address] #### TROP, CMP, GFR #### [address] [address] MCH (RBC) [Entitic mass] 29.2 pg Normal 27.0-33.0 [facility] ([place]) Comment on above: Performed By: #### C BC, ADIFF, ANEU #### [place] [address] #### TROP, CMP, GFR #### [place] [address] MCHC (RBC) [Mass/Vol] 33.3 G/dL Normal 32.0-36.0 [facility] ([place]) Comment on above: Performed By: #### C BC, ADIFF, ANEU #### [place] [address] #### TROP, CMP, GFR #### [address] [address] MCV (RBC) [Entitic vol] 87.7 fL Normal 81.0-100.0 [facility] ([place]) Comment on above: Performed By: #### C BC, ADIFF, ANEU #### [place] [address] #### TROP, CMP, GFR #### [address] [address] Platelet mean volume (Bld) [Entitic vol] 9.1 fL Normal 6.4-10.5 [facility] ([place]) Comment on above: Performed By: #### C BC, ADIFF, ANEU #### [place] [address] #### TROP, CMP, GFR #### [address] [address] Platelets (Bld) [#/Vol] 248 10 3/mcL Normal 150-450 [facility] ([place]) Comment on above: Performed By: #### C BC ADIFF, ANEU #### [place] [address] #### TROP, CMP, GFR #### [address] [address] RBC (Bld) [#/Vol] 3.98 10 6/mcL Low 4.50-6.00 [facility] ([place]) Comment on above: Performed By: #### C BC ADIFF, ANEU #### [place] [address] #### TROP, CMP, GFR #### [address] [address] WBC (Bld) [#/Vol] 13.70 10 3/mcL High 4.50-10.80 [facility] ([place]) Comment on above: Performed By: #### C KYLER MELO, ANEU #### [place] [address] #### TROP, CMP, GFR #### [address] [address] PBNPon 04-07-2019 Natriuretic peptide B (Bld) [Mass/Vol] 1206 pg/mL High 0-900 [facility] ([place]) Comment on above: Result Comment: NT-p roBNP results of less than 300 pg/mL effectively rules out acute congestive heart failure with 99% negative predictive value. Performed By: #### C BC ADIFF, ANEU #### [place] [address] #### TROP, CMP, GFR #### [address] [address] TROPIon 04-07-2019 Troponin I.cardiac [Mass/Vol] ng/mL Normal 0.000-0.040 [facility] ([place]) Comment on above: Result Comment: Trop onin I reference ranges (04/22/14): 0.00-0.040 ng/mL Negative and non-diagnostic. >0.040 ng/mL Consistent with cardiac damage, increased clinical risk and possibility of myocardial infarction. Serial measurements, a rise & fall in test results, clinical history, appropriate symptoms and/or ECG changes may help assess possibility of CT. *Other non-acute coronary syndrome conditions such as CHF, myocarditis, pulmonary emboli, sepsis and cardiac surgery could result in myocardial damage and increased troponin levels. Performed By: #### C BCKYLER, ANEU #### [place] [id number] [place], [place] [address] #### TROP, CMP, GFR #### [address] [address] .GFRon 04-06-2019 GFR Non- 42 ml/min/1.73sqm Normal [facility] ([place]) Comment on above: Result Comment: GFR Population mean for , Non- Americans Ages 20-29 = 116 mL/min/1.73 sq.m. Ages 30-39 = 107 mL/min/1.73 sq.m. Ages 40-49 = 99 mL/min/1.73 sq.m. Ages 50-59 = 93 mL/min/1.73 sq.m. Ages 60-69 = 85 mL/min/1.73 sq.m. Ages 70+ = 75 mL/min/1.73 sq.m. Chronic Kidney Disease: Less than 60 mL/min/1.73 square meters End Stage Renal Disease: Less than 15 mL/min/1.73 square meters Performed By: #### C BC, KYLER, ANEU #### [place] [id number] [place], [place] [address] #### TROP, CMP, GFR #### [address] [address] GFR 51 ml/min/1.73sqm Normal [facility] ([place]) Comment on above: Result Comment: GFR Population mean for , Non- Americans Ages 20-29 = 116 mL/min/1.73 sq.m. Ages 30-39 = 107 mL/min/1.73 sq.m. Ages 40-49 = 99 mL/min/1.73 sq.m. Ages 50-59 = 93 mL/min/1.73 sq.m. Ages 60-69 = 85 mL/min/1.73 sq.m. Ages 70+ = 75 mL/min/1.73 sq.m. Chronic Kidney Disease: Less than 60 mL/min/1.73 square meters End Stage Renal Disease: Less than 15 mL/min/1.73 square meters Performed By: #### C BC ADIFF, ANEU #### [place] [address] #### TROP, CMP, GFR #### [place] [address] .Manual Diffon 04-06-2019 Bands 6.0 % High 0.0-5.0 [facility] ([place]) Comment on above: Performed By: #### C BC, ADIFF, ANEU #### [place] [address] #### TROP, CMP, GFR #### [place] [address] Basophil %, Manual 2.0 % Normal 0.0-2.5 [facility] ([place]) Comment on above: Performed By: #### C BC ADIFF, ANEU #### [place] [address] #### TROP, CMP, GFR #### [place] [address] Basophil, Abs Manual 0.40 10 3/mcL High 0.00-0.19 [facility] ([place]) Comment on above: Performed By: #### C BC, ADIFF, ANEU #### [place] [address] #### TROP, CMP, GFR #### [place] [address] Eosinophil %, Manual 0.0 % Normal 0.0-7.0 [facility] ([place]) Comment on above: Performed By: #### C BC, ADIFF, ANEU #### [place] [address] #### TROP, CMP, GFR #### [place] [address] Eosinophil, Abs Manual 0.00 10 3/mcL Normal 0.00-0.40 [facility]ly [facility] ([place]) Comment on above: Performed By: #### C BC, ADIFF, ANEU #### [place] [address] #### TROP, CMP, GFR #### [address] [address] Lymphocyte %, Manual 3.0 % Low 10.0-50.0 [facility] ([place]) Comment on above: Performed By: #### C BC, ADIFF, ANEU #### [place] [address] #### TROP, CMP, GFR #### [address] [address] Lymphocyte, Abs Manual 0.60 10 3/mcL Low 0.77-3.85 [facility] ([place]) Comment on above: Performed By: #### C BC, ADIFF, ANEU #### [place] [address] #### TROP, CMP, GFR #### [address] [address] Metamyelocytes/100 WBC (Bld) 1.0 % Normal [facility] ([place]) Comment on above: Performed By: #### C BC, ADIFF, ANEU #### [place] [address] #### TROP, CMP, GFR #### [address] [address] Monocyte %, Manual 10.0 % Normal 1.7-13.0 [facility] ([place]) Comment on above: Performed By: #### C BC, ADIFF, ANEU #### [place] [address] #### TROP, CMP, GFR #### [address] [address] Monocyte, Abs Manual 2.00 10 3/mcL High 0.15-1.00 [facility] ([place]) Comment on above: Performed By: #### C BC, ADIFF, ANEU #### [place] [address] #### TROP, CMP, GFR #### [place] [address] Neutrophil %, Manual 78.0 % Normal 37.0-80.0 [facility] ([place]) Comment on above: Performed By: #### C BC, ADIFF, ANEU #### [place] [address] #### TROP, CMP, GFR #### [place] [address] Neutrophil, Abs Manual 15.60 10 3/mcL High 2.85-6.16 [facility] ([place]) Comment on above: Performed By: #### C BC, ADIFF, ANEU #### [place] [address] #### TROP, CMP, GFR #### [place] [address] .Morphon 04-06-2019 Platelets (Bld) [#/Vol] Normal Normal [facility] ([place] Comment on above: Performed By: #### C BC, ADIFF, ANEU #### [place] [address] #### TROP, CMP, GFR #### [place] [address] Toxic Gran Slight Normal [facility] ([place] Comment on above: Performed By: #### C BC, ADIFF, ANEU #### [place] [address] #### TROP, CMP, GFR #### [place] [address] .Urinalysis Microscopic (AO) on 04-06-2019 RBC (U) [#/Vol] 0-5 Abnormal None Seen [facility] ([place] Comment on above: Performed By: #### C BC, ADIFF, ANEU #### [place] [address] #### TROP, CMP, GFR #### [place] [address] UA Mucous 1+ /hpf Normal [facility] ([place] Comment on above: Performed By: #### C BC, ADIFF, ANEU #### [address] [address] #### TROP, CMP, GFR #### [place] [address] UA Squam Epithelial 0-5 Abnormal None Seen [facility] ([place]) Comment on above: Performed By: #### C BC, ADIFF, ANEU #### [place] [address] #### TROP, CMP, GFR #### [place] [address] UA WBC None Seen Normal None Seen [facility] ([place] Comment on above: Performed By: #### C BC, ADIFF, ANEU #### [place] [address] #### TROP, CMP, GFR #### [place] [address] CBCon 04-06-2019 Erythrocyte distribution width (RBC) [Ratio] 14.1 % Normal 11.5-14.5 [facility] ([place]) Comment on above: Performed By: #### C BC, DIFF, MORPH #### [place] [address] #### LIP, CMP, GFR #### [place] [address] Hematocrit (Bld) [Volume fraction] 40.1 % Low 42.0-52.0 [facility] ([place] Comment on above: Performed By: #### C BC, DIFF, MORPH #### [place] [address] #### LIP, CMP, GFR #### [place] [address] Hemoglobin (Bld) [Mass/Vol] 12.9 G/dL Low 14.0-18.0 [facility] ([place]) Comment on above: Performed By: #### C BC, DIFF, MORPH #### [place] [address] #### LIP, CMP, GFR #### [address] [address] MCH (RBC) [Entitic mass] 28.7 pg Normal 27.0-31.2 [facility] ([place] Comment on above: Performed By: #### C BC, DIFF, MORPH #### [place] [address] #### LIP, CMP, GFR #### [place] [address] MCHC (RBC) [Mass/Vol] 32.2 G/dL Normal 31.8-35.4 [facility] ([place] Comment on above: Performed By: #### C BC, DIFF, MORPH #### [place] [address] #### LIP, CMP, GFR #### [place] [address] MCV (RBC) [Entitic vol] 89.2 fL Normal 80.0-94.0 [facility] ([place] Comment on above: Performed By: #### C BC, DIFF, MORPH #### [place] [address] #### LIP, CMP, GFR #### [address] [address] Platelet mean volume (Bld) [Entitic vol] 9.2 fL Normal 7.4-10.4 [facility] ([place] Comment on above: Performed By: #### C BC, DIFF, MORPH #### [place] [address] #### LIP, CMP, GFR #### [address] [address] Platelets (Bld) [#/Vol] 274 10 3/mcL Normal 130-400 [facility] ([place] Comment on above: Performed By: #### C BC, DIFF, MORPH #### [place] [address] #### LIP, CMP, GFR #### [place] [address] RBC (Bld) [#/Vol] 4.50 10 6/mcL Normal 4.04-6.13 [facility] ([place]) Comment on above: Performed By: #### C BC, DIFF, MORPH #### [place] [address] #### LIP, CMP, GFR #### [place] [id number] WBC (Bld) [#/Vol] 18.60 10 3/mcL High 4.60-10.80 [facility] ([place]) Comment on above: Performed By: #### C BC, DIFF, MORPH #### [place] [address] #### LIP, CMP, GFR #### [place] [address] CMPon 04-06-2019 Albumin [Mass/Vol] 3.2 G/dL Low 3.4-4.8 [facility] ([place]) Comment on above: Performed By: #### C BC, ADIFF, ANEU #### [place] [address] #### TROP, CMP, GFR #### [place] [address] Albumin/Globulin [Mass ratio] 0.8 {ratio} Low 1.1-2.5 [facility] ([place] Comment on above: Performed By: #### C BC, ADIFF, ANEU #### [place] [address] #### TROP, CMP, GFR #### [place] [address] ALP [Catalytic activity/Vol] 87 U/L Normal 40-135 [facility] ([place] Comment on above: Performed By: #### C BC, ADIFF, ANEU #### [place] [address] #### TROP, CMP, GFR #### [facility] [address] [place], [place] [address] ALT [Catalytic activity/Vol] 20 U/L Normal 10-35 [facility] ([place] Comment on above: Performed By: #### C BC, ADIFF, ANEU #### [address] [address] #### TROP, CMP, GFR #### [facility] [address] [place] [address] AST [Catalytic activity/Vol] 20 U/L Normal 10-40 [facility] ([place] Comment on above: Performed By: #### C BC, ADIFF, ANEU #### [address] [address] #### TROP, CMP, GFR #### [address] [address] Bili Total 1.0 mg/dL Normal 0.2-1.0 [facility] ([place] Comment on above: Performed By: #### C BC, ADIFF, ANEU #### [place] [address] #### TROP, CMP, GFR #### [address] [address] Calcium [Mass/Vol] 8.4 mg/dL Normal 8.4-10.2 [facility] ([place]) Comment on above: Performed By: #### C BC, ADIFF, ANEU #### [address] [address] #### TROP, CMP, GFR #### [address] [address] Chloride [Moles/Vol] 100 mmol/L Normal 98-107 [facility] ([place] Comment on above: Performed By: #### C BC, ADIFF, ANEU #### [address] [address] #### TROP, CMP, GFR #### [address] [address] CO2 [Moles/Vol] 26 mmol/L Normal 23-31 [facility] ([place] Comment on above: Performed By: #### C BC, ADIFF, ANEU #### [address] [address] #### TROP, CMP, GFR #### [address] [address] Creatinine [Mass/Vol] 1.63 mg/dL High 0.70-1.30 [facility] ([place] Comment on above: Performed By: #### C BC, ADIFF, ANEU #### [address] [address] #### TROP, CMP, GFR #### [address] [address] Electrolyte Balance 12.0 mEq/L Normal [facility] ([place]) Comment on above: Performed By: #### C BC, ADIFF, ANEU #### [address] [address] #### TROP, CMP, GFR #### [address] [address] Globulin (S) [Mass/Vol] 3.8 G/dL Normal [facility] ([place] Comment on above: Performed By: #### C BC, ADIFF, ANEU #### [address] [address] #### TROP, CMP, GFR #### [address] [address] Glucose [Mass/Vol] 125 mg/dL High 83-110 [facility] ([place]) Comment on above: Performed By: #### C BC, ADIFF, ANEU #### [address] [address] #### TROP, CMP, GFR #### [address] [address] Potassium [Moles/Vol] 4.6 mmol/L Normal 3.5-5.1 [facility] ([place] Comment on above: Performed By: #### C BC, ADIFF, ANEU #### [address] [address] #### TROP, CMP, GFR #### [address] [address] Protein [Mass/Vol] 7.0 G/dL Normal 6.4-8.2 [facility] ([place]) Comment on above: Performed By: #### C BC, ADIFF, ANEU #### [address] [address] #### TROP, CMP, GFR #### [address] [address] Sodium [Moles/Vol] 138 mmol/L Normal 136-145 [facility] ([place]) Comment on above: Performed By: #### C BC, ADIFF, ANEU #### [address] [address] #### TROP, CMP, GFR #### [address] [address] Urea nitrogen [Mass/Vol] 26 mg/dL High 7-18 [facility] ([place]) Comment on above: Performed By: #### C BC, ADIFF, ANEU #### [address] [address] #### TROP, CMP, GFR #### [address] [address] Urea nitrogen/Creatinine [Mass ratio] 16 ratio Normal - [facility] ([place]) Comment on above: Performed By: #### C BC, ADIFF, ANEU #### [address] [address] #### TROP, CMP, GFR #### [address] [address] LIPon 04-06-2019 Lipase Level 63 U/L Low 73-393 [facility] ([place] Comment on above: Performed By: #### C BC, DIFF, MORPH #### [address] [address] #### LIP, CMP, GFR #### [address] [address] UAon 04-06-2019 Color (U) Yellow Normal [facility] ([place] Comment on above: Performed By: #### C BC, ADIFF, ANEU #### [address] [address] #### TROP, CMP, GFR #### [address] [address] Glucose (U) [Mass/Vol] Negative Normal Negative [facility] ([place] Comment on above: Performed By: #### C BC, ADIFF, ANEU #### [address] [address] #### TROP, CMP, GFR #### [address] [address] Ketones Ql (U) 80 mg/dL Abnormal Negative [facility] ([place] Comment on above: Performed By: #### C BC, ADIFF, ANEU #### [address] [address] #### TROP, CMP, GFR #### [place] [id number] UA Appear Clear Normal Clear [facility] ([place] Comment on above: Performed By: #### C BC, ADIFF, ANEU #### [address] [address] #### TROP, CMP, GFR #### [address] [address] UA Blood Negative Normal Negative [facility] ([place] Comment on above: Performed By: #### C BC, ADIFF, ANEU #### [address] [address] #### TROP, CMP, GFR #### [address] [address] UA Leuk Est Negative Normal Negative [facility] ([place] Comment on above: Performed By: #### C BC, ADIFF, ANEU #### [address] [address] #### TROP, CMP, GFR #### [address] [address] UA Nitrite Negative Normal Negative [facility] ([place] Comment on above: Performed By: #### C BC, ADIFF, ANEU #### [place] [address] [place], [place] [address] #### TROP, CMP, GFR #### [address] [address] UA pH 5.5 Normal 5.0 - 8.0 [facility] ([place] Comment on above: Performed By: #### C BC, ADIFF, ANEU #### [place] [address] #### TROP, CMP, GFR #### [place] [address] UA Protein 30 mg/dL Normal Negative [facility] ([place] Comment on above: Performed By: #### C BC, ADIFF, ANEU #### [place] [address] #### TROP, CMP, GFR #### [place] [address] UA Spec Grav 1.025 Normal 1.015-1.025 [facility] ([place]) Comment on above: Performed By: #### C BC, ADIFF, ANEU #### [place] [address] #### TROP, CMP, GFR #### [place] [address] UA Specimen Type Clean Catch Normal [facility] ([place] Comment on above: Performed By: #### C BC, ADIFF, ANEU #### [place] [address] #### TROP, CMP, GFR #### [place] [address] UA Urobilinogen 0.2 E.U./dL Normal 0.2-1.0 [facility] ([place] Comment on above: Performed By: #### C BC, ADIFF, ANEU #### [place] [address] #### TROP, CMP, GFR #### [place] [address] Urobilinogen Qn (U) Moderate Abnormal Negative [facility] ([place]) Comment on above: Performed By: #### C BC, ADIFF, ANEU #### [place] [id number] [place], [place] [address] #### TROP, CMP, GFR #### [address] [address] US ABDOMEN LIMITEDon 019 US ABDOMEN LIMITED ORIGINAL Ultrasound of the RIGHT upper quadrant CLINICAL STATEMENT: abdominal pain; suspect gallstones, gallbladder, or cholecystitis, COMPARISON: None FINDINGS: The liver is normal in size and echogenicity. No focal lesions are seen. There is no intra or extrahepatic bile duct dilatation. The common duct is 5 mm at the lor hepatis. The gallbladder is moderately distended with multiple calculi. There is borderline gallbladder wall thickening. There is some nonspecific tenderness over the gallbladder but a negative sonographic Dooley sign.. The visualized pancreas is normal in size and echogenicity. No ascites is seen in the Payton's pouch. The right kidney shows no pelvocaliectasis. IMPRESSION: Gallstones with gallbladder wall thickening and some tenderness. Findings are equivocal for acute cholecystitis. Consider HIDA scan if there is strong concern for acute cholecystitis. Interpreted By: Jun Villarreal MD Preliminary Report By: Jun Villarreal MD Electronically Signed By: Jun Villarreal MD Dictated Date: 04/06/2019 2:15:31 PM Prelim Date: 04/06/2019 2:15:31 PM Sign Date: 04/06/2019 2:16:58 PM Normal [facility] ([place]) .Auto Diffon 04-03-2019 Ammonia (P) [Mass/Vol] 0.70 10 3/mcL Normal 0.15-1.00 [facility] ([place]) Comment on above: Performed By: #### C BC, ADIFF, ANEU #### [place] [id number] [place], [place] [address] #### TROP, CMP, GFR #### [facility] [address] [place] [address] Basophils (Bld) [#/Vol] 0.00 10 3/mcL Normal 0.00-0.19 [facility] ([place]) Comment on above: Performed By: #### C BC, ADIFF, ANEU #### [address] [address] #### TROP, CMP, GFR #### [address] [address] Basophils/100 WBC (Bld) 0.7 % Normal 0.0-2.5 [facility] ([place]) Comment on above: Performed By: #### C BC, ADIFF, ANEU #### [address] [address] #### TROP, CMP, GFR #### [address] [address] Eosinophils (Bld) [#/Vol] 0.20 10 3/mcL Normal 0.00-0.40 [facility] ([place] Comment on above: Performed By: #### C BC, ADIFF, ANEU #### [address] [address] #### TROP, CMP, GFR #### [address] [address] Eosinophils/100 WBC (Bld) 2.3 % Normal 0.0-7.0 [facility] ([place] Comment on above: Performed By: #### C BC, ADIFF, ANEU #### [address] [address] #### TROP, CMP, GFR #### [address] [address] Lymphocytes (Bld) [#/Vol] 1.80 10 3/mcL Normal 0.77-3.85 [facility] ([place] Comment on above: Performed By: #### C BC, ADIFF, ANEU #### [address] [address] #### TROP, CMP, GFR #### [address] [address] Lymphocytes/100 WBC (Bld) 23.7 % Normal 10.0-50.0 [facility] ([place] Comment on above: Performed By: #### C BC, ADIFF, ANEU #### [address] [place] [address] #### TROP, CMP, GFR #### [address] [address] Monocytes/100 WBC (Bld) 9.7 % Normal 1.7-13.0 [facility] ([place] Comment on above: Performed By: #### C BC, ADIFF, ANEU #### [address] [address] #### TROP, CMP, GFR #### [address] [address] Neutrophils/100 WBC (Bld) 63.6 % Normal 37.0-80.0 [facility] ([place] Comment on above: Performed By: #### C BC, ADIFF, ANEU #### [address] [address] #### TROP, CMP, GFR #### [address] [address] .GFRon 04-03-2019 GFR 77 ml/min/1.73sqm Normal [facility] ([place] Comment on above: Result Comment: GFR Population mean for , Non- Americans Ages 20-29 = 116 mL/min/1.73 sq.m. Ages 30-39 = 107 mL/min/1.73 sq.m. Ages 40-49 = 99 mL/min/1.73 sq.m. Ages 50-59 = 93 mL/min/1.73 sq.m. Ages 60-69 = 85 mL/min/1.73 sq.m. Ages 70+ = 75 mL/min/1.73 sq.m. Chronic Kidney Disease: Less than 60 mL/min/1.73 square meters End Stage Renal Disease: Less than 15 mL/min/1.73 square meters Performed By: #### C BC, ADIFF, ANEU #### [address] [address] #### TROP, CMP, GFR #### [address] [address] GFR Non- 63 ml/min/1.73sqm Normal [facility] ([place] Comment on above: Result Comment: GFR Population mean for , Non- Americans Ages 20-29 = 116 mL/min/1.73 sq.m. Ages 30-39 = 107 mL/min/1.73 sq.m. Ages 40-49 = 99 mL/min/1.73 sq.m. Ages 50-59 = 93 mL/min/1.73 sq.m. Ages 60-69 = 85 mL/min/1.73 sq.m. Ages 70+ = 75 mL/min/1.73 sq.m. Chronic Kidney Disease: Less than 60 mL/min/1.73 square meters End Stage Renal Disease: Less than 15 mL/min/1.73 square meters Performed By: #### C BC, ADIFF, ANEU #### [place] [address] #### TROP, CMP, GFR #### [place] [address] .NEUABSon 04-03-2019 Neutrophils (Bld) [#/Vol] 4.70 10 3/mcL Normal 2.85-6.16 [facility] ([place]) Comment on above: Performed By: #### C BC, ADIFF, ANEU #### [place] [address] #### TROP, CMP, GFR #### [place] [address] CBCon 04-03-2019 Erythrocyte distribution width (RBC) [Ratio] 14.6 % High 11.5-14.5 [facility] ([place] Comment on above: Performed By: #### C BC, ADIFF, ANEU #### [place] [address] #### TROP, CMP, GFR #### [place] [address] Hematocrit (Bld) [Volume fraction] 46.7 % Normal 42.0-52.0 [facility] ([place] Comment on above: Performed By: #### C BC, ADIFF, ANEU #### [place] [address] #### TROP, CMP, GFR #### [address] [address] Hemoglobin (Bld) [Mass/Vol] 14.9 G/dL Normal 14.0-18.0 [facility] ([place] Comment on above: Performed By: #### C BC, ADIFF, ANEU #### [address] [address] #### TROP, CMP, GFR #### [place] [id number] MCH (RBC) [Entitic mass] 28.4 pg Normal 27.0-31.2 [facility] ([place] Comment on above: Performed By: #### C BC, ADIFF, ANEU #### [place] [address] #### TROP, CMP, GFR #### [place] [address] MCHC (RBC) [Mass/Vol] 31.9 G/dL Normal 31.8-35.4 [facility] ([place] Comment on above: Performed By: #### C BC, ADIFF, ANEU #### [place] [address] #### TROP, CMP, GFR #### [place] [address] MCV (RBC) [Entitic vol] 89.0 fL Normal 80.0-94.0 [facility] ([place] Comment on above: Performed By: #### C BC, ADIFF, ANEU #### [place] [address] #### TROP, CMP, GFR #### [place] [address] Platelet mean volume (Bld) [Entitic vol] 9.1 fL Normal 7.4-10.4 [facility] ([place]) Comment on above: Performed By: #### C BC, ADIFF, ANEU #### [place] [address] #### TROP, CMP, GFR #### [address] [address] Platelets (Bld) [#/Vol] 303 10 3/mcL Normal 130-400 [facility] ([place] Comment on above: Performed By: #### C BC, ADIFF, ANEU #### [address] [address] #### TROP, CMP, GFR #### [address] [address] RBC (Bld) [#/Vol] 5.25 10 6/mcL Normal 4.04-6.13 [facility] ([place]) Comment on above: Performed By: #### C BC, ADIFF, ANEU #### [place] [address] #### TROP, CMP, GFR #### [address] [address] WBC (Bld) [#/Vol] 7.50 10 3/mcL Normal 4.60-10.80 [facility] ([place]) Comment on above: Performed By: #### C BC, ADIFF, ANEU #### [place] [address] #### TROP, CMP, GFR #### [address] [address] CMPon 04-03-2019 Albumin [Mass/Vol] 4.5 G/dL Normal 3.4-4.8 [facility] ([place]) Comment on above: Performed By: #### Me[place] BC, ADIFF, ANEU #### [place] [address] #### TROP, CMP, GFR #### [address] [address] Albumin/Globulin [Mass ratio] 1.1 {ratio} Normal 1.1-2.5 [facility] ([place] Comment on above: Performed By: #### C BC, ADIFF, ANEU #### [address] [address] #### TROP, CMP, GFR #### [address] [address] ALP [Catalytic activity/Vol] 95 U/L Normal 40-135 [facility] ([place] Comment on above: Performed By: #### C BC, ADIFF, ANEU #### [address] [address] #### TROP, CMP, GFR #### [address] [address] ALT [Catalytic activity/Vol] 32 U/L Normal 10-35 [facility] ([place] Comment on above: Performed By: #### C BC, ADIFF, ANEU #### [address] [address] #### TROP, CMP, GFR #### [address] [address] AST [Catalytic activity/Vol] 22 U/L Normal 10-40 [facility] ([place] Comment on above: Performed By: #### C BC, ADIFF, ANEU #### [place] [address] #### TROP, CMP, GFR #### [address] [address] Bili Total 0.2 mg/dL Normal 0.2-1.0 [facility] ([place] Comment on above: Performed By: #### C BC, ADIFF, ANEU #### [place] [address] #### TROP, CMP, GFR #### [place] [id number] Calcium [Mass/Vol] 9.4 mg/dL Normal 8.4-10.2 [facility] ([place]) Comment on above: Performed By: #### C BC, ADIFF, ANEU #### [place] [address] #### TROP, CMP, GFR #### [place] [id number] Chloride [Moles/Vol] 102 mmol/L Normal 98-107 [facility] ([place]) Comment on above: Performed By: #### C BC, ADIFF, ANEU #### [address] [address] #### TROP, CMP, GFR #### [address] [address] CO2 [Moles/Vol] 28 mmol/L Normal 23-31 [facility] ([place] Comment on above: Performed By: #### C BC, ADIFF, ANEU #### [address] [address] #### TROP, CMP, GFR #### [address] [address] Creatinine [Mass/Vol] 1.14 mg/dL Normal 0.70-1.30 [facility] ([place] Comment on above: Performed By: #### C BC, ADIFF, ANEU #### [address] [address] #### TROP, CMP, GFR #### [address] [address] Electrolyte Balance 13.0 mEq/L Normal [facility] ([place]) Comment on above: Performed By: #### C BC, ADIFF, ANEU #### [address] [address] #### TROP, CMP, GFR #### [address] [address] Globulin (S) [Mass/Vol] 4.0 G/dL Normal [facility] ([place] Comment on above: Performed By: #### C BC, ADIFF, ANEU #### [address] [address] #### TROP, CMP, GFR #### [address] [address] Glucose [Mass/Vol] 120 mg/dL High 83-110 [facility] ([place]) Comment on above: Performed By: #### C BC, ADIFF, ANEU #### [address] [address] #### TROP, CMP, GFR #### [address] [address] Potassium [Moles/Vol] 4.1 mmol/L Normal 3.5-5.1 [facility] ([place]) Comment on above: Performed By: #### C BC, ADIFF, ANEU #### [address] [address] #### TROP, CMP, GFR #### [address] [address] Protein [Mass/Vol] 8.5 G/dL High 6.4-8.2 [facility] ([place]) Comment on above: Performed By: #### C BC, ADIFF, ANEU #### [address] [address] #### TROP, CMP, GFR #### [address] [address] Sodium [Moles/Vol] 143 mmol/L Normal 136-145 [facility] ([place]) Comment on above: Performed By: #### C BC, ADIFF, ANEU #### [address] [address] #### TROP, CMP, GFR #### [address] [address] Urea nitrogen [Mass/Vol] 20 mg/dL High 7-18 [facility] ([place] Comment on above: Performed By: #### C BC, ADIFF, ANEU #### [address] [address] #### TROP, CMP, GFR #### [address] [address] Urea nitrogen/Creatinine [Mass ratio] 18 ratio Normal 7-27 [facility] ([place]) Comment on above: Performed By: #### C BC, ADIFF, ANEU #### [address] [address] #### TROP, CMP, GFR #### [address] [address] LIPon 04-03-2019 Lipase Level 159 U/L Normal 73-393 [facility] ([place] Comment on above: Performed By: #### L IP #### [address] [address] TROPon 04-03-2019 Troponin I.cardiac [Mass/Vol] ng/mL Normal 0.000-0.040 [facility] ([place]) Comment on above: Result Comment: Trop onin I reference range: 0.00-0.040 ng/mL Negative and non-diagnostic. >0.040 ng/mL Consistent with cardiac damage, increased clinical risk and possibility of myocardial infarction. Serial measurements, a rise & fall in test results, clinical history, appropriate symptoms and/or ECG changes may help assess possibility of CT. *Other non-acute coronary syndrome conditions such as CHF, myocarditis, pulmonary emboli, sepsis and cardiac surgery could result in myocardial damage and increased troponin levels. Performed By: #### T ROP #### [place] [address] Troponin I.cardiac [Mass/Vol] ng/mL Normal 0.000-0.040 [facility] ([place]) Comment on above: Result Comment: Trop onin I reference range: 0.00-0.040 ng/mL Negative and non-diagnostic. >0.040 ng/mL Consistent with cardiac damage, increased clinical risk and possibility of myocardial infarction. Serial measurements, a rise & fall in test results, clinical history, appropriate symptoms and/or ECG changes may help assess possibility of CT. *Other non-acute coronary syndrome conditions such as CHF, myocarditis, pulmonary emboli, sepsis and cardiac surgery could result in myocardial damage and increased troponin levels. Performed By: #### C BC, ADIFF, ANEU #### [address] [address] #### TROP, CMP, GFR #### [address] [address] Culture, Blood (WB)on 2017 CUB Has pt arrived? Y SO URCE= R. WRIST BCAEROBIC BOTTLE: GRAM NEGATIVE RODS RESULTS CALLED TO FABY CANADA 06/23/18 0820 Chanda Ortega. REPORT READ BACK BY SAME. PLEASE REFER TO [id number] FOR IDENTIFICATION AND SENSITIVITY ANAEROBIC BOTTLE: No growth in 5 days. 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, [address] CBC W/Diff, Automatedon 06-15 PATH REV Reviewed Normal [facility] Comment on above: Result Comment: Neut rophilic leukocytosis.Normocytic anemia.Clinical correlation necessary.Pathologist comment Marlo Castillo M.D. 06/26/18 AMENDED REPORT 06/26/18 1404 PATH REV previously reported as: December Performed By: #### L 501.4010 ####[facility] [address] [place], [address] Basic Metabolic Profile (BMP )on 06-24-2018 Calcium mass conc 7.7 mg/dL Low 8.5-10.1 [facility] Comment on above: Performed By: #### L 500.2500 ####[facility] [address] [place], [address] Chloride molar conc 109 mmol/L High 98-107 [facility] Comment on above: Performed By: #### L 500.2500 ####[facility] [address] [place], [address] CO2 molar conc 25.0 mmol/L Normal 21.0-32.0 [facility] Comment on above: Performed By: #### L 500.2500 ####[facility] [address] [place], [address] Creatinine mass conc 0.93 mg/dL Normal 0.70-1.30 [facility] Comment on above: Result Comment: The validity of the calculated GFR AND GFRAA in patients over70 years has not been determined. Clinical correlation isessential. Performed By: #### L 500.2500 ####[facility] [address] [place], [address] EST GFR - AA 103 mL/min Normal >60 [facility] Comment on above: Result Comment: Afri can Argentine GFR Calc Performed By: #### L 500.2500 ####[facility] [address] [place], [address] Estimated CRCL 77.59 ml/min Normal [facility] Comment on above: Performed By: #### L 500.2500 ####[facility] [address] [place], [address] GAP 8 Normal 5-15 [facility] Comment on above: Performed By: #### L 500.2500 ####[facility] [address] [place], [address] GFR/1.73 sq M predicted among non-blacks MDRD vol rate/area (S/P/Bld) 85 mL/min/{1.73_m2} Normal >60 [facility] Comment on above: Result Comment: Non- GFR Calc Performed By: #### L 500.2500 ####[facility] [address] [place], [address] Glucose mass conc 121 mg/dL High 74-106 [facility] Comment on above: Result Comment: Fast ing Glucose result from 100 to 125 mg/dLsuggests IMPAIRED HOMEOSTASIS per A.D.A. criteria.Please note revised GLUCOSE reference range skimcddzr23/02/2018. Performed By: #### L 500.2500 ####[facility] [address] [place], [address] Potassium molar conc 3.3 mmol/L Low 3.5-5.1 [facility] Comment on above: Performed By: #### L 500.2500 ####[facility] [address] [place], [address] Sodium molar conc 142 mmol/L Normal 136-145 [facility] Comment on above: Performed By: #### L 500.2500 ####[facility] [address] [place], [address] Urea nitrogen mass conc 15 mg/dL Normal 7-18 [facility] Comment on above: Performed By: #### L 500.2500 ####[facility] [address] [place], [address] Urea nitrogen mass conc (Bld) 16.1 RATIO Normal 10-20 [facility] Comment on above: Performed By: #### L 500.2500 ####[facility] [address] [place], [address] CBC W/Diff, Automatedon 11- 0-2018 Absolute Neut 9.4 X10 3/uL High 2.0-7.7 [facility] Comment on above: Performed By: #### L 501.4010 ####[facility] [address] [place], [address] Basophils/100 WBC Auto (Bld) 0.3 % Normal 0-1 [facility] Comment on above: Performed By: #### L 501.4010 ####[facility] [address] [place], [address] Eosinophils/100 WBC Auto (Bld) 2.1 % Normal 0-5 [facility] Comment on above: Performed By: #### L 501.4010 ####[facility] [address] [place], [address] Erythrocyte distribution width Auto Ratio (RBC) 14.4 % Normal 11.6-14.6 [facility] Comment on above: Performed By: #### L 501.4010 ####[facility] [address] [place], [address] Hematocrit Auto Volume Fraction (Bld) 31.4 % Low 40-54 [facility] Comment on above: Performed By: #### L 501.4010 ####[facility] [address] [place], [address] Hemoglobin mass conc (Bld) 10.3 g/dL Low 13.0-16.5 [facility] Comment on above: Performed By: #### L 501.4010 ####[facility] [address] [place], [address] IM GRAN % 0.600 % Normal 0.0-0.9 [facility] Comment on above: Result Comment: IG% - Immature Granulocytes (promyelocytes, myelocytes andmetamyelocytes) > 1% indicates that a LEFT SHIFT is Present. Performed By: #### L 501.4010 ####[facility] [address] [place], [address] Lymphocytes Auto #/vol (Bld) 1.17 X10 3/ul Normal 0.83-4.51 [facility] Comment on above: Performed By: #### L 501.4010 ####[facility] [address] [place], [address] Lymphocytes/100 WBC Auto (Bld) 9.2 % Low 19-41 [facility] Comment on above: Performed By: #### L 501.4010 ####[facility] [address] [place], [address] MCH Auto Entitic mass (RBC) 28.9 pg Normal 27.0-32.0 [facility] Comment on above: Performed By: #### L 501.4010 ####[facility] [address] [place], [address] MCHC Auto mass conc (RBC) 32.8 g/gl Normal 32-36 [facility] Comment on above: Performed By: #### L 501.4010 ####[facility] [address] [place], [address] MCV Auto Entitic volume (RBC) 88.0 fL Normal 80-94 [facility] Comment on above: Performed By: #### L 501.4010 ####[facility] [address] [place], [address] Monocytes/100 WBC Auto (Bld) 13.9 % High 0-10 [facility] Comment on above: Performed By: #### L 501.4010 ####[facility] [address] [place], [address] Neutrophils/100 WBC Auto (Bld) 73.9 % High 47-70 [facility] Comment on above: Performed By: #### L 501.4010 ####[facility] [address] [place], [address] Platelet mean volume Auto Entitic volume (Bld) 11.2 fL Normal 6.2-12.0 [facility] Comment on above: Performed By: #### L 501.4010 ####[facility] [address] [place], [address] Platelets Auto #/vol (Bld) 268 10*3/uL Normal 150-450 [facility] Comment on above: Performed By: #### L 501.4010 ####[facility] [address] [place], [address] RBC Auto #/vol (Bld) 3.57 M/mm3 Low 4.6-6.2 [facility] Comment on above: Performed By: #### L 501.4010 ####[facility] [address] [place], [address] RDW SD 45.4 fl High 35.1-43.9 [facility] Comment on above: Performed By: #### L 501.4010 ####[facility] [address] [place], [address] WBC Auto #/vol (Bld) 12.7 10*3/uL High 4.4-11.0 [facility] Comment on above: Performed By: #### L 501.4010 ####[facility] [address] [place], [address] Culture, Blood (WB)on 2017 CUB Has pt arrived? Y SO URCE = LEFT ANTECUBITAL BCRESULTS CALLED TO FABY CANADA 06/23/18 0909 Chanda Ortega. REPORT READ BACK BY SAME. AEROBIC BOTTLE: GRAM NEGATIVE RODS ANAEROBIC BOTTLE: No growth in 5 days. ORGANISM 1: Klebsiella pneumoniae sp pneum Klebsiella pneumoniae sp pneum: REACTION Amoxacillin/Clavulanic Acid $ 8 S Ampicillin $ >=32 R Ampicillin/Sulbactam $ 16 I Cefazolin $ <=4 S Cefepime $ <=1 S Ceftriaxone $ <=1 S Ciprofloxacin $ <=0.25 S ESBL - Ertapenim $$$ <=0.5 S Gentamicin $ <=1 S Imipenem *NF <=0.25 S Levofloxacin $ <=0.12 S Piperacillin/Tazobactam $$ <=4 S Tobramycin $ <=1 S Trimethoprim/Sulfametho $ <=20 S(NF) indicates non-formulary drug at [facility]. Approval by Infectious Disease Specialist required before non-formulary drugs may be ordered and/or dispensed. Normal [facility] Comment on above: Performed By: #### L 501.4010 ####[facility] [address] [facility] [place], [address] Discharge Instructionon 06-15 Discharge Instruction [facility] [address] [place], [place] [address]Cvzvmcxqtllh for Home/Discharge Chprrvvitxvv14/10/18 1059MR#: [id number] Acct: [id number]: ADAM PRITCHARD Rep #: [id number]: 1945 73 From: Sparkle Contreras MDPCP: Ronni Jefferson DO Status: ADM IN- Discharge DiagnosesCurrent Active Problems:Current Active and Chronic Problems (Last Reviewed 06/20/18 @ 15:17 by Jacques Hinojosa MD)Acute cholecystitis (Acute)You will use the following diet at home:: CardiacYour food should be the consistency of: RegularYour liquids should be the consistency of: Regular/ThinDischarge Activity: Return to Normal ActivityWeight Bearing Status: Weight bearing as toleratedCall your doctor if you observe: Fever of 101 or Higher, Shortness of breath, Chest pain,Uncontrolled painInstructions: Discharge Instructions for Heart Attack, ED Gallbladder Infec Poss, Stroke andHeart DiseaseAllergies/Adverse Reactions:AllergiesNo Known Allergies Allergy (Verified 06/20/18 03:37)Medications to take at DischargeAspirin [Aspirin, Baby] 81 mg PO QODAY 06/19/18Diazepam [Valium] 5 mg PO PRN PRN 06/19/18Amlodipine [Norvasc] 10 mg PO DAILY #30 tablet 06/24/18Aspirin [Aspirin, Baby] 81 mg PO DAILY@0800 #30 tab.chew 06/24/18Atorvastatin Calcium [Lipitor] 40 mg PO QHS #30 tablet 06/24/18Ciprofloxacin [Cipro] 500 mg PO BID #10 tablet 06/24/18Losartan Potassium [Cozaar] 25 mg PO DAILY #30 tablet 06/24/18Metoprolol Tartrate [Lopressor (beta albino)] 50 mg PO BID #60 tablet 06/24/18Metronidazole 500 mg PO Q8 #15 tablet 06/24/18Ticagrelor [Brilinta] 90 mg PO BID #60 tablet 06/24/18The following prescriptions were given:Amlodipine [Norvasc] 10 mg PO DAILY #30 tabletAspirin [Aspirin, Baby] 81 mg PO DAILY@0800 #30 tab.chewAtorvastatin Calcium [Lipitor] 40 mg PO QHS #30 tabletLosartan Potassium [Cozaar] 25 mg PO DAILY #30 tabletMetronidazole 500 mg PO Q8 #15 tabletCiprofloxacin [Cipro] 500 mg PO BID #10 tabletMetoprolol Tartrate [Lopressor (beta albino)] 50 mg PO BID #60 tabletTicagrelor [Brilinta] 90 mg PO BID #60 tabletPrimary Care Physician:Ronni Jefferson DO [Primary Care Provider] -Please follow up with your Primary Care Physician in: one weekTest Results:Test results from this visit will be discussed in further detail at your follow-up appointment,if applicable.Please Follow Up With: Gibson Carlin MDWhen: 1-2 weeksPlease Follow Up With: Jacques Hinojosa MDWhen: 2-3 weeksProposed Discharge Date: 06/24/1811/10/18 1101 Date Sparkle Contreras [facility]: Ronni Jefferson DO; Jefry Redding D.O.; Sparkle Contreras MD; Jassi Joseph MD Normal [facility] Basic Metabolic Profile (BMP )on 06-23-2018 Calcium mass conc 7.6 mg/dL Low 8.5-10.1 [facility] Comment on above: Performed By: #### L 501.4010 ####[facility] [address] [place], [address] Chloride molar conc 107 mmol/L Normal 98-107 [facility] Comment on above: Performed By: #### L 501.4010 ####[facility] [address] [place], [address] CO2 molar conc 26.0 mmol/L Normal 21.0-32.0 [facility] Comment on above: Performed By: #### L 501.4010 ####[facility] [address] [place], [address] Creatinine mass conc 1.05 mg/dL Normal 0.70-1.30 [facility] Comment on above: Result Comment: The validity of the calculated GFR AND GFRAA in patients over70 years has not been determined. Clinical correlation isessential. Performed By: #### L 501.4010 ####[facility] [address] [place], [address] EST GFR - AA 90 mL/min Normal >60 [facility] Comment on above: Result Comment: Afri can Argentine GFR Calc Performed By: #### L 501.4010 ####[facility] [address] [place], [address] Estimated CRCL 68.73 ml/min Normal [facility] Comment on above: Performed By: #### L 501.4010 ####[facility] [address] [place], [address] GAP 6 Normal 5-15 [facility] Comment on above: Performed By: #### L 501.4010 ####[facility] [address] [place], [address] GFR/1.73 sq M predicted among non-blacks MDRD vol rate/area (S/P/Bld) 74 mL/min/{1.73_m2} Normal >60 [facility] Comment on above: Result Comment: Non- GFR Calc Performed By: #### L 501.4010 ####[facility] [address] [place], [address] Glucose mass conc 127 mg/dL High 74-106 [facility] Comment on above: Result Comment: Fast ing Glucose result greater than or equal to 126 mg/dLsuggests DIABETES MELLITUS per A.D.A. criteria.Please note revised GLUCOSE reference range stwtxigwo87/02/2018. Performed By: #### L 501.4010 ####[facility] [address] [place], [address] Potassium molar conc 3.1 mmol/L Low 3.5-5.1 [facility] Comment on above: Performed By: #### L 501.4010 ####[facility] [address] [place], [address] Sodium molar conc 139 mmol/L Normal 136-145 [facility] Comment on above: Performed By: #### L 501.4010 ####[facility] [address] [place], [address] Urea nitrogen mass conc 20 mg/dL High 7-18 [facility] Comment on above: Performed By: #### L 501.4010 ####[facility] [address] [place], [address] Urea nitrogen mass conc (Bld) 19.0 RATIO Normal 10-20 [facility] Comment on above: Performed By: #### L 501.4010 ####[facility] [address] [place], [address] CBC W/Diff, Automatedon 11-0 Absolute Neut 9.9 X10 3/uL High 2.0-7.7 [facility] Comment on above: Performed By: #### L 501.4010 ####[facility] [address] [place], [address] Basophils/100 WBC Auto (Bld) 0.1 % Normal 0-1 [facility] Comment on above: Performed By: #### L 501.4010 ####[facility] [address] [place], [address] Eosinophils/100 WBC Auto (Bld) 1.0 % Normal 0-5 [facility] Comment on above: Performed By: #### L 501.4010 ####[facility] [address] [place], [address] Erythrocyte distribution width Auto Ratio (RBC) 14.4 % Normal 11.6-14.6 [facility] Comment on above: Performed By: #### L 501.4010 ####[facility] [address] [place], [address] Hematocrit Auto Volume Fraction (Bld) 31.3 % Low 40-54 [facility] Comment on above: Performed By: #### L 501.4010 ####[facility] [address] [place], [address] Hemoglobin mass conc (Bld) 10.1 g/dL Low 13.0-16.5 [facility] Comment on above: Performed By: #### L 501.4010 ####[facility] [address] [place], [address] IM GRAN % 0.200 % Normal 0.0-0.9 [facility] Comment on above: Result Comment: IG% - Immature Granulocytes (promyelocytes, myelocytes andmetamyelocytes) > 1% indicates that a LEFT SHIFT is Present. Performed By: #### L 501.4010 ####[facility] [address] [place], [address] Lymphocytes Auto #/vol (Bld) 0.75 X10 3/ul Low 0.83-4.51 [facility] Comment on above: Performed By: #### L 501.4010 ####[facility] [address] [place], [address] Lymphocytes/100 WBC Auto (Bld) 6.2 % Low 19-41 [facility] Comment on above: Performed By: #### L 501.4010 ####[facility] [address] [place], [address] MCH Auto Entitic mass (RBC) 28.6 pg Normal 27.0-32.0 [facility] Comment on above: Performed By: #### L 501.4010 ####[facility] [address] [place], [address] MCHC Auto mass conc (RBC) 32.3 g/gl Normal 32-36 [facility] Comment on above: Performed By: #### L 501.4010 ####[facility] [address] [place], [address] MCV Auto Entitic volume (RBC) 88.7 fL Normal 80-94 [facility] Comment on above: Performed By: #### L 501.4010 ####[facility] [address] [place], [address] Monocytes/100 WBC Auto (Bld) 10.1 % High 0-10 [facility] Comment on above: Performed By: #### L 501.4010 ####[facility] [address] [place], [address] Neutrophils/100 WBC Auto (Bld) 82.4 % High 47-70 [facility] Comment on above: Performed By: #### L 501.4010 ####[facility] [address] [place], [address] Platelet mean volume Auto Entitic volume (Bld) 11.6 fL Normal 6.2-12.0 [facility] Comment on above: Performed By: #### L 501.4010 ####[facility] [address] [place], [address] Platelets Auto #/vol (Bld) 213 10*3/uL Normal 150-450 [facility] Comment on above: Performed By: #### L 501.4010 ####[facility] [address] [place], [address] RBC Auto #/vol (Bld) 3.53 M/mm3 Low 4.6-6.2 [facility] Comment on above: Performed By: #### L 501.4010 ####[facility] [address] [place], [address] RDW SD 45.9 fl High 35.1-43.9 [facility] Comment on above: Performed By: #### L 501.4010 ####[facility] [address] [place], [address] WBC Auto #/vol (Bld) 12.0 10*3/uL High 4.4-11.0 [facility] Comment on above: Performed By: #### L 501.4010 ####[facility] [address] [place], [address] Consultationon 06-23-2018 Consultation [facility] [address] [address]Riopqgiamddv31/06/18 1514MR#: [id number] Acct: [id number]: ADAM PRITCHARD Rep #: [id number]: 1945 73 From: Jacques Hinojosa MDPCP: Ronni Jefferson DO Status: ADM IN YLocation: U [id number] List(1) Acute cholecystitisStatus: AcuteReason for ConsultDate of Consultation: 06/20/18History of Present Illness:The patient is a 73-year-old male, with a history as outlined below, who presented to theemergency department on June 20 with complaints of chest pain. The patient was noted to behypertensive with a blood pressure of 193/125 on presentation. A CTA chest was obtained whichrevealed no evidence for pulmonary embolism or arterial dissection. The patient was noted tohave an elevated white blood cell count to 17,000, along with a troponin of 0.132. The casewas discussed with cardiology who recommended Brilinta administration and evaluation viacoronary angiography. The patient was subsequently taken to the [facility], where single-vesselcoronary disease was identified, for which a drug-eluting stent was placed in the proximal RCA.The patient then returned to the medical intensive care unit. A short time later, the patientdeveloped dysarthric speech, which prompted a stroke team to be called. The patient was takenfor an emergent CT head which was largely unremarkable. The patient was evaluated byneurology, who recommended TPA administration, due to the waxing and waning nature of thepatient's neurologic deficits.After the patient was given TPA he started to develop abdominal pain. A CAT scan of hisabdomen and pelvis was obtained which showed acute calculus cholecystitis. While in theintensive care unit his mental status has changed and he has been extremely combative. And hasbeen unable to answer any questions.Dr. Carlin is consult to me for evaluation and management of his acute cholecystitis.Past Medical HistoryPast Medical History (Chronic Problems):Chronic Problems (Last Reviewed 06/20/18 @ 11:10 by Jassi Joseph MD)Essential (primary) hypertension (Chronic)Medical History:Medical History (Last Reviewed 06/20/18 @ 15:17 by Jacques Hinojosa MD)Essential (primary) hypertension (Chronic) Y64Flaufhaupppzesr heart disease [place] coronary artery w/angina pectoris (Acute) I25.969LZZ-JCE-Vkhn RCA w/ 3.5 x 28 mm Promus Synergy Stent 06/20/18Obesity E66.9AllergiesNo Known Allergies Allergy (Verified 06/20/18 03:37)Home Medications:Ambulatory OrdersMedication Instructions RecordedSurgical History:Surgical History (Last Reviewed 06/20/18 @ 15:17 by Jacques Hinojosa MD)History of coronary artery stent placement (Acute) Onset Date: 06/20/18 Z95.2WPY-KTF-Jjkn RCA w/ 3.5 x 28 mm Promus Synergy Stent 06/20/18History of left heart catheterization Onset Date: 06/20/18 Z98.890Surgical History: no surgical historyLives: Spouse/ Significant OtherSmoking Status: Former smokerTobacco Use: Non-smokerAlcohol: NoneDrugs: None- *Family History MaternalHistory Items: No pertinent historyReview of SystemsUnable to obtain accurate/complete ROS d/t: Patient is unable to answer any questions withregards to his review of sysPatient Problems:Active and Suspected Problems (Last Reviewed 06/20/18 @ 11:10 by Jassi Joseph MD)Acute cholecystitis (Acute)- Physical ExamLungs: Clear to auscultationCardiovascular: Regular rate, Regular Rhythm, No murmursAbdomen: Soft, Tender - Patient has obvious tenderness to palpation in the right upper quadrantand a firmness to his gallbladder is easily palpable.Vital SignsTemp Pulse Resp BP Pulse Ox101.1 F H 76 12 181/67 H 12:35 06/20/18 14:50 06/20/18 14:50 06/20/18 14:50 06/20/18 14:50Oxygen Delivery Method Room AirWeight: 222 lb 0.088 ozBody Mass Index (BMI) 30.9Laboratory Tests Past 24 HrsWBC 17.0 HRBC 5.10Hgb 14.8WBCRBCHgbHctMCVMCHMCHCPO C GlucosePOC Glucose 157 HAssessment/PlanAll Active Problems (Last Reviewed 06/20/18 @ 11:10 by Jassi Joseph MD)Acute cholecystitis (Acute)History of coronary artery stent placement (Acute 06/20/18)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 I would not recommend taking him to surgerygiven his most recent stent placement and mini stroke.06/23/18803 Date Jacques Hinojosa [facility] Signature (if applicable): Date CC: Ronni Jefferson DO; Jefry Redding D.O.; Sparkle Contreras MD; Jassi Joseph MD Signed Normal [facility] Basic Metabolic Profile (BMP )on 06-22-2018 Calcium mass conc 7.5 mg/dL Low 8.5-10.1 [facility] Comment on above: Performed By: #### L 500.2500, L501.4010 ####[facility] [address] [place], [address] Chloride molar conc 108 mmol/L High 98-107 [facility] Comment on above: Performed By: #### L 500.2500, L501.4010 ####[facility] [address] [place], [address] CO2 molar conc 23.0 mmol/L Normal 21.0-32.0 [facility] Comment on above: Performed By: #### L 500.2500, L501.4010 ####[facility] [address] [place], [address] Creatinine mass conc 1.46 mg/dL High 0.70-1.30 [facility] Comment on above: Result Comment: The validity of the calculated GFR AND GFRAA in patients over70 years has not been determined. Clinical correlation isessential. Performed By: #### L 500.2500, L501.4010 ####[facility] [address] [place], [address] EST GFR - AA 61 mL/min Normal >60 [facility] Comment on above: Result Comment: Afri can Argentine GFR Calc Performed By: #### L 500.2500, L501.4010 ####[facility] [address] [place], [address] Estimated CRCL 49.43 ml/min Normal [facility] Comment on above: Performed By: #### L 500.2500, L501.4010 ####[facility] [address] [place], [address] GAP 9 Normal 5-15 [facility] Comment on above: Performed By: #### L 500.2500, L501.4010 ####[facility] [address] [place], [address] GFR/1.73 sq M predicted among non-blacks MDRD vol rate/area (S/P/Bld) 51 mL/min/{1.73_m2} Low >60 [facility] Comment on above: Result Comment: Non- GFR Calc Performed By: #### L 500.2500, L501.4010 ####[facility] [address] [place], [address] Glucose mass conc 129 mg/dL High 74-106 [facility] Comment on above: Result Comment: Fast ing Glucose result greater than or equal to 126 mg/dLsuggests DIABETES MELLITUS per A.D.A. criteria.Please note revised GLUCOSE reference range [id number]/02/2018. Performed By: #### L 500.2500, L501.4010 ####[facility] [address] [place], [address] Potassium molar conc 3.7 mmol/L Normal 3.5-5.1 [facility] Comment on above: Performed By: #### L 500.2500, L501.4010 ####[facility] [address] [place], [address] Sodium molar conc 140 mmol/L Normal 136-145 [facility] Comment on above: Performed By: #### L 500.2500, L501.4010 ####[facility] [address] [place], [address] Urea nitrogen mass conc 31 mg/dL High 7-18 [facility] Comment on above: Performed By: #### L 500.2500, L501.4010 ####[facility] [address] [place], [address] Urea nitrogen mass conc (Bld) 21.2 RATIO High 10-20 [facility] Comment on above: Performed By: #### L 500.2500, L501.4010 ####[facility] [address] [place], [address] CBC W/Diff, Automatedon 11-0 PLT EST ADEQUATE Normal ADEQ [facility] Comment on above: Performed By: #### L 501.4010 ####[facility] [address] [place], [address] RED CELL MORPH NORM C+C Normal NORM C AND C [facility] Comment on above: Performed By: #### L 501.4010 ####[facility] [address] [place], [address] SMEAR COMMENT Normal [facility] Comment on above: Result Comment: LYMP HOPENIA NOTED Performed By: #### L 501.4010 ####[facility] [address] [place], [address] Absolute Neut 12.7 X10 3/uL High 2.0-7.7 [facility] Comment on above: Performed By: #### L 501.4010 ####[facility] [address] [place], [address] Basophils/100 WBC Auto (Bld) 0.1 % Normal 0-1 [facility] Comment on above: Performed By: #### L 501.4010 ####[facility] [address] [place], [address] Eosinophils/100 WBC Auto (Bld) 0.0 % Normal 0-5 [facility] Comment on above: Performed By: #### L 501.4010 ####[facility] [address] [place], [address] Erythrocyte distribution width Auto Ratio (RBC) 14.3 % Normal 11.6-14.6 [facility] Comment on above: Performed By: #### L 501.4010 ####[facility] [address] [place], [address] Hematocrit Auto Volume Fraction (Bld) 32.0 % Low 40-54 [facility] Comment on above: Performed By: #### L 501.4010 ####[facility] [address] [place], [address] Hemoglobin mass conc (Bld) 10.2 g/dL Low 13.0-16.5 [facility] Comment on above: Performed By: #### L 501.4010 ####[facility] [address] [place], [address] IM GRAN % 0.200 % Normal 0.0-0.9 [facility] Comment on above: Result Comment: IG% - Immature Granulocytes (promyelocytes, myelocytes andmetamyelocytes) > 1% indicates that a LEFT SHIFT is Present. Performed By: #### L 501.4010 ####[facility] [address] [place], [address] Lymphocytes Auto #/vol (Bld) 0.55 X10 3/ul Low 0.83-4.51 [facility] Comment on above: Performed By: #### L 501.4010 ####[facility] [address] [place], [address] Lymphocytes/100 WBC Auto (Bld) 3.8 % Low 19-41 [facility] Comment on above: Performed By: #### L 501.4010 ####[facility] [address] [place], [address] MCH Auto Entitic mass (RBC) 28.3 pg Normal 27.0-32.0 [facility] Comment on above: Performed By: #### L 501.4010 ####[facility] [address] [place], [address] MCHC Auto mass conc (RBC) 31.9 g/gl Low 32-36 [facility] Comment on above: Performed By: #### L 501.4010 ####[facility] [address] [place], [address] MCV Auto Entitic volume (RBC) 88.6 fL Normal 80-94 [facility] Comment on above: Performed By: #### L 501.4010 ####[facility] [address] [place], [address] Monocytes/100 WBC Auto (Bld) 9.1 % Normal 0-10 [facility] Comment on above: Performed By: #### L 501.4010 ####[facility] [address] [place], [address] Neutrophils/100 WBC Auto (Bld) 86.8 % High 47-70 [facility] Comment on above: Performed By: #### L 501.4010 ####[facility] [address] [place], [address] Platelet mean volume Auto Entitic volume (Bld) 11.2 fL Normal 6.2-12.0 [facility] Comment on above: Performed By: #### L 501.4010 ####[facility] [address] [place], [address] Platelets Auto #/vol (Bld) 215 10*3/uL Normal 150-450 [facility] Comment on above: Performed By: #### L 501.4010 ####[facility] [address] [place], [address] RBC Auto #/vol (Bld) 3.61 M/mm3 Low 4.6-6.2 [facility] Comment on above: Performed By: #### L 501.4010 ####[facility] [address] [place], [address] RDW SD 47.1 fl High 35.1-43.9 [facility] Comment on above: Performed By: #### L 501.4010 ####[facility] [address] [place], [address] WBC Auto #/vol (Bld) 14.6 10*3/uL High 4.4-11.0 [facility] Comment on above: Performed By: #### L 501.4010 ####[facility] [address] [place], [address] Absolute Neut 13.1 X10 3/uL High 2.0-7.7 [facility] Comment on above: Performed By: #### L 500.2500, L501.4010 ####[facility] [address] [place], [address] Basophils/100 WBC Auto (Bld) 0.1 % Normal 0-1 [facility] Comment on above: Performed By: #### L 500.2500, L501.4010 ####[facility] [address] [place], [address] Eosinophils/100 WBC Auto (Bld) 0.6 % Normal 0-5 [facility] Comment on above: Performed By: #### L 500.2500, L501.4010 ####[facility] [address] [place], [address] Erythrocyte distribution width Auto Ratio (RBC) 14.6 % Normal 11.6-14.6 [facility] Comment on above: Performed By: #### L 500.2500, L501.4010 ####[facility] [address] [place], [address] Hematocrit Auto Volume Fraction (Bld) 33.4 % Low 40-54 [facility] Comment on above: Performed By: #### L 500.2500, L501.4010 ####[facility] [address] [place], [address] Hemoglobin mass conc (Bld) 10.7 g/dL Low 13.0-16.5 [facility] Comment on above: Performed By: #### L 500.2500, L501.4010 ####[facility] [address] [place], [address] IM GRAN % 0.300 % Normal 0.0-0.9 [facility] Comment on above: Result Comment: IG% - Immature Granulocytes (promyelocytes, myelocytes andmetamyelocytes) > 1% indicates that a LEFT SHIFT is Present. Performed By: #### L 500.2500, L501.4010 ####[facility] [address] [place], [address] Lymphocytes Auto #/vol (Bld) 0.77 X10 3/ul Low 0.83-4.51 [facility] Comment on above: Performed By: #### L 500.2500, L501.4010 ####[facility] [address] [place], [address] Lymphocytes/100 WBC Auto (Bld) 5.1 % Low 19-41 [facility] Comment on above: Performed By: #### L 500.2500, L501.4010 ####[facility] [address] [place], [address] MCH Auto Entitic mass (RBC) 28.7 pg Normal 27.0-32.0 [facility] Comment on above: Performed By: #### L 500.2500, L501.4010 ####[facility] [address] [place], [address] MCHC Auto mass conc (RBC) 32.0 g/gl Normal 32-36 [facility] Comment on above: Performed By: #### L 500.2500, L501.4010 ####[facility] [address] [place], [address] MCV Auto Entitic volume (RBC) 89.5 fL Normal 80-94 [facility] Comment on above: Performed By: #### L 500.2500, L501.4010 ####[facility] [address] [place], [address] Monocytes/100 WBC Auto (Bld) 6.5 % Normal 0-10 [facility] Comment on above: Performed By: #### L 500.2500, L501.4010 ####[facility] [address] [place], [address] Neutrophils/100 WBC Auto (Bld) 87.4 % High 47-70 [facility] Comment on above: Performed By: #### L 500.2500, L501.4010 ####[facility] [address] [place], [address] Platelet mean volume Auto Entitic volume (Bld) 11.6 fL Normal 6.2-12.0 [facility] Comment on above: Performed By: #### L 500.2500, L501.4010 ####[facility] [address] [place], [address] Platelets Auto #/vol (Bld) 198 10*3/uL Normal 150-450 [facility] Comment on above: Performed By: #### L 500.2500, L501.4010 ####[facility] [address] [place], [address] RBC Auto #/vol (Bld) 3.73 M/mm3 Low 4.6-6.2 [facility] Comment on above: Performed By: #### L 500.2500, L501.4010 ####[facility] [address] [place], [address] RDW SD 46.5 fl High 35.1-43.9 [facility] Comment on above: Performed By: #### L 500.2500, L501.4010 ####[facility] [address] [place], [address] WBC Auto #/vol (Bld) 15.0 10*3/uL High 4.4-11.0 [facility] Comment on above: Performed By: #### L 500.2500, L501.4010 ####[facility] [address] [place], [address] Culture, Urineon 06-22-2018 CUUR Urine Culture Culture exhibits no growth. Normal [facility] Comment on above: Performed By: #### L 500.2500, L501.4010 ####[facility] [address] [place], [address] Liver Profileon 06-22-2018 Albumin mass conc 2.2 g/dL Low 3.2-5.0 [facility] Comment on above: Performed By: #### L 500.2500, L501.4010 ####[facility] [address] [place], [address] ALP enzyme act/vol 68 U/L Normal 45-117 [facility] Comment on above: Performed By: #### L 500.2500, L501.4010 ####[facility] [address] [place], [address] ALT enzyme act/vol 24 U/L Normal 16-61 [facility] Comment on above: Performed By: #### L 500.2500, L501.4010 ####[facility] [address] [place], [address] AST enzyme act/vol 40 U/L High 15-37 [facility] Comment on above: Performed By: #### L 500.2500, L501.4010 ####[facility] [address] [place], [address] Bilirubin mass conc 0.70 mg/dL Normal 0.20-1.00 [facility] Comment on above: Performed By: #### L 500.2500, L501.4010 ####[facility] [address] [place], [address] Bilirubin.direct mass conc 0.26 mg/dL Normal 0.00-0.30 [facility] Comment on above: Performed By: #### L 500.2500, L501.4010 ####[facility] [address] [place], [address] Globulin Calculated mass conc (S) 3.8 g/dL Normal 2.2-4.2 [facility] Comment on above: Performed By: #### L 500.2500, L501.4010 ####[facility] [address] [place], [address] Protein mass conc 6.0 g/dL Low 6.4-8.2 [facility] Comment on above: Performed By: #### L 500.2500, L501.4010 ####[facility] [address] [place], [address] Basic Metabolic Profile (BMP )on 06-21-2018 Calcium mass conc 7.5 mg/dL Low 8.5-10.1 [facility] Comment on above: Performed By: #### L 500.2500, L501.4010 ####[facility] [address] [place], [address] Chloride molar conc 104 mmol/L Normal 98-107 [facility] Comment on above: Performed By: #### L 500.2500, L501.4010 ####[facility] [address] [facility] [address] CO2 molar conc 27.0 mmol/L Normal 21.0-32.0 [facility] Comment on above: Performed By: #### L 500.2500, L501.4010 ####[facility] [address] [facility] [address] Creatinine mass conc 2.32 mg/dL High 0.70-1.30 [facility] Comment on above: Result Comment: The validity of the calculated GFR AND GFRAA in patients over70 years has not been determined. Clinical correlation isessential. Performed By: #### L 500.2500, L501.4010 ####[facility] [address] [facility] [address] EST GFR - AA 36 mL/min Low >60 [facility] Comment on above: Result Comment: Afri can Argentine GFR Calc Performed By: #### L 500.2500, L501.4010 ####[facility] [address] [facility] [address] Estimated CRCL 31.10 ml/min Normal [facility] Comment on above: Performed By: #### L 500.2500, L501.4010 ####[facility] [address] [facility] [address] GAP 9 Normal 5-15 [facility] Comment on above: Performed By: #### L 500.2500, L501.4010 ####[facility] [address] [facility] [address] GFR/1.73 sq M predicted among non-blacks MDRD vol rate/area (S/P/Bld) 30 mL/min/{1.73_m2} Low >60 [facility] Comment on above: Result Comment: Non- GFR Calc Performed By: #### L 500.2500, L501.4010 ####[facility] [address] [place], [address] Glucose mass conc 152 mg/dL High 74-106 [facility] Comment on above: Result Comment: Fast ing Glucose result greater than or equal to 126 mg/dLsuggests DIABETES MELLITUS per A.D.A. criteria.Please note revised GLUCOSE reference range [id number]/02/2018. Performed By: #### L 500.2500, L501.4010 ####[facility] [address] [place], [address] Potassium molar conc 3.9 mmol/L Normal 3.5-5.1 [facility] Comment on above: Performed By: #### L 500.2500, L501.4010 ####[facility] [address] [place], [address] Sodium molar conc 140 mmol/L Normal 136-145 [facility] Comment on above: Performed By: #### L 500.2500, L501.4010 ####[facility] [address] [place], [address] Urea nitrogen mass conc 33 mg/dL High 7-18 [facility] Comment on above: Performed By: #### L 500.2500, L501.4010 ####[facility] [address] [place], [address] Urea nitrogen mass conc (Bld) 14.2 RATIO Normal 10-20 [facility] Comment on above: Performed By: #### L 500.2500, L501.4010 ####[facility] [address] [place], [address] Brain/Head without Contrasto n 06-21-2018 Brain[facility] Contrast [facility] [address] [place], [place] [address]Rceft/Head without ContrastMR#: [id number] Acct: [id number]: ADAM PRITCHARD Rep #: [id number]: 1945 M 73 From: Mohit Frey MDPCP: Ronni Jefferson DO Status: ADM INStudy: Brain/Head without Contrast Date of Exam: 06/21/18Exam# [id number] Ordering Dr: Jefry Redding DOSTUDY: CT BRAIN WITHOUT CONTRASTREASON FOR EXAM: Male, 73 years old. CVA. Post TPA.RADIATION DOSAGE (If Supplied By Facility): CTDIvol = ( 44.99 ) mGy, DLP =( 829.85 ) mGycmTECHNIQUE: Transaxial CT imaging of the brain was performed withoutadministration of intravenous contrast material.Individualized dose optimization techniques were used for this CT.COMPARISON: Comparison is made with prior examination dated June. FINDINGS:Keely l soft tissue structures. Normal calvarium.There is mild cerebral atrophy with widening of the extra-axial spaces andventricular dilatation. There are areas of decreased attenuation withinthe white matter tracts of the supratentorial brain, consistent withmicrovascular disease changes. Normal basal ganglia and thalami. Tinylacuna is seen in the insular cortex of the left temporal lobe. This wasnot well visualized on prior examination. Normal brainstem. Normalcerebellum.There is no intracranial hemorrhage. There are no findings of an acuteischemic infarction. Atherosclerotic calcification of the cavernousportions of the internal carotid arteries bilaterally.Normal visualized paranasal sinuses. ORDER #: [id number] CT/Brain/Head without ContrastIMPRESSION:Chronic involutional changes of the brain.Tiny lacunar in the insular cortex of the left temporal lobe.Electronically Signed:Mohit Frey MD at 13:38 ESTTel [phone], Service support , HC: Ronni Jefferson DO; Jefry Brown, D.O. Lean Manager:Signed Normal [facility] CBC W/Diff, Automatedon 11-0 Absolute Neut 13.5 X10 3/uL High 2.0-7.7 [facility] Comment on above: Performed By: #### L 500.2500, L501.4010 ####[facility] [address] [place], [address] Basophils/100 WBC Auto (Bld) 0.2 % Normal 0-1 [facility] Comment on above: Performed By: #### L 500.2500, L501.4010 ####[facility] [address] [place], [address] Eosinophils/100 WBC Auto (Bld) 0.1 % Normal 0-5 [facility] Comment on above: Performed By: #### L 500.2500, L501.4010 ####[facility] [address] [place], [address] Erythrocyte distribution width Auto Ratio (RBC) 14.5 % Normal 11.6-14.6 [facility] Comment on above: Performed By: #### L 500.2500, L501.4010 ####[facility] [address] [place], [address] Hematocrit Auto Volume Fraction (Bld) 36.1 % Low 40-54 [facility] Comment on above: Performed By: #### L 500.2500, L501.4010 ####[facility] [address] [place], [address] Hemoglobin mass conc (Bld) 12.0 g/dL Low 13.0-16.5 [facility] Comment on above: Performed By: #### L 500.2500, L501.4010 ####[facility] [address] [place], [address] IM GRAN % 0.300 % Normal 0.0-0.9 [facility] Comment on above: Result Comment: IG% - Immature Granulocytes (promyelocytes, myelocytes andmetamyelocytes) > 1% indicates that a LEFT SHIFT is Present. Performed By: #### L 500.2500, L501.4010 ####[facility] [address] [place], [address] Lymphocytes Auto #/vol (Bld) 1.34 X10 3/ul Normal 0.83-4.51 [facility] Comment on above: Performed By: #### L 500.2500, L501.4010 ####[facility] [address] [place], [address] Lymphocytes/100 WBC Auto (Bld) 8.4 % Low 19-41 [facility] Comment on above: Performed By: #### L 500.2500, L501.4010 ####[facility] [address] [place], [address] MCH Auto Entitic mass (RBC) 29.8 pg Normal 27.0-32.0 [facility] Comment on above: Performed By: #### L 500.2500, L501.4010 ####[facility] [address] [place], [address] MCHC Auto mass conc (RBC) 33.2 g/gl Normal 32-36 [facility] Comment on above: Performed By: #### L 500.2500, L501.4010 ####[facility] [address] [place], [address] MCV Auto Entitic volume (RBC) 89.6 fL Normal 80-94 [facility] Comment on above: Performed By: #### L 500.2500, L501.4010 ####[facility] [address] [place], [address] Monocytes/100 WBC Auto (Bld) 6.1 % Normal 0-10 [facility] Comment on above: Performed By: #### L 500.2500, L501.4010 ####[facility] [address] [place], [address] Neutrophils/100 WBC Auto (Bld) 84.9 % High 47-70 [facility] Comment on above: Performed By: #### L 500.2500, L501.4010 ####[facility] [address] [place], [address] Platelet mean volume Auto Entitic volume (Bld) 11.2 fL Normal 6.2-12.0 [facility] Comment on above: Performed By: #### L 500.2500, L501.4010 ####[facility] [address] [place], [address] Platelets Auto #/vol (Bld) 214 10*3/uL Normal 150-450 [facility] Comment on above: Performed By: #### L 500.2500, L501.4010 ####[facility] [address] [place], [address] RBC Auto #/vol (Bld) 4.03 M/mm3 Low 4.6-6.2 [facility] Comment on above: Performed By: #### L 500.2500, L501.4010 ####[facility] [address] [place], [address] RDW SD 46.8 fl High 35.1-43.9 [facility] Comment on above: Performed By: #### L 500.2500, L501.4010 ####[facility] [address] [place], [address] WBC Auto #/vol (Bld) 15.9 10*3/uL High 4.4-11.0 [facility] Comment on above: Performed By: #### L 500.2500, L501.4010 ####[facility] [address] [place], [address] Consultationon 06-21-2018 Consultation [facility] [address] [address]Umyxyrhistop42/06/18 1208MR#: [id number] Acct: [id number]: ADAM PRITCHARD Rep #: [id number]: 1945 73 From: Jefry Redding DOPCP: Ronni Jefferson DO Status: ADM IN YLocation: ICU [id number] for ConsultDate of Consultation: 06/20/18Reason for Consultation: CVA status post TPA administrationHistory of Present Illness:The patient is a 73-year-old male, with a history as outlined below, who presented to theemergency department on June 20 with complaints of chest pain. The patient was noted to behypertensive with a blood pressure of 193/125 on presentation. A CTA chest was obtained whichrevealed no evidence for pulmonary embolism or arterial dissection. The patient was noted tohave an elevated white blood cell count to 17,000, along with a troponin of 0.132. The casewas discussed with cardiology who recommended Brilinta administration and evaluation viacoronary angiography. The patient was subsequently taken to the [facility], where single-vesselcoronary disease was identified, for which a drug-eluting stent was placed in the proximal RCA.The patient then returned to the medical intensive care unit. A short time later, the patientdeveloped dysarthric speech, which prompted a stroke team to be called. The patient was takenfor an emergent CT head which was largely unremarkable. The patient was evaluated byneurology, who recommended TPA administration, due to the waxing and waning nature of thepatient's neurologic deficits. TPA was subsequently administered.Throughout the course of the day, the patient's mentation waxed and waned. He then went on todevelop a great deal of agitation. Due to the patient's extreme agitation, his femoral cathsite became unstable. A multitude of different sedating medications were employed to aid incontrolling the patient's agitation, including Haldol, Versed and eventually Precedex.However, the patient remained agitated, confrontational to staff and extremely restless in bed.This agitation limited the medical staff stability to obtain any additional workup withregards to his current clinical state. The patient lacks capacity for medical decision making.Attempts to up titrate the patient's Precedex led to control of his sedation but came as aconsequence of impaired respiratory drive. Multiple attempts were made to contact thepatient's to discuss the situation and introduced the idea of intubation. However, thepatient did not answer or return any of our phone calls. Due to patient lethargy thatdeveloped as the consequence of utilizing sedating medications, there was concern for airwaycompromise. Therefore, the decision was made to intubate the patient.Bedside Intubation Note:The patient was placed in appropriate sniffing position.20 mg of etomidate was administered. The patient was preoxygenated via bag valve mask.Video laryngoscopy was performed and a #7.5 endotracheal tube was placed without complication,22 cm of the lip.The patient did have a great deal of dried, bloody secretions in his posterior oropharynx.Positive color change was noted upon successful endotracheal tube placement.Follow-up plain film chest x-ray is pending.Past Medical HistoryPast Medical History (Chronic Problems):Chronic Problems (Last Reviewed 06/20/18 @ 15:17 by Jacques Hinojosa MD)Essential (primary) hypertension (Chronic)Medical History:Medical History (Last Reviewed 06/20/18 @ 15:17 by Jacques Hinojosa MD)Essential (primary) hypertension (Chronic) Y62Vhbtxbiwzvxmvvg heart disease [place] coronary artery w/angina pectoris (Acute) I25.008WIV-CDS-Ihyb RCA w/ 3.5 x 28 mm Promus Synergy Stent 06/20/18Obesity E66.9AllergiesNo Known Allergies Allergy (Verified 06/20/18 03:37)Home Medications:Ambulatory OrdersMedication Instructions RecordedSurgical History:Surgical History (Last Reviewed 06/20/18 @ 15:17 by Jacques Hinojosa MD)History of coronary artery stent placement (Acute) Onset Date: 06/20/18 Z95.4RQB-QTM-Jfmc RCA w/ 3.5 x 28 mm Promus Synergy Stent 06/20/18History of left heart catheterization Onset Date: 06/20/18 Z98.890Surgical History: no surgical historyLives: Spouse/ Significant OtherSmoking Status: Former smokerTobacco Use: Non-smokerAlcohol: NoneDrugs: None- *Family History MaternalHistory Items: No pertinent historyReview of SystemsConstitutional: Denies: Chills, FeverEyes: Denies: Blurred vision, Double visionHEENT: Denies: Head Aches, Sinus Congestion, Sinus DrainageCardiovascular: Denies: Chest Pain, PalpitationsRespiratory: Denies: Cough, Shortness of breath at rest, Sputum productionGastrointestinal: Denies: Abdominal Pain, Nausea, VomitingGenitourinary: Denies: DysuriaMusculoskeletal: Denies: Joint Pain, Joint TendernessSkin: Denies: Rash, WoundsNeurological: Reports: Change in Speech, Slurred speech, IncoordinationPsychiatric: Denies: Anxiety, Depression, Homicidal Ideations, Suicidal IdeationsHematologic/ Lymphatic: Denies: Easy Bruising, Easy BleedingPatient Problems:Active and Suspected Problems (Last Reviewed 06/20/18 @ 15:17 by Jacques Hinojosa MD)Acute cholecystitis (Acute)Objective:The patient's most recent lab work, culture data and imaging studies have all been personallyreviewed.- Physical ExamGeneral: - - The patient is now intubated and mechanically ventilated.HEENT: Atraumatic, PERRLA, NormocephalicOral: Dry MucosaNeck: Supple, No Nodes, Trachea MidlineLungs: No rhonchi, No wheeze, No rales, DiminishedCardiovascular: Normal S1, Normal S2, No murmurs, TachycardicAbdomen: Bowel Sounds Present, Soft, Tender - Right upper quadrant tenderness was present priorto intubationExtremities: No clubbing, No cyanosis, No edemaSkin: No breakdownMusculoskeletal: No Tenderness to Palpation of Joints or ExtremitiesLymphatic: No Cervical, Supraclavicular, or Inguinal AdenopathyNeurological: - - No focal deficits. Moving all extremities spontaneously.Psych/Mental Status: Agitated, RestlessVital SignsTemp Pulse Resp BP Pulse Ox38.3 C H 82 18 193/87 H 11:49 06/20/18 12:05 06/20/18 12:05 06/20/18 12:05 06/20/18 12:05Oxygen Delivery Method Room AirWeight: 222 lb 0.088 ozBody Mass Index (BMI) 30.9Laboratory Tests Past 24 HrsWBC 17.0 HRBC 5.10Hgb 14.8Hct 45.9MCV 90.0MCH 29.0MCHC 32.2RDW 13.7RDW Differential 45.3 HPOC GlucosePOC Glucose 157 HClinical Impression(s) from Imaging StudiesChest CTA 06/20/18 03:53IMPRESSION:Normal CTA chest examination, without a demonstrated pulmonary embolism orarterial dissection.Indeterminate gallbladder, gallbladder inflammation is not excluded.Consider gallbladder ultrasound depending on patient's symptoms.Electronically Signed:Leeanne Carter MD at 5:33 ESTTel , Service support , Ftulu CT 06/20/18 10:22IMPRESSION:Chronic involutional changes of the brain.N.B. : The above information has been verbally conveyed by MD Redd to Jacques Davis on 06/20/2018 10:33:31 (ET).Electronically Signed:Mohit Frey MD at 10:35 ESTTel [phone], Service support , Vigepolnwh/PlanA ctive and Suspected Problems (Last Reviewed 06/20/18 @ 15:17 by Jacques Hinojosa MD)Acute cholecystitis (Acute)RECOMMENDATIONS:1. Continue management per TPA protocol.2. Allow for permissive hypertension. Labetalol can be utilized for systolic blood pressuresgreater than 180 mmHg.3. Hold off on obtaining arterial blood gas, given TPA administration earlier today.4. Continue antibiotics as ordered.5. Minimize sedation as tolerated with a goal to maintain a RASS of -1 to 1.6. Obtain MRI tonight.7. Repeat head imaging tomorrow per TPA protocol.8. Obtain coags in the morning, should percutaneous cholecystostomy tube be necessary.IMPRESSIONS:1. Acute respiratory failureThe patient did require eventual intubation on the afternoon of June 20 due to refractoryagitation and subsequent airway compromise. The patient became exceedingly confrontational andthreatening to staff throughout the afternoon. A stepwise approach was employed to the use ofsedative medications in hopes of improving the patient's agitation. However, despite theutilization of multiple medications, including Precedex, his agitation remained an issue.Further escalation in his sedation regimen, lead to somnolence with concerns for the patient'sability to protect his airway. Therefore, the decision was made to intubate the patient.Multiple attempts were made to contact the patient's to make her aware of the situation.However, the patient's never answered her phone or return our phone calls at the time ofhis intubation. The patient will be continued on Precedex and fentanyl for sedation overnight.Wean FiO2 as tolerated. We will hold off on obtaining arterial blood gas for now, given thepatient's earlier TPA administration.2. CVA status post TPA administrationThe patient did receive TPA earlier today over concerns for a stuttering CVA. Attempts toobtain an MRI have been unsuccessful due to patient agitation. Now that the patient's airwayis secure and he is more calm, will proceed with obtaining MRI tonight. Continue to allow forpermissive hypertension. We will treat systolic blood pressures that are greater than 180mmHg. Continue to monitor for any signs of bleeding.3. Non-ST elevation CT status post PTCA/GAVIN placement to the proximal RCAThe patient is status post PTCA with drug-eluting stent placed to the proximal RCA. FemStopremains in place. Continue to monitor for signs of blood loss at cardiac cath site along withhematoma formation. Continue medical management per cardiology recommendations.4. Metabolic encephalopathyConcern for underlying infectious/metabolic encephalopathy, especially in light of thepatient's recent mentation changes. Follow-up head imaging in the form of CT, revealed nointracranial hemorrhage. He does appear to have radiographic evidence of acute cholecystitis.I did confer with surgery this afternoon who indicated that the patient may requirepercutaneous cholecystostomy tube for gallbladder decompression, potentially tomorrow. We willattempt to minimize sedation as able.5. Sepsis secondary to acute cholecystitisThe patient was started empirically on Zosyn after he developed fevers and complained of rightupper quadrant pain in the setting of radiographic evidence concerning for acute cholecystitis.Urine culture is also pending.6. Hypertension/anxietyComplica tonja care, management, recovery and prognosis. Currently holding all antihypertensivehome medications.TIME:85 minutes, inclusive of procedures, was spent addressing the patient's acute respiratoryfailure, CVA status post TPA administration, non-ST elevation CT, metabolic encephalopathy,sepsis secondary to acute cholecystitis, review of all data and collaboration with care team.([id number], [phone])Code VisitProcedures: 48505 Critial Care Addl 30 Kzr0oxcg: 85087 Critical care first hour06/21/18 0707 Date Jefry Redding DOCosigner Signature (if applicable): Date CC: No Primary Care Physician; Ronni Jefferson DO; Jefry Redding D.O.; Sparkle Contreras MD;Jassi Joseph MD Signed Normal [facility] Echocardiogram Completeon Echocardiogram Complete [facility] [address] [place], [place] [address]Ytho Bimsdeas82/07/18 0811MR#: [id number] Acct: [id number]: ADAM PRITCHARD Rep #: [id number]: 1945 73 From: Jacques Davis MDAttliliana Dr: Tesfaye CABALLERO,Gibson Status: ADM INOrdering Dr: Jefry Redding DO Date: 06/21/18Location: ICU Sex: M CAdmitted: 06/20/18Reason For Study: TIA/CVAProcedureThis was a 2D Doppler, Color Flow transthoracic echocardiogram. The study was technicallydifficult.PT on vent and exam performed supine. Exam performed portable in ICU/CCU.Left VentricleMild concentric left ventricular hypertrophy. The estimated ejection fraction is 65 %. Noregionalwall motion abnormalities noted.Right VentricleNormal size and thickness. Normal systolic function.AtriaThe left atrium is moderately enlarged. Normal right atrium. Normal atrial septum. Bubblecontraststudy negative for right to left interatrial shunt.Mitral ValveThe mitral valve is structurally normal. No prolapse or stenosis seen.Tricuspid ValveNormal tricuspid valve. Trivial tricuspid valve insufficiency. Right ventricular systolicpressureestimated to be 21 mmHg.Aortic ValveTrisinus/trileaflet aortic valve.Pulmonic ValveNormal pulmonic valve.Great VesselsNormal aortic root. Normal arch. Normal inferior vena cava. Inferior vena cava collapse withsniff.Pericardium/Pleura lNo pericardial effusion.MedicationPerformed a rapid injection of agitated mix of 9 cc saline and 1cc air to assess for atrialseptaldefect.MMode/2D Measurements AND CalculationsLVIDd: 4.4 cm IVSd: 1.4 cm Ao root diam: 3.3 cmLVIDs: 3.3 cm LVPWd: 1.2 cmRVDd: 2.9 cm FS: 24.6 % LA V(MOD-bp): 82.2 ml EDV(MOD-sp4): 112.2 ml EDV(MOD-sp2): 71.3 mlLAV(MOD-bp) Indexed: 36.3 ml/m2 ESV(MOD-sp4): 59.3 ml EF(MOD-sp2): 42.9 %LAV(MOD-sp2): 68.2 ml EF(MOD-sp4): 47.2 %LAV(MOD-sp4): 89.8 ml S V(MOD-sp4): 53.0 ml SV(MOD-sp2): 30.6 ml LA A4 area: 25.9 cm2 LA dimension(2D): 4.2 cmTime MeasurementsMV dec time: 0.23 secDoppler Measurements AND CalculationsMV E max seb: 49.2 cm/sec Lat Peak E' Seb: 5.4 cm/sec Med Peak E' Seb: 4.7 cm/secMV A max seb: 85.8 cm/sec E/E' lat: 9.2 E/E' med: 10.4MV E/A: 0.57 _Ao V2 max: 158.4 cm/sec LV V1 max: 123.2 cm/sec PA V2 max: 102.2 cm/secAo max P.0 mmHg LV V1 max P.1 mmHg _TR max seb: 201.9 cm/secTR max P.3 mmHgInterpretation SummaryMild concentric left ventricular hypertrophy.The estimated ejection fraction is 65 %.The left atrium is moderately enlarged.Bubble contrast study negative for right to left interatrial shunt.Trivial tricuspid valve insufficiency.Right ventricular systolic pressure estimated to be 21 mmHg.There is no comparison study available. O nina Physician: Jefry Redding D.O.Referring Physician: NO PCPPerformed By: Suzie Garcia, RD, RVT 06/21/18 1112Date Jacques Davis MDCC: No Primary Care Physician; Ronni Jefferson DO; Gibson Carlin MD; Jefry Redding D.O. Date Dictated: 06/21/18 0811Date Transcribed: 06/21/182Transcriptionist:Signed Normal [facility] Magnesiumon 06-21-2018 Magnesium mass conc 2.3 mg/dL Normal 1.6-2.6 [facility] Comment on above: Performed By: #### L 500.2500, L501.4010 ####[facility] [address] [place], [address] Partial Thromboplast Timeon 06-21-2018 aPTT Coag time (Bld) 37.7 s High 24.1-36.2 [facility] Comment on above: Performed By: #### L 500.2500, L501.4010 ####[facility] [address] [place], [address] Phosphoruson 06-21-2018 Phosphate mass conc 4.0 mg/dL Normal 2.5-4.9 [facility] Comment on above: Performed By: #### L 500.2500, L501.4010 ####[facility] [address] [place], [address] Prothrombin Time w/INRon INR Coag RelTime (PPP) 1.3 {INR} Normal [facility] Comment on above: Performed By: #### L 500.2500, L501.4010 ####[facility] [address] [place], [address] Prothrombin time (PT) Coag time (PPP) 16.5 s High 11.7-14.9 [facility] Comment on above: Performed By: #### L 500.2500, L501.4010 ####[facility] [address] [place], [address] ACT Activated Clotting Timeo n 06-20-2018 ACTk CLOT TIME 180 sec High 74-137 [facility] Comment on above: Performed By: #### L 100.0100 ####[facility] [address] [place], [place], [address] Abdomen/Pelvis without Conto n 06-20-2018 Abdomen/Pelvis without Cont [facility] [address] [place], [place] [address]Whiqicm/Pelvis without ContMR#: [id number] Acct: [id number]: MACHOADAM MILTONSara Rep #: [id number]: 1945 M 73 From: Mohit Frey MDPCP: Ronni Jefferson DO Status: ADM INOStudy: Abdomen/Pelvis without Cont Date of Exam: 06/20/18Exam# [id number] Ordering Dr: Jassi Joseph MDSTUDY: CT ABDOMEN AND PELVIS WITHOUT CONTRASTREASON FOR EXAM: Male, 73 years old. Right upper quadrant pain post TPA.RADIATION DOSAGE (If Supplied By Facility): CTDIvol = ( 16.36 ) mGy, DLP =( 989.00 ) mGycmTECHNIQUE: Transaxial images were obtained from the dome of the diaphragmto the symphysis pubis without oral contrast, and without intravenouscontrast. Sagittal and coronal images were reconstructed.Individualized dose optimization techniques were used for this CT.COMPARISON: None. FINDINGS:Mild degree of increased markings at the lung bases suggestive of eitheratelectasis and/or scarring. Coronary artery calcification and stenting.Normal liver. There are multiple gallstones. Inflammatory changes areseen in the surrounding peritoneal fat. Acute cholecystitis should beruled out. Normal spleen. Normal pancreas.Normal bilateral adrenal glands.Normal right kidney. Normal left kidney.Normal visualized stomach. Normal small intestine. There are multiplecolonic diverticula consistent with diverticulosis. The appendix isvisualized and appears normal.There is diffuse atherosclerotic calcification of the abdominal aorta,without a demonstrated aneurysm. Normal inferior vena cava. Normalretroperitoneum.A Marshall catheter is seen within the empty urinary bladder. There isevidence of diffuse bladder wall thickening. The prostate is enlarged.This measures 5.4 cm x 4.6 cm. This causes indentation at the bladderbase. Mild degree of increased soft tissue markings in the right side ofthe pelvis. This most likely represents a small post catheterizationhematoma and post catheterization changes.There is a small umbilical hernia containing fat. Small bilateral inguinalhernias containing fat. There are diffuse degenerative changes of thevisualized lumbar spine. ORDER #: [id number] CT/Abdomen/Pelvis without ContIMPRESSION:Multiple gallstones with thickened gallbladder wall and increased markingsin the surrounding fat. Acute cholecystitis should be ruled out.Soft tissue changes seen in the region of the right groin in keeping withthe history of recent catheterization.Electronical ly Signed:Mohit Frey MD at 13:46 ESTTel [phone], Service support , [place]: Ronni Joseph MD Lean Manager:Signed Normal [facility] Basic Metabolic Profile (BMP )on 06-20-2018 Calcium mass conc 9.0 mg/dL Normal 8.5-10.1 [facility] Comment on above: Performed By: #### L 500.2500, L501.4010 ####[facility] [address] [place], [address] Chloride molar conc 101 mmol/L Normal 98-107 [facility] Comment on above: Performed By: #### L 500.2500, L501.4010 ####[facility] [address] [facility] [address] CO2 molar conc 28.0 mmol/L Normal 21.0-32.0 [facility] Comment on above: Performed By: #### L 500.2500, L501.4010 ####[facility] [address] [facility] [address] Creatinine mass conc 1.23 mg/dL Normal 0.70-1.30 [facility] Comment on above: Result Comment: The validity of the calculated GFR AND GFRAA in patients over70 years has not been determined. Clinical correlation isessential. Performed By: #### L 500.2500, L501.4010 ####[facility] [address] [place], [address] EST GFR - AA 75 mL/min Normal >60 [facility] Comment on above: Result Comment: Afri can Argentine GFR Calc Performed By: #### L 500.2500, L501.4010 ####[facility] [address] [place], [address] Estimated CRCL 58.67 ml/min Normal [facility] Comment on above: Performed By: #### L 500.2500, L501.4010 ####[facility] [address] [facility] [address] GAP 9 Normal 5-15 [facility] Comment on above: Performed By: #### L 500.2500, L501.4010 ####[facility] [address] [place], [address] GFR/1.73 sq M predicted among non-blacks MDRD vol rate/area (S/P/Bld) 62 mL/min/{1.73_m2} Normal >60 [facility] Comment on above: Result Comment: Non- GFR Calc Performed By: #### L 500.2500, L501.4010 ####[facility] [address] [place], [address] Glucose mass conc 160 mg/dL High 74-106 [facility] Comment on above: Result Comment: Fast ing Glucose result greater than or equal to 126 mg/dLsuggests DIABETES MELLITUS per A.D.A. criteria.Please note revised GLUCOSE reference range cibpiuhft89/02/2018. Performed By: #### L 500.2500, L501.4010 ####[facility] [address] [place], [address] Potassium molar conc 4.3 mmol/L Normal 3.5-5.1 [facility] Comment on above: Performed By: #### L 500.2500, L501.4010 ####[facility] [address] [place], [address] Sodium molar conc 138 mmol/L Normal 136-145 [facility] Comment on above: Performed By: #### L 500.2500, L501.4010 ####[facility] [address] [place], [address] Urea nitrogen mass conc 17 mg/dL Normal 7-18 [facility] Comment on above: Performed By: #### L 500.2500, L501.4010 ####[facility] [address] [place], [address] Urea nitrogen mass conc (Bld) 13.8 RATIO Normal 10-20 [facility] Comment on above: Performed By: #### L 500.2500, L501.4010 ####[facility] [address] [place], [address] Bedside Glucoseon 06-20-2018 BEDSIDE GLU 157 mg/dL High 70-110 [facility] Comment on above: Result Comment: CHRISTIAN ALONSO OF PATIENT CARE PER NURSING PROTOCOL Performed By: #### L 100.0100 ####[facility] [address] [place], [address] Brain W/WO Contraston 2017 Brain W/WO Contrast [facility] [address] [place] [address]Nkcsr W/WO ContrastMR#: [id number] Acct: [id number]: ADAM PRITCHARD Rep #: [id number]: 1945 M 73 From: Nando Velazco MDPCP: Ronni Jefferson DO Status: ADM INStudy: Brain W/WO Contrast Date of Exam: 06/20/18Exam# [id number] Ordering Dr: Jassi Joseph MDSTUDY: MRI BRAIN WITH AND WITHOUT CONTRASTREASON FOR EXAM: Male, 73 years old. CVA status post TPATECHNIQUE: Standardized multiplanar fat and water weighted pulsesequences were obtained. 10 ml of Gadavist contrast material wasadministered intravenously for the contrast portion of the examination.COMPARISON: CT brain June 20, 2018 FINDINGS:There is mild cerebral atrophy with widening of the extra-axial spaces andventricular dilatation. There are a limited number of small white matterhyperintensities, distributed throughout the deep white matter tracts ofthe cerebral hemispheres, consistent with mild chronic white matterischemic changes. Subtle Punctate foci of restricted diffusion leftputamen, right cerebellar vermis, and right precentral gyrus near thevertex.Bilateral lacunar infarcts in the basal ganglia. Normal thalami. There isno extra-axial fluid accumulation.Normal flow voids within the major intracranial circulation suggestingpatency by spin echo criteria. Normal venous enhancement. There is noenhancing intra-axial or extra-axial abnormality.Normal sella turcica, pituitary gland, infundibular stalk, optic chiasm andhypothalamus. Normal tectal plate and pineal gland.Normal midbrain, vick and medulla. Normal cerebellum. Normal basalcisterns. Normal bilateral temporal bones. Normal bilateral internalauditory canals.No demonstrated orbital abnormality, within the constraints of a routinebrain study. Normal visualized paranasal sinuses. Normal calvarium andskull base. Normal visualized soft tissue structures. Normal visualizedupper cervical spine. ORDER #: [id number] MRI/Brain W/WO ContrastIMPRESSION:Probable bilateral punctate subacute embolic infarctions.N.B. : The above information has been verbally conveyed by Nando Velazco MD to VINCENZO Carver, on 06/20/2018 22:25:02 (ET).Electronically Signed:Nando Velazco MD at 21:45 ESTTel , Service support , EE: Ronni Jefferson DO; Jassi Joseph MD Lean Manager:Signed Normal [facility] Brain/Head without Contrasto n 06-20-2018 Brain/Head without Contrast [facility] [address] [place], [place] [address]Xpboz/Head without ContrastMR#: [id number] Acct: [id number]: ADAM PRITCHARD Rep #: [id number]: 1945 M 73 From: Mohit Frey MDPCP: Ronni Jefferson DO Status: ADM INOStudy: Brain/Head without Contrast Date of Exam: 06/20/18Exam# [id number] Ordering Dr: Jefry Redding DOSTUDY: CT BRAIN WITHOUT CONTRASTREASON FOR EXAM: Male, 73 years old. Confusion. Combative.RADIATION DOSAGE (If Supplied By Facility): CTDIvol = ( 44.99 ) mGy, DLP =( 2675.17 ) mGycmTECHNIQUE: Transaxial CT imaging of the brain was performed withoutadministration of intravenous contrast material.Individualized dose optimization techniques were used for this CT.COMPARISON: Comparison is made with prior examination done earlier today. FINDINGS:Normal soft tissue structures. Normal calvarium.There is mild cerebral atrophy with widening of the extra-axial spaces andventricular dilatation. Normal white matter tracts of the cerebralhemispheres. Normal basal ganglia and thalami. Normal brainstem. Normalcerebellum.There is no intracranial hemorrhage. There are no findings of an acuteischemic infarction.Normal visualized paranasal sinuses. ORDER #: [id number] CT/Brain/Head without ContrastIMPRESSION:Mild cerebral atrophy. No acute abnormality is seen.Electronically Signed:Mohit Frey MD at 14:09 ESTTel [phone], Service support , CD: Ronni Jefferson DO; Jefry Redding D.O. Lean Manager:Signed Normal [facility] Brain/Head without Contrast [facility] [address] [place], [place] [address]Wsctu/Head without ContrastMR#: [id number] Acct: [id number]: ADAM PRITCHARD Rep #: [id number]: 1945 M 73 From: Mohit Frey MDPCP: Ronni Jefferson DO Status: ADM INOStudy: Brain/Head without Contrast Date of Exam: 06/20/18Exam# [id number] Ordering Dr: Benson Robins MDSTUDY: CT BRAIN WITHOUT CONTRASTREASON FOR EXAM: Male, 73 years old. Dysarthria and aphasia. Leftfacial droop. Recent cardiac catheterization with stent placement.RADIATION DOSAGE (If Supplied By Facility): CTDIvol = ( 44.99 ) mGy, DLP =( 846.73 ) mGycmTECHNIQUE: Transaxial CT imaging of the brain was performed withoutadministration of intravenous contrast material.Individualized dose optimization techniques were used for this CT.COMPARISON: None. FINDINGS:Normal soft tissue structures. Normal calvarium.There is mild cerebral atrophy with widening of the extra-axial spaces andventricular dilatation. Normal white matter tracts of the cerebralhemispheres. Normal basal ganglia and thalami. Normal brainstem. Normalcerebellum.There is no intracranial hemorrhage. There are no findings of an acuteischemic infarction. Atherosclerotic calcification of the cavernousportions of the internal carotid arteries bilaterallyMucosal thickening of the ethmoid sinuses. ORDER #: [id number] CT/Brain/Head without ContrastIMPRESSION:Chronic involutional changes of the brain.N.B. : The above information has been verbally conveyed by MD Redd to Jacques Davis on 06/20/2018 10:33:31 (ET).Electronically Signed:Mohit Frey MD at 10:35 ESTTel [phone], Service support , YI: Rnoni Jefferson DO; Benson Robins MD Lean Manager:Signed Normal [facility] CBC W/Diff, Automatedon 11-0 PATH REV Reviewed Normal [facility] Comment on above: Result Comment: Neut rophilic leukocytosis.Clinical correlation necessary.Saeid Castillo M.D. 06/20/18 AMENDED REPORT 06/20/18 1049 PATH REV previously reported as: December Performed By: #### L 100.0100 ####[facility] [address] [place], [address] ANISO RARE Normal [facility] Comment on above: Performed By: #### L 100.0100 ####[facility] [address] [place], [address] MACROCYTE RARE Normal [facility] Comment on above: Performed By: #### L 100.0100 ####[facility] [address] [place], [address] PLT EST ADEQUATE Normal ADEQ [facility] Comment on above: Performed By: #### L 100.0100 ####[facility] [address] [place], [address] SMEAR COMMENT SEE COMMENT Normal [facility] Comment on above: Result Comment: MONO CYTOSIS NOTED Performed By: #### L 100.0100 ####[facility] [address] [place], [address] Absolute Neut 14.2 X10 3/uL High 2.0-7.7 [facility] Comment on above: Performed By: #### L 100.0100 ####[facility] [address] [place], [address] Basophils/100 WBC Auto (Bld) 0.2 % Normal 0-1 [facility] Comment on above: Performed By: #### L 100.0100 ####[facility] [address] [place], [address] Eosinophils/100 WBC Auto (Bld) 0.1 % Normal 0-5 [facility] Comment on above: Performed By: #### L 100.0100 ####[facility] [address] [place], [address] Erythrocyte distribution width Auto Ratio (RBC) 13.7 % Normal 11.6-14.6 [facility] Comment on above: Performed By: #### L 100.0100 ####[facility] [address] [place], [address] Hematocrit Auto Volume Fraction (Bld) 45.9 % Normal 40-54 [facility] Comment on above: Performed By: #### L 100.0100 ####[facility] [address] [place], [address] Hemoglobin mass conc (Bld) 14.8 g/dL Normal 13.0-16.5 [facility] Comment on above: Performed By: #### L 100.0100 ####[facility] [address] [place], [address] IM GRAN % 0.200 % Normal 0.0-0.9 [facility] Comment on above: Result Comment: IG% - Immature Granulocytes (promyelocytes, myelocytes andmetamyelocytes) > 1% indicates that a LEFT SHIFT is Present. Performed By: #### L 100.0100 ####[facility] [address] [place], [address] Lymphocytes Auto #/vol (Bld) 1.13 X10 3/ul Normal 0.83-4.51 [facility] Comment on above: Performed By: #### L 100.0100 ####[facility] [address] [place], [address] Lymphocytes/100 WBC Auto (Bld) 6.7 % Low 19-41 [facility] Comment on above: Performed By: #### L 100.0100 ####[facility] [address] [place], [address] MCH Auto Entitic mass (RBC) 29.0 pg Normal 27.0-32.0 [facility] Comment on above: Performed By: #### L 100.0100 ####[facility] [address] [place], [address] MCHC Auto mass conc (RBC) 32.2 g/gl Normal 32-36 [facility] Comment on above: Performed By: #### L 100.0100 ####[facility] [address] [place], [address] MCV Auto Entitic volume (RBC) 90.0 fL Normal 80-94 [facility] Comment on above: Performed By: #### L 100.0100 ####[facility] [address] [place], [address] Monocytes/100 WBC Auto (Bld) 9.5 % Normal 0-10 [facility] Comment on above: Performed By: #### L 100.0100 ####[facility] [address] [place], [address] Neutrophils/100 WBC Auto (Bld) 83.3 % High 47-70 [facility] Comment on above: Performed By: #### L 100.0100 ####[facility] [address] [place], [address] Platelet mean volume Auto Entitic volume (Bld) 11.3 fL Normal 6.2-12.0 [facility] Comment on above: Performed By: #### L 100.0100 ####[facility] [address] [place], [address] Platelets Auto #/vol (Bld) 304 10*3/uL Normal 150-450 [facility] Comment on above: Performed By: #### L 100.0100 ####[facility] [address] [place], [address] RBC Auto #/vol (Bld) 5.10 M/mm3 Normal 4.6-6.2 [facility] Comment on above: Performed By: #### L 100.0100 ####[facility] [address] [place], [address] RDW SD 45.3 fl High 35.1-43.9 [facility] Comment on above: Performed By: #### L 100.0100 ####[facility] [address] [place], [address] WBC Auto #/vol (Bld) 17.0 10*3/uL High 4.4-11.0 [facility] Comment on above: Performed By: #### L 100.0100 ####[facility] [address] [place], [address] CBC-Complete Blood Cnt No Di ffon 06-20-2018 Erythrocyte distribution width Auto Ratio (RBC) 14.3 % Normal 11.6-14.6 [facility] Comment on above: Performed By: #### L 500.2500, L501.4010 ####[facility] [address] [place], [address] Hematocrit Auto Volume Fraction (Bld) 37.9 % Low 40-54 [facility] Comment on above: Performed By: #### L 500.2500, L501.4010 ####[facility] [address] [place], [address] Hemoglobin mass conc (Bld) 12.1 g/dL Low 13.0-16.5 [facility] Comment on above: Performed By: #### L 500.2500, L501.4010 ####[facility] [address] [place], [address] MCH Auto Entitic mass (RBC) 28.9 pg Normal 27.0-32.0 [facility] Comment on above: Performed By: #### L 500.2500, L501.4010 ####[facility] [address] [place], [address] MCHC Auto mass conc (RBC) 31.9 g/gl Low 32-36 [facility] Comment on above: Performed By: #### L 500.2500, L501.4010 ####[facility] [address] [place], [address] MCV Auto Entitic volume (RBC) 90.5 fL Normal 80-94 [facility] Comment on above: Performed By: #### L 500.2500, L501.4010 ####[facility] [address] [place], [address] Platelet mean volume Auto Entitic volume (Bld) 11.9 fL Normal 6.2-12.0 [facility] Comment on above: Performed By: #### L 500.2500, L501.4010 ####[facility] [address] [place], [address] Platelets Auto #/vol (Bld) 267 10*3/uL Normal 150-450 [facility] Comment on above: Performed By: #### L 500.2500, L501.4010 ####[facility] [address] [place], [address] RBC Auto #/vol (Bld) 4.19 M/mm3 Low 4.6-6.2 [facility] Comment on above: Performed By: #### L 500.2500, L501.4010 ####[facility] [address] [place], [address] RDW SD 46.9 fl High 35.1-43.9 [facility] Comment on above: Performed By: #### L 500.2500, L501.4010 ####[facility] [address] [place], [address] WBC Auto #/vol (Bld) 16.8 10*3/uL High 4.4-11.0 [facility] Comment on above: Performed By: #### L 500.2500, L501.4010 ####[facility] [address] [place], [address] CTA Chest W/WO Contraston CTA Chest W/WO Contrast [facility] [address] [place] [id number] Chest W/WO ContrastMR#: [id number] Acct: [id number]: ADAM PRITCHARD Rep #: [id number]: 1945 M 73 From: Leeanne Carter MDPCP: Ronni Jefferson DO Status: REG ERStudy: CTA Chest W/WO Contrast Date of Exam: 06/20/18Exam# [id number] Ordering Dr: Deidre Luna MDSTUDY: CTA CHESTREASON FOR EXAM: Male, 73 years old. Chest painRADIATION DOSAGE (If Supplied By Facility): CTDIvol = ( 17.13 ) mGy, DLP =( 625.35 ) mGycmTECHNIQUE: The examination was performed with the intravenousadministration of 100 ml of Isovue 370 contrast material. Post-processingof the angiographic images was performed, with multiplanar reformation and3D reconstruction.Individualize d dose optimization techniques were used for this CT.COMPARISON: None. FINDINGS:Images obtained in the systemic arterial carotid and pulmonary arterialbolus phase with mild decrease of sensitivity for pulmonary arterialassessment.Normal enhancement of the main pulmonary artery and right and leftpulmonary arteries. Normal enhancement of the bilateral peripheralpulmonary arteries. There is no demonstrated pulmonary embolism.There is atherosclerotic tortuosity of the aortic arch and descendingthoracic aorta. There is a bovine arch as a vascular variant.There is no demonstrated aortic dissection.Normal heart and pericardium. There are calcifications of the coronaryarteries.Normal mediastinum. Normal hilar regions.Normal visualized trachea and bronchi. The lungs are well expanded.Normal pulmonary parenchyma. Few scattered small calcified nodulesprobable granulomata.Normal pleura.Normal chest wall structures.Normal osseous structures.Indistinct gallbladder with indeterminate gallbladder wall, incompletelyimaged, there is a 1 cm calculus in the gallbladder neck. ORDER #: [id number] CT/CTA Chest W/WO ContrastIMPRESSION:Normal CTA chest examination, without a demonstrated pulmonary embolism orarterial dissection.Indeterminate gallbladder, gallbladder inflammation is not excluded.Consider gallbladder ultrasound depending on patient's symptoms.Electronically Signed:Leeanne Carter MD at 5:33 ESTTel , Service support , KZ: Ronni Luna Lean Manager:Signed Normal [facility] Chest 1 View (Portable)on Chest 1 View (Portable) [facility] [address] [place], [place] [address]Gldxo 1 View (Portable)MR#: [id number] Acct: [id number]: ADAM PRITCHARD Rep #: [id number]: 1945 M 73 From: Henrry Duggan MDPCP: Ronni Jefferson DO Status: ADM INStudy: Chest 1 View (Portable) Date of Exam: 06/20/18Exam# [id number] Ordering Dr: Jefry Redding DOSTUDY: X-RAY CHESTREASON FOR EXAM: Male, 73 years old. Respiratory failureTECHNIQUE: Single AP portable view of the chest.COMPARISON: Earlier today FINDINGS:Since the previous study, patient has been intubated, tip is 5 cm above thecarina. NG tube has been placed, tip is in the body of the stomach. EKGleads overlie the chestThe lungs are clear and expanded. There is no demonstrated pleuralabnormality.Normal size heart. Normal mediastinum and kirby. Normal visualizedpulmonary arteries. Normal visualized aortic arch and descending thoracicaorta.Normal visualized thoracic spine. Normal visualized ribs, clavicles, andshoulders.There is no demonstrated abnormality of the visualized soft tissuestructures of the upper abdomen. ORDER #: [id number] RAD/Chest 1 View (Portable)IMPRESSION:Support lines and tubes placed as described, no demonstrated complicationNo acute pulmonary processElectronically Signed:Omar Duggan MD at 17:00 ESTTel , Service support , HT: Ronni Jefferson DO; Jefry Redding D.O. Lean Manager:Signed Normal [facility] Chest 1 View (Portable) [facility] [address] [place] [address]Zpnur 1 View (Portable)MR#: [id number] Acct: [id number]: ADAM PRITCHARD Rep #: [id number]: 1945 M 73 From: Mohit Frey MDPCP: Ronni Jefferson DO Status: ADM INOStudy: Chest 1 View (Portable) Date of Exam: 06/20/18Exam# [id number] Ordering Dr: Jefry Redding DOSTUDY: X-RAY CHESTREASON FOR EXAM: Male, 73 years old. Fever. Patient is uncooperativeand agitated.TECHNIQUE: Single AP portable view of the chest.COMPARISON: Comparison is made with prior study dated June 19, 2018. FINDINGS:EKG electrodes are seen.The lungs are clear and expanded. There is no demonstrated pleuralabnormality.There is mild cardiac enlargement. Normal mediastinum and kirby. Normalvisualized pulmonary arteries. There is atherosclerotic tortuosity of theaortic arch and descending thoracic aorta.Normal visualized thoracic spine. Normal visualized ribs, clavicles, andshoulders.There is no demonstrated abnormality of the visualized soft tissuestructures of the upper abdomen. ORDER #: [id number] RAD/Chest 1 View (Portable)IMPRESSION:Mild cardiomegaly.Electronically Signed:Mohit Frey MD at 14:10 ESTTel [phone], Service support , QF: Ronni Jefferson DO; Jefry Redding D.O. Lean Manager:Signed Normal [facility] Consultationon 06-20-2018 Consultation [facility] [address] [place], [place] [address]Zvxykdqxlqcx51/06/18 0647MR#: [id number] Acct: [id number]: ADAM PRITCHARD Rep #: [id number]: 1945 73 From: Gibson Carlin MDPCP: Ronni Jefferson DO Status: ADM IN YLocation: ICU [id number] for ConsultDate of Consultation: 06/20/18Reason for Consultation: Chest painHistory of Present Illness:The patient is a 73 year old M with no previous cardiac history but a history of hypertensionwho presented to the emergency room yesterday because of chest discomfort described as atightness across his chest. It was associated with mild diaphoresis but no nausea or vomitingor palpitations. He was seen in the emergency room his cardiac troponin enzymes were noted eda mildly abnormal. He however wanted to go home to feed his cats, squirrels and deer. Hewent and did that to his satisfaction and then this morning presented back to the emergencyroom further cardiac enzymes were obtained and was still noted to be abnormal. His EKG howeverwas noted to be normal his blood pressure was elevated. Cardiology was called to furtherevaluate him. []Past Medical HistoryAllergies/Adverse Reactions:AllergiesNo Known Allergies Allergy (Verified 06/20/18 03:37)Home Medications:Ambulatory OrdersMedication Instructions RecordedSurgical History: no surgical historyLives: Spouse/ Significant OtherSmoking Status: Former smokerTobacco Use: Non-smokerAlcohol: NoneDrugs: NoneReview of Systems- Review of SystemsGeneral: Denies: Fever, Night Sweats, FatigueHEENT: Denies: Vision ChangeCardiovascular: Reports: Chest Discomfort, Chest Discomfort at Rest. Denies: Shortness ofBreath, Orthopnea, PND, Peripheral Edema, Palpitations, Lightheadedness, Dizziness, NearSyncope, SyncopeRespiratory: Denies: Cough, Sputum Production, HemoptysisGastrointestinal: Denies: Indigestion, Hematemesis, Hematochezia, MelenaGenitourinary: Denies: Dysuria, HematuriaMuscoloskeletal: Denies: MyalgiasSkin: Denies: RashNeurological: Denies: DizzinessPsychiatric: Denies: AnxietyEndocrine: Denies: Unexplained Weight LossHematologic/ Lymphatic: Denies: AnemiaSubjectve:Pleasant gentleman in no apparent distressObjective:Vital SignsTemp Pulse Resp BP Pulse Ox100.1 F H 91 16 152/89 H 03:33 06/20/18 06:18 06/20/18 06:18 06/20/18 06:18 06/20/18 06:18Oxygen Delivery Method Room AirWeight: 216 lb 7.903 ozBody Mass Index (BMI) 30.2General: Awake, Alert, Oriented x 3HEENT: PERRL, EOMI, Sclera Non IctericNeck: Supple, Good ROM, No Lymph Node EnlargementLungs: Clear to auscultationCardiovascular: Regular Rhythm, Normal S1, Normal S2, No Murmurs, No Rubs, No GallopsVascular: No Carotid Bruits, Normal Femoral Pulses, Normal Radial Pulses, Normal Dorsalis PedalPulse, Normal Posterior Tibial PulsesAbdomen: Bowel Sounds Present, Soft, Non Tender, No HSM, No OrganomegalyExtremities: No Cyanosis, No Clubbing, No edemaSkin: No RashesLymphatic: No Lymph Node EnlargementNeurological: No Focal Motor or Sensory DeficitPsych/Mental Status: Ehkxgkgubgn81/06/18 03:37: WBC 17.0 H, RBC 5.10, Hgb 14.8, Hct 45.9, MCV 90.0, MCH 29.0, MCHC 32.2, RDW13.7, RDW Differential 45.3 H, Plt Count 304, MPV 11.3, Immature Gran % (Auto) 0.200, Neut %(Auto) 83.3 H, Lymph % (Auto) 6.7 L, [place] % (Auto) 9.5, Eos % (Auto) 0.1, Baso % (Auto) 0.2,Absolute Neuts (auto) 14.2 H, Total Counted Not Nsajatrlul47/06/18 03:37: Sodium 138, Potassium 4.3, Chloride 101, Carbon Dioxide 28.0, Anion Gap 9, BUN17, Creatinine 1.23, Est GFR (MDRD) Af Amer 75, Est GFR (MDRD) Non-Af 62, BUN/Creatinine Ratio13.8, Glucose 160 H, Calcium 9.0, Troponin I 0.132 HRhythm:EKG: Normal sinus rhythm with a rate of 71 bpm and no acute changesAssessment/Plan1. Chest pain-unstable angina* Patient presents with recent onset chest discomfort with no EKG changes but abnormal cardiactroponin enzymes. He does have a history of hypertension and previous hyperlipidemia which isdiet controlled. My recommendation at this time would be for us to pursue an invasive approachwith a cardiac catheterization to assess for whether he has any obstructive coronary disease.* Have discussed the above with him the risk benefits alternatives and he agrees with theabove. Depending on the findings further recommendations will be made.*2. Hypertension* His blood pressure is uncontrolled at this time.* Would recommend continuing amlodipine* Discontinue pindolol and substitute metoprolol 25 mg twice a day* May need to add an SHAVON inhibitor.*Lipid profile will be performed for risk stratification.Thank you for allowing me to participate in the care of your patient. Please don't hesitate gilbertoall if any issues ariseAddendum.Cardiac catheterization demonstrated the following:Normal left main coronary artery.Left anterior descending artery with mild disease.Left circumflex artery with AV groove branch with 80% stenosis.Dominant large right coronary artery with 80% proximal stenosis.Preserved ejection fraction.Based on the above angiographic findings I would recommend angioplasty and stenting to [facility] coronary artery primarily.06/20/18 1731 Date [facility] Signature (if applicable): Date CC: No Primary Care Physician; Ronni Jefferson DO; Jefry Redding D.O.; Sparkle Contreras MD;Jassi Joseph MD Signed Normal [facility] Consultation [facility] [address] [place], [place] [address]Udkkhxzfbkqb53/06/18 1049MR#: [id number] Acct: [id number]: MACHOADAM SUZANNEGALINDO Rep #: [id number]: 1945 73 From: Jassi Joseph MDPCP: Ronni Jefferson DO Status: ADM NEEMA YLocation: ICU [id number] for ConsultDate of Consultation: 06/20/18Reason for Consultation: stroke teamHistory of Present Illness:The patient is a 73 year old M who is s/p heart cath/pci this morning, after cath was normal,nursing noted at 1012am onset of aphasia and left facial droop. stroke team was called, CTperformed which was unremarkeable. i examined the patient, his exam returned to normal at puivb95xk, at 1105am i again noted onset of aphasia with very mild left arm discoord. is atbedside, options discussed. no history of bleeding. 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 (Acute) I25.272TPE-HRB-Vtho RCA w/ 3.5 x 28 mm Promus Synergy Stent 06/20/18Obesity E66.9AllergiesNo Known Allergies Allergy (Verified 06/20/18 03:37)Home Medications:Ambulatory OrdersMedication Instructions RecordedSurgical History:Surgical History (Last Reviewed 06/20/18 @ 11:10 by Jassi Joseph MD)History of coronary artery stent placement (Acute) Onset Date: 06/20/18 Z95.6UPR-ZXT-Qjjw RCA w/ 3.5 x 28 mm Promus Synergy Stent 06/20/18History of left heart catheterization Onset Date: 06/20/18 Z98.890Surgical History: no surgical historyLives: Spouse/ Significant OtherSmoking Status: Former smokerTobacco Use: Non-smokerAlcohol: NoneDrugs: NoneReview of SystemsConstitutional: Denies: Chills, Fever, Weight ChangeHEENT: Denies: Head Aches, Sinus Congestion, Sinus DrainageCardiovascular: Denies: Chest Pain, PalpitationsRespiratory: Denies: Cough, Shortness of breath at rest, Sputum productionGastrointestinal: Denies: Abdominal Pain, Nausea, VomitingGenitourinary: Denies: DysuriaMusculoskeletal: Denies: Joint Pain, Joint TendernessSkin: Denies: Rash, WoundsNeurological: Reports: Change in Speech. Denies: Focal weakness, Numbness, TinglingPsychiatric: Denies: Anxiety, Depression, Homicidal Ideations, Suicidal IdeationsHematologic/ Lymphatic: Denies: Easy Bruising, Easy BleedingObjective:exam at times normal except for mild expressive aphasia which waxes and wanes and at times issevere with significant anomia.persistent mild left discoordleft groin pressure dressing in place- Physical ExamVital SignsTemp Pulse Resp BP Pulse Ox37.6 C H 90 25 H 196/78 H 09:30 06/20/18 10:14 06/20/18 10:14 06/20/18 10:14 06/20/18 10:14Oxygen Delivery Method Room AirWeight: 100.7 kgBody Mass Index (BMI) 30.9Laboratory Tests Past 24 HrsWBC 17.0 HRBC 5.10Hgb 14.8Hct 45.9MCV 90.0MCH 29.0MCHC 32.2RDW 13.7RDW Differential 45.3 HPOC GlucosePOC Glucose 157 HCurrent Home Med ListMedication Instructions Recorded Confirmed TypePindolol [Pindolol (Beta Albino)] 5 mg PO BID 03/18/16 06/20/18 HistoryCurrent MedicationsGeneric Name Dose Route Start Last AdminTrade Name Freq PRN Reason Stop Dose AdminAspirin 81 mg 06/20/18 08:00ct reviewed, no acuteAssessment/PlanAll Active Problems (Last Reviewed 06/20/18 @ 11:10 by Jsasi Joseph MD)History of coronary artery stent placement (Acute 06/20/18)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 also discussed with cardiology who recommend additional groin siteprecautionscalled pharmacy for tparemain in icubleeding precautionslabetolol for systolic pressures greater than 185need imaging of intracranial vasculature, cta when able given recent dye load from cath06/20/18 1314 Date Jassi Joseph MDCosigner Signature (if applicable): Date CC: No Primary Care Physician; Ronni Jefferson DO; Jefry Redding D.O.; Sparkle Contreras MD;Jassi Joseph MD Signed Normal [facility] Emergency Department Summary on 06-20-2018 Emergency Department Summary [facility] [address] [place] [address]Utkhiphhm Department Avqfugi45/06/18 0607MR#: [id number] Acct: [id number]: ADAM PRITCHARD Rep #: [id number]: 1945 73 From: Deidre Luna MDPCP: Ronni Jefferson DO Status: ADM NEEMA- ER Visit SummaryDate of Service: 06/20/18Chief Complaint: Chest painHistory of Present Illness: The patient is a 73 M presenting for evaluation secondary to chestpain. Patient was here actually yesterday for chest pain and signed out AGAINST MEDICALADVICE. Patient reports that at about 11 AM he had a sudden onset of chest pain that lastedabout 7 hours. Dose was associated with pain that radiated straight through to his back. 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 Patient statesthat his convinced him to come back to the emergency department. He has an underlyinghistory of hypertension.Physical Examination: Vital signs are notable for blood pressure 179/89. Well-nourished maleno acute distress. Moist mucous membranes. No JVD. Heart regular rate and rhythm 3 out of 6systolic murmur of unknown chronicity. Lungs are clear to auscultation bilaterally. Abdomensoft nontender. Peripheral pulses are +2 x 4. Skin normal color. Remainder physicalotherwise unremarkable.Test Results: EKG shows sinus rhythm of 86 with some left atrial enlargement, left ventricularhypertrophy, no evidence of acute ST segment changes or T wave changes, and no evolution fromprior EKG. CBC shows leukocytosis now of 17, creatinine 1.23, troponin is elevated now to0.132.Emergency Department Course and Treatment: Patient presented for evaluation secondary to chestpain. He did state that the pain initially was chest pain radiating straight through his backso I performed a CT angiogram of the chest that was negative for dissection. Patient's cardiacenzyme is upward trending. This likely is a presentation of a subacute heart attack versusacute coronary syndrome. He is chest pain-free in the emergency department but significantlyhypertensive. An inch of Nitropaste was placed on the patient, he was given aspirin as well aslabetalol. I discussed his case with Dr. Carlin. He recommended brilita, and the patient willbe taken directly to the catheterization lab from the emergency department.Disposition: Cath LabImpression:1. Acute coronary syndromeCritical care time 35 minutesThis note was generated with [employer] dictation software. It may contain incorrect words,spelling, and punctuation that were not noted in review of the chart prior to signingED Disposition- Plan for ED Patient:Chief Complaint: Chest PainReferrals:Hossein Jefferson es, DO [Primary Care Provider] -What to do if you have ProblemsFor any increased pain, shortness of breath, bleeding, nausea or vomiting, chest pain, or anyunexpected problems, contact your Primary Care Provider. Call [facility] ([phone])or report to the closest Emergency Room.Call 911 if necessary.06/20/18 0856 Date Deidre Luna [facility] Signature (If Indicated): Date CC: No Primary Care Physician; Ronni Jefferson DO Normal [facility] Emergency Department [facility] Icxerasvre0022 [place] [address]Zdfhpqmbc Department Qlughxw54/05/18 1745#: [id number] Acct: [id number]: ADAM PRITCHARD Rep #: [id number]: 1945 73 From: Jacques Palacios DOPCP: Care Physician, No Primary Status: DEP ER- ER Visit SummaryDate of Service: 06/19/18Chief Complaint: Chest painHistory of Present Illness: The patient is a 73 M who states that today around 11:00 he beganto have pain in his back which he states is very similar to when his ribs go out. He statesthat when he arches his back makes the pain go away. He has had that problem before and hasseen both chiropractor and his family physician for manipulation with good results. He alsostates he gets esophageal spasms and feels like he is having one now and that combined with hispain from his ribs is making this severe. He states he would normally come to the hospital butsignificant other has made him. He denies any prior stress test or heart catheterization.States his normal systolic blood pressures in the 150-180 range. Former smoker.Physical Examination: Patient is hypertensive 218/115 heart rate is 77 respirations are 23pulse ox is 96%Gen: Well-nourished well-developedHead: Normocephalic atraumaticEyes: Perrl EOMIENT: TMs clear no rhinorrhea moist mucous membranesNeck: Supple no lymphadenopathy no JVD nontenderCVS: Regular rate rhythm no murmurs normal S1-Q3Vviyewqmepl: No distress clear to auscultation bilaterally chest nontenderAbdomen: Soft nontender nondistended normal bowel sounds no massesBack: Tender to palpation over the mid thoracic spinal musculature with hyperemic effect.Anterior associated ribs are tender.Extremity: Nontender no edemaSkin: Normal color no rashNeuro: alert orientated 3 CN II-XII intact normal strength sensation reflexes gait cerebellarPsych: Normal affect normal moodTest Results: EKG sinus at a rate of 80. Chest x-ray negative. First troponin less than0.015. Delta troponin is positive.Emergency Department Course and Treatment: Patient underwent OMM HVLA with good temporaryrelief of symptoms. The patient stated that he wished to leave. I informed him that there ishigh likelihood he was having an acute vascular emergency such as ACS or dissection of theaorta or pulmonary embolism. He states that he wishes to go home he does not wish to stayhere. He is not under the influence of any medications. 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 While I disagree with this decision I believe he has the capacity to make thatdecision. He will be signing out AGAINST MEDICAL ADVICE SUSAN score 2Impression:1. Acute chest pain2. N STEMI3. Thoracic somatic dysfunction4. Osteopathic manipulative treatment of thoracic spine5. Critical care time 35 minutesThis note was generated with [employer] dictation software. It may contain incorrect words,spelling, and punctuation that were not noted in review of the chart prior to signingED Disposition- Plan for ED Patient:Disposition: Against Medical AdviceChief Complaint: Chest PainInstructions: Discharge Instructions for Heart AttackReferrals:Iza Jefferson, DO [COURTESY STAFF PHYSICIAN] - As soon as possibleAdditional Instructions:You should start a full strength aspirin (325 mg) every dayYou need to call your doctor soon as possible to arrange for stress testYou are at very high risk for sudden and heart attack. Please feel [facility] if you change your mind.What to do if you have ProblemsFor any increased pain, shortness of breath, bleeding, nausea or vomiting, chest pain, or anyunexpected problems, contact your Primary Care Provider. Call [facility] ([phone])or report to the closest Emergency Room.Call 911 if necessary.06/20/18 0112 Date Jacques Palacios DOCosigner Signature (If Indicated): Date CC: No Primary Care Physician Normal [facility] Liver Profileon 06-20-2018 Albumin mass conc 3.6 g/dL Normal 3.2-5.0 [facility] Comment on above: Performed By: #### L 100.0100 ####[facility] [address] [place], [address] ALP enzyme act/vol 96 U/L Normal 45-117 [facility] Comment on above: Performed By: #### L 100.0100 ####[facility] [address] [place], [address] ALT enzyme act/vol 25 U/L Normal 16-61 [facility] Comment on above: Performed By: #### L 100.0100 ####[facility] [address] [place], [address] AST enzyme act/vol 22 U/L Normal 15-37 [facility] Comment on above: Performed By: #### L 100.0100 ####[facility] [address] [place], [address] Bilirubin mass conc 0.80 mg/dL Normal 0.20-1.00 [facility] Comment on above: Performed By: #### L 100.0100 ####[facility] [address] [place], [address] Bilirubin.direct mass conc 0.21 mg/dL Normal 0.00-0.30 [facility] Comment on above: Performed By: #### L 100.0100 ####[facility] [address] [place], [address] Globulin Calculated mass conc (S) 4.1 g/dL Normal 2.2-4.2 [facility] Comment on above: Performed By: #### L 100.0100 ####[facility] [address] [place], [address] Protein mass conc 7.7 g/dL Normal 6.4-8.2 [facility] Comment on above: Performed By: #### L 100.0100 ####[facility] [address] [place], [address] MRA Head ONLY without Contra ston 06-20-2018 MRA Head ONLY without Contrast [facility] Qq[address]ubf[address]61 P[place] SHAW MD [id number] Head ONLY without ContrastMR#: [id number] Acct: [id number]: ADAM PRITCHARD Rep #: [id number]: 1945 M 73 From: Nando Velazco MDPCP: Ronni Jefferson DO Status: ADM INStudy: MRA Head ONLY without Contrast Date of Exam: 06/20/18Exam# [id number] Ordering Dr: Jassi Joseph MDSTUDY: MRA OF THE HEAD WITHOUT CONTRASTREASON FOR EXAM: Male, 73 years old. CVA status post TPATECHNIQUE: 3-D kupa-mo-hdeovr (TOF) imaging was performed with MIPs. Thestudy was performed unenhanced.COMPARISON: CT brain June 20, 2018 FINDINGS:Normal bilateral petrous carotid arteries. Normal right cavernous carotidartery with a normal supraclinoid bifurcation. Normal left cavernouscarotid artery with a normal supraclinoid bifurcation.Normal right A1 segments of the anterior cerebral artery. Normal left Q4ctwolssf of the anterior cerebral artery. Normal intact anteriorcommunicating artery (ACOM). Normal bilateral A2 segments of the anteriorcerebral arteries.Normal right M1 and M2 segments of the middle cerebral arteries, with anormal M1 bifurcation. Normal left M1 and M2 segments of the middlecerebral arteries, with a normal M1 bifurcation.Normal right posterior communicating artery (PCOM). Normal left posteriorcommunicating artery (PCOM).Normal bilateral vertebral arteries. Normal basilar artery with a normalbasilar bifurcation. The visualized bilateral superior cerebellar (SCA)arteries are normal.Normal bilateral P1, P2 and visualized P3 segments of the posteriorcerebral arteries.There is no demonstrated aneurysm of the [place]. There is nomajor vessel occlusion or hemodynamically significant stenosis. There isno demonstrated abnormality of the visualized brain. ORDER #: [id number] MRI/MRA Head ONLY without ContrastIMPRESSION:Normal MRA of the headElectronically Signed:Nando Velazco MD at 22:14 ESTTel , Service support , [place]: Ronni Jefferson DO; Jassi Joseph MD Lean Manager:Signed Normal [facility] MRA Neck WITH and W/O Contra ston 06-20-2018 MRA Neck WITH and W/O Contrast [facility] [address] [place], [place] [address]HLZ Neck WITH and W/O ContrastMR#: [id number] Acct: [id number]: ADAM PRITCHARD Rep #: [id number]: 1945 M 73 From: Nando Velazco MDPCP: Ronni Jefferson DO Status: ADM INStudy: MRA Neck WITH and W/O Contrast Date of Exam: 06/20/18Exam# [id number] Ordering Dr: Jassi Joseph MDSTUDY: MRA NECK WITH AND WITHOUT CONTRASTREASON FOR EXAM: Male, 73 years old. CVA status post TPATECHNIQUE: 3-D ytcc-vo-bffure (TOF) imaging was performed in an 1.5 T MRIscanner. 10 ml of Gadavist was administered for the contrast enhancedimages.COMPARISON: None. FINDINGS:RIGHT CAROTID ARTERIES:Normal right common carotid artery (CCA). Normal right common carotidbulb. Normal origin of the right internal carotid (ICA) artery without ahemodynamically significant stenosis. Normal visualized cervical portionof the right internal carotid artery.Normal origin of the right external carotid artery (ECA).LEFT CAROTID ARTERIES:Normal left common carotid artery (CCA). Normal left common carotid bulb.Normal origin of the left internal carotid (ICA) artery without ahemodynamically significant stenosis. Normal visualized cervical portionof the left internal carotid artery.Normal origin of the left external carotid artery (ECA).VERTEBRAL ARTERIES:Normal antegrade flow within the bilateral vertebral artery without ahemodynamically significant stenosis. ORDER #: [id number] MRI/MRA Neck WITH and W/O ContrastIMPRESSION:Normal bilateral cervical carotid and vertebral arteries.Electronically Signed:Nando Velazco MD at 22:09 ESTTel , Service support , [place]: Ronni Jefferson DO; Jassi Joseph MD Lean Manager:Signed Normal [facility] Troponin-Ion 06-20-2018 Troponin I.cardiac mass conc 0.132 ng/mL High <0.045 [facility] Comment on above: Result Comment: TROP ONIN-I EXPECTED VALUES <0.045 Negative 0.045 - 0.590 Consistent with Cardiac Damage > OR = 0.600 Critical Value Not every elevated troponin is indicative of CT. Thesevalues should be used with clinical judgement in examiningthe patient's clinical picture for diagnosis. To establisha diagnosis of CT versus myocardial injury, there must be ademonstrated rise and/or fall in the troponin values, inaddition to ischemic symptoms, EKG changes, new regionalwall motion abnormality, and/or angiographical evidence. PLEASE NOTE: REFERENCE RANGES EDITED 17 Performed By: #### L 500.2500, L501.4010 ####[facility] [address] [place], [address] Urinalysis, Completeon 06-20 BACTERIA 0 SEEN Normal None Seen [facility] Comment on above: Order Comment: How w as Urine Obtained? VINER OPERATOR TO SPECIFY Performed By: #### L 100.0100 ####[facility] [address] [place], [address] MUCUS, URINE 0 SEEN Normal [facility] Comment on above: Order Comment: How w as Urine Obtained? VINER OPERATOR TO SPECIFY Performed By: #### L 100.0100 ####[facility] [address] [place], [address] RBC Test strip #/vol (U) 25-50 SEEN Normal 0-5 [facility] Comment on above: Order Comment: How w as Urine Obtained? VINER OPERATOR TO SPECIFY Performed By: #### L 100.0100 ####[facility] [address] [place], [address] SQUAM EPI 0 SEEN Normal 0-5 [facility] Comment on above: Order Comment: How w as Urine Obtained? VINER OPERATOR TO SPECIFY Performed By: #### L 100.0100 ####[facility] [address] [place], [address] WBC 0-5 SEEN Normal 0-5 [facility] Comment on above: Order Comment: How w as Urine Obtained? VINER OPERATOR TO SPECIFY Performed By: #### L 100.0100 ####[facility] [address] [place], [address] BILIRUBIN URINE Negative Normal Negative [facility] Comment on above: Order Comment: How w as Urine Obtained? VINER OPERATOR TO SPECIFY Performed By: #### L 100.0100 ####[facility] [address] [place], [address] CLARITY Sl. Cloudy Normal Clear [facility] Comment on above: Order Comment: How w as Urine Obtained? VINER OPERATOR TO SPECIFY Performed By: #### L 100.0100 ####[facility] [address] [place], [address] COLOR Yellow Normal Yellow [facility] Comment on above: Order Comment: How w as Urine Obtained? VINER OPERATOR TO SPECIFY Performed By: #### L 100.0100 ####[facility] [address] [place], [address] GLUCOSE, UR Normal Normal Normal [facility] Comment on above: Order Comment: How w as Urine Obtained? VINER OPERATOR TO SPECIFY Performed By: #### L 100.0100 ####[facility] [address] [place], [address] KETONE UR Negative Normal Negative [facility] Comment on above: Order Comment: How w as Urine Obtained? VINER OPERATOR TO SPECIFY Performed By: #### L 100.0100 ####[facility] [address] [place], [address] LEUK ESTERASE 25 /ul High Negative [facility] Comment on above: Order Comment: How w as Urine Obtained? VINER OPERATOR TO SPECIFY Performed By: #### L 100.0100 ####[facility] [address] [place], [address] NITRITE UR Negative Normal Negative [facility] Comment on above: Order Comment: How w as Urine Obtained? VINER OPERATOR TO SPECIFY Performed By: #### L 100.0100 ####[facility] [address] [place], [address] OCCULT BLOOD-UR 250 /ul High Negative [facility] Comment on above: Order Comment: How w as Urine Obtained? VINER OPERATOR TO SPECIFY Performed By: #### L 100.0100 ####[facility] [address] [place], [address] pH UR 5.0 Normal 5.0 - 8.0 [facility] Comment on above: Order Comment: How w as Urine Obtained? VINER OPERATOR TO SPECIFY Performed By: #### L 100.0100 ####[facility] [address] [place], [address] Protein mass conc 100 mg/dl High Negative [facility] Comment on above: Order Comment: How w as Urine Obtained? VINER OPERATOR TO SPECIFY Performed By: #### L 100.0100 ####[facility] [address] [place], [address] SP.GR. DIPSTX 1.020 Normal 1.002-1.030 [facility] Comment on above: Order Comment: How w as Urine Obtained? VINER OPERATOR TO SPECIFY Performed By: #### L 100.0100 ####[facility] [address] [place], [address] UROBILI Normal Normal Normal [facility] Comment on above: Order Comment: How w as Urine Obtained? VINER OPERATOR TO SPECIFY Performed By: #### L 100.0100 ####[facility] [address] [place], [address] Basic Metabolic Profile (BMP )on 06-19-2018 Calcium mass conc 8.8 mg/dL Normal 8.5-10.1 [facility] Comment on above: Performed By: #### L 500.2500, L501.4010 ####[facility] [address] [place], [address] Chloride molar conc 104 mmol/L Normal 98-107 [facility] Comment on above: Performed By: #### L 500.2500, L501.4010 ####[facility] [address] [place], [address] CO2 molar conc 28.0 mmol/L Normal 21.0-32.0 [facility] Comment on above: Performed By: #### L 500.2500, L501.4010 ####[facility] [address] [place], [address] Creatinine mass conc 1.23 mg/dL Normal 0.70-1.30 [facility] Comment on above: Result Comment: The validity of the calculated GFR AND GFRAA in patients over70 years has not been determined. Clinical correlation isessential. Performed By: #### L 500.2500, L501.4010 ####[facility] [address] [place], [address] EST GFR - AA 75 mL/min Normal >60 [facility] Comment on above: Result Comment: Afri can [place] GFR Calc Performed By: #### L 500.2500, L501.4010 ####[facility] [address] [place], [address] Estimated CRCL 58.67 ml/min Normal [facility] Comment on above: Performed By: #### L 500.2500, L501.4010 ####[facility] [address] [place], [address] GAP 6 Normal 5-15 [facility] Comment on above: Performed By: #### L 500.2500, L501.4010 ####[facility] [address] [place], [address] GFR/1.73 sq M predicted among non-blacks MDRD vol rate/area (S/P/Bld) 62 mL/min/{1.73_m2} Normal >60 [facility] Comment on above: Result Comment: Non- GFR Calc Performed By: #### L 500.2500, L501.4010 ####[facility] [address] [place], [address] Glucose mass conc 131 mg/dL High 74-106 [facility] Comment on above: Result Comment: Fast ing Glucose result greater than or equal to 126 mg/dLsuggests DIABETES MELLITUS per A.D.A. criteria.Please note revised GLUCOSE reference range bcfewtonm63/02/2018. Performed By: #### L 500.2500, L501.4010 ####[facility] [address] [place], [address] Potassium molar conc 4.1 mmol/L Normal 3.5-5.1 [facility] Comment on above: Performed By: #### L 500.2500, L501.4010 ####[facility] [address] [place], [address] Sodium molar conc 138 mmol/L Normal 136-145 [facility] Comment on above: Performed By: #### L 500.2500, L501.4010 ####[facility] [address] [place], [address] Urea nitrogen mass conc 16 mg/dL Normal 7-18 [facility] Comment on above: Performed By: #### L 500.2500, L501.4010 ####[facility] [address] [place], [address] Urea nitrogen mass conc (Bld) 13.0 RATIO Normal 10-20 [facility] Comment on above: Performed By: #### L 500.2500, L501.4010 ####[facility] [address] [place], [address] CBC W/Diff, Automatedon 11-0 -2018 Absolute Neut 6.8 X10 3/uL Normal 2.0-7.7 [facility] Comment on above: Performed By: #### L 100.0100 ####[facility] [address] [place], [address] Basophils/100 WBC Auto (Bld) 0.3 % Normal 0-1 [facility] Comment on above: Performed By: #### L 100.0100 ####[facility] [address] [place], [address] Eosinophils/100 WBC Auto (Bld) 2.1 % Normal 0-5 [facility] Comment on above: Performed By: #### L 100.0100 ####[facility] [address] [place], [address] Erythrocyte distribution width Auto Ratio (RBC) 14.0 % Normal 11.6-14.6 [facility] Comment on above: Performed By: #### L 100.0100 ####[facility] [address] [place], [address] Hematocrit Auto Volume Fraction (Bld) 46.6 % Normal 40-54 [facility] Comment on above: Performed By: #### L 100.0100 ####[facility] [address] [place], [address] Hemoglobin mass conc (Bld) 14.7 g/dL Normal 13.0-16.5 [facility] Comment on above: Performed By: #### L 100.0100 ####[facility] [address] [place], [address] IM GRAN % 0.000 % Normal 0.0-0.9 [facility] Comment on above: Result Comment: IG% - Immature Granulocytes (promyelocytes, myelocytes andmetamyelocytes) > 1% indicates that a LEFT SHIFT is Present. Performed By: #### L 100.0100 ####[facility] [address] [place], [address] Lymphocytes Auto #/vol (Bld) 1.53 X10 3/ul Normal 0.83-4.51 [facility] Comment on above: Performed By: #### L 100.0100 ####[facility] [address] [place], [address] Lymphocytes/100 WBC Auto (Bld) 16.6 % Low 19-41 [facility] Comment on above: Performed By: #### L 100.0100 ####[facility] [address] [place], [address] MCH Auto Entitic mass (RBC) 28.8 pg Normal 27.0-32.0 [facility] Comment on above: Performed By: #### L 100.0100 ####[facility] [address] [place], [address] MCHC Auto mass conc (RBC) 31.5 g/gl Low 32-36 [facility] Comment on above: Performed By: #### L 100.0100 ####[facility] [address] [place], [address] MCV Auto Entitic volume (RBC) 91.4 fL Normal 80-94 [facility] Comment on above: Performed By: #### L 100.0100 ####[facility] [address] [place], [address] Monocytes/100 WBC Auto (Bld) 6.9 % Normal 0-10 [facility] Comment on above: Performed By: #### L 100.0100 ####[facility] [address] [place], [address] Neutrophils/100 WBC Auto (Bld) 74.1 % High 47-70 [facility] Comment on above: Performed By: #### L 100.0100 ####[facility] [address] [place], [address] Platelet mean volume Auto Entitic volume (Bld) 10.9 fL Normal 6.2-12.0 [facility] Comment on above: Performed By: #### L 100.0100 ####[facility] [address] [place], [address] Platelets Auto #/vol (Bld) 343 10*3/uL Normal 150-450 [facility] Comment on above: Performed By: #### L 100.0100 ####[facility] [address] [place], [address] RBC Auto #/vol (Bld) 5.10 M/mm3 Normal 4.6-6.2 [facility] Comment on above: Performed By: #### L 100.0100 ####[facility] [address] [place], [address] RDW SD 46.8 fl High 35.1-43.9 [facility] Comment on above: Performed By: #### L 100.0100 ####[facility] [address] [place], [address] WBC Auto #/vol (Bld) 9.2 10*3/uL Normal 4.4-11.0 [facility] Comment on above: Performed By: #### L 100.0100 ####[facility] [address] [place], [address] Chest PA and Lateralon 11-05 -2018 Chest PA and Lateral [facility] [address] [place] [address]Ccmaz PA and LateralMR#: [id number] Acct: [id number]: ADAM PRITCHARD Rep #: [id number]: 1945 M 73 From: Mohit Frey MDPCP: Care Physician, No Primary Status: PRE ERStudy: Chest PA and Lateral Date of Exam: 06/19/18Exam# [id number] Ordering Dr: Provider,Ed P.STUDY: X-RAY CHESTREASON FOR EXAM: Male, 73 years old. Chest pain.TECHNIQUE: PA and lateral views of the chest.COMPARISON: None. FINDINGS:The lungs are clear and expanded. There is no demonstrated pleuralabnormality.Normal size heart. There are calcified bilateral hilar lymph nodes.Normal visualized pulmonary arteries. There is atherosclerotic tortuosityof the aortic arch and descending thoracic aorta.There are degenerative changes of the visualized thoracic spine. Normalvisualized ribs, clavicles, and shoulders.There is no demonstrated abnormality of the visualized soft tissuestructures of the upper abdomen. ORDER #: [id number] RAD/Chest PA and LateralIMPRESSION:No acute abnormality is seen.Electronically Signed:Mohit Frey MD at 13:18 ESTTel [phone], Service support , TQ: No Primary Care Physician; ED PHYSICIAN PROVIDER Lean Manager:Signed Normal [facility] Troponin-Ion 06-19-2018 Troponin I.cardiac mass conc 0.068 ng/mL High <0.045 [facility] Comment on above: Order Comment: 'TROP ' Serial specimen #1, #2 or #3: 2 Result Comment: TROP ONIN-I EXPECTED VALUES <0.045 Negative 0.045 - 0.590 Consistent with Cardiac Damage > OR = 0.600 Critical Value Not every elevated troponin is indicative of CT. Thesevalues should be used with clinical judgement in examiningthe patient's clinical picture for diagnosis. To establisha diagnosis of CT versus myocardial injury, there must be ademonstrated rise and/or fall in the troponin values, inaddition to ischemic symptoms, EKG changes, new regionalwall motion abnormality, and/or angiographical evidence. PLEASE NOTE: REFERENCE RANGES EDITED 17 Performed By: #### L [id number] ####[facility] [id number] [facility]. [place], [place], [address] Troponin I.cardiac mass conc ng/mL Normal <0.045 [facility] Comment on above: Result Comment: TROP ONIN-I EXPECTED VALUES <0.045 Negative 0.045 - 0.590 Consistent with Cardiac Damage > OR = 0.600 Critical Value Not every elevated troponin is indicative of CT. Thesevalues should be used with clinical judgement in examiningthe patient's clinical picture for diagnosis. To establisha diagnosis of CT versus myocardial injury, there must be ademonstrated rise and/or fall in the troponin values, inaddition to ischemic symptoms, EKG changes, new regionalwall motion abnormality, and/or angiographical evidence. PLEASE NOTE: REFERENCE RANGES EDITED 17 Performed By: #### L 500.2500, [id number] ####[facility] [id number] [facility] [employer]. [place], [place], [address] Encounters Encounter Date Encounter Type Care Provider Facility Start: 05-24-2025 End: 05-24-2025 ambulatory DEIDRE CAMPUZANO DO Facility[facility] Start: 05-24-2025 End: 05-24-2025 Patient encounter procedure DEIDRE CAMPUZANO DO [facility] Start: 06-11-2024 End: 06-11-2024 ambulatory DEIDRE CAMPUZANO DO Facility[facility] Start: 06-11-2024 End: 06-11-2024 Patient encounter procedure DEIDRE CAMPUZANO DO [facility] Start: 06-22-2018 Patient encounter procedure Jacques Davis Facility:[facility] Start: 06-20-2018 End: 06-24-2018 Evaluation and management of inpatient Ronni Jefferson Facility:[facility] Start: 06-20-2018 End: 06-24-2018 Patient encounter procedure Gibson Carlin Facility:[facility] Start: 06-20-2018 Patient encounter procedure Josseline Zuñiga Facility:[facility] Start: 06-20-2018 Patient encounter procedure Gibson Tesfaye Facility:[facility] Start: 06-19-2018 End: 06-19-2018 Emergency department patient visit No [facility] Facility:[facility] Procedures Date Procedure Procedure Detail Performing Clinician Start: 06-26-2018 End: 06-26-2018 12 lead ECG No [facility] octavia Start: 06-23-2018 12 lead ECG No [facility] Start: 06-22-2018 End: 06-22-2018 12 lead ECG No [facility] oct[facility] Start: 06-15-2018 Placement of stent MAURA CAMPUZANO DO Start: 08-15-1969 Vasectomy DEIDRE MCPHERSON DO Gallbladder structur e (body structure) DEIDRE CAMPUZANO DO Immunizations Immunization Date Immunization Notes Care Provider Anna small 06-18-2024 influenza, high dose seasonal, preservative-free; Translations: [Afluria PF Prefilled Syringe ] DEIDRE CAMPUZANO DO [facility] 06-22-2023 influenza virus vacc ine, unspecified formulation DEIDRE CAMPUZANO DO [facility] 05-24-2023 SARS-CoV-2 (COVID-19 ) mRNA-[id number] DEIDRE CAMPUZANO DO [facility] 03-17-2023 pneumococcal polysaccharide vaccine, 23 valent; Translations: [Pneumovax 23] DEIDRE CAMPUZANO DO [facility] 06-08-2022 influenza virus vacc ine, unspecified formulation DEIDRE CAMPUZANO DO [facility] 04-18-2022 SARS-CoV-2 mRNA (tozinameran) vaccine DEIDRE CAMPUZANO DO [facility] Comment on above: Result Comment: [facility]- Moderna Bivalent Booster 11-30-2021 SARS-CoV-2 (COVID-19 ) mRNA-1273 vaccine DEIDRE CAMPUZANO DO [facility] Comment on above: Result Comment: [facility] 07-23-2021 SARS-CoV-2 (COVID-19 ) mRNA-1273 vaccine DEIDRE CAMPUZANO DO [facility] 06-25-2021 influenza virus vacc ine, unspecified formulation DEIDRE CAMPUZANO DO [facility] Comment on above: Result Comment: [facility] 11-11-2020 SARS-CoV-2 (COVID-19 ) mRNA-1273 vaccine; Translations: [Moderna COVID-19 Vaccine] DEIDRE CAMPUZANO DO [facility] 10-14-2020 SARS-CoV-2 (COVID-19 ) mRNA-1273 vaccine; Translations: [Moderna COVID-19 Vaccine] DEIDRE CATKO DO [facility] Vaccine [facility] Comment on above: Result Comment: Preet Price 09-05-2019 influenza virus vacc ine, unspecified formulation DEIDRE CATKO DO [facility] 05-29-2018 influenza virus vacc ine, unspecified formulation DEIDRE EMORYKO DO [facility] 08-25-2017 influenza virus vacc ine, unspecified formulation DEIDRE EMORYKO DO [facility] 07-26-2016 influenza virus vacc ine, unspecified formulation DEIDRE HALKO DO [facility] 07-15-2014 influenza virus vacc ine, unspecified formulation DEIDRE CAMPUZANO DO [facility] 07-15-2014 pneumococcal conjuga te vaccine, 13 valent DEIDRE CAMPUZANO DO [facility] Payers Date Payer Category Payer Medicare [id number] 2018 Private Health Insurance [id number] 2018 Private Health Insurance 2018 Medicare [id number] 2018 Private Health Insurance [id number] 2018 Self-pay 1945 Unknown [id number] 2.16. [id number] 1945 Unknown [id number] 2.16.8 40.1.754218.3.579.2.627 Unknown [id number] 2.16.8 40.1.881936.3.579.2.462 Unknown [id number] 2.16.8 40.1.294280.3.579.2.462 Unknown [id number] 2.16.8 40.1.660455.3.579.2.462 Unknown [id number] 2.16.8 40.1.163974.3.579.2.462 Unknown [id number] 2.16.8 40.1.156507.3.579.2.462 Unknown [id number] 2.16.8 40.1.964657.3.579.2.462 Unknown [id number] 2.16.8 40.1.659268.3.579.2.462 Unknown [id number] 2.16.8 40.1.504985.3.579.2.462 Unknown [id number] 2.16.8 40.1.789887.3.579.2.462 Unknown [id number] 2.16.8 40.1.449306.3.579.2.462 Unknown [id number] 2.16.8 40.1.753059.3.579.2.462 Unknown [id number] 2.16.8 40.1.064797.3.579.2.462 Unknown [id number] 2.16.8 40.1.141211.3.579.2.462 Unknown [id number] 2.16.8 40.1.343788.3.579.2.462 Unknown [id number] 2.16.8 40.1.276029.3.579.2.462 Unknown [id number] 2.16.8 40.1.712362.3.579.2.462 Unknown [id number] 2.16.8 40.1.967919.3.579.2.462 Unknown [id number] 2.16.8 40.1.589493.3.579.2.462 Unknown [id number] 2.16.8 40.1.080004.3.579.2.462 Unknown [id number] 2.16.8 40.1.508313.3.579.2.462 Unknown [id number] 2.16.8 40.1.934631.3.579.2.462 Unknown [id number] 2.16.8 40.1.506084.3.579.2.462 Unknown [id number] 2.16.8 40.1.569931.3.579.2.462 Social History Date Type Detail Facility Tobacco Tobacco Use: ilir t smoking in 1987. [facility] Tobacco smoking status Never smo ked tobacco (finding) [facility] Sex Assigned At Male [facility] Tobacco smoking status [facility] Start: 10-10-2019 Sex Male (finding) [facility] Evaluation + Plan note 02-15-2024 Laboratory Note Date & Type Note Facility 09-29-2023 Evaluation + Plan note Future Scheduled TestsProstate Specific Antigen 09/29/23Albumin/Creatinine Ratio, Random Urine 04/30/24 [facility] Evaluation + Plan note Laboratory Note Date & Type Note Facility Evaluation + Plan note Future Appointments Appointment Date:05/27/2025 04:30:00 PM Scheduled Provider:DEIDRE CAMPUZANO DO Location:[facility] Appointment Type:[facility] Medicare Future Scheduled TestsProstate Specific Antigen 06/18/24Albumin/Creatinine Ratio, Random Urine 02/04/25Ratio Prot/Creat Urine 02/04/25 [facility] Hospital course Narrative Note Date & Type Note Facility Hospital course Narrative No data available for this section [facility] Hospital Discharge instructions Note Date & Type Note Facility Hospital Discharge instructions No data available for this section [facility] Summary Purpose Family History No Family History Records FoundNo Family History Records Found No data available for this section No data available for this section No Family History Records Found Advance Directives No Advanced Directives Records FoundNo Advanced Directives Records FoundNo Advanced Directives Records Found Hospital Course Note [facility] dical Records [id number] [place], [place] [address]Plgxmxrfr Hyjqloi34/10/18 1101MR#: [id number] Acct: [id number]: ADAM PRITCHARD Rep #: [id number]: 1945 73 From: Sparkle Contreras MDPCP: Ronni Jefferson DO Status: DIS IN Y[facility] [id number] Date and DiagnosisDate of Admission: 06/20/18Date of Discharge: 06/24/18- Primary Discharge DiagnosisActive and Suspected Problems (Last Reviewed 06/20/18 @ 15:17 by Jacques Hinojosa MD)Acute cholecystitis (Acute)NSTEMI s/p PTCA with stent to RCAembolic stroke- Secondary Discharge DiagnosisChronic Problems (Last Reviewed 06/20/18 @ 15:17 by Jacques Hinojosa MD)Essential (primary) hypertension (Chronic)Hospital Course and TreatmentImaging Results:Diagnostic DataChest CTA 06/20/18 03:53IMPRESSION:Normal CTA chest examination, without a demonstrated pulmonary embolism orarterial dissection.Indeterminate gallbladder, gallbladder inflammation is not excluded.Consider gallbladder ultrasound depend (more content not included)... Additional Source Comments (unrecognized sect ion and content) No Status Records FoundNo Status Records FoundNo Status Records Found INFORMATION SOURCE (unrecogn ized section and content) DATE CREATED AUTHOR 08/23/2018 [facility] DATE CREATED AUTHOR AUTHOR'S ORGANIZ ATION 01/09/2020 [facility] ([place]) DATE CREATED AUTHOR AUTHOR'S ORGANIZ ATION 05/26/2025 [facility] Patient Care team informatio n (unrecognized section and content) Care Team Personnel Name: DEIDRE CAMPUZANO DO Position: P4 Physician - Primary Care Member Role: Primary Care Physician Address: Address: [address] [place] [address] Care Team Related Persons Name: MARIA VICTORIA PRITCHARD Care Team Personnel Name: DEIDRE CAMPUZANO DO Position: P4 Physician - Primary Care Member Role: Primary Care Physician Address: [address] [place] [address] Telecom: Care Team Related Persons Name: MARIA VICTORIA PRITCHARD FOR RECORDS PERTAINING TO PATIENTS WHO ARE OR HAVE BEEN ENROLLED IN A CHEMICAL DEPENDENCY/SUBSTANCEABUSE PROGRAM, SOME INFORMATION MAY BE OMITTED. This clinical summary was aggregated from multiple sources. Caution should be exercised in using it in the provision of clinical care. This summary normalizes information from multiple sources, and as a consequence, information in this document may materially change the coding, format and clinical context of patient data. In addition, data may be omitted in some cases. CLINICAL DECISIONS SHOULD BE BASED ON THE PRIMARY CLINICAL RECORDS. [employer] provides no warranty or guarantee of the accuracy or completeness of information in this document.
[2025-06-19] VITALS (10 sets, daily range): BP systolic 138–154; BP diastolic 56–66; PULSE 76–80; RESP 16–18; TEMP 36.7–36.8; O2SAT 93–98
[2025-06-19 06:20] LABS: Hematocrit 37.7 % (40-54); Hemoglobin 12.1 g/dL (13.0-16.5); Immature Granulocytes Count 0.040 X10^3/uL (0.0-0.0); Mean Corp Hgb Conc 32.1 g/dL (32-36); Mean Corpuscular Volume 89.1 fL (80-94); Mean Platelet Vol. 12.8 fl (6.2-12.0); NRBC Flagged by Analyzer 0 % (0-5); Platelet Count 254 K/mm3 (150-450); RBC Distribution Width CV 14.6 % (11.6-14.6); RBC Distribution Width SD 47.8 fl (35.1-43.9); Red Blood Count 4.23 M/mm3 (4.6-6.2); White Blood Count 10.7 K/mm3 (4.4-11.0)
[2025-06-19 06:33] LABS: Anion Gap 13 (5-15); BUN 32 mg/dL (4-19); BUN/Creat Ratio 16.5 RATIO (10-20); Calcium,Total 8.1 mg/dL (7.6-11.0); Carbon Dioxide 24.3 mmol/L (21.0-32.0); Chloride 104 mmol/L (98-108); Estimated Creatinine Clearance 32.57 ml/min (50-250); Glucose 183 mg/dL (70-99); Potassium 3.5 mmol/L (3.3-5.1)
[2025-06-19] MEDS: 0.9% Saline Lock 10 ML Syringe IV (09:01)
--- NOTE | 2025-06-19 09:46 | PCM.PN.HOSP ---
Subjective Subjective Oxygen status is much improved with IV Lasix and his renal function is improving as well. He is demanding to leave today and will likely leave AMA if and when cleared by crisis Objective Data Objective Data Vital Signs: Vital Signs Temp Pulse Resp BP Pulse Ox O2 Del Method O2 Flow Rate 98.3 F 77 18 142/56 H 93 Nasal Cannula 2 06/19/25 08:49 06/19/25 08:49 06/19/25 08:49 06/19/25 08:49 06/19/25 09:08 06/19/25 09:08 06/19/25 09:08 FiO2 40 06/18/25 13:13 Oxygen Flow Rate (L/min) 2 Oxygen Delivery Method Nasal Cannula Weight: 190 lb 1 oz Body Mass Index (BMI) 27.2 Intake & Output: Intake and Output for Last 24 Hours 06/18/25 06/19/25 06/20/25 03:59 03:59 03:59 Intake Total 240 / 240 Output Total 1150 / 1150 Balance -910 / -910 Lab / Micro Data 06/19/25 05:43 06/19/25 05:43 Labs: Laboratory Results - last 24 hr 06/18/25 12:00: WBC 11.8 H, RBC 4.73, Hgb 13.7, Hct 43.5, MCV 92.0, MCH 29.0, MCHC 31.5 L, RDW Std Deviation 49.2 H, RDW Coeff of Mandeep 14.6, Plt Count 315, MPV 12.8 H, Immature Gran % (Auto) 0.500, Neut % (Auto) 78.9 H, Lymph % (Auto) 11.7 L, [place] % (Auto) 6.0, Eos % (Auto) 2.2, Baso % (Auto) 0.7, Absolute Neuts (auto) 9.3 H, Absolute Lymphs (auto) 1.38, Nucleated RBC % 0, D-Dimer Quant (PE/DVT) 3.23 H*, Sodium 142, Potassium 4.5, Chloride 105, Carbon Dioxide 23.8, Anion Gap 13, BUN 35 H, Creatinine 1.99 H, Estim Creat Clear Calc 34.46 L, Est GFR (MDRD) Non-Af 34 L, BUN/Creatinine Ratio 17.4, Glucose 223 H, Calcium 9.7, Troponin T High Sens 39 H, NT pro BNP II 4598 H 06/18/25 12:31: Lactic Acid 1.8 06/18/25 13:54: Troponin T Hi Sens 2 Hr 36 H 06/18/25 16:29: Troponin T Hi Sens 4Hr 37 H 06/19/25 05:43: WBC 10.7, RBC 4.23 L, Hgb 12.1 L, Hct 37.7 L, MCV 89.1, MCH 28.6, MCHC 32.1, RDW Std Deviation 47.8 H, RDW Coeff of Mandeep 14.6, Plt Count 254, MPV 12.8 H, Immature Gran % (Auto) 0.400, Neut % (Auto) 75.0 H, Lymph % (Auto) 14.2 L, [place] % (Auto) 9.0, Eos % (Auto) 0.8, Baso % (Auto) 0.6, Absolute Neuts (auto) 8.0 H, Absolute Lymphs (auto) 1.52, Nucleated RBC % 0, Sodium 141, Potassium 3.5, Chloride 104, Carbon Dioxide 24.3, Anion Gap 13, BUN 32 H, Creatinine 1.93 H, Estim Creat Clear Calc 32.57 L, Est GFR (MDRD) Non-Af 35 L, BUN/Creatinine Ratio 16.5, Glucose 183 H, Calcium 8.1 Micro: Microbiology 06/18/25 12:31 Mucosa - Nose SARS-CoV-2, Influenza & RSV (PCR) - Final ABG Data ABG results: ABG 06/18/25 12:50 Specimen Type ART Sample Site R Radial pH 7.43 Bicarbonate Actual 27.0 H Total CO2 28 Base Excess 3 H O2 Saturation 90 L O2 % 40.0 ABG pCO2 40.5 ABG pO2 56 L Nils Test Positive Respiration Rate 12 O2 Delivery Device BiPAP Vent Mode BiLevel Clinical Comments 07/20 Radiography Diagnostic Testing: Radiology Impression Chest X-Ray 06/18/25 12:22 IMPRESSION: Interstitial edema Reading Location: [id number] Chest CTA 06/18/25 13:24 IMPRESSION: 1. No evidence of acute or chronic pulmonary embolus. 2. Interstitial edema, bibasilar atelectasis and small effusions. 3. Top-normal heart size. Coronary artery atherosclerosis. Reading Location: [id number] Rhythm Strip Rhythm Strip: Sinus Rhythm Rate: 75 Ectopy: None Physical Exam Narrative General: Alert, Oriented x3, Cooperative, mild respiratory distress HEENT: Atraumatic, PERRLA, EOMI, Normocephalic Oral: Moist Mucosa Neck: Supple, No JVD Lungs: Diminished, Normal air movement, No rhonchi, No wheeze, No rales, tachypneic Cardiovascular: Regular rate, Regular Rhythm, Normal S1, Normal S2, No murmurs Abdomen: Soft, Non Tender, Non-Distended, No Hepato-splenomegaly Extremities: No edema, Capillary Refill Less than 3 Seconds Skin: No rashes, No breakdown Musculoskeletal: No Tenderness to Palpation of Joints or Extremities Neurological: No focal neurological deficits, moves all extremities Psych/Mental Status: Normal Affect, Appropriate Assessment & Plan Assessment/Plan (1) Acute hypoxemic respiratory failure: (2) Acute exacerbation of congestive heart failure: PLAN: Plan 1. Acute hypoxic respiratory failure secondary to acute CHF exacerbation of unknown type/essential HTN – Unclear whether or not he had flash pulmonary edema due to anxiety or stress earlier this morning secondary to life situation – CTA of the chest does show interstitial edema and he did feel better with a dose of Lasix and BiPAP – Will continue with his home blood pressure medications – Will place him on IV Lasix 40 mg twice daily – Will obtain an echo as his last echo was in 2018 with an EF of 65% and RVSP of 21 mmHg, his echo from yesterday still pending read – Continue with his aspirin and Plavix 2. Renal failure – Chronicity is unclear his last renal function in our system was from 2018 and it was 0.93 – Current creatinine today is 1.99 – Will reevaluate tomorrow morning 3. 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 We did ask crisis to come and evaluate him today and if they have to clear him from the suicidal ideation standpoint then he will be allowed to leave AMA DVT: Heparin Charges/Coding Visit Charges Inpatient E&M: 59602 Subs Hosp L2
--- NOTE | 2025-06-19 11:53 | CASEMGMT ---
Social Work SW spoke with Pat from [facility]. Pat meet with the patient and develop a safety plan. The safety plan is in the patients chart. Pat reported the patient is not actively suicidal. ENRIKE Clarke
--- NOTE | 2025-06-19 15:20 | DCINST_ITS ---
Discharge Instructions DC O2, CPAP, BIPAP needs Home O2 Discharge instructions: No Dressing / Incision Discharge Activity: Return to Normal Activity Dressing / Incision Call your doctor if you observe: Fever of 101 or Higher, Shortness of breath, Dizziness, Fainting spells, Swelling in the ankles, Chest pain and Increased palpitations (irregular heartbeat) Follow Up Care Test Results: Test results from this visit will be discussed in further detail at your follow- up appointment, if applicable. Discharge Plan Admission Admit Date/Time: 06/18/25 15:55 Attending Provider: Jeffrey Bo Primary Care Provider: Jose Upton Instructions Patient Instructions: Heart Failure: Tracking Your Weight, ED Heart Failure, Congestive (CHF) Additional Instructions / Restrictions: Follow-up with your primary care doctor to monitor your renal function given jorge luis t I am starting you on medications that can affect it but it is necessary for your diastolic heart failure. Also recommended to follow-up with cardiology as well for continued goal-directed therapy. Discharge Orders/Prescriptions Prescriptions: New furosemide [Lasix] 40 mg tablet 40 mg PO DAILY Qty: 30 0RF Jardiance 10 mg tablet 10 mg PO DAILY Qty: 30 0RF losartan 25 mg tablet 25 mg PO DAILY Qty: 30 0RF Continued diazepam 5 MG tablet 5 mg PO PRN aspirin 81 MG tablet,chewable 81 mg PO DAILY@0800 Qty: 30 2RF pindolol 10 mg tablet 10 mg PO BID venlafaxine 75 mg capsule,extended release 24hr 75 mg PO DAILY clopidogrel 75 mg tablet 75 mg PO DAILY amlodipine 5 mg tablet 5 mg PO BID tamsulosin 0.4 mg capsule 0.4 mg PO DAILY multivitamin [Daily Multi-Vitamin] Tablet 1 tab PO DAILY garlic 1 cap .Route DAILY coenzyme Q10 [Ultra CoQ10] 1 tab PO DAILY Referrals / Follow Up: Benson Tirado DO [Med Staff - Active Staff, Cardiology] - Within 2 Weeks Jose Upton DO [Primary Care Provider, Family Practice] - Within 1 Week Disposition Disposition (needs filled in before D/C Order can be placed): Home, Self Care
--- NOTE | 2025-06-19 15:33 | DS.PCM_ITS ---
Providers Date of Admission: 06/18/25 Primary Care Physician: Dr. Jose Upton, DO Reason For Visit: PULMONARY EDEMA WITH CHF Diagnosis Discharge Diagnosis (1) Acute hypoxemic respiratory failure: Status: Acute Code(s): J96.01 - Acute respiratory failure with hypoxia (2) Acute exacerbation of congestive heart failure: Status: Chronic Code(s): I50.9 - Heart failure, unspecified Medications at Discharge Home Medications diazepam 5 mg tablet 5 mg PO PRN Anxiety 06/19/18 aspirin 81 mg chewable tablet 81 mg PO DAILY@0800 HEART ##30 06/24/18 amlodipine 5 mg tablet 5 mg PO BID HEART 06/18/25 clopidogrel 75 mg tablet 75 mg PO DAILY HEART 06/18/25 coenzyme Q10 1 tab PO DAILY SUPPLEMENT 06/18/25 garlic 1 cap .Route DAILY SUPPLEMENT 06/18/25 multivitamin (Daily Multi-Vitamin tablet) 1 tab PO DAILY SUPPLEMENT 06/18/25 pindolol 10 mg tablet 10 mg PO BID HEART 06/18/25 tamsulosin 0.4 mg capsule 0.4 mg PO DAILY 06/18/25 venlafaxine 75 mg capsule,extended release 24 hr 75 mg PO DAILY 06/18/25 empagliflozin 10 mg tablet (Jardiance) 10 mg PO DAILY #30 tabs 06/19/25 furosemide 40 mg tablet (Lasix) 40 mg PO DAILY #30 tabs 06/19/25 losartan 25 mg tablet 25 mg PO DAILY #30 tabs 06/19/25 Hospital Course Operations None Procedures 2-D Echocardiogram Summary of Care Provided Minutes Spent on Discharge: 36 Hospital Course: Per HPI: ADAM PRITCHARD, is a 80 M who presents to the hospital with worsening shortness of breath. He initially presented to [facility] with a panic attack and anxiety secondary to situation surrounding his , she was diagnosed with cancer and instead of proceeding with typical chemoradiation and surgery she elected to do homeopathic remedies but he describes increasing paranoia and agitated and altered behavior on her part ultimately with her him which he is devastated by. 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 He did have an elevated D-dimer CT of the chest was negative for PE but it did show interstitial edema with pleural effusions. Initially he was in acute hypoxic respiratory failure necessitating BiPAP but with the institution of BiPAP as well as Lasix he has had significant improvement. Hospital Course: 1. Acute hypoxic respiratory failure secondary to acute on chronic diastolic CHF/essential HTN–80-year-old male presented to the hospital with sudden onset shortness of breath. He had gone to [facility] with a panic attack and anxiety and demanded to leave despite having an oxygen level in the 70s. He then presented to this hospital with increased shortness of breath. Initially he was significantly tachypneic and hypoxic necessitating BiPAP however the ABG at that time demonstrated a significant hypoxia with no hypercapnia. He improved significantly on the BiPAP as well as with diuresis. He received 40 of Lasix yesterday on admission as well as 40 again last night IV. This morning he was on 4 L on my initial evaluation and after subsequent treatment with Lasix was able to come off of his oxygen. He did have an ambulatory pulse ox as well which did not demonstrate a need for oxygen either at rest or with ambulation. Echocardiogram was obtained that demonstrated an EF of 65% with stage III diastolic dysfunction and an RVSP of 51 mmHg. I discussed with him these findings and discussed with him the meaning behind the diastolic heart failure. I do recommend being evaluated by cardiology but he would prefer to do that as an outpatient. He did improve faster than anticipated and given his reluctance of staying in the hospital, I discussed with him the plan for discharge and he expressed understanding the risks and benefits of going home and would like to go home today. I did start him on Lasix 40 mg p.o. daily as well as losartan 25 mg p.o. daily and hopefully he can get Jardiance 10 mg daily covered by insurance. I would also like him to follow-up with cardiology to make medication adjustments as an outpatient. I also recommend follow-up with the primary care doctor to monitor his renal function as his creatinine was elevated on admission to 1.99, today after Lasix yesterday he was 1.93, it is unclear what his baseline creatinine is since we have not seen him in our health system since 2018 so it is unclear still if these values represent a CKD or an acute renal failure. 2. Anxiety/depression/pink slipped for suicidal ideation–he did have to be pink slipped yesterday as he had made some comments to staff about not wanting to be alive anymore and wanting to put a gun to his head. Crisis evaluated him this morning and he denied the statements and they felt that he was not a harm to himself so they cleared him from his pink slip. I did discuss with him the need to follow-up with outpatient mental health given the life situation that he is going through at the moment. Weight / BMI Weight Weight: 190 lb 1.003 oz Body Mass Index (BMI) 27.2 ABG / Lab / Microbiology Data 06/19/25 05:43 06/19/25 05:43 Laboratory: Laboratory Results - last 24 hr 06/18/25 16:29: Troponin T Hi Sens 4Hr 37 H 06/19/25 05:43: WBC 10.7, RBC 4.23 L, Hgb 12.1 L, Hct 37.7 L, MCV 89.1, MCH 28.6, MCHC 32.1, RDW Std Deviation 47.8 H, RDW Coeff of Mandeep 14.6, Plt Count 254, MPV 12.8 H, Immature Gran % (Auto) 0.400, Neut % (Auto) 75.0 H, Lymph % (Auto) 14.2 L, [place] % (Auto) 9.0, Eos % (Auto) 0.8, Baso % (Auto) 0.6, Absolute Neuts (auto) 8.0 H, Absolute Lymphs (auto) 1.52, Nucleated RBC % 0, Sodium 141, Potassium 3.5, Chloride 104, Carbon Dioxide 24.3, Anion Gap 13, BUN 32 H, C reatinine 1.93 H, Estim Creat Clear Calc 32.57 L, Est GFR (MDRD) Non-Af 35 L, BUN/Creatinine Ratio 16.5, Glucose 183 H, Calcium 8.1 Microbiology: Microbiology 06/18/25 12:31 Mucosa - Nose SARS-CoV-2, Influenza & RSV (PCR) - Final Radiography Diagnostic Testing: Radiology Impression Echocardiogram 06/18/25 17:50 Interpretation Summary The left ventricular ejection fraction is 65 %. Mild apical hypokinesis. Stage 3 diastolic dysfunction. Mild (1+) tricuspid valve insufficiency. Right ventricular systolic pressure estimated to be 51 mmHg. Mildly calcified aortic valve. Mild aortic valve stenosis with mean peak gradient 9 mmHg. Mild aortic valve regurgitation. Ordering Physician: Jeffrey Bo Referring Physician: Jose Upton Performed By: Suzie Garcia, DOUGIE, RVT D/C Instructions Call your doctor if you observe: Fever of 101 or Higher, Shortness of breath, Dizziness, Fainting spells, Swelling in the ankles, Chest pain and Increased palpitations (irregular heartbeat) DC O2, CPAP, BIPAP Needs Home O2 Discharge instructions: No Meaningful Use Info Meaningful Use Meaningful Use Diagnoses (Choose all that apply): None applicable Discharge Plan Admission Admit Date/Time: 06/18/25 15:55 Attending Provider: Jeffrey Bo Primary Care Provider: Jose Upton Instructions Patient Instructions: Heart Failure: Tracking Your Weight, ED Heart Failure, Congestive (CHF) Additional Instructions / Restrictions: Follow-up with your primary care doctor to monitor your renal function given that I am starting you on medications that can affect it but it is necessary for your diastolic heart failure. Also recommended to follow-up with cardiology as well for continued goal-directed therapy. Discharge Orders/Prescriptions Prescriptions: New furosemide [Lasix] 40 mg tablet 40 mg PO DAILY Qty: 30 0RF Jardiance 10 mg tablet 10 mg PO DAILY Qty: 30 0RF losartan 25 mg tablet 25 mg PO DAILY Qty: 30 0RF Continued diazepam 5 MG tablet 5 mg PO PRN aspirin 81 MG tablet,chewable 81 mg PO DAILY@0800 Qty: 30 2RF pindolol 10 mg tablet 10 mg PO BID venlafaxine 75 mg capsule,extended release 24hr 75 mg PO DAILY clopidogrel 75 mg tablet 75 mg PO DAILY amlodipine 5 mg tablet 5 mg PO BID tamsulosin 0.4 mg capsule 0.4 mg PO DAILY multivitamin [Daily Multi-Vitamin] Tablet 1 tab PO DAILY garlic 1 cap .Route DAILY coenzyme Q10 [Ultra CoQ10] 1 tab PO DAILY Referrals / Follow Up: Benson Tirado DO [Med Staff - Active Staff, Cardiology] - Within 2 Weeks Jose Upton DO [Primary Care Provider, Family Practice] - Within 1 Week Disposition Disposition (needs filled in before D/C Order can be placed): Home, Self Care Charges/Coding Visit Charges Inpatient E&M: 97738 Disch Hosp >30min
--- NOTE | 2025-06-19 15:47 | CASEMGMT ---
Social Work SW provided the patient with a list of mental health agencies. ENRIKE Clarke
--- NOTE | 2025-06-19 15:54 | CASEMGMT ---
Patient has order for discharge. Patient is discharging on Jardiance. FABY BAKER called [facility], patient's copay is $435.13 as patient has a $590 deductible. RN CM update hospitalist to cost. Per hospitalist, if patient is not able to afford medication, he is to not fill the prescription and follow-up with remote advisor at appointment for further management. FABY BAKER in to patients room to discuss needs at discharge. RN OLIVIA updated patient regarding cost of Jardiance. Patient states he cannot afford it and will not fill it. RN CM updated patient that he will need to follow-up with remote advisor for further management, patient voiced understanding. Patient denied needs or help at discharge. Patient had no further questions or concerns.
--- NOTE | 2025-06-19 16:35 | PHA.DC.COU.R ---
Pharmacy [facility] has performed discharge medication counseling for this patient. The patient was counseled on the following discharge medications and changes in medications for homegoing review. - Losartan 25 mg tablet, Furosemide 40 mg tablet, Empagliflozin 10 mg tablet The Reason for Use, instructions for use, and potential side effects were reviewed for all new medications. The patient's questions regarding all of their medications were answered. The patient was able to verbally demonstrate an understanding of their discharge medications. Medications at Discharge Home Medications diazepam 5 mg tablet 5 mg PO PRN Anxiety 06/19/18 aspirin 81 mg chewable tablet 81 mg PO DAILY@0800 HEART ##30 06/24/18 amlodipine 5 mg tablet 5 mg PO BID HEART 06/18/25 clopidogrel 75 mg tablet 75 mg PO DAILY HEART 06/18/25 coenzyme Q10 1 tab PO DAILY SUPPLEMENT 06/18/25 garlic 1 cap .Route DAILY SUPPLEMENT 06/18/25 multivitamin (Daily Multi-Vitamin tablet) 1 tab PO DAILY SUPPLEMENT 06/18/25 pindolol 10 mg tablet 10 mg PO BID HEART 06/18/25 tamsulosin 0.4 mg capsule 0.4 mg PO DAILY 06/18/25 venlafaxine 75 mg capsule,extended release 24 hr 75 mg PO DAILY 06/18/25 empagliflozin 10 mg tablet (Jardiance) 10 mg PO DAILY #30 tabs 06/19/25 furosemide 40 mg tablet (Lasix) 40 mg PO DAILY #30 tabs 06/19/25 losartan 25 mg tablet 25 mg PO DAILY #30 tabs 06/19/25
== END 2025-06-19 16:38 | disposition home or self-care (01) | DRG 291 ==
LOC: ED 16:39 → PCU 17:00
PROVIDERS: Admitting Provider Family Medicine; Emergency Provider Emergency Medicine; PCP Student in an Organized Health Care Education/Training Program; Visit Provider Family Medicine
DX: I11.0 Hypertensive heart disease with heart failure (principal); J96.01 Acute respiratory failure with hypoxia; I50.33 Acute on chronic diastolic (congestive) heart failure; R45.851 Suicidal ideations; F32.A Depression, unspecified; N19 Unspecified kidney failure; F41.9 Anxiety disorder, unspecified; I25.10 Atherosclerotic heart disease of native coronary artery without angina pectoris; Z79.02 Long term (current) use of antithrombotics/antiplatelets; Z95.5 Presence of coronary angioplasty implant and graft; Z87.891 Personal history of nicotine dependence; Z79.82 Long term (current) use of aspirin; Z79.899 Other long term (current) drug therapy
CPT/HCPCS: 36415; 36600; 71045; 71275; 80048; 82803; 83605; 83880; 84484; 85025; 85379; 87631; 93005; 93306; 94002; 94640; 99285; Q9967; A4216; J1938